=== PATIENT | female | born 1970 | race Caucasian/White ===

== ENCOUNTER 2017-06-28 15:19 | Outpatient (RCR) | payer BC, SELFPAY | END 2017-06-29 23:59 | LOC: NS 15:19 | PROVIDERS: Family Provider Preventive Medicine Occupational Medicine; PCP Preventive Medicine Occupational Medicine; Visit Provider Preventive Medicine Occupational Medicine | DX: E66.9 Obesity, unspecified (principal); Z68.37 Body mass index [BMI] 37.0-37.9, adult; Z71.3 Dietary counseling and surveillance | CPT/HCPCS: 97802 ==

== ENCOUNTER 2017-07-26 09:37 | Outpatient (RCR) | payer BC, SELFPAY | END 2017-07-26 09:38 | LOC: NS 09:37 | PROVIDERS: Family Provider Preventive Medicine Occupational Medicine; PCP Preventive Medicine Occupational Medicine; Visit Provider Preventive Medicine Occupational Medicine | DX: E66.9 Obesity, unspecified (principal); Z68.37 Body mass index [BMI] 37.0-37.9, adult; Z71.3 Dietary counseling and surveillance | CPT/HCPCS: 97803 ==

== ENCOUNTER → 2017-10-01 07:29 | Outpatient (CLI) | payer BC, SELFPAY ==
[2017-10-01 08:44] LABS: Cholesterol 165 mg/dL (200); Glucose 97 mg/dL (74-106); High Density Lipoprotein 49 mg/dL; Triglycerides 137 mg/dL; Very Low Density Lipoprotein 27 mg/dL (5-40)
== END ==
PROVIDERS: Family Provider Preventive Medicine Occupational Medicine; PCP Preventive Medicine Occupational Medicine; Visit Provider Preventive Medicine Occupational Medicine
DX: Z00.00 Encounter for general adult medical examination without abnormal findings (principal)
CPT/HCPCS: 36415; 80061; 82947

== ENCOUNTER → 2017-12-22 10:17 | Outpatient (CLI) | payer BC, SELFPAY ==
--- NOTE | 2017-12-22 10:21 | BI_ITS ---
MAMMOGRAPHY - BILATERAL SCREENING 3-D TOPHER SYNTHESIS REASON FOR EXAM: Female, 47 years old. Bilateral Screening 3-D tomosynthesis PERTINENT HISTORY: Grandmother with breast cancer.. TECHNIQUE: 2-D mammograms and 3-D Topher synthesis of the breast (s) were performed. CAD was performed. COMPARISON: 12/13/2016 FINDINGS: The breast composition is composed of scattered fibroglandular density. Scattered benign calcifications are seen. No dense spiculated masses or suspicious microcalcifications are identified. No architectural distortion is identified. There is no skin thickening or retraction. There has been no significant change since the prior study. BI/SCREENING MAMM (CAD), BILAT IMPRESSION: No mammographic signs of malignancy. Routine yearly mammograms recommended. ASSESSMENT CATEGORY: BIRADS Category 1: Negative. A letter regarding these results will be sent to the patient by the facility within 30 days. FOLLOW UP RECOMMENDATION: Yearly follow up mammogram recommended. (A) Approximately 10% of breast cancers are not detected by mammography. A normal mammogram should not delay biopsy of a clinically suspicious abnormality. Electronically Signed: Smith Velazquez MD at 14:08 EDT , Service support ,
== END ==
PROVIDERS: Family Provider Preventive Medicine Occupational Medicine; PCP Preventive Medicine Occupational Medicine; Visit Provider Obstetrics & Gynecology
DX: Z12.31 Encounter for screening mammogram for malignant neoplasm of breast (principal)
CPT/HCPCS: 77063; 77067

== ENCOUNTER → 2019-01-05 | Outpatient (CLI) | payer OTHER, SELFPAY ==
--- NOTE | 2019-01-05 10:20 | BI_ITS ---
MAMMOGRAPHY - BILATERAL SCREENING REASON FOR EXAM: Female, 48 years old. Routine annual screening examination. PERTINENT HISTORY: Grandmother with breast cancer. TECHNIQUE: Digital bilateral breast topher (3D mammographic acquisition) in the CC and MLO projections. 2-D mediolateral oblique (MLO) and craniocaudad (CC) views of both breasts were obtained. CAD: Full Field Digital Mammography with Computer Added Detection was performed. COMPARISON: Comparison is made with prior study dated December 22, 2017 and December 13, 2016. FINDINGS: Breast Composition: There are scattered areas of fibroglandular density. There are no dominant masses or suspicious calcifications. No other significant abnormalities are identified. There has been no significant change since the prior study. BI/SCREEN MAMM (CAD) W/TOPHER BILAT IMPRESSION: Stable bilateral screening mammogram. Yearly follow-up mammogram recommended. (A) ASSESSMENT CATEGORY: BIRADS Category 1: Negative. A letter regarding these results will be sent to the patient by the facility within 30 days. Approximately 10% of breast cancers are not detected by mammography. A normal mammogram should not delay biopsy of a clinically suspicious abnormality. [id number] Electronically Signed: Cordell Crain, at 12:56 EDT , Service support ,
== END | disposition home or self-care (01) ==
PROVIDERS: Family Provider Preventive Medicine Occupational Medicine; PCP Preventive Medicine Occupational Medicine; Referring Provider Obstetrics & Gynecology; Visit Provider Obstetrics & Gynecology
DX: Z12.31 Encounter for screening mammogram for malignant neoplasm of breast (principal)
CPT/HCPCS: 77063; 77067

== ENCOUNTER → 2019-02-06 15:57 | Outpatient (CLI) | payer OTHER, SELFPAY ==
[2019-02-06 16:28] LABS: Absolute Lymphocyte Count 2.08 X10^3/uL (0.83-4.51); Absolute Neutrophil Count 6.1 X10^3/uL (2.0-7.7); Basophil# 0.03 X10^3/uL; Basophil% 0.3 % (0-1); Eosinophil# 0.14 X10^3/uL; Eosinophils% 1.6 % (0-5); Hematocrit 41.7 % (37-47); Hemoglobin 13.2 g/dL (12.0-15.0); Lymphocyte # 2.08 X10^3/ul (4.0); Lymphocyte % 23.1 % (19-41); Mean Corp Hgb Conc 31.7 g/dL (32-36); Mean Corpuscular Hgb 28.2 pg (27.0-32.0); Mean Corpuscular Volume 89.1 fL (81-99); Mean Platelet Vol. 10.8 fl (6.2-12.0); Monocyte# 0.63 X10^3/uL; NRBC Flagged by Analyzer 0 % (0-5); Neutrophil # 6.08 X10^3/uL (2.7-7.7); Neutrophil % 67.7 % (47-70); Platelet Count 297 K/mm3 (150-450); RBC Distribution Width CV 12.6 % (11.6-14.6); RBC Distribution Width SD 41.2 fl (35.1-43.9); Red Blood Count 4.68 M/mm3 (4.2-5.4)
[2019-02-06 16:54] LABS: ALB/GLOB Ratio 0.9 RATIO (0.9-2.4); AST(SGOT) 15 U/L (15-37); Alanine Aminotransfer ALT/SGPT 20 U/L (13-56); Albumin, Serum 3.6 g/dL (3.2-5.0); Alkaline Phosphatase 108 U/L (45-117); Anion Gap 5 (5-15); BUN 12 mg/dL (7-18); BUN/Creat Ratio 11.7 RATIO (10-20); Calcium,Total 9.1 mg/dL (8.5-10.1); Chloride 109 mmol/L (98-107); Creatinine, Serum 1.03 mg/dL (0.55-1.02); EST Glomerular Filtration Rate 60 mL/min (>60); Est Glom Filt Rate - Afr Amer 73 mL/min (>60); Glucose 85 mg/dL (74-106); Lipase 135 U/L (73-393); Potassium 3.8 mmol/L (3.5-5.1); Protein, Total 7.6 g/dL (6.4-8.2); Sodium Level 143 mmol/L (136-145)
== END ==
PROVIDERS: Family Provider Preventive Medicine Occupational Medicine; PCP Preventive Medicine Occupational Medicine
DX: R11.0 Nausea (principal)
CPT/HCPCS: 36415; 80053; 83690; 85025

== ENCOUNTER → 2019-02-10 10:22 | Outpatient (CLI) | payer OTHER, SELFPAY ==
--- NOTE | 2019-02-10 10:16 | US_ITS ---
STUDY: ABDOMINAL ULTRASOUND - RIGHT UPPER QUADRANT REASON FOR VISIT: Female, 48 years old Nausea TECHNIQUE: Ultrasound evaluation of the right upper quadrant was performed with real-time and static abdullahi-scale imaging. TECHNICAL QUALITY: Adequate. COMPARISON: None. FINDINGS: Liver: The liver measures 14 cm. There is increased echogenicity of the liver. The bile ducts are within normal limits. There is hepatic color flow. The direction of portal flow is hepatopetal. There is no demonstrated mass lesion. Gallbladder: Normal distended gallbladder. The gallbladder wall measures 1.5 mm. There is a negative sonographic Brand's sign. There is no pericholecystic fluid. There are no gallstones. Common Bile Duct (C.B.D.): The common bile duct measures 2.6 mm. Pancreas: There is normal echogenicity of the pancreas. There is no demonstrated pancreatic mass or cyst. Right Kidney: Normal size of the right kidney. The right kidney measures 11.8 cm. Normal renal cortex. The right cortex measures 1.2 cm. There is no demonstrated renal mass or cyst. There is no right hydronephrosis. US/Abdomen Limited IMPRESSION: No gallstones or biliary obstruction. Increased echogenicity of the liver likely representing hepatic steatosis. Electronically Signed: Akash Joshi MD ([place]) at 18:12 EDT , Service support ,
== END ==
PROVIDERS: Family Provider Preventive Medicine Occupational Medicine; PCP Preventive Medicine Occupational Medicine
DX: R11.0 Nausea (principal)
CPT/HCPCS: 76705

== ENCOUNTER 2019-03-23 15:17 | Emergency (ER) | payer OTHER, SELFPAY ==
[2019-03-23 15:18] VITALS: BP 178/100; PULSE 78; RESP 15; TEMP 36.9; O2SAT 95; BMI 38.6
--- NOTE | 2019-03-23 15:30 | EKG12_ITS ---
Test Reason : CP Blood Pressure : / mmHG Vent. Rate : 075 BPM Atrial Rate : 075 BPM P-R Int : 144 ms QRS Dur : 090 ms QT Int : 392 ms P-R-T Axes : 052 006 014 degrees QTc Int : 437 ms Normal sinus rhythm RSR' or QR pattern in V1 suggests right ventricular conduction delay Borderline ECG Confirmed by URBAN BENAVIDES, OTIS ([id number]), sound editor RON WIGGINS ([id number]) on 03/27/2019 11:26:39 AM Referred By: ZORAIDA FINE Confirmed By:OTIS DUGGAN MD
--- NOTE | 2019-03-23 15:30 | RAD_ITS ---
STUDY: X-RAY CHEST REASON FOR EXAM: Female, 49 years old. Sharp chest pain TECHNIQUE: PA and lateral views of the chest. COMPARISON: 10/17/2015 FINDINGS: EKG leads overlie the chest The lungs are clear and expanded. There is no demonstrated pleural abnormality. Normal size heart. Normal mediastinum and angel. Normal visualized pulmonary arteries. Normal visualized aortic arch and descending thoracic aorta. Normal visualized thoracic spine. Normal visualized ribs, clavicles, and shoulders. There is no demonstrated abnormality of the visualized soft tissue structures of the upper abdomen. RAD/Chest 1 View (Portable) IMPRESSION: Normal x-ray examination of the chest. Electronically Signed: Smith Velazquez MD at 15:49 EDT , Service support ,
--- NOTE | 2019-03-23 15:31 | ED.DCSUM_ITS ---
History of Present Illness Chief Complaint: Chest Pain Informant: Patient Onset: Yesterday Timing: Waxes and wanes Current Severity: Mild Maximum Severity: Moderate Narrative: Patient presents with sharp pain in a band around her lower chest that started yesterday. The previous to that she had an EGD performed. She states there were 5 polyps removed. She is been having trouble with nausea and reflux. She states that the doctor who did her scope doubled her Nexium. She started noticing pain yesterday but is continued throughout today. She states the pain does get worse when she first gets hungry and does improve somewhat with food. She does describe the pain going through to her back. She continues to have nausea but no vomiting. She had some mild shortness of breath today. She denies any history of neck disease and she has no DVT risk factors. Past Medical History - Allergies and Home Meds Allergies/Adverse Reactions: Allergies lisinopril Allergy (Verified 03/23/19 15:18) Other doxycycline Adverse Reaction (Verified 10/18/15 00:07) Nausea Primary Care Physician: Jordin Dove DO [Primary Care Provider] - 3-5 Days if not improving Prior records reviewed: Yes Past Medical History: - - Reviewed Smoking Status: Never smoker Review of Systems General: Denies: Chills, Fever Eyes: Denies: Visual changes - bilaterally ENT: Denies: Bilateral ear pain Cardiovascular: Reports: Chest pain. Denies: Palpitations, Heart racing Respiratory: Reports: Dyspnea. Denies: Cough Gastrointestinal: Reports: Abdominal pain, Nausea. Denies: Vomiting, Diarrhea Genitourinary: Denies: Dysuria Musculoskeletal: Reports: Back pain Skin: Denies: Rash Neurological: Denies: Headache Endocrine: Denies: Polyuria, Polydipsia Hematologic: Denies: Easy bruising Allergy: Denies: Uticaria Physical Exam Vital Signs/Narrative: Vital Signs Temp Pulse Resp BP Pulse Ox 03/23/19 15:18 98.5 F 78 15 178/100 H 95 Inital Vital Signs reviewed: Yes General: Well nourished, Well developed Head: Normocephalic Eyes: Perrl, EOMI ENT: Moist mucous membranes Neck: Supple Cardiovascular: Regular rate, Regular rhythm Respiratory: No distress, CTA bilaterally Abdomen: Soft, Normal bowel sounds, Tender - Mild epigastric tenderness palpation.. Negative for: Guarding, Rebound tenderness Extremities: Nontender, No edema Skin: Normal color, No rash Neurological: Alert, Oriented x3 Psychological: Normal affect Diagnostic/Tx/Re-eval Impressions Chest X-Ray 03/23/19 15:30 IMPRESSION: Normal x-ray examination of the chest. Electronically Signed: Smith Velazquez MD at 15:49 EDT , Service support , 03/23/19 15:30 Chest 1 View (Portable) [RAD] Stat Laboratory Results 03/23/19 03/23/19 03/23/19 16:02 16:02 16:02 WBC 9.2 RBC 4.52 Hgb 12.9 Hct 39.5 MCV 87.4 MCH 28.5 MCHC 32.7 RDW Std Deviation 40.3 RDW Coeff of Geri 12.8 Plt Count 281 MPV 11.0 Immature Gran % (Auto) 0.200 Neut % (Auto) 64.0 Lymph % (Auto) 27.0 Allen % (Auto) 7.1 Eos % (Auto) 1.4 Baso % (Auto) 0.3 Absolute Neuts (auto) 5.9 Absolute Lymphs (auto) 2.49 Nucleated RBC % 0 Sodium 142 Potassium 3.8 Chloride 109 H Carbon Dioxide 29.0 Anion Gap 4 L BUN 12 Creatinine 0.90 Estim Creat Clear Calc 64.58 Est GFR (MDRD) Af Amer 85 Est GFR (MDRD) Non-Af 70 BUN/Creatinine Ratio 13.3 Glucose 91 Calcium 9.3 Total Bilirubin 0.30 Direct Bilirubin 0.08 AST 13 L ALT 19 Alkaline Phosphatase 94 Troponin I < 0.015 Total Protein 7.2 Albumin 3.6 Globulin 3.6 Lipase 211 - EKG Initial EKG Interpretation: Sinus Rhythm - Sinus at 75 with no acute ischemia. - Medical Decision Making Patient was given aspirin and a GI cocktail. On repeat evaluation she did report improvement. She stated that in the 10 or 15 minutes right before I came back in for re-eval she had 3 very brief episodes of pain, but much less than earlier. I went back and reviewed cardiac monitoring did not note any cardiac arrhythmias during this time period. Patient will be given Bentyl as she may be having some esophageal and stomach spasm. She will continue her Nexium. She is to follow-up with her doctor in [place]. ED Disposition - Plan for ED Patient: Disposition: Home or Assisted Living Diagnosis: Chest pain Instructions: CHEST PAIN, Uncertain Cause Prescriptions: Dicyclomine HCl [Bentyl] 20 mg PO TIDAC #20 cap Prescription Printed Referrals: Jordin Dove DO [Primary Care Provider] - 3-5 Days if not improving
[2019-03-23 16:14] LABS: Absolute Lymphocyte Count 2.49 X10^3/uL (0.83-4.51); Absolute Neutrophil Count 5.9 X10^3/uL (2.0-7.7); Basophil# 0.03 X10^3/uL; Basophil% 0.3 % (0-1); Eosinophil# 0.13 X10^3/uL; Eosinophils% 1.4 % (0-5); Hematocrit 39.5 % (37-47); Hemoglobin 12.9 g/dL (12.0-15.0); Lymphocyte # 2.49 X10^3/ul (4.0); Mean Corp Hgb Conc 32.7 g/dL (32-36); Mean Corpuscular Hgb 28.5 pg (27.0-32.0); Mean Corpuscular Volume 87.4 fL (81-99); Monocyte# 0.65 X10^3/uL; Monocyte% 7.1 % (0-10); NRBC Flagged by Analyzer 0 % (0-5); Neutrophil # 5.89 X10^3/uL (2.7-7.7); Platelet Count 281 K/mm3 (150-450); RBC Distribution Width CV 12.8 % (11.6-14.6); RBC Distribution Width SD 40.3 fl (35.1-43.9); Red Blood Count 4.52 M/mm3 (4.2-5.4); White Blood Count 9.2 K/mm3 (4.4-11.0)
[2019-03-23] MEDS: 0.9% Normal Saline 1,000 ML 150 ML IV (16:28)
[2019-03-23] MEDS: Aspirin 81 MG TAB.CHEW 324 MG PO (16:28)
[2019-03-23] MEDS: Mag Hydrox/Al Hydrox/Simeth 30 ML UDC PO (16:32)
[2019-03-23 16:36] LABS: AST(SGOT) 13 U/L (15-37); Alanine Aminotransfer ALT/SGPT 19 U/L (13-56); Albumin, Serum 3.6 g/dL (3.2-5.0); Alkaline Phosphatase 94 U/L (45-117); Bilirubin, Direct 0.08 mg/dL (0.00-0.30); Globulin 3.6 g/dL (2.2-4.2); Protein, Total 7.2 g/dL (6.4-8.2)
[2019-03-23 16:40] LABS: Anion Gap 4 (5-15); BUN 12 mg/dL (7-18); BUN/Creat Ratio 13.3 RATIO (10-20); Calcium,Total 9.3 mg/dL (8.5-10.1); Chloride 109 mmol/L (98-107); EST Glomerular Filtration Rate 70 mL/min (>60); Est Glom Filt Rate - Afr Amer 85 mL/min (>60); Estimated Creatinine Clearance 64.58 ml/min; Glucose 91 mg/dL (74-106); Lipase 211 U/L (73-393); Potassium 3.8 mmol/L (3.5-5.1); Sodium Level 142 mmol/L (136-145)
[2019-03-23 17:01] VITALS: BP 123/97; PULSE 68; RESP 18; O2SAT 96
[2019-03-23] MEDS: Dicyclomine 10 MG Capsule 20 MG PO (17:39)
[2019-03-23 17:40] VITALS: BP 139/84; RESP 68; TEMP -8.8; TEMP 16; O2SAT 98
== END 2019-03-23 17:41 | disposition home or self-care (01) ==
PROVIDERS: Emergency Provider Emergency Medicine; Family Provider Preventive Medicine Occupational Medicine; PCP Preventive Medicine Occupational Medicine
DX: R07.9 Chest pain, unspecified (principal); K21.9 Gastro-esophageal reflux disease without esophagitis; R06.02 Shortness of breath
CPT/HCPCS: 71045; 80048; 80076; 83690; 84484; 85025; 93005; 96360; 99285; J7030; A4216

== ENCOUNTER 2019-06-15 06:04 | Day surgery (SDC) | payer OTHER, SELFPAY ==
[2019-06-15] VITALS (7 sets, daily range): BP systolic 136–167; BP diastolic 76–92; PULSE 79–107; RESP 16; TEMP 36.1–37.1; O2SAT 64–96; BMI 39.0
[2019-06-15] MEDS: Lactated Ringers 1,000 ML 100 ML IV ×2 (06:53→09:33)
--- NOTE | 2019-06-15 07:20 | RAD_ITS ---
STUDY: X-RAY - RIGHT FOOT CLINICAL: Female, 49 years old. INTRA-OPERATIVE TENDON REPAIR TECHNIQUE: 6 cone-down intraoperative view(s) of the foot. COMPARISON: None. FINDINGS: Intraoperative imaging provided for tendon repair. RAD/Foot min 3 Views IMPRESSION: Intraoperative imaging provided for tendon repair. Electronically Signed: Cordell Crain, at 14:14 EST , Service support ,
[2019-06-15] MEDS: Cefazolin 2 GM in 0.9% Normal Saline 100 ML IV (07:27)
[2019-06-15] MEDS: Bupiv/Epi 0.5% Mpf 30 ML Vial (07:40)
--- NOTE | 2019-06-15 09:43 | PCM.OPRPT ---
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 calcaneal varus deformity right Post-Operative Diagnosis: same Surgery/Procedure Performed:: peroneal tenolysis/repair right foot. calcaneal osteotomy right foot. application posterior splint right leg Description of Surgical Findings:: Pt was brought the the OR and placed on the table in the supine position. 30 ml of marcaine with epinephrine as an ankle block. thigh tourniquet set at 300mmHG. normal sterile prep. curvileniar incision made along lateral calcaneal wall. sural nerve identified and retracted. incision through the peroneal retinaculum and tendon sheath as all of it was adhesed and bound down to inframalleolar groove. there was nonabsorbale suture identified. the peroneal tendons were intact but afunctional. the tendons were tenolysed from each other and the surrounding adhesed tissue. the peroneus longus now moved freely. the peroneus brevis was diminutive and dysfunctional but intact and mobile. the nonabsorbable suture was removed as much as needed. an incision was then carried through the lateral periosteum of the lateral calcaneal wall with minimal disection. a saw blade created a cut from medial to lateral complete. the posterior fragment was then rotated into a few degrees valgus compared to its varus position, elevated to resolved the high angle, and moved lateral 5mm roughly. percutaneous fixation was achieved with 4.0 cannulated 5mm long kaiser screws x 2. the wound was flushed with saline. the deep tissue repaired with 3.0 vicryl. the skin with 3.0 nylon. DSD and posterior splint applied. mini Peggy was used throughout the case to confirm position and placement of hardware.. touniquet deflated, full vasc status restored. bleeding controlled.
== END 2019-06-15 12:33 | disposition home or self-care (01) ==
LOC: SDC 06:05 → AC 06:06
PROVIDERS: Family Provider Preventive Medicine Occupational Medicine; PCP Preventive Medicine Occupational Medicine; Referring Provider Podiatrist Foot & Ankle Surgery; Visit Provider Podiatrist Foot & Ankle Surgery
PROC: (CPT 27680; principal; 2019-06-15 07:15)
DX: M76.71 Peroneal tendinitis, right leg (principal); M21.171 Varus deformity, not elsewhere classified, right ankle; I10 Essential (primary) hypertension; K21.9 Gastro-esophageal reflux disease without esophagitis; E78.00 Pure hypercholesterolemia, unspecified; F41.9 Anxiety disorder, unspecified; F32.9 Major depressive disorder, single episode, unspecified; G43.909 Migraine, unspecified, not intractable, without status migrainosus; Z79.899 Other long term (current) drug therapy
CPT/HCPCS: 01470; 27680; 28300; 73630; 76000; C1713; J7120

== ENCOUNTER → 2019-08-15 09:25 | Outpatient (CLI) | payer OTHER, SELFPAY ==
[2019-06-15 06:33] VITALS: BMI 39.0
--- NOTE | 2019-08-15 09:35 | MRI_ITS ---
STUDY: MRI BRAIN WITH AND WITHOUT CONTRAST (ATTENTION INTERNAL AUDITORY CANALS - I.A.C.''s) REASON FOR EXAM: Female, 49 years old. dizziness, tinnitus TECHNIQUE: Standardized multiplanar fat and water weighted pulse sequences were obtained. IV Yes YES was administered for the contrast portion of the examination. COMPARISON: None. FINDINGS: Normal bilateral temporal bones. Normal bilateral internal auditory canals. There is no demonstrated intracanalicular or cisternal vestibular schwannoma (acoustic neuroma). There is no enhancement of the bilateral VIIth or VIIIth cranial nerves. Normal bilateral cochlea, vestibules and semicircular canals. Normal size of the ventricles and extra-axial spaces for the patient''s age. Normal white matter tracts of the supratentorial brain. Normal bilateral basal ganglia. Normal thalami. Normal flow voids within the major intracranial circulation suggesting patency by spin echo criteria. Normal venous enhancement. There is no enhancing intra-axial or extra-axial abnormality. There is no extra-axial fluid accumulation. Normal sella turcica, pituitary gland, infundibular stalk, optic chiasm and hypothalamus. Normal tectal plate and pineal gland. Normal midbrain, aston and medulla. Normal cerebellum. Normal basal cisterns. No demonstrated orbital abnormality, within the constraints of a routine brain study. Normal visualized paranasal sinuses. Normal calvarium and skull base. Normal visualized soft tissue structures. Normal visualized upper cervical spine. MRI/Brain W/WO Contrast IMPRESSION: Normal unenhanced and enhanced MRI of the bilateral internal auditory canals (I.A.C''s). Electronically Signed: Aurea Lux MD at 10:52 EDT Tel , Service support ,
== END ==
PROVIDERS: PCP Preventive Medicine Occupational Medicine; Referring Provider Preventive Medicine Occupational Medicine; Visit Provider Preventive Medicine Occupational Medicine
DX: R42 Dizziness and giddiness (principal)
CPT/HCPCS: 70553; A9575

== ENCOUNTER → 2020-02-21 07:53 | Outpatient (CLI) | payer OTHER, SELFPAY ==
[2019-06-15 06:33] VITALS: BMI 39.0
--- NOTE | 2020-02-21 07:55 | BI_ITS ---
MAMMOGRAPHY - BILATERAL SCREENING REASON FOR EXAM: Female, 49 years old. Routine annual screening examination. PERTINENT HISTORY: Grandmother with breast cancer. TECHNIQUE: Digital bilateral breast topher (3D mammographic acquisition) in the CC and MLO projections. 2-D mediolateral oblique (MLO) and craniocaudad (CC) views of both breasts were obtained. CAD: Full Field Digital Mammography with Computer Added Detection was performed. COMPARISON: Comparison is made with prior study dated 01/05/2019 and 12/22/2017. FINDINGS: Breast Composition: There are scattered areas of fibroglandular density. There are no dominant masses or suspicious calcifications. No other significant abnormalities are identified. There has been no significant change since the prior study. BI/SCREEN MAMM (CAD) W/TOPHER BILAT IMPRESSION: Stable bilateral screening mammogram. Yearly follow-up mammogram recommended. (A) ASSESSMENT CATEGORY: BIRADS Category 1: Negative. A letter regarding these results will be sent to the patient by the facility within 30 days. Approximately 10% of breast cancers are not detected by mammography. A normal mammogram should not delay biopsy of a clinically suspicious abnormality. [id number] Electronically Signed: Cordell Crain, at 8:41 EDT , Service support ,
== END ==
PROVIDERS: PCP Preventive Medicine Occupational Medicine; Referring Provider Student in an Organized Health Care Education/Training Program; Visit Provider Student in an Organized Health Care Education/Training Program
DX: Z12.31 Encounter for screening mammogram for malignant neoplasm of breast (principal)
CPT/HCPCS: 77063; 77067

== ENCOUNTER → 2020-07-29 15:26 | Outpatient (CLI) | payer OTHER, SELFPAY ==
[2019-06-15 06:33] VITALS: BMI 39.0
--- NOTE | 2020-07-29 15:31 | MRI_ITS ---
STUDY: MRI BRAIN WITH AND WITHOUT CONTRAST REASON FOR EXAM: Female, 50 years old. VERTIGO,DIZZINESS,GIDDINESS TECHNIQUE: Standardized multiplanar fat and water weighted pulse sequences were obtained. IV Yes YES was administered for the contrast portion of the examination. COMPARISON: MRI of the brain 08/15/2019 FINDINGS: Normal size of the ventricles and extra-axial spaces for the patient''s age. Normal white matter tracts of the supratentorial brain. Normal bilateral basal ganglia. Normal thalami. There is no extra-axial fluid accumulation. Normal flow voids within the major intracranial circulation suggesting patency by spin echo criteria. Normal venous enhancement. There is no enhancing intra-axial or extra-axial abnormality. Normal sella turcica, pituitary gland, infundibular stalk, optic chiasm and hypothalamus. Normal tectal plate and pineal gland. Normal midbrain, aston and medulla. Normal cerebellum. Normal basal cisterns. Normal bilateral temporal bones. Normal bilateral internal auditory canals. No demonstrated orbital abnormality, within the constraints of a routine brain study. Normal visualized paranasal sinuses. Normal calvarium and skull base. Normal visualized soft tissue structures. Normal visualized upper cervical spine. MRI/Brain W/WO Contrast IMPRESSION: Normal unenhanced and enhanced MRI of the brain. Electronically Signed: Cheikh Ruiz MD at 17:26 EST , Service support ,
== END ==
PROVIDERS: PCP Preventive Medicine Occupational Medicine; Referring Provider Psychiatry & Neurology Neurology; Visit Provider Psychiatry & Neurology Neurology
DX: R42 Dizziness and giddiness (principal)
CPT/HCPCS: 70553; A9575

== ENCOUNTER 2020-09-13 02:59 | Emergency (ER) | payer OTHER, SELFPAY ==
[2019-06-15 06:33] VITALS: BMI 39.0
[2020-09-13 03:00] VITALS: BP 186/133; PULSE 87; RESP 18; TEMP 36.4; O2SAT 100; BMI 39.9
--- NOTE | 2020-09-13 03:12 | ED.VIS.GEN ---
History of Present Illness Chief Complaint: Nosebleed Informant: Patient Onset: Today Current Severity: - - Resolved Maximum Severity: Moderate Narrative: Patient presents secondary to nosebleed. Patient states that she was up at [place] for the past week with her grandchild. Patient became congested and was told she likely picked up something from the hospital. Today before bed she had episode of diarrhea. She woke from sleep this morning with what she thought was a runny nose. Turned out she had a nosebleed. She was able to hold pressure and get it to resolve. She states that she felt like she had a clot or something in her throat and when EMS was transporting the patient she feels like she swallowed it. Patient denies any facial trauma. She is not on blood thinners. - Past Medical History (1) GERD (gastroesophageal reflux disease) Status: Chronic Past Medical History - Allergies and Home Meds Allergies/Adverse Reactions: Allergies lisinopril Allergy (Verified 09/13/20 03:03) Other doxycycline Adverse Reaction (Verified 09/13/20 03:03) Nausea Primary Care Physician: Tree Garcia MD [STAFF PHYSICIAN] - As Needed Jordin Dove DO [Primary Care Provider] - As Needed Prior records reviewed: Yes Lives: Spouse/ Significant Other Smoking Status: Never smoker Review of Systems General: Denies: Chills, Fever Eyes: Denies: Visual changes - bilaterally ENT: Reports: - - Congestion and nosebleed Cardiovascular: Denies: Chest pain Respiratory: Denies: Dyspnea, Cough Gastrointestinal: Denies: Abdominal pain, Nausea, Vomiting, Diarrhea Genitourinary: Denies: Dysuria Musculoskeletal: Denies: Swelling, Extremity Pain Skin: Denies: Rash Neurological: Denies: Headache Hematologic: Denies: Easy bruising, Easy bleeding Allergy: Denies: Uticaria Physical Exam Vital Signs/Narrative: Vital Signs Temp Pulse Resp BP Pulse Ox 09/13/20 03:00 97.6 F L 87 18 186/133 H 100 Inital Vital Signs reviewed: Yes General: Well nourished, Well developed Head: Normocephalic Eyes: Perrl, EOMI ENT: - - Swollen bilateral nasal turbinates. No blood noted in the nares. Dried blood noted to the posterior tongue. Neck: Supple Cardiovascular: Regular rate, Regular rhythm Respiratory: No distress, CTA bilaterally Abdomen: Soft, Nontender Extremities: Nontender Skin: Normal color Neurological: Alert, Oriented x3 Psychological: Normal affect Diagnostic/Tx/Re-eval - Medical Decision Making Covid swab was obtained and negative. Patient has had no further nasal bleeding while here. She was given Afrin spray. We discussed nosebleeds and how to treat this at home if she has any recurrent bleeding. Repeat blood pressure is 157/90. Patient is comfortable with monitoring her symptoms at home. ED Disposition - Plan for ED Patient: Disposition: Home or Assisted Living Diagnosis: Epistaxis Instructions: ED Epistaxis (Adult) Referrals: Jordin Dove DO [Primary Care Provider] - As Needed Tree Garcia MD [STAFF PHYSICIAN] - As Needed
[2020-09-13] MEDS: Oxymetazoline 0.05% 1 SPRAY SPRAY.BTL 2 SPRAY NASAL (03:21)
[2020-09-13 04:21] VITALS: BP 185/100; PULSE 86; RESP 18; O2SAT 97
== END 2020-09-13 04:26 | disposition home or self-care (01) ==
PROVIDERS: Emergency Provider Emergency Medicine; PCP Preventive Medicine Occupational Medicine
DX: R04.0 Epistaxis (principal); R09.81 Nasal congestion; K21.9 Gastro-esophageal reflux disease without esophagitis
CPT/HCPCS: 87426; 99283

== ENCOUNTER → 2021-02-26 10:02 | Outpatient (CLI) | payer OTHER, SELFPAY ==
[2021-02-26 10:54] LABS: BNP,B-Type NATRIURETIC PEPTIDE 6.7 pg/mL (0-100)
[2021-02-26 10:56] LABS: D-Dimer Quantitative (DVT/PE) 0.44 FEU/ug/m (0.27-0.49)
[2021-02-26 10:57] LABS: Vitamin D,25 Hydroxy 21.1 ng/mL
== END ==
PROVIDERS: PCP Preventive Medicine Occupational Medicine
DX: R07.9 Chest pain, unspecified (principal); I10 Essential (primary) hypertension; E78.5 Hyperlipidemia, unspecified; R00.2 Palpitations
CPT/HCPCS: 36415; 82306; 83880; 85379

== ENCOUNTER → 2021-05-08 08:27 | Outpatient (CLI) | payer OTHER, SELFPAY ==
--- NOTE | 2021-05-08 08:29 | BI_ITS ---
MAMMOGRAPHY - BILATERAL SCREENING REASON FOR EXAM: Female, 51 years old. Routine annual screening examination. PERTINENT HISTORY: Grandmother with breast cancer. TECHNIQUE: Digital bilateral breast topher (3D mammographic acquisition) in the CC and MLO projections. 2-D mediolateral oblique (MLO) and craniocaudad (CC) views of both breasts were obtained. CAD: Full Field Digital Mammography with Computer Added Detection was performed. COMPARISON: Comparison is made with prior study dated 02/21/2020 and 01/05/2019. FINDINGS: Breast Composition: There are scattered areas of fibroglandular density. There are no dominant masses or suspicious calcifications. No other significant abnormalities are identified. There has been no significant change since the prior study. BI/SCRN MAMM (CAD)W/TOPHER BILAT IMPRESSION: Stable bilateral screening mammogram. Yearly follow-up mammogram recommended. (A) ASSESSMENT CATEGORY: BIRADS Category 1: Negative. A letter regarding these results will be sent to the patient by the facility within 30 days. Approximately 10% of breast cancers are not detected by mammography. A normal mammogram should not delay biopsy of a clinically suspicious abnormality. [id number] Electronically Signed: Cordell Crain MD at 9:30 EST , Service support ,
== END ==
PROVIDERS: PCP Preventive Medicine Occupational Medicine; Referring Provider Student in an Organized Health Care Education/Training Program; Visit Provider Student in an Organized Health Care Education/Training Program
DX: Z12.31 Encounter for screening mammogram for malignant neoplasm of breast (principal)
CPT/HCPCS: 77063; 77067

== ENCOUNTER → 2021-06-17 12:58 | Outpatient (CLI) | payer OTHER, SELFPAY ==
[2021-06-17 13:33] LABS: Absolute Lymphocyte Count 2.53 X10^3/uL (0.83-4.51); Absolute Neutrophil Count 4.6 X10^3/uL (2.0-7.7); Basophil# 0.04 X10^3/uL; Basophil% 0.5 % (0-1); Eosinophil# 0.11 X10^3/uL; Eosinophils% 1.4 % (0-5); Hematocrit 40.3 % (37-47); Hemoglobin 13.3 g/dL (12.0-15.0); Lymphocyte # 2.53 X10^3/ul (0.83-4.51); Lymphocyte % 32.1 % (19-41); Mean Corpuscular Hgb 29.4 pg (27.0-32.0); Mean Corpuscular Volume 89.2 fL (81-99); Monocyte# 0.53 X10^3/uL; Monocyte% 6.7 % (0-10); NRBC Flagged by Analyzer 0 % (0-5); Neutrophil # 4.63 X10^3/uL (2.7-7.7); Neutrophil % 58.9 % (47-70); Platelet Count 311 K/mm3 (150-450); RBC Distribution Width CV 12.8 % (11.6-14.6); RBC Distribution Width SD 41.6 fl (35.1-43.9); Red Blood Count 4.52 M/mm3 (4.2-5.4); White Blood Count 7.9 K/mm3 (4.4-11.0)
[2021-06-17 14:19] LABS: ALB/GLOB Ratio 0.9 RATIO (0.9-2.4); AST(SGOT) 21 U/L (15-37); Alanine Aminotransfer ALT/SGPT 20 U/L (13-56); Albumin, Serum 3.4 g/dL (3.2-5.0); Alkaline Phosphatase 91 U/L (45-117); Anion Gap 6 (5-15); BUN 12 mg/dL (7-18); BUN/Creat Ratio 13.2 RATIO (10-20); Calcium,Total 9.2 mg/dL (8.5-10.1); Chloride 107 mmol/L (98-107); Creatinine, Serum 0.91 mg/dL (0.55-1.02); EST Glomerular Filtration Rate 69 mL/min (>60); Est Glom Filt Rate - Afr Amer 84 mL/min (>60); Globulin 3.9 g/dL (2.2-4.2); Glucose 113 mg/dL (74-106); Lipase 104 U/L (73-393); Potassium 3.8 mmol/L (3.5-5.1); Protein, Total 7.3 g/dL (6.4-8.2); Sodium Level 141 mmol/L (136-145)
== END ==
PROVIDERS: PCP Preventive Medicine Occupational Medicine
DX: R10.84 Generalized abdominal pain (principal)
CPT/HCPCS: 36415; 80053; 83690; 85025

== ENCOUNTER 2021-09-17 09:00 | Outpatient (CLI) | payer OTHER, SELFPAY | END 2021-09-17 23:59 | disposition home or self-care (01) | LOC: SL 09:15 | PROVIDERS: PCP Preventive Medicine Occupational Medicine; Visit Provider Preventive Medicine Occupational Medicine | DX: G47.9 Sleep disorder, unspecified (principal) | CPT/HCPCS: 95806 ==

== ENCOUNTER 2022-04-09 08:02 | Day surgery (SDC) | payer OTHER, SELFPAY ==
--- NOTE | 2022-04-08 23:07 | HP.PCM_ITS ---
History and Physical Date of Admission: 04/09/22 HISTORY OF PRESENT ILLNESS 52 year old female presents with concerns regarding a soft tissue mass right proximal anterior leg/inferior knee that has been enlarging in size over the last several months.? She first noticed the soft tissue mass a couple years ago.? She has started to have issues with her pants fitting tight over this area.? She denies any falls or trauma to the area.? Denies infection.? Denies any bleeding. ? She denies any pain but is having discomfort when her clothes compress on it.? Ultrasound was done on 08/06/21, which showed no cystic or solid soft tissue mass, normal subcutaneous tissue.? Clinical follow-up and assessment needed. ? She comes in today for further evaluation and treatment. PAST MEDICAL HISTORY Anxiety and depression Back problem calcaneal varus deformity Chronic bronchitis Dysesthesia Frequent headaches Gastrointestinal problem GERD (gastroesophageal reflux disease) Hyperhomocysteinemia Mass of right lower leg Obesity peroneal tendonopathy UTI (urinary tract infection) Vitamin deficiency PAST SURGICAL HISTORY colonoscopy hysterectomy tendon repair ALLERGIES lisinopril doxycycline MEDICATIONS atorvastatin valsartan alprazolam celecoxib valacyclovir esomeprazole magnesium ferrous sulfate fluticasone propionate nasal spray rimegepant rizatriptan solifenacin FAMILY HISTORY Father - Heart disease, Hypertension Other - Anesthesia complication, Angina at rest, Anxiety, Arthritis, Breast cancer, CVA (cerebral vascular accident), Depression, High cholesterol SOCIAL HISTORY Smoking Status:? Never smoker alcohol intake:? never substance use type:? does not use REVIEW OF SYSTEMS General - Denies fever, fatigue, and weight loss. Eyes - Denies cataracts and glaucoma. ENT - Denies nasal congestion and sore throat. History of seasonal allergies. Endocrine - Denies excessive thirst and urination. Skin - Denies skin cancer.? There is an enlarging soft tissue mass right proximal anterior leg/inferior knee. Musculoskeletal - Denies joint pain, joint stiffness, weakness of muscles and joints, back pain, and arthritis. Neuro - History of headaches. Cardiovascular - Denies chest pain, fatigue, and shortness of breath with exertion. History of HTN, and increased cholesterol. Psych - Has a history of anxiety and depression. Respiratory - Denies chronic cough and shortness of breath. Gastrointestinal - Denies nausea, vomiting, diarrhea, and constipation. Hematologic - Denies abnormal bruising and bleeding. Genitourinary - Denies hematuria and urinary frequency. PHYSICAL EXAMINATION General - Alert and oriented. HEENT - PERRL. EOMI. Throat is clear.? No suspicious lesions noted. Neck - Supple and non-tender.? No cervical adenopathy.? No suspicious lesions noted. Lungs- Clear to auscultation. Heart - Regular rate and rhythm. Abdomen - Soft and non distended. ? No suspicious lesions noted. Extremities - FROM. No axillary adenopathy.? Radial pulses are palpable.? No right inguinal adenopathy. ?On the proximal anterior aspect right leg with extension to inferior knee is a soft tissue mass cluster.? Measures 17.5 x 17 cm. The mass is mobile and clinically doesn't adhere to the underlying muscle and doesn't adhere to the overlying skin.? No evidence of infection. Mild tenderness to deep palpation.? She can flex and extend her knee without difficulty.? Denies numbness in the area of the soft tissue mass. Neuro - CN II-XII grossly intact. ? Psych - Normal mood and affect. ASSESSMENT 17.5 cm painful soft tissue mass right proximal anterior leg. PLAN Ultrasound reviewed.? Clinically the mass is consistent with a lipoma. ? It is recommended to the patient to have this enlarging painful soft tissue mass excised and sent to Pathology for analysis to rule out carcinoma. ? Due to the residual large cavity that will be present after the excision, a drain will be placed for 7-10 days. To help minimize seroma after surgery, will place Tomás absorbable hemostat. Will also need an JOHNNY wrap for compression after surgery which should minimize swelling and also minimize a seroma formation. To help in feathering out the edges of the wound, may use some power assisted lipoplasty, if needed, since I will be feathering out the edges under direct vision. Surgery will be done under general anesthesia on an outpatient basis. Patient was informed of the risks and complications of the procedure including alternatives to surgery.? These were discussed with the patient personally.? Patient voices understanding and wishes to proceed. Some of the risks and complications were included in a form from the [place] [employer].
[2022-04-09] VITALS (10 sets, daily range): BP systolic 121–153; BP diastolic 76–85; PULSE 73–112; RESP 16–18; TEMP 36.2–37; O2SAT 92–99; BMI 39.0
--- NOTE | 2022-04-09 | MASS_PTH ---
PATIENT: FRANKY BOYD [place] [facility] [id number] AGE/SX: 52/F ROOM: RE04/09/[address]: Dr. Antonio Nair MD : 1970 BED: DIS: 04/09/2022 SPEC #: [id number] RECD: 04/09/22 15:39 STATUS: PRITI REQ #: [id number] RACHNA: 04/09/22 00:[address]: Antonio Nair DEPT: SURGICAL PATHOLOGY RECD BY: Luis Arzate ENTERED: 04/12/22 09:38 SP TYPE: Mass OTHR DR: Dr. Jordin Dove, Tissues: Leg, NOS Procedures: Surgery Specimen Level IV HEADER OPERATION: Excision, soft tissue mass, anterior proximal, leg PRE-OP DIAGNOSIS: Painful soft tissue mass 17.5 cm, right proximal anterior leg TISSUE SUBMITTED: Right lower leg soft tissue mass MICROSCOPIC DIAGNOSIS Right lower leg soft tissue mass, biopsy: Mature adipose tissue, consistent with lipoma. /SJ 04/13/22 MICROSCOPIC DESCRIPTION Slides are reviewed. GROSS DESCRIPTION Received is one container labeled with the patient name and designated right lower left soft tissuue mass. The specimen consists of two irregular piece of adipose tissue measuring 17 x 8 x 4 cm and 6 x 2.5 x 3 cm. Sections reveal yellow adipose cut surfaces without areas of hemorrhage, necrosis or cystic degeneration. Master Of Ceremonies sections are submitted in four cassettes. /ROMAIN:micki 04/12/22 TC:1 [facility]:[id number]
[2022-04-09] MEDS: Lactated Ringers 1,000 ML 15 ML IV ×2 (08:20→11:00)
[2022-04-09] MEDS: Cefazolin 2 GM in 0.9% Normal Saline 100 ML IV (09:43)
[2022-04-09] MEDS: Lidocaine 2% /Epi 1:100 (20ml) 20 ML VIAL (09:43)
[2022-04-09] MEDS: Mupirocin Ointment 22gm Tube 1 APPLIC (11:24)
--- NOTE | 2022-04-09 11:34 | PCM.OPRPT ---
Problems Associated Problem List Diagnoses (1) Mass of right lower leg: (2) Dysesthesia: Report of Operation Date of Procedure: 04/09/22 Pre-Operative Diagnosis: 17.5 cm painful soft tissue mass right proximal anterior leg. Post-Operative Diagnosis: 17.5 cm painful subfascial soft tissue mass right proximal anterior leg. Surgery/Procedure Performed:: Excision 17.5 cm painful subfascial soft tissue mass right proximal anterior leg with 11 cm complex closure repair. Description of Surgical Findings:: 51 year old female presents with concerns regarding a soft tissue mass right proximal anterior leg/inferior knee that has been enlarging in size over the last several months.? She first noticed the soft tissue mass a couple years ago.? She has started to have issues with her pants fitting tight over this area.? She denies any falls or trauma to the area.? Denies infection.? Denies any bleeding. ? She denies any pain but is having discomfort when her clothes compress on it.? Ultrasound was done on 08/06/21, which showed no cystic or solid soft tissue mass, normal subcutaneous tissue.? Clinical follow-up and assessment needed. ? She comes in today for further evaluation and treatment. Patient was informed of the risks and complications of the procedure including alternatives to surgery. These were discussed with the patient personally. Patient voices understanding and wishes to proceed. Some of the risks and complications were included in a form from the [employer] [place] [employer]. I used Tomás absorbable hemostat, (I used 2 vials). Reference Number - [id number]. Lot Number - [id number]. Expiration - November 24, 2026. Reference Number - [id number]. Lot Number - [id number]. Expiration - December 24, 2026. Surgeon: Antonio Nair golf course patroller: Maria Burger RNFA. Type of Anesthesia: General Anesthesiologist: Tree Hall MD and Deo Washington CRNA. Specimen's removed: Painful subfascial soft tissue mass right proximal anterior leg to Pathology. Drains: Agus. Estimated Blood Loss (mL): 150. Description of Procedure: Patient was taken to OR in supine position and was placed under general anesthesia.? The painful soft tissue mass right proximal anterior leg was prepped and draped in the usual fashion.? SCD's were placed for DVT prophylaxis.? Perioperative antibiotics were given intravenously.? A longitudinal curvilinear marking was made over the mass on the right proximal anterior leg up toward the knee.? Using xylocaine with epinephrine, the marking was infiltrated.? After waiting 5 minutes for the anesthetic to take effect, incision was made into the subcutaneous tissue until the level of Lashanda's fascia.? The fascia was slightly thickened.? Incision was made and the soft tissue mass was visible.? Fibrous septa was noted throughout? the soft tissue mass which could explain some of the pain.? The soft tissue mass was sharply dissected at the level of Lashanda's fascia down to the muscular fascia. The mass was adherent to the fascia.? No deeper infiltration into the muscle was noted.? Using sharp dissection, the mass was excised off the muscular fascia as the fibrous septa were released and sent to Pathology for analysis to rule out carcinoma.? Hemostasis was obtained with electrocautery.? The wound was irrigated with saline.? I was able to do direct excision feathering at the edges of the wound, so no additional feathering with power assisted lipoplasty was needed at this time.? A size 15 Agus drain was placed into the wound through a separate stab incision inferiorly and secured to the skin with 3-0 Nylon purse string suture.? I sprayed the wound with Tomás absorbable hemostat to minimize seroma formation.? I used two vials of Tomás. Hemostasis was obtained with electrocautery. The wound was then closed in a multilayered complex closure with 3-0 Monocryl figure of eight interrupted sutures for the deep Lashanda's fascia.? The deep dermis and subcutaneous tissue was approximated with 3-0 Monocryl interrupted sutures.? The skin was approximated with 3-0 Prolene simple interrupted and vertical mattress interrupted sutures.? Antibiotic ointment was applied to the incision followed by Kerlix gauze dressing and a compression juliette wrap.? The length of the complex closure repair was 11 cm. Patient tolerated the procedure well and was sent to PACU in satisfactory condition.? Patient will be sent home on antibiotics and pain medication.?She will keep her right leg elevated when sitting during the initial postoperative period. She can ambulate, but will minimize standing around. Patient will followup in a week for a wound check and for discussion of the pathology report.? Will remove the drain in approximately 10 days.? Will remove the sutures in 2 weeks. ? Grafts/Implants Used: Tomás. Procedure Start Time: 10:02 Procedure Stop Time: 11:41 Complications None. Admit VTE Documentation VTE Present on Admission: No VTE Mechan Device Prophylaxis: SCD's VTE Pharm Prophylaxis ordered?: No Addendum Addendum: Surgery Charges CPT - 23668 ICD-10 - R22.41, R20.8 78937 R22.41, R20.8 57926 R22.41, R20.8
--- NOTE | 2022-04-09 11:38 | DCINST_ITS ---
Discharge Instructions Diet Discharge Diet: No restrictions Activity Discharge Activity: May Not Drive (unless done with pain medication.), May Shower (place plastic bag over right leg when showering.) and - (keep right leg elevated when sitting. 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 during the day.) May shower in (days): 1 (place plastic bag over right leg when showering.) May resume sexual activity in: 10-14 days (after drain is removed.) Weight Bearing Status: Weight bearing as tolerated Keep extremity elevated above heart level: Right Leg Dressing / Incision Call your doctor if your incision/area has: Continuous Slow Oozing, Sudden Increased Bleeding, Increased Pain/ Swelling, Increased Redness, Foul Smelling Discharge and Swelling at the incision site Call your doctor if you observe: Fever of 101 or Higher, Coldness, Increased Pain, Shortness of breath, Chest pain, Calf discomfort and Uncontrolled pain Change Dressing in: leave in place till F/U (will remove the operative dressing in the office. If the juliette is too tight causing pain, may remove the juliette wrap and reapply it a litlle looser. If patient gets swelling in her feet, the juliette wrap is acting as a tourniquet. So remove the juliette and reapply it starting at her toes and up to the knee.) Cleanse incision/area with: Keep Dressing Clean & Dry and - (place plastic bag over right leg when showering.) Drain: Suction (Agus drain to bulb suction. Empty and record drainage output daily.) Follow Up Care Please Follow Up With: Antonio Nair MD When: , 04/13/22. call [phone] for appointment. Test Results: Test results from this visit will be discussed in further detail at your follow- up appointment, if applicable. Discharge Plan Admission Primary Reason for Your Visit: excision painful soft tissue mass right proximal anterior leg. Attending Provider: Antonio Nair Primary Care Provider: Jordin Dove Discharge Orders/Prescriptions Prescriptions: New cefadroxil 500 mg capsule 500 mg PO BID Qty: 28 0RF L.acidoph,saliva-B.bif-S.therm [Acidophilus Probiotic Blend] 175 mg capsule 1 cap PO DAILY Qty: 20 0RF hydrocodone-acetaminophen 5-325 mg tablet 1 tab PO Q6H PRN (Reason: pain (scale score 7-10)) 7 Days Qty: 28 0RF Rx Instructions: 28 tabs (twenty-eight) Continued esomeprazole magnesium 40 mg capsule,delayed release(DR/EC) 40 mg PO DAILY ferrous sulfate 325 mg (65 mg iron) tablet,delayed release (DR/EC) 325 mg PO .q Mon, Weds and Tue fluticasone propionate 50 mcg/actuation spray,suspension 1 spray intranasal DAILY Rx Instructions: administer into each nostril Nurtec ODT 75 mg tablet,disintegrating 75 mg PO .q 24 hours PRN (Reason: migraine headache) Rx Instructions: as a single dose rizatriptan [Maxalt] 10 mg tablet See Rx Instructions PO .COMPLEX Rx Instructions: take 1 tab at onset of headache atorvastatin 20 MG tablet 20 mg PO DAILY valsartan 80 MG tablet 80 mg PO DAILY solifenacin 5 mg tablet 5 mg PO DAILY celecoxib 200 MG capsule 200 mg PO DAILY PRN (Reason: Pain Or Fever) valacyclovir 500 MG tablet 500 mg PO DAILY PRN (Reason: cold sores) alprazolam 0.25 MG tablet 0.25 mg PO BID PRN PRN (Reason: Anxiety) escitalopram oxalate [Lexapro] 5 mg Tablet 5 mg PO DAILY cholecalciferol (vitamin D3) [Vitamin D3] 50 mcg (2,000 unit) Capsule 50 mcg PO BID Referrals / Follow Up: Antonio Nair MD [Med Staff - Active Staff] - (followup 04/13/22.) Jordin Dove DO [Primary Care Provider] - Disposition Disposition (needs filled in before D/C Order can be placed): Home, Self Care
== END 2022-04-09 14:37 | disposition home or self-care (01) ==
LOC: SDC 08:03 → AC 08:03
PROVIDERS: PCP Preventive Medicine Occupational Medicine; Visit Provider Surgery
PROC: (CPT 27634; principal; 2022-04-09 09:40)
DX: R22.41 Localized swelling, mass and lump, right lower limb (principal); J42 Unspecified chronic bronchitis; R20.8 Other disturbances of skin sensation; M79.604 Pain in right leg; E66.9 Obesity, unspecified; Z68.39 Body mass index [BMI] 39.0-39.9, adult; Z79.899 Other long term (current) drug therapy
CPT/HCPCS: 27634; 13121; 13122; 01470; 88305; J7030; J7120; J2405

== ENCOUNTER 2022-05-11 11:57 | Outpatient (CLI) | payer OTHER, SELFPAY ==
--- NOTE | 2022-05-11 | IMM_PTH ---
PATIENT: FRANKY BOYD LOC: U#:[id number] AGE/SX: 52/F ROOM: RE05/11/[address]: Dr. Antonio Nair MD : 1970 BED: DIS: 05/11/2022 SPEC #: [id number] RECD: 05/12/22 12:57 STATUS: SOUSherwin REQ #: [id number] RACHNA: 05/11/22 00:[address]: Antonio Nair DEPT: IMMUNOHISTOCHEMISTRY RECD BY: Marcella Daniel ENTERED: 05/12/22 12:59 SP TYPE: IMMUNO OTHR DR: Dr. Jodrin Dove DO Tissues: Skin of leg, NOS Procedures: BCL-2 (add) BCL-6 (add) CD10 (add) CD138 (add) CD20 (add) CD23 (add) CD3 (add) CD45 (add) CD5 (add) CD79A (add) CYCLIN (add) KI-67 (add) P53 (add) MUM1 (add) Pankeratin (initial) PHYSICIAN & [address] [address] SPECIMEN INFORMATION: Tissue Source: Cyst of right leg Clinical Info: Post-surgical seroma Specimen Number: [id number] CPT code: 82934, 26486 x14 METHODOLOGY: Deparaffinized sections of prefer/formalin-fixed tissue or PAP/DQ stained slides are incubated with monoclonal/polyclonal antibodies/oligonucleotide probes. Localization is made via biotin free immunoperoxidase method. Appropriate controls are performed and reacted as expected. Results on target cell population are indicated in the following table: RESULTS: ANTIBODY / CLONE RESULT AE1-3 (AE1/AE3/PCK26) negative CD3 (PS1) positive CD5 (SP10) positive CD10 (56C6) negative CD20 (L26) negative CD23 (1B12) negative CD45 (RP2/18) positive CD79a (11E3) negative CD138 (B-A38) negative BCL-2 (bcl-2/100/D5) positive BCL-6 (ZJ504C/A8) negative Cyclin D1/BCL-1 (SP4) negative MUM1 (MRQ-43) negative P53 (DO-7) negative Ki-67 (30-9) positive, rare These tests were developed and their performance characteristics determined by [facility]. They may not have been cleared or approved by the U.S. Food and Drug Administration. The FDA has determined that such clearance or approval is not necessary. The above immunohistochemical/dualISH markers are ordered and reviewed by the Pathologist. INTERPRETATION: Cyst of right leg, fine needle aspiration: No evidence of malignancy. AM:trinity 05/13/2022
--- NOTE | 2022-05-11 11:58 | US_ITS ---
PROCEDURE: Ultrasound Guided percutaneous drainage of a seroma in the medial proximal right leg. CLINICAL HISTORY: Female, 52 years old. POST SURGICAL RT LEG SEROMA CONSENT: Time-Out Called: Yes Consent form signed: YES PT-PTT Levels Checked: Yes TECHNIQUE: A fluid collection was identified at the operative site. The overlying skin was prepped and draped in usual sterile fashion. Following local anesthetic application and under direct sonographic guidance, a 5 Cymraes catheter was placed into the collection. 190 cc of blood-tinged fluid was aspirated. The patient tolerated the procedure well. FINDINGS: Under direct sonographic guidance, the seroma in the medial aspect of the proximal right leg was drained using a 5 Cymraes catheter. 190 cc of blood-tinged fluid was aspirated. A sample was sent to the laboratory. US/Cyst Puncture IMPRESSION: Successful percutaneous drainage of a seroma in the medial proximal right leg. The patient tolerated the procedure well. Electronically Signed: Cordell Crain MD at 13:14 EST ,
[2022-05-11] MEDS: Lidocaine 1% (20 ml mdv) 20 ML Vial INFILT (12:15)
--- NOTE | 2022-05-11 12:25 | FLU_PTH ---
PATIENT: FRANKY BOYD LOC: U#:[id number] AGE/SX: 52/F ROOM: RE05/11/[address]: Dr. Antonio Nair MD : 1970 BED: DIS: 05/11/2022 SPEC #: [id number] RECD: 05/11/22 12:45 STATUS: PRITI RECaleb #: [id number] RACHNA: 05/11/22 12:[address]: Antonio Nair DEPT: CYTOLOGY RECD BY: Cortney Olmos ENTERED: 05/11/22 13:22 SP TYPE: Fluid OTHR DR: Dr. Jordin Dove DO Tissues: CYST Procedures: Special Stain Group II Surgery Specimen Level IV Cytospin Fluid HEADER OPERATION: Ultrasound-guided cyst drainage right leg PRE-OP DIAGNOSIS: Post-surgical seroma TISSUE SUBMITTED: Right leg cyst DIAGNOSIS CYTOLOGY Cyst of right leg, fine needle aspiration (cytospin and cell block): Polytypic (benign) lymphocytes present. See comment. AM:trinity 05/12/2022 COMMENT Immunohistochemistry ([id number]) supports the above diagnosis. CYTOLOGY STUDY Slides are reviewed. CYTOLOGY GROSS Received is 140 ml of dark orangish-red cloudy fluid labeled with the patient's name and and designated per the requisition as cyst drainage right leg. Submitted for cytology preparation including cell block. / trinity 05/11/2022 TC:5 CPT: 79539, 00465
--- NOTE | 2022-05-11 12:40 | NURSING ---
Patient tolerated well. Opsite applied to RLE seroma drainage site. D/C Instructions reviewed and patient verbalized understanding. Patient able to dress independently. Walked to elevator with steady gait.
== END 2022-05-11 23:59 | disposition home or self-care (01) ==
PROVIDERS: PCP Preventive Medicine Occupational Medicine; Referring Provider Surgery; Visit Provider Surgery
DX: L76.33 Postprocedural seroma of skin and subcutaneous tissue following a dermatologic procedure (principal); D17.23 Benign lipomatous neoplasm of skin and subcutaneous tissue of right leg; Z98.890 Other specified postprocedural states; Z86.018 Personal history of other benign neoplasm
CPT/HCPCS: 10160; 76942; 87070; 87075; 87205; 88108; 88305; 88313; 88341; 88342

== ENCOUNTER → 2022-05-14 | Outpatient (CLI) | payer OTHER, SELFPAY ==
--- NOTE | 2022-05-14 14:53 | BI_ITS ---
MAMMOGRAPHY - BILATERAL SCREENING REASON FOR EXAM: Female, 52 years old. Routine annual screening examination. PERTINENT HISTORY: Grandmother with breast cancer. TECHNIQUE: Digital bilateral breast topher (3D mammographic acquisition) in the CC and MLO projections. 2-D mediolateral oblique (MLO) and craniocaudad (CC) views of both breasts were obtained. CAD: Full Field Digital Mammography with Computer Added Detection was performed. COMPARISON: Comparison is made with prior study dated 05/08/2021 and 02/20/2022. FINDINGS: Breast Composition: The breasts are almost entirely fatty. There are no dominant masses or suspicious calcifications. No other significant abnormalities are identified. There has been no significant change since the prior study. BI/SCRN MAMM (CAD)W/TOPHER BILAT IMPRESSION: Stable bilateral screening mammogram. Yearly follow-up mammogram recommended. (A) ASSESSMENT CATEGORY: BIRADS Category 1: Negative. A letter regarding these results will be sent to the patient by the facility within 30 days. Approximately 10% of breast cancers are not detected by mammography. A normal mammogram should not delay biopsy of a clinically suspicious abnormality. [id number] Electronically Signed: Coredll Crain MD at 10:57 EST ,
== END | disposition home or self-care (01) ==
LOC: OPBI 14:51
PROVIDERS: PCP Preventive Medicine Occupational Medicine; Referring Provider Student in an Organized Health Care Education/Training Program; Visit Provider Student in an Organized Health Care Education/Training Program
DX: Z12.31 Encounter for screening mammogram for malignant neoplasm of breast (principal); Z80.3 Family history of malignant neoplasm of breast
CPT/HCPCS: 77063; 77067

== ENCOUNTER 2022-06-03 10:21 | Outpatient (CLI) | payer OTHER, SELFPAY ==
--- NOTE | 2022-06-03 10:25 | FLU_PTH ---
PATIENT: FRANKY BOYD LOC: U#:[id number] AGE/SX: 52/F ROOM: RE06/03/[address]: Dr. Antonio Nair MD : 1970 BED: DIS: 06/03/2022 SPEC #: [id number] RECD: 06/03/22 11:35 STATUS: PRITI RECaleb #: [id number] RACHNA: 06/03/22 10:[address]: Antonio Nair DEPT: CYTOLOGY RECD BY: Cortney Olmos ENTERED: 06/03/22 12:16 SP TYPE: Fluid OTHR DR: Dr. Jordin Dove DO Tissues: CYST Procedures: Special Stain Group II Surgery Specimen Level IV Cytospin Fluid HEADER OPERATION: Ultrasound-guided cyst puncture right leg PRE-OP DIAGNOSIS: Postop seroma TISSUE SUBMITTED: Cyst right leg fluid for cytology DIAGNOSIS CYTOLOGY Cyst right leg fluid for cytology (cytospin and cell block): Negative for malignant cells. See comment. SJ:trinity 06/04/2022 COMMENT The specimen is bloody and consists predominantly of lymphocytes. The findings are compatible with the clinical impression of postoperative seroma. Please make reference to previous specimens ([id number]) right lower leg soft tissue mass, biopsy with diagnosis of ?mature adipose tissue consistent with lipoma? and ([id number]) cyst of right leg, fine needle aspiration with diagnosis of ?polytypic (benign) lymphocytes present.? CYTOLOGY STUDY Slides are reviewed. CYTOLOGY GROSS Received is 90 ml of red cloudy fluid labeled with the patient's name and and designated per the requisition as right leg. Submitted for cytology preparation including cell block. / trinity 06/03/2022 TC:5 CPT: 52463, 19774
--- NOTE | 2022-06-03 10:27 | US_ITS ---
PROCEDURE: Ultrasound Guided seroma drainage of the fluid collection in the proximal medial right leg. CLINICAL HISTORY: Female, 52 years old. Drainage of postop seroma right leg CONSENT: The procedure as well as the benefits and possible complications including infection and bleeding which point the patient. Informed consent was obtained. TECHNIQUE: A fluid collection was identified at the operative site along the medial proximal right leg. Skin was prepped and draped in the usual sterile fashion. Following local anesthetic application and under direct sonographic guidance, a 5 Yi catheter was placed into the collection. 75 cc of serosanguineous fluid was aspirated. The patient tolerated the procedure well. US/Cyst Puncture IMPRESSION: Successful percutaneous drainage of a seroma in the medial proximal right leg as described. The patient tolerated the procedure well. Electronically Signed: Cordell Crain MD at 12:26 EST ,
[2022-06-03] MEDS: Lidocaine 1% (20 ml mdv) 20 ML Vial INFILT (10:45)
== END 2022-06-03 23:59 | disposition home or self-care (01) ==
LOC: US 10:25
PROVIDERS: PCP Preventive Medicine Occupational Medicine; Referring Provider Surgery; Visit Provider Surgery
DX: Z98.890 Other specified postprocedural states (principal); L76.33 Postprocedural seroma of skin and subcutaneous tissue following a dermatologic procedure; D17.23 Benign lipomatous neoplasm of skin and subcutaneous tissue of right leg; Z86.018 Personal history of other benign neoplasm
CPT/HCPCS: 76942; 87070; 87075; 87205; 88108; 88305; 88313

== ENCOUNTER → 2022-07-28 | Outpatient (CLI) | payer OTHER, SELFPAY ==
--- NOTE | 2022-07-28 17:04 | CT_ITS ---
INDICATION: ABD PAIN-LOW X 2 WEEKS EXAMINATION: CT Abdomen And Pelvis W/ Contrast Injection TECHNIQUE: Helically acquired images were obtained of the abdomen and pelvis following IV contrast. 2-D reconstructions reviewed. A radiation dose optimization technique was used for this scan. IV Contrast dosage and agent: 100 cc [id number] Oral contrast: None. COMPARISON: None. FINDINGS: LOWER CHEST: No acute findings within the imaged lung bases. Heart size within normal limits. LIVER: Homogeneous. No concerning lesion. GALLBLADDER AND BILIARY TREE: No calcified gallstones identified. No gallbladder wall edema demonstrated. No significant biliary ductal dilation. PANCREAS: No discrete mass or peripancreatic edema. SPLEEN: Normal size without focal cystic or solid mass. ADRENAL GLANDS: Unremarkable. KIDNEYS AND URETERS: Normal renal size and position. No perinephric edema or hydronephrosis. No concerning lesion. PERITONEUM: No peritoneal free air or significant free fluid. No other fluid collection. RETROPERITONEUM: No retroperitoneal mass or pathologic fluid collection. BOWEL: Normal appendix inferior to cecum within right lower quadrant. No bowel obstruction or significant bowel thickening. No focal inflammatory change. LYMPH NODES: No enlarged mesenteric or retroperitoneal lymph nodes. VESSELS: No acute findings. No abdominal aortic aneurysm. URINARY BLADDER: Unremarkable as visualized. REPRODUCTIVE ORGANS: Status post partial hysterectomy. No pelvic mass. ABDOMINAL WALL: No acute findings or significant hernia defect. BONES: Chronic bilateral L5 pars defects with minimal grade 1 anterolisthesis of L5 over S1. CT/Abdomen/Pelvis W IV Cont ONLY IMPRESSION: 1. No evidence of acute intra-abdominal abnormality. 2. 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 Electronically Signed: Gordon Montenegro MD at 23:50 EST ,
[2022-07-28 17:25] LABS: CREATININE FINGERSTICK 0.9 mg/dL (0.55-1.02); EGFR FINGERSTICK > 60.0000 mL/min (>60)
== END | disposition home or self-care (01) ==
LOC: CT 17:03
PROVIDERS: PCP Preventive Medicine Occupational Medicine; Visit Provider Urology
DX: R10.30 Lower abdominal pain, unspecified (principal)
CPT/HCPCS: 74177; Q9967

== ENCOUNTER 2022-10-11 11:18 | Outpatient (RCR) | payer OTHER, SELFPAY ==
--- NOTE | 2022-10-11 12:53 | HP.PTEVAL ---
Patient's Visit Information FRANKY BOYD is a 52 year old F referred to Physical Therapy by Dr. Rahel Monson MD with a diagnosis of RETROCELE AND OVER-ACTIVE BLADDER. Date of Evaluation: 10/11/22 Physical Therapist: Mary Pichardo PT, Cert MDT - Visit Plan Frequency: 1x/Week Duration: 8-12 WKS Plan: PF THERAPY FOR STRENGTHENING, LENGTHENING/RELAXATION AND ENDURANCE TRAINING. PELVIC FLOOR STRENGTHENING. URINARY URGE AND FREQUENCY EDUCATION. HEALTHY BLADDER HABIT EDUCATION. TRAINING IN COORDINATION OF PELVIC FLOOR MUSCULATURE WITH HIP AND CORE (TRANSVERSE ABDOMINUS) MUSCULATURE. POSTURE CORRECTION/STRENGTHENING. CORE STRENGTHENING. BAR LE ROM, STRETCHING AND STRENGTHENING. TRAINING IN ABDOMINAL CAVITY PRESSURE MGMT WITH ADL'S. 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 Disability: NO. Present symptoms: FEELING LIKE INSIDES ARE FALLING OUT INTERMITTENTLY. LEAKING WITH COUGHING OR LAUGHING. Present since: STARTED FEELING PROLAPSE SX'S JUN 2022. Pain Scale: NO. Is it getting better, worse or staying the same: STAYING THE SAME. Commenced as a result of: NO APPARENT REASON. Symptoms at onset: FEELING OF THERE BEING SOMETHING IN VAGINAL AREA. WORSE: COUGHING, LAUGHING. BETTER: MEDICINE. Disturbed sleep: NO. Previous history/Previous treatment: VESICARE FOR STRESS INCONTINENCE FOR A LONG TIME - HELPS. Treatment this episode: ESTRODIAL CREAM. RECENTLY TRIED GEMTESSA BUT HAD SIDE-EFFECTS. Coughing/sneezing/straining: POSITIVE FOR URINARY LEAKING. Gait: How long can you delay the need to urinate: HOURS. Prolapse (Falling out feeling): YES. Frequency of Urination: 4-5 TIMES A DAY. Ability to stop urine flow: NOT SURE. Ability to initiate urine stream: YES. Dyspareunia: SOMETIMES - PATIENT RELATES TO DRYNESS. Gait: NORMAL. Bowel Incontinence: NO. Accidents: NO. Unexplained weight loss: NO. 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 PMH/Recent major surgery: HTN, HIGH CHOLESTEROL, IRON DEFICIENCY, VITAMIN D DEFICIENCY, ACID REFLUX. PARTIAL HYSTERECTOMY 2008. CHRONIC LOW BACK PAIN WITH 30 LB LIFTING LIMIT. - Objective Sitting/Standing Posture: FAIR. Other Observations: INDEP GAIT AND TRANSFERS. Sensory deficit: BAR LE LIGHT TOUCH SENSATION GROSSLY INTACT AND SYMMETRICAL EXCEPT NUMBNESS R KNEE AND GUEVARA THAT PATIENT RELATES TO SX IN MAY TO REMOVE LIPOMA. ROM deficit: BAR HS, HIP ADDUCTOR AND GASTROC-SOLEUS COMPLEX TIGHTNESS. Motor deficit: BAR LE'S GROSSLY 5/5 WITH MMT'ING EXCEPT HIPS 4/5. PATIENT COMMUNICATES A GOOD UNDERSTANDING OF HOW TO CONTRACT PELVIC FLOOR. Dural Signs: NEGATIVE BAR LE'S. Lumbar mvmt loss: flex - NIL. ext - NIL. R SG - NIL. L SG - NIL. Core strength: POOR. FUNCTIONAL SCREEN: Incontinence Impact Questionnaire Score: 0. Urogenital Distress Inventory Score: 4. OTHER: PATIENT COMMUNICATES ABILITY TO CONTRACT PELVIC FLOOR X 10 SEC. TREATMENT: PELVIC FLOOR ANATOMY AND PHYSIOLOGY EDUCATION. INITIATED HEP WITH DIAPHRAGMATIC BREATHING AND QUICK FLICK KEGELS. WRITTEN HEP PROVIDED. - Goals Goal 1:: DECREASE C/O BULGING FEELING IN VAGINAL AREA Goal Time Frame: 8-12 Weeks Goal 2:: DECREASE REPORTS OF LEAKING WITH COUGHING AND LAUGHING Goal Time Frame: 8-12 Weeks Goal 3:: PATIENT WILL BE INDEP WITH A HEP FOR CONTINUED IMRPOVEMENT ONCE FORMAL PHYSICAL THERAPY CONCLUDES Goal Time Frame: 8-12 Weeks - Anticipated Interventions Patient/Client Instruction: Educate patient on: Condition, Plan of Care, Risk Factors For the Purpose of:: To improve self management Therapeutic Exercise to Include: Strength training, Endurance training, Coordination, Postural training, Flexibilty training, Neuromotor development For the Purpose of:: To improve muscle performance and motor function, To increase tolerance to activity/condition/position, To improve ability of physical actions for home/community/work/leisure Thank you for the opportunity to evaluate your patient. For Medicare and Medicare HMO plans, please review the plan of care and approve it. It will need to be FAXED BACK to us at [phone] for Medicare purposes. For Medicare only, by signing this I certify the plan of care. Please let me know if there are questions or concerns regarding this plan of care. Physician Signature: Date:
--- NOTE | 2022-11-22 09:54 | HP.PT.NRP ---
FRANKY BOYD was seen in my office for initial evaluation on 10/11/22. The following Plan of Care was established for this patient: Initial Frequency: 1x/Week Initial Duration: 8-12 WKS Patient/Client Instruction: Educate patient on: Condition, Plan of Care, Risk Factors For the Purpose of:: To improve self management Therapeutic Exercise to Include: Strength training, Endurance training, Coordination, Postural training, Flexibilty training, Neuromotor development For the Purpose of:: To improve muscle performance and motor function, To increase tolerance to activity/condition/position, To improve ability of physical actions for home/community/work/leisure This patient was last seen in our office 10/11/22. Pertinent comments regarding their Physical therapy will appear below: This patient has not returned to Physical Therapy and is appropriate to return to MD for further follow-up as needed. At this point I will be discontinuing this patient from physical therapy. I would be happy to see this patient again in the future if found appropriate by the physician. Thank you! Mary Pichardo, PT, Cert MDT
== END 2022-10-11 19:00 | disposition home or self-care (01) ==
LOC: PT 11:18
PROVIDERS: PCP Preventive Medicine Occupational Medicine; Referring Provider Urology; Visit Provider Urology
DX: K62.3 Rectal prolapse (principal); N32.81 Overactive bladder
CPT/HCPCS: 97162; 97530

== ENCOUNTER → 2023-02-07 | Outpatient (CLI) | payer OTHER, SELFPAY ==
--- NOTE | 2023-02-07 10:32 | MRI_ITS ---
INDICATION: MIGRAINE, BLURRED VISION, DIZZY, EXAMINATION: MRA - MRA Head W/O Contrast TECHNIQUE: Routine [place] of [place]/brain 3D time of flight MR angiogram protocol was performed without gadolinium. 3D reconstructions were reviewed. IV Contrast Dosage and Agent: None. COMPARISON: MRI brain February 07, 2023, MRI brain July 29, 2020. FINDINGS: --Anterior Circulation: ICAs: No significant stenosis at the intracranial/visualized segments. ACAs: No significant stenosis at the visualized segments. ACOM: Present. MCAs: No significant stenosis at the visualized segments. --Posterior Circulation: PCOMs: Diminutive but likely intact bilaterally. 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 BASILAR ARTERY: No significant stenosis. VERTEBRAL ARTERIES: No significant stenosis at the intradural/visualized segments. No evidence of intracranial aneurysm or vascular malformation. Right maxillary sinus disease. MRI/MRA Head ONLY without Contrast IMPRESSION: Unremarkable MRA head. Right maxillary sinus disease. Electronically Signed: Reed Shahid MD at 9:36 EDT ,
--- NOTE | 2023-02-07 10:32 | MRI_ITS ---
STUDY: MRI BRAIN WITH AND WITHOUT CONTRAST REASON FOR EXAM: Female, 52 years old. MIGRAINE,DIZZY, DOUBLE VISION, ATTN ORBITS TECHNIQUE: Standardized multiplanar fat and water weighted pulse sequences were obtained. IV 20 CLARISCAN was administered for the contrast portion of the examination. COMPARISON: None. FINDINGS: Normal size of the ventricles and extra-axial spaces for the patient''s age. Normal white matter tracts of the supratentorial brain. There are no white matter hyperintensities. Specifically, there are no focal areas of white matter gliosis which are occasionally associated with vasospastic migraine headaches. There is no evidence for recent intracranial ischemia or other cause of cytotoxic edema on diffusion weighted imaging (DWI). There are no demyelinating plagues of the supratentorial brain, brainstem or cerebellum. There are no findings suspicious for multiple sclerosis (MS). No focal brain parenchymal lesions or abnormal enhancement is demonstrated. No abnormal dural or meningeal thickening or enhancement is present. Normal bilateral basal ganglia. Normal thalami. There is no extra-axial fluid accumulation. Normal flow voids within the major intracranial circulation suggesting patency by spin echo criteria. Normal venous enhancement. There is no enhancing intra-axial or extra-axial abnormality. Normal sella turcica, pituitary gland, infundibular stalk, optic chiasm and hypothalamus. Normal tectal plate and pineal gland. Normal midbrain, aston and medulla. Normal cerebellum. Normal basal cisterns. Normal bilateral temporal bones. Normal bilateral internal auditory canals. No demonstrated orbital abnormality, within the constraints of a routine brain study. A moderate-sized mucus retention cyst is present in the right maxillary sinus. Normal calvarium and skull base. Normal visualized soft tissue structures. Normal visualized upper cervical spine. MRI/Brain W/WO Contrast IMPRESSION: 1. Normal unenhanced and enhanced MRI of the brain. Electronically Signed: Marcus Garcia MD at 9:38 EDT Reading Location ID and State: [facility] / [place] , Service support ,
[2023-02-07 13:23] LABS: CREATININE FINGERSTICK < 0.9 mg/dL (0.55-1.02); EGFR FINGERSTICK > 60.0000 mL/min (>60)
== END | disposition home or self-care (01) ==
PROVIDERS: PCP Preventive Medicine Occupational Medicine; Referring Provider Psychiatry & Neurology Neurology; Visit Provider Psychiatry & Neurology Neurology
DX: G43.109 Migraine with aura, not intractable, without status migrainosus (principal)
CPT/HCPCS: 70544; 70553; A9575

== ENCOUNTER 2023-12-26 15:00 | Outpatient (RCR) | payer OTHER, SELFPAY ==
--- NOTE | 2023-12-12 15:50 | HP.PTEVAL ---
Patient's Visit Information Visit Information Visit Information: FRANKY BOYD is a 53 year old F referred to Physical Therapy by MAN Zurita with a diagnosis of CYSTOCELE, STRESS URINARY INCONTINENCE. Date of Evaluation: 11/07/23 Physical Therapist: Mary Pichardo, PT, Cert MDT Visit Plan Frequency: 1x/Week Duration: 2-4 Months Plan: PF THERAPY FOR STRENGTHENING, LENGTHENING/RELAXATION AND ENDURANCE TRAINING. URINARY URGE AND FREQUENCY EDUCATION. HEALTHY BLADDER HABIT EDUCATION. TRAINING IN COORDINATION OF PELVIC FLOOR MUSCULATURE WITH HIP AND CORE (TRANSVERSE ABDOMINUS) MUSCULATURE. CORE STRENGTHENING. BAR LE ROM, STRETCHING AND STRENGTHENING. TRAINING IN ABDOMINAL CAVITY PRESSURE MGMT WITH ADL'S. 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 Disability: NO Present symptoms: NO LONGER HAVING ANY SYMPTOMS OF PRESSURE IN VAGINAL AREA. NO UI ON CURRENT MEDICATION. Present since: ABOUT 4 WKS AGO Pain Scale: PATIENT DENIES PAIN. Is it getting better, worse or staying the same: BETTER. NO LONGER HAVING ANY SYMPTOMS. Commenced as a result of: JUST WALKING AROUND THE HOUSE/NO APPARENT REASON Symptoms at onset: FELT LIKE SOMETHING WAS SUCK IN VAGINAL AREA. PRESSURE/DRYNESS IN VAGINAL AREA. Disturbed sleep: NOT GETTING UP AT NIGHT TO URINATE Previous history/Previous treatment: VESICARE X APPROX 8 YEARS FOR UI WITH COUGHING AND SNEEZING. PRESCRIPTION CREAM FOR VAGINAL DRYNESS X ABOUT 1 YEAR. 1 VAGINAL WITH COMPLICATION OF EXCESSIVE BLEEDING. HYSTERECTOMY 2008. Treatment this episode: NONE. PT CONSULT. Coughing/sneezing/straining: NEGATIVE FOR UI DUE TO BEING ON MEDICATION. Gait: NORMAL How long can you delay the need to urinate: LONG NEEDED. Prolapse (Falling out feeling): NO. RECENT HISTORY OF FEELING LIKE SOMETHING WAS STUCK AT VAGINAL OPENING. Frequency of Urination: ABOUT EVERY 4 HOURS. Ability to stop urine flow: NO - BUT ABLE TO SLOW IT DOWN. Ability to initiate urine stream: YES Dyspareunia: NO Bowel Incontinence: NO Accidents: NO Unexplained weight loss: NO Imaging: NO PMH/Recent major surgery: R ANKLE SURGERIES. LOW BACK PAIN - OLD FRACTURE - AGE UNDERTERMINED. Objective Objective: Sitting/Standing Posture: ANTERIOR PELVIC TILT. NO RELEVANT LATERAL SHIFT. Active Correction of posture: ABLE TO PARTIALLY CORRECT. NE Other Observations: INDEP GAIT AND TRANSFERS. Sensory deficit: BAR LE LIGHT TOUCH SENSATION GROSSLY INTACT AND SYMMETRICAL EXCEPT WHERE R LEG LYMPOMA WAS REMOVED. ROM deficit: BAR LE'S WFL Motor deficit: BAR LE'S GROSSLY 5/5 EXCEPT HIPS 4/5. PELVIC FLOOR - TO BE TESTED NEXT VISIT. 11/28/23: PELVIC FLOOR STRENGTH WITH INTERNAL VAGINAL TESTING 3/5 X 3 X 4 SEC. Dural Signs: NIL Lumbar mvmt loss: flex - NIL ext - NIL R SG - NIL L SG - NIL Core strength: POOR Palpation: PELVIC FLOOR - TO BE TESTED NEXT VISIT. 11/28/23: INTERNAL VAGINAL TESTING THIS DATE REVEALS MILD TENDERNESS R PELVIC FLOOR WITHOUT INCREASED TONE OR TRIGGER POINTS AND NO LASTING SORENESS AFTER TESTING. FUNCTIONAL SCREEN: Incontinence Impact Questionnaire Score: 0 Urogenital Distress Inventory Score: 1 Goals Goal 1:: PATIENT WILL DEMONSTRATE/COMMUNICATE 10 CONSISTENT AND CONSECUTIVE 10 SECOND PELVIC FLOOR MUSCLE CONTRACTIONS TO DEMONSTRATE IMPROVED PELVIC FLOOR ENDURANCE. Goal Time Frame: 8-12 Weeks Goal 2:: DEVELOP HEALTHY FLUID INTAKE HABITS WITH FLUID INTAKE OF ? BODY WEIGHT IN OUNCES PER DAY AND 2/3 BEING WATER. Goal Time Frame: 4-6 Weeks Goal 3:: NORMALIZE VOIDING FREQUENCEY TO EVERY 3-4 HOURS. Goal Time Frame: 2-4 Weeks Goal 4:: PATIENT WILL BE INDEP WITH A HEP/HOME INSTRUCTIONS FOR CONTINUED IMPROVEMENT ONCE FORMAL PHYSICAL THERAPY CONCLUDES. Goal Time Frame: 8-12 Weeks Rehabilitation Potential Physical Therapy Diagnosis: PELVIC FLOOR AND CORE WEAKNESS Rehabilitation Potential: Good Anticipated Interventions Patient/Client Instruction: Educate patient on: Condition, Plan of Care and Risk Factors For the Purpose of:: To improve self management Therapeutic Exercise to Include: Strength training, Endurance training, Coordination, Postural training, Neuromotor development and Relaxation training For the Purpose of:: To improve muscle performance and motor function Text: Thank you for the opportunity to evaluate your patient. For Medicare and Medicare HMO plans, please review the plan of care and approve it. It will need to be FAXED BACK to us at [phone] for Medicare purposes. For Medicare only, by signing this I certify the plan of care. Please let me know if there are questions or concerns regarding this plan of care. Physician Signature: Date:
--- NOTE | 2024-01-23 19:57 | HP.PT.NRP ---
Patient Information Patient Information: FRANKY BOYD was seen in my office for initial evaluation on 11/07/23. The following Plan of Care was established for this patient: POC Established Initial Frequency: 1x/Week Initial Duration: 2-4 Months Anticipated Interventions Patient/Client Instruction: Educate patient on: Condition, Plan of Care and Risk Factors For the Purpose of:: To improve self management Therapeutic Exercise to Include: Strength training, Endurance training, Coordination, Postural training, Neuromotor development and Relaxation training For the Purpose of:: To improve muscle performance and motor function Last Seen Last Seen: This patient was last seen in our office 12/26/23. Pertinent comments regarding their Physical therapy will appear below: It has been my pleasure to see this patient for a total of 5 visits. This patient has not returned to Physical Therapy for more visits and is appropriate to return to MD for further follow-up as needed. At this point I will be discontinuing this patient from physical therapy. I would be happy to see this patient again in the future if found appropriate by the physician. Thank you! Mary Pichardo, PT, Cert MDT
== END 2023-12-26 19:00 | disposition home or self-care (01) ==
LOC: PT 15:00
PROVIDERS: PCP Preventive Medicine Occupational Medicine; Visit Provider Nurse Practitioner Women's Health
DX: N39.3 Stress incontinence (female) (male) (principal); N81.11 Cystocele, midline
CPT/HCPCS: 97162; 97530

== ENCOUNTER 2024-06-22 11:05 | Outpatient (RCR) | payer OTHER, SELFPAY | END 2024-06-22 19:00 | disposition home or self-care (01) | LOC: PT 11:05 | PROVIDERS: PCP Preventive Medicine Occupational Medicine; Visit Provider Nurse Practitioner Women's Health | DX: N39.3 Stress incontinence (female) (male) (principal) | CPT/HCPCS: 97162; 97530 ==

== ENCOUNTER 2024-10-29 11:00 | Outpatient (RCR) | payer OTHER, SELFPAY ==
--- NOTE | 2024-10-17 17:28 | HP.OTEVAL_ITS ---
Patient's Visit Information Visit Information Visit Information: FRANKY BOYD is a 54 year old F, referred to Occupational Therapy by Dr. Bernard Lenz, DO, with a diagnosis of left thumb sprain. Date of Evaluation: 10/15/24 Occupational Therapist: Karen Peñaloza, OTR/Leni, CHT Subjective Subjective: This 54 year old female was seen for OT eval with dx of left thumb sprain. pt state DOI was back in 2024 due to fall. pt states she went to her Primary care about a month after her fall and recommended a off the shelf thumb spica. Pt states this brace caused increase pain and she only wore it for about 2 weeks. Pt did see Dr. Lenz October 04 and he requested the MRI and pt states there is a small tear but not sure where. pain is left thumb and radiates up her arm. 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 pain limits her from performing her ADLs. pt states she feels ice does make pain feel better- Pain left thand/thumb: Current Pain Intensity: 1 Pain Intensity Range: 9 ROM Wrist: right 85/65 left 50/40 CMC: right 20 left 15 MP: right 40 left 30 IP: right 64 left 65 Palmar Abduction: right 40 left 40 Strength Light Bulb Replacer: right 55# left 20# Lateral Pinch: right 10# left 4# with pain Tripod Pinch: right 12# left 2# with pain Sensation Sensation Comments: denies Quick DASH-Disab of Arm,Shoulder& Hand Quick DASH Score: 56.8175 Goals Goal:ROM equal to unaffected hand: Yes Goal:Light Bulb Replacer/Pinch strength at least 75% of unaffected hand: Yes Goal:PIP Circumferences equal to unaffected hand: Yes Goal:Full use of affected hand in daily activities including work: Yes Other Goal: orthosis use: pt will demo understanding of orthosis use to decrease pain and stabilize thumb by end of 1st session. Rehabilitation General Assessment: pt arrives with painful left thumb fallowing a fall. Pain limits pt with ADLs and IADls. pt would benefit from skilled OT services 1-2x week for 6 weeks to decrease pts pain- ed. pt on thumb brace/support as well as thumb stabilization ex. to return pt to her PLOF. Today therapist ed. pt on support of orthosis use and POC. pt demo understanding and agree to POC. Rehabilitation Potential: Good Anticipated Interventions Anticipated Interventions: Strengthening, Triggerpoint Release, Orthoses, Joint Protection/Energy Conservation, Ergonomic Education, Fine Motor Coord/Jones, Education re assistive Equipment, Education re Diagnosis and Home Program Visit Plan Frequency: 1-2x /Week Duration: 4-6 Weeks General Plan: thumb spica orthosis decrease pain thumb stabilization ex. as nona. TEXT: Thank you for the opportunity to evaluate your patient. For Medicare and Medicare HMO plans, please review the plan of care and approve it. It will need to be FAXED BACK to us at [phone] for Medicare purposes. Please let me know if there are questions or concerns regarding this plan of care. Physician Signature: Date:
--- NOTE | 2025-01-31 09:59 | HP.OT.NRP ---
Patient Information Patient Information: FRANKY BOYD was seen in my office for initial evaluation on 10/15/24. The following Plan of Care was established for this patient: POC Established Initial Frequency: 1-2x /Week Initial Duration: 4-6 Weeks Anticipated Interventions Anticipated Interventions: Strengthening, Triggerpoint Release, Orthoses, Joint Protection/Energy Conservation, Ergonomic Education, Fine Motor Coord/Jones, Education re assistive Equipment, Education re Diagnosis and Home Program Last Seen Last Seen: This patient was last seen in our office 10/29/24. Pertinent comments regarding their Occupational therapy will appear below: No further apts have been scheduled. Due to time lapse in service pt is d/c. At this point I will be discontinuing this patient from occupational therapy. I would be happy to see this patient again in the future if found appropriate by the physician. Thank you! Karen Peñaloza, OTR/L, CHT
== END 2024-10-29 19:00 | disposition home or self-care (01) ==
LOC: OT 11:00
PROVIDERS: PCP Preventive Medicine Occupational Medicine; Referring Provider Student in an Organized Health Care Education/Training Program; Visit Provider Student in an Organized Health Care Education/Training Program
DX: S63.682D Other sprain of left thumb, subsequent encounter (principal)
CPT/HCPCS: 97035; 97110; 97140; 97166; 97530; 97760

== ENCOUNTER 2024-12-20 20:24 | Emergency (ER) | payer OTHER, SELFPAY ==
[2024-12-20 20:26] VITALS: BP 136/71; PULSE 79; RESP 18; TEMP 36.9; O2SAT 100; BMI 35.4
--- NOTE | 2024-12-20 20:52 | EKG12_ITS ---
Test Reason : CP Blood Pressure : */* mmHG Vent. Rate : 78 BPM Atrial Rate : 78 BPM P-R Int : 146 ms QRS Dur : 92 ms QT Int : 376 ms P-R-T Axes : 59 20 29 degrees QTcB Int : 428 ms Normal sinus rhythm Incomplete right bundle branch block Borderline ECG Confirmed by OTIS DUGGAN MD ([id number]), editor managing newspaper MERRITT AVILA ([id number]) on 12/24/2024 9:43:21 AM Referred By: AR Confirmed By: OTIS DUGGAN MD
[2024-12-20 20:53] VITALS: O2SAT 98
--- NOTE | 2024-12-20 20:55 | RAD_ITS ---
PROCEDURE: CHEST PA AND LATERAL 12/20/2024 REASON FOR EXAM: CHEST PAIN TECHNIQUE: CHEST PA AND LATERAL COMPARISON: Chest radiograph 03/23/2019 FINDINGS: Hardware: None Heart: The heart size is normal. Mediastinum: The mediastinal contour is unremarkable. Lungs: No focal consolidation or pleural effusion. Bones: unremarkable RAD/Chest PA and Lateral IMPRESSION: No acute cardiopulmonary abnormality. Reading Location: [id number]
[2024-12-20 21:04] LABS: Hematocrit 42.0 % (37-47); Hemoglobin 13.9 g/dL (12.0-15.0); Immature Granulocytes Count 0.040 X10^3/uL (0.0-0.0); Mean Corp Hgb Conc 33.1 g/dL (32-36); Mean Corpuscular Volume 89.4 fL (81-99); Mean Platelet Vol. 11.0 fl (6.2-12.0); NRBC Flagged by Analyzer 0 % (0-5); POSITIVE DIFFERENTIAL YES; Platelet Count 224 K/mm3 (150-450); RBC Distribution Width CV 12.5 % (11.6-14.6); RBC Distribution Width SD 40.6 fl (35.1-43.9); Red Blood Count 4.70 M/mm3 (4.2-5.4); White Blood Count 9.1 K/mm3 (4.4-11.0)
[2024-12-20 21:23] LABS: Anion Gap 11 (5-15); BUN 12 mg/dL (4-19); BUN/Creat Ratio 13.9 RATIO (10-20); Calcium,Total 9.5 mg/dL (7.6-11.0); Carbon Dioxide 21.5 mmol/L (21.0-32.0); Chloride 105 mmol/L (98-108); Estimated Creatinine Clearance 81.97 ml/min (50-250); Glucose 130 mg/dL (70-99); Potassium 4.0 mmol/L (3.3-5.1); Troponin T High Sensitivity < 6 ng/L (<=14)
[2024-12-20 21:26] VITALS: BP 134/78; PULSE 74; RESP 12; O2SAT 98
--- NOTE | 2024-12-20 21:27 | ED.VIS.CHEST ---
HPI <PEDRO Palacios - Last Filed: 12/20/24 21:32> History of Present Illness Chief Complaint: Chest Pain Narrative Narrative: 54-year-old female with PMH of HTN, HLD, GERD presents with burning midsternal chest pain. She had spaghetti for dinner. She normally takes Nexium which controls her GERD. She woke up at 2 AM with abdominal bloating and then vomited several times. She went back to sleep and when waking up this morning just felt tired and laid in bed most of the day. Around 2 PM she developed burning midsternal chest pain. She also felt very cold. No fever. No shortness of breath. No further nausea or vomiting. She took a few antacids which did not help. She states after taking the aspirin here her chest pain has resolved. She denies history of exertional chest pain or shortness of breath. No cardiac history. Non-smoker. No alcohol use. No history of DVT/PE or risk factors. PFSH <PEDRO Palacios - Last Filed: 12/20/24 21:32> [facility] Medical History (Updated 12/20/24 @ 21:32 by PEDOR Palacios) GERD (gastroesophageal reflux disease) Postoperative seroma of subcutaneous tissue after dermatologic procedure Lipoma of right lower extremity Wears glasses Anxiety Bladder disease Low iron High cholesterol Migraine headache Gastric reflux Non-smoker Hypertension Cardiology follow-up encounter History of stress test History of echocardiogram Dysesthesia Mass of right lower leg Gastrointestinal problem Vitamin deficiency Frequent headaches Anxiety and depression Chronic bronchitis UTI (urinary tract infection) Back problem Allergies 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 tendonopathy Home Medications Medication Instructions Recorded Last Taken Type atorvastatin 20 mg tablet 20 mg PO DAILY 03/23/19 Unknown History valsartan 80 mg tablet 80 mg PO DAILY 03/23/19 06/15/19 05:30 History 80 MG alprazolam 0.25 mg tablet 0.25 mg PO BID PRN PRN Anxiety 06/08/19 Unknown History celecoxib 200 mg capsule 200 mg PO DAILY PRN Pain Or Fever 06/08/19 Unknown History valacyclovir 500 mg tablet 500 mg PO DAILY cold sores 06/08/19 Unknown History esomeprazole magnesium 40 mg 40 mg PO DAILY 10/23/21 Unknown History capsule,delayed release ferrous sulfate 325 mg (65 mg 325 mg PO .q Mon, Weds and Fri 10/23/21 Unknown History iron) tablet,delayed release fluticasone propionate 50 1 spray intranasal DAILY 10/23/21 Unknown History mcg/actuation nasal spray,suspension rimegepant 75 mg disintegrating 75 mg PO .q 24 hours PRN migraine 10/23/21 Unknown History tablet (Nurtec ODT) headache rizatriptan 10 mg tablet (Maxalt) See Rx Instructions PO .COMPLEX 10/23/21 Unknown History solifenacin 5 mg tablet 5 mg PO DAILY 10/28/21 Unknown History cholecalciferol (vitamin D3) 50 50 mcg PO BID 03/31/22 Unknown History mcg (2,000 unit) capsule (Vitamin D3) escitalopram oxalate 5 mg tablet 5 mg PO DAILY 03/31/22 Unknown History (Lexapro) fexofenadine 180 mg tablet 180 mg PO DAILY 11/22/22 Unknown History (Emily Allergy) Hydrocortisone 2.5% / Lidocaine 5% #1 ea 09/27/24 Unknown Rx ointment (cmpd) (Hydrocortisone 2.5%/lidocaine 5% ointment (compound)) esomeprazole magnesium 20 mg 20 mg PO QDAY #30 caps 09/27/24 Unknown Rx capsule,delayed release ondansetron 4 mg disintegrating 4 mg PO Q8H #10 tabs 09/27/24 Unknown Rx tablet sodium sul 1.479 gram-potas ch See Rx Instructions PO PER PKG DIR 09/27/24 Unknown Rx 0.188 gram-magnes sul 0.225 gram #24 tabs tablet (Sutab) phentermine 8 mg tablet (Lomaira) 15 mg PO DAILY 12/20/24 Unknown History topiramate 25 mg tablet (Topamax) 25 mg PO BID 12/20/24 Unknown History Allergy/AdvReac Type Severity Reaction Status Date / Time lisinopril Allergy Other Verified 12/20/24 20:28 doxycycline AdvReac Nausea/Vom/ Verified 12/20/24 20:28 Diarrhea Family History Father Heart disease Hypertension Other Anesthesia complication Angina at rest Anxiety Arthritis Breast cancer CVA (cerebral vascular accident) Cancer Depression High cholesterol Surgical History Status post excision of lipoma Hx of colonoscopy Hx of foot surgery History of colonoscopy History of hysterectomy S/P tendon repair Social History Smoking Status: Never smoker alcohol intake: never substance use type: does not use additional social history: Does Take Aspirin Does Take Ibuprofen ROS <PEDRO Palaciso - Last Filed: 12/20/24 21:32> ROS ED ROS Narrative Constitutional: Negative for fever, chills, malaise. CVS: Positive for chest pain. No palpitations or syncope. Respiratory: Negative for shortness of breath, cough. GI: Positive for nausea, vomiting. Negative for abdominal pain, diarrhea, constipation, melena, hematochezia. EXAM <PEDRO Palacios - Last Filed: 12/20/24 21:32> Physical Exam Narrative Exam Narrative: CONST: Patient sitting in no acute distress. EYES: Normal inspection. NECK: Normal inspection. RESP: No respiratory distress, CTAB. CVS: Regular rate and rhythm, no murmur, no gallop. ABD: Soft and nontender, no guarding or rebound, nondistended. SKIN: Color normal, no rash, warm, dry, intact. EXTREMITIES: Normal appearance, no pedal edema. NEURO: Alert and answering questions appropriately. PSYCH: Normal affect. Const Vital Signs: 12/20/24 20:26 12/20/24 20:31 12/20/24 20:53 Temperature 98.5 F Temperature Source Oral Pulse Rate 79 Respiratory Rate 18 Respiratory Effort Normal Blood Pressure 136/71 H Blood Pressure Mean 92 Pulse Ox 100 98 Oxygen Delivery Method Room Air Room Air 12/20/24 21:26 12/20/24 22:00 12/20/24 23:00 Temperature Temperature Source Pulse Rate 74 70 72 Respiratory Rate 12 19 H 18 Respiratory Effort Blood Pressure 134/78 H 121/77 H 115/53 L Blood Pressure Mean 96 91 73 Pulse Ox 98 100 100 Oxygen Delivery Method Room Air Room Air Room Air <Dr. Arron Guidry MD - Last Filed: 12/20/24 21:36> Physical Exam Const Vital Signs: 12/20/24 20:26 12/20/24 20:31 12/20/24 20:53 Temperature 98.5 F Temperature Source Oral Pulse Rate 79 Respiratory Rate 18 Respiratory Effort Normal Blood Pressure 136/71 H Blood Pressure Mean 92 Pulse Ox 100 98 Oxygen Delivery Method Room Air Room Air 12/20/24 21:26 12/20/24 22:00 12/20/24 23:00 Temperature Temperature Source Pulse Rate 74 70 72 Respiratory Rate 12 19 H 18 Respiratory Effort Blood Pressure 134/78 H 121/77 H 115/53 L Blood Pressure Mean 96 91 73 Pulse Ox 98 100 100 Oxygen Delivery Method Room Air Room Air Room Air <Dr. Wilton Gonzalez DO - Last Filed: 12/20/24 23:31> Physical Exam Const Vital Signs: 12/20/24 20:26 12/20/24 20:31 12/20/24 20:53 Temperature 98.5 F Temperature Source Oral Pulse Rate 79 Respiratory Rate 18 Respiratory Effort Normal Blood Pressure 136/71 H Blood Pressure Mean 92 Pulse Ox 100 98 Oxygen Delivery Method Room Air Room Air 12/20/24 21:26 12/20/24 22:00 12/20/24 23:00 Temperature Temperature Source Pulse Rate 74 70 72 Respiratory Rate 12 19 H 18 Respiratory Effort Blood Pressure 134/78 H 121/77 H 115/53 L Blood Pressure Mean 96 91 73 Pulse Ox 98 100 100 Oxygen Delivery Method Room Air Room Air Room Air MDM <PEDRO Palacios - Last Filed: 12/20/24 21:32> [facility] Narrative Medical decision making narrative: 54-year-old female presents with burning chest pain. Symptoms started overnight with vomiting abdominal bloating. The burning chest pain developed this afternoon. She also had a sour taste in the back of her mouth. She has a history of reflux on Nexium. She appears well and nontoxic. Vital stable. Normal cardiopulmonary exam. Abdomen soft, nontender. EKG is nonischemic. CBC and BMP are normal. First troponin is less than 6 and delta is ordered. Chest x-ray is negative. She received aspirin with initial protocol orders but I suspect her symptoms are GI related. However during my exam her chest pain is completely resolved so I did not order additional medications. Left at times normal patient will be discharged home with instruction to follow-up with her primary care doctor. Lab Data Attestation: I reviewed the patient's lab results. Labs: Laboratory Results - last 24 hr 12/20/24 12/20/24 20:43 22:42 WBC 9.1 RBC 4.70 Hgb 13.9 Hct 42.0 MCV 89.4 MCH 29.6 MCHC 33.1 RDW Std Deviation 40.6 RDW Coeff of Geri 12.5 Plt Count 224 MPV 11.0 Immature Gran % (Auto) 0.400 Neut % (Auto) 90.5 H Lymph % (Auto) 4.2 L [place] % (Auto) 4.8 Eos % (Auto) 0.0 Baso % (Auto) 0.1 Absolute Neuts (auto) 8.2 H Absolute Lymphs (auto) 0.38 L Nucleated RBC % 0 Sodium 138 Potassium 4.0 Chloride 105 Carbon Dioxide 21.5 Anion Gap 11 BUN 12 Creatinine 0.86 Estim Creat Clear Calc 81.97 Est GFR (MDRD) Non-Af 79 BUN/Creatinine Ratio 13.9 Glucose 130 H Calcium 9.5 Troponin T High Sens < 6 Troponin T Hi Sens 2 Hr < 6 Radiography Diagnostic Testing: Clinical Impression(s) from Imaging Studies Chest X-Ray 12/20/24 20:55 IMPRESSION: No acute cardiopulmonary abnormality. Reading Location: [facility] ED attending interpretation of 2 view chest x-ray shows normal heart size, no acute infiltrate. EKG Initial EKG: Attestation: I personally reviewed and interpreted this EKG as follows: Interpretation: Sinus Rhythm, No Acute Injury Pattern and RBBB Comments: Normal sinus rhythm at 78 bpm Incomplete RBBB No acute ischemic changes <Dr. Arron Guidry MD - Last Filed: 12/20/24 21:36> [facility] MDM Narrative Medical decision making narrative: 54-year-old female presents with burning chest pain. Symptoms started overnight with vomiting abdominal bloating. The burning chest pain developed this afternoon. She also had a sour taste in the back of her mouth. She has a history of reflux on Nexium. She appears well and nontoxic. Vital stable. Normal cardiopulmonary exam. Abdomen soft, nontender. EKG is nonischemic. CBC and BMP are normal. First troponin is less than 6 and delta is ordered. Chest x-ray is negative. She received aspirin with initial protocol orders but I suspect her symptoms are GI related. However during my exam her chest pain is completely resolved so I did not order additional medications. Left at times normal patient will be discharged home with instruction to follow-up with her primary care doctor. I have personally performed a face to face assessment of the patient and have reviewed the ANMOL Note. I performed a substantive portion of the visit including all aspects of the following. My andrew findings include: History is remarkable for chest burning sensation. Symptoms started at rest while she was lying down. She did complain of burning bitter sensation in her throat back of her mouth. She does have history of hiatal hernia and reflux. Patient told the midlevel that she has never had pain like this with her GERD. She denies black or maroon-colored stool. She denies emesis. She presently is pain-free. This episode started around 2-3 o'clock. When blood was drawn she states the pain went away. She has not eaten all day because she does not feel well. She denies fever, chills night sweats. She denies upper respiratory symptoms. She has no other complaints. She denies intolerance to greasy or fried foods. She denied right upper quadrant pain. She has no history of pancreatitis. Exam is remarkable slowing of her blood pressure. She appears no discomfort. HEENT exam is unremarkable. Lungs are good auscultation with good movement of air bilaterally. Heart is regular. Rate is normal. There is no murmur, gallop or rub. Abdomen is benign. Medical Decison Making suspect patient has symptoms due to reflux. Since she is pain-free she was not treated with anything. Since patient is insistent this is different than her GERD and the fact that she is a middle-age woman will obtain troponin with 2-hour troponin to rule out atypical presentation for cardiac. Also EKG was obtained. EKG revealed no acute ischemic changes. Other additions or changes: [None] Lab Data Lab results narrative: CBC is remarkable for slight shift otherwise normal. Electrolyte panel is remarked for slight elevation in glucose to 130. First troponin is less than 6. Labs: Laboratory Results - last 24 hr 12/20/24 12/20/24 20:43 22:42 WBC 9.1 RBC 4.70 Hgb 13.9 Hct 42.0 MCV 89.4 MCH 29.6 MCHC 33.1 RDW Std Deviation 40.6 RDW Coeff of Geri 12.5 Plt Count 224 MPV 11.0 Immature Gran % (Auto) 0.400 Neut % (Auto) 90.5 H Lymph % (Auto) 4.2 L [place] % (Auto) 4.8 Eos % (Auto) 0.0 Baso % (Auto) 0.1 Absolute Neuts (auto) 8.2 H Absolute Lymphs (auto) 0.38 L Nucleated RBC % 0 Sodium 138 Potassium 4.0 Chloride 105 Carbon Dioxide 21.5 Anion Gap 11 BUN 12 Creatinine 0.86 Estim Creat Clear Calc 81.97 Est GFR (MDRD) Non-Af 79 BUN/Creatinine Ratio 13.9 Glucose 130 H Calcium 9.5 Troponin T High Sens < 6 Troponin T Hi Sens 2 Hr < 6 Radiography Chest X-Ray - ED: 1 View and Read by ED Physician (Single view chest x-ray reveals normal cardiac silhouette size. Lung parenchyma is normal. There is no effusion. Hilum is normal. There is no obvious abnormality of the osseous structures.) Diagnostic Testing: Clinical Impression(s) from Imaging Studies Chest X-Ray 12/20/24 20:55 IMPRESSION: No acute cardiopulmonary abnormality. Reading Location: [id number] Treatment and Re-Evaluation :: Case will be turned over to the evening physician, Dr. Wilton Gonzalez since her second troponin, 2-hour troponin, is due at 2250 and my shift ends at 2[address]. Dis[address] Gonzalez. <Dr. Wilton Gonzalez, DO - Last Filed: 12/20/24 23:31> [facility] Narrative Medical decision making narrative: 54-year-old female presents with burning chest pain. Symptoms started overnight with vomiting abdominal bloating. The burning chest pain developed this afternoon. She also had a sour taste in the back of her mouth. She has a history of reflux on Nexium. She appears well and nontoxic. Vital stable. Normal cardiopulmonary exam. Abdomen soft, nontender. EKG is nonischemic. CBC and BMP are normal. First troponin is less than 6 and delta is ordered. Chest x-ray is negative. She received aspirin with initial protocol orders but I suspect her symptoms are GI related. However during my exam her chest pain is completely resolved so I did not order additional medications. Left at times normal patient will be discharged home with instruction to follow-up with her primary care doctor. I have personally performed a face to face assessment of the patient and have reviewed the ANMOL Note. I performed a substantive portion of the visit including all aspects of the following. My andrew findings include: History is remarkable for chest burning sensation. Symptoms started at rest while she was lying down. She did complain of burning bitter sensation in her throat back of her mouth. She does have history of hiatal hernia and reflux. Patient told the midlevel that she has never had pain like this with her GERD. She denies black or maroon-colored stool. She denies emesis. She presently is pain-free. This episode started around 2-3 o'clock. When blood was drawn she states the pain went away. She has not eaten all day because she does not feel well. She denies fever, chills night sweats. She denies upper respiratory symptoms. She has no other complaints. She denies intolerance to greasy or fried foods. She denied right upper quadrant pain. She has no history of pancreatitis. Exam is remarkable slowing of her blood pressure. She appears no discomfort. HEENT exam is unremarkable. Lungs are good auscultation with good movement of air bilaterally. Heart is regular. Rate is normal. There is no murmur, gallop or rub. Abdomen is benign. Medical Decison Making suspect patient has symptoms due to reflux. Since she is pain-free she was not treated with anything. Since patient is insistent this is different than her GERD and the fact that she is a middle-age woman will obtain troponin with 2-hour troponin to rule out atypical presentation for cardiac. Also EKG was obtained. EKG revealed no acute ischemic changes. Other additions or changes: [None] 2330: Le. Patient signed out to me to follow-up on delta troponin. Results were negative. She remains symptom-free. She will continue her Nexium. She will follow-up with her PCP for further testing as needed. All questions were answered. Lab Data Labs: Laboratory Results - last 24 hr 12/20/24 12/20/24 20:43 22:42 WBC 9.1 RBC 4.70 Hgb 13.9 Hct 42.0 MCV 89.4 MCH 29.6 MCHC 33.1 RDW Std Deviation 40.6 RDW Coeff of Geri 12.5 Plt Count 224 MPV 11.0 Immature Gran % (Auto) 0.400 Neut % (Auto) 90.5 H Lymph % (Auto) 4.2 L [place] % (Auto) 4.8 Eos % (Auto) 0.0 Baso % (Auto) 0.1 Absolute Neuts (auto) 8.2 H Absolute Lymphs (auto) 0.38 L Nucleated RBC % 0 Sodium 138 Potassium 4.0 Chloride 105 Carbon Dioxide 21.5 Anion Gap 11 BUN 12 Creatinine 0.86 Estim Creat Clear Calc 81.97 Est GFR (MDRD) Non-Af 79 BUN/Creatinine Ratio 13.9 Glucose 130 H Calcium 9.5 Troponin T High Sens < 6 Troponin T Hi Sens 2 Hr < 6 Radiography Diagnostic Testing: Clinical Impression(s) from Imaging Studies Chest X-Ray 12/20/24 20:55 IMPRESSION: No acute cardiopulmonary abnormality. Reading Location: [id number] Discharge Plan Triage Chief Complaint: Chest Pain ED Midlevel Provider: Meera Masters ED Provider: Arron Guidry Dx/Rx/DC Orders Clinical Impression: Chronic GERD, Chest pain Instructions: ED GERD (Adult) Prescriptions: No Action esomeprazole magnesium 40 mg capsule,delayed release(DR/EC) 40 mg PO DAILY ferrous sulfate 325 mg (65 mg iron) tablet,delayed release (DR/EC) 325 mg PO .q Mon, Weds and Fri fluticasone propionate 50 mcg/actuation spray,suspension 1 spray intranasal DAILY Rx Instructions: administer into each nostril Nurtec ODT 75 mg tablet,disintegrating 75 mg PO .q 24 hours PRN (Reason: migraine headache) Rx Instructions: as a single dose rizatriptan [Maxalt] 10 mg tablet See Rx Instructions PO .COMPLEX Rx Instructions: take 1 tab at onset of headache fexofenadine [Emily Allergy] 180 mg tablet 180 mg PO DAILY esomeprazole magnesium 20 mg capsule,delayed release(DR/EC) 20 mg PO QDAY Qty: 30 2RF (DME) Hydrocortisone 2.5%/lidocaine 5% ointment (compound) Ointment See Rx Instructions .Route Qty: 1 2RF Rx Instructions: Apply to anus once daily as needed for irratation and hemorrhoids ondansetron 4 mg tablet,disintegrating 4 mg PO Q8H Qty: 10 1RF Sutab 1.479-0.188- 0.225 gram tablet See Rx Instructions PO PER PKG DIR Qty: 24 0RF Rx Instructions: PO PER PKG DIR atorvastatin 20 MG tablet 20 mg PO DAILY valsartan 80 MG tablet 80 mg PO DAILY solifenacin 5 mg tablet 5 mg PO DAILY celecoxib 200 MG capsule 200 mg PO DAILY PRN (Reason: Pain Or Fever) valacyclovir 500 MG tablet 500 mg PO DAILY alprazolam 0.25 MG tablet 0.25 mg PO BID PRN PRN (Reason: Anxiety) escitalopram oxalate [Lexapro] 5 mg Tablet 5 mg PO DAILY cholecalciferol (vitamin D3) [Vitamin D3] 50 mcg (2,000 unit) Capsule 50 mcg PO BID topiramate [Topamax] 25 mg tablet 25 mg PO BID Lomaira 8 mg tablet 15 mg PO DAILY Rx Instructions: must administer 30 minutes before meals/food Primary Care Provider: Jordin Dove Referrals: Jordin Dove DO [Primary Care Provider] - Activity Restrictions/Additional Instructions: Continue your Nexium and avoid foods that exacerbate GERD such as spicy foods, citrus, tomato sauces, vinegar, caffeine, carbonated drinks and alcohol, or fried or fatty foods. Follow-up with your primary care doctor. Print Language: Greek Disposition Disposition: Home, Self Care
[2024-12-20 22:00] VITALS: BP 121/77; PULSE 70; RESP 19; O2SAT 100
[2024-12-20 23:00] VITALS: BP 115/53; PULSE 72; RESP 18; O2SAT 100
[2024-12-20 23:23] LABS: Troponin T High Sens 2 HR < 6 ng/L (<=14)
[2024-12-20 23:45] VITALS: BP 115/53; PULSE 78; RESP 15; TEMP 36.8; O2SAT 99
== END 2024-12-20 23:46 | disposition home or self-care (01) ==
PROVIDERS: Physician Assistant; Emergency Provider Emergency Medicine; PCP Preventive Medicine Occupational Medicine; Visit Provider Emergency Medicine
DX: R07.9 Chest pain, unspecified (principal); E78.00 Pure hypercholesterolemia, unspecified; K21.9 Gastro-esophageal reflux disease without esophagitis; I10 Essential (primary) hypertension; Z79.899 Other long term (current) drug therapy; F41.9 Anxiety disorder, unspecified; Z90.710 Acquired absence of both cervix and uterus
CPT/HCPCS: 71046; 80048; 84484; 85025; 93005; 99283; A4216

== ENCOUNTER 2025-02-21 07:33 | Day surgery (SDC) | payer OTHER, SELFPAY ==
--- NOTE | 2025-02-19 16:08 | PAT.ANE_ITS ---
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 When Was Last Pacemaker Check QUESTION #4 FULL TEXT: You/Your Family Experience fever (hyperthermia) with Anesthesia Last Oral Intake Last Oral intake: Last Oral Intake NPO since Meds taken in AM with sips of water? 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 Has anyone observed you stop No 02/18/25 13:41 breathing during sleep? STOP Results Negative 02/18/25 13:41 QUESTION #5 FULL TEXT : Do you snore loudly (louder than talking or can be heard through closed doors)? 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 Specify any problems Hx of Preganancy in last 3 No 02/18/25 13:41 Months Nurse Filling Out Transfusion VCHRISTIN 02/18/25 13:41 & Questions: Date: 02/18/25 02/18/25 13:41 Time: 13:42 02/18/25 13:41 Patient unable to answer at this time (ie. 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 Hx Now No 02/18/25 13:41 Gestational Age (in weeks): EDC: Hx Hx Para Hx Section SAB No 02/18/25 13:41 [facility] Medical History (Updated 02/18/25 @ 13:40 by Soumya Mike) Post-menopausal Back pain History of diverticulitis Shortness of breath on exertion History of edema Normal Holter exam Chest pain Postoperative seroma of subcutaneous tissue after dermatologic procedure Lipoma of right lower extremity Wears glasses Anxiety Bladder disease Low iron High cholesterol Migraine headache Gastric reflux Non-smoker Hypertension Cardiology follow-up encounter History of stress test History of echocardiogram Dysesthesia Mass of right lower leg Gastrointestinal problem Vitamin deficiency Frequent headaches Anxiety and depression Chronic bronchitis UTI (urinary tract infection) Back problem Allergies Hyperhomocysteinemia Obesity GERD (gastroesophageal reflux disease) calcaneal varus deformity peroneal tendonopathy Home Medications ?Medication ?Instructions ?Recorded ?Last Taken ?Type atorvastatin 20 mg tablet 20 mg PO DAILY 03/23/19 Unkn own History valsartan 80 mg tablet 80 mg PO DAILY 03/23/1905/30 05:30 History 80 MG alprazolam 0.25 mg tablet 0.25 mg PO BID PRN PRN Anxie ty 06/08/19 Unknown History celecoxib 200 mg capsule 200 mg PO DAILY PRN Pain Or Fever 06/08/19 Unknown History valacyclovir 500 mg tablet 500 mg PO DAILY cold sores 06/08/19 Unknown History ferrous sulfate 325 mg (65 mg 325 mg PO .q Mon, Weds a nd 10/23/21 Unknown History iron) tablet,delayed release rimegepant 75 mg disintegrating 75 mg PO .q 24 hours P RN migraine 10/23/21 Unknown History tablet (Nurtec ODT) headache rizatriptan 10 mg tablet (Maxalt) 10 mg PO PRN 2 Unknown History solifenacin 5 mg tablet 5 mg PO DAILY 10/28/21 Unkno wn History cholecalciferol (vitamin D3) 50 50 mcg PO BID 03/31/22 Unknown History mcg (2,000 unit) capsule (Vitamin D3) escitalopram oxalate 5 mg tablet 10 mg PO DAILY Unknown History (Lexapro) Hydrocortisone 2.5% / Lidocaine 5% #1 ea 09/27/24 Unkn own Rx ointment (cmpd) (Hydrocortisone 2.5%/lidocaine 5% ointment (compound)) phentermine 8 mg tablet (Lomaira) 15 mg PO DAILY 12/20 Unknown History topiramate 25 mg tablet (Topamax) 25 mg PO BID 5 Unknown History esomeprazole magnesium 40 mg 40 mg PO DAILY 02/18/25 U nknown History capsule,delayed release (Nexium) ondansetron 4 mg disintegrating 4 mg PO Q8H PRN nausea and vomiting 02/18/25 Unknown History tablet Allergy/AdvReac Type Severity Reaction Status Date / Time lisinopril Allergy Other Verified 02/18/25 13:25 doxycycline AdvReac Nausea/Vom/ Verified 02/18/25 13:25 Diarrhea Family History Father Heart disease Hypertension Other Anesthesia complication Angina at rest Anxiety Arthritis Breast cancer CVA (cerebral vascular accident) Cancer Depression High cholesterol Surgical History (Updated 02/18/25 @ 13:40 by Soumya Mike) History of partial hysterectomy Hx of surgical procedure Status post excision of lipoma Hx of colonoscopy Hx of foot surgery History of colonoscopy History of hysterectomy S/P tendon repair Social History Smoking Status: Never smoker alcohol intake: never substance use type: does not use additional social history: Does Take Aspirin Does Take Ibuprofen Audit: Pertinent Findings Pertinent Findings EKG Perinent findings: 12/20/2024. Normal sinus rhythm. Incomplete right bundle branch block. Stress test pertinent findings: 12/31/2020. Patient achieved a workload of 7 METS. No ischemic EKG changes noted. Echo (EF%) pertinent findings: 03/12/2021. EF is 60 to 65%. RVSP is 30 mmHg. No aortic stenosis noted. Consult pertinent findings: 10/28/2021. Dr. Camacho. 1. [id number]. Continue valsartan. DC beta-estephania and nitrates. Additional pertinent findings: 48-hour Holter. 12/22/2020. Underlying rhythm is sinus rhythm. Diary was not submitted. Patient triggered events noted. 90 PVCs and 8 PACs noted. No atrial fibrillation. Recommendation Anesthesia Recommendation Anesthesia recommendation: OPTIMIZED for anesthesia
[2025-02-21] VITALS (9 sets, daily range): BP systolic 98–126; BP diastolic 53–92; PULSE 64–88; RESP 16–20; TEMP 36.1–36.2; O2SAT 98–100; BMI 34.3
--- OUTSIDE RECORDS SUMMARY | 2025-02-21 07:50 | XMS RPT_ITS | CCD ---
Author Organization [facility] Care Team Providers Care Materials Analyst Name Role Phone Barrett MIMSNLaura N Unavailable Michi BACON STRINGER, Milagro N Unavailable Unavailab le Michi BACON STRINGER, Milagro N Unavailable Unavailab le Michi BACON STRINGER, Milagro N Unavailable Unavailab le Michi BACON STRINGER, Milagro N Unavailable Unavailab le Michi BACON STRINGER, Milagro N Unavailable Unavailab Jenniffer Beach Unavailable Unavailable Jenniffer Bravo Unavailable Unavailable Nelson Royal Unavailable Unavailable No Primary Care, Primary Care Provider Elliot knowles Provider, External Unavailable Laurie Soria Unavailable Unavailable Julia Avila Unavailable Unavailable Sarah Roche Unavailable NELSON ROYAL DO Primary Care Physician Nelson Royal Primary Care Provider Dr. Nelson Royal Primary Care Provider Dr. Nelson Royal Referring Provider [phone] Dr. Antonio Nair Attending Provider [phone] Dr. Antonio Nair Other Provider [phone] Antonio Nair Referring Provider [phone] Dr. Nelson Royal Primary Care Provider Dr. Antonio Nair Attending Provider [phone] Dr. Nelson Royal Referring Provider [phone] Ravi GENERAL TECHNICIAN, GENERAL TECHNICIAN-Gudelia Monge Attending Provider [phone] Dr. Nelson Royal Primary Care Provider Dr. Nelson Royal Referring Provider [phone] Dr. Antonio Nair Attending Provider Lele DO, Nelson F Primary Care Provider [phone] [facility] Attending Unavailabl e LELE DO, ENLSON Primary Care Unavailable LELE DO, NELSON Primary Care Unavailable LELE DO, NELSON Attending Unavailable [facility], [facility]ER[facility] Attending Unavailabl e LELE DO, NELSON Primary Care Unavailable Lele DO, Nelson F Primary Care Provider [phone] LELE DO, NELSON Primary Care Unavailable LELE DO, NELSON Attending Unavailable LELE DO, NELSON Primary Care Unavailable [facility], LERICA Attending Unavailabl e EBENEZER CAMARILLO Attending Unavailable LELE, NELSON F Primary Care Unavailable EBENEZER CAMARILLO Attending Unavailable LELE, NELSON F Referring Unavailable LELE, NELSON F Primary Care Unavailable EBENEZER CAMARILLO Attending Unavailable LAURA PATHAK Referring Unavailable LELE, NELSON F Primary Care Unavailable EBENEZER CAMARILLO Attending Unavailable LELE, NELSON F Primary Care Unavailable Dr. Nelson Royal DO Primary Care Provider [phone] Dr. Nelson Royal DO Referring Provider Cynthia Chapman Attending Provider Dr. Bernard Lenz DO Attending Provider [phone] Dr. Bernard Lenz DO Referring Provider Dr. Rahel Monson MD Attending Provider [phone] Dr. Arron Guidry MD Emergency Provider [phone] Arron Guidry MD Attending Provider [phone] LELE, NELSON F Primary Care Unavailable LAURA PATHAK Attending Unavailable LELE, NELSON F Primary Care Unavailable KATIUSKA RIVERA Attending Unavailable LELE, NELSON F Primary Care Unavailable CELIA NAVA Attending Unavailable ELIJAH CELIA Attending Unavailable LELE, NELSON F Primary Care Unavailable ELIJAH CELIA Attending Unavailable JENNIFFER HURTADO IV Primary Care Unavailable NAVA, CELIA Attending Unavailable LELE, NELSON F Primary Care Unavailable LELE, NELSON F Primary Care Unavailable CELIA NAVA Attending Unavailable CELIA NAVA Attending Unavailable LELE, NELSON F Primary Care Unavailable KATIUSKA RIVERA Attending Unavailable LELE, NELSON F Primary Care Unavailable HAURY, LAURA Referring Unavailable LELE, NELSON F Primary Care Unavailable Halhenry, Jenniffer Primary Care Unavailable Halhenry, Jenniffer Referring Unavailable Chris Sepulveda Attending Unavailable Sarah Moreira Attending Unavailable Elle, Nelson Primary Care Unavailable Cynthia Rucker Attending Unavailable Lele, Nelson Primary Care Unavailable Lele, Nelson Referring Unavailable Sarah Moreira Attending Unavailable Lele, Nelson Primary Care Unavailable Lele, Nelson Primary Care Unavailable Sarah Moreira Attending Unavailable Sarah Moreira Attending Unavailable Lele, Nelson Primary Care Unavailable UrvashittBernard rivas Attending Unavailable SpittleCarlBernard Referring Unavailable Lele, Nelson Primary Care Unavailable Haury, Laura Attending Unavailable Lele, Nelson Primary Care Unavailable Guidry Arron Attending Unavailable Lele, Nelson Primary Care Unavailable Allergies Allergy Classification Reported Allergen(s) Allergy Type Date of Onset Reaction(s) Facility (6 sources) doxycycline drug allergy 2 throwing up [facility] Work Phone: (20 sources) doxycycline; Translations: [doxycycline] Drug Allergy 2 Vomiting (disorder), Other: See Comments, Diarrhea, GI Upset, Vomiting, Intolerance [facility] (20 sources) lisinopril; Translations: [lisinopril] Drug Allergy 9 Other: See Comments, Cough [facility] (20 sources) Seasonal allergy; Translations: [SEASONAL ALLERGIES] Allergy to substance 4 Other: See Comments [facility] (20 sources) Cephalexin; Translations: [CEPHALEXIN MONOHYDRATE] Drug Allergy 3 Other: See Comments [facility] (2 sources) busPIRone; Translations: [buspirone] Drug Allergy 4 ineffective [facility] Medications Current Medications Medication Drug Class(es) Dates Sig (Normalized) Sig (Original) ALPRAZolam 0.25 mg oral tablet (20 sources) Benzodiazepine Start: 03-11-2021 take 1 tablet by mouth once daily as needed ALPRAZolam (XANAX) 0.25 mg tablet Take 0.25 mg by mouth once daily as needed. 03/11/2021 Active Start: 03-11-2021 End: 03-18-2021 ALPRAZolam (XANAX) 0.25 mg t ablet mg = tab(s), Oral, TID, 0 Refill(s), 102.6 0 03/11/2021 Active Start: 06-08-2019 take 1 tablet by precious twice daily as needed for anxiety Alprazolam 0.25 MG tablet Active 0.25 mg PO TWICE DAILY NEEDED as needed for Anxiety June 08, 2019 1:00am Comment on above: mg = tab(s), Oral, TID, 0 Refill(s), 102.6 atorvastatin 20 mg oral tablet (20 sources) HMG-CoA Reductase Inhibitor Start: End: take 1 tablet by mouth once daily Atorvastatin 20 MG tablet Active 20 mg PO DAILY March 23, 2019 12:00am Start: 10-04-2016 ATORVASTATIN C ALCIUM TABS as directed ATORVASTATIN CALCIUM TABS [id number] [place] VASQUEZ celecoxib 200 mg oral capsule (20 sources) Nonsteroidal Anti-inflammatory Drug Start: 03-02-2019 take 1 capsule by mouth twice daily as needed for pain celecoxib (CELEBREX) 200 mg capsule TAKE 1 CAPSULE BY MOUTH TWICE A DAY NEEDED FOR SEVERE PAIN 03/02/2019 Active Start: 03-02-2019 take 1 capsule by [facility] daily as needed for pain Celecoxib 200 MG capsule Active 200 mg PO DAILY as needed for Pain Or Fever June 08, 2019 1:00am Comment on above: TAKE 1 CAPSULE BY MO [facility] TWICE A DAY NEEDED FOR SEVERE PAIN cephalexin 500 mg oral capsule (1 source) Cephalosporin Antibacterial Start: End: cephalexin 500 mg oral capsule Dose : 500 mg = 1 cap(s), Oral, q8h, X 7 day(s), # 21 cap(s), 0 Refill(s), 06/27/23 10:35:00 AM EST, Pharmacy: [id number], UTI symptoms, 164.5, cm, 06/20/23 10:06:00 EST, Height, 102.7, kg, 06/20/23 10:06:00 EST, Dosing Weight Start Date: 06/20/23 Stop Date: 06/27/23 Status: Ordered cholecalciferol 0.05 mg oral capsule (20 sources) Vitamin D Start: take 1 capsule by mouth twice daily Cholecalciferol (Vitamin D3) (Vitamin D3) 50 mcg (2,000 unit) Capsule Active 50 ug PO TWICE A DAY March 31, 2022 12:00am Start: 03-11-2021 take 1 tablet by precious once daily cholecalciferol (VITAMIN D3) 50 mcg (2,000 unit) tablet Take 2,000 Units by mouth once daily. 03/11/2021 Active escitalopram 10 mg oral tablet (20 sources) Serotonin Reuptake Inhibitor Start: 12-27-2023 End: 01-30-2025 escitalopram 10 mg oral tablet Dose : 10 mg = 1 tab(s), Oral, qDay, # 100 tab(s), 3 Refill(s), Pharmacy: [id number], 162, cm, 12/27/23 12:58:00 EDT, Height, kg, 12/27/23 12:58:00 EDT, Dosing Weight Start Date: 12/27/23 Stop Date: 01/30/25 Status: Ordered Start: 03-11-2021 take 2 tablets by mo [facility] once daily escitalopram oxalate (LEXAPRO) 5 mg tablet Take 10 mg by mouth once daily. 03/11/2021 Active Start: 03-11-2021 take 1 tablet by precious once daily Escitalopram Oxalate (Lexapro) 5 mg Tablet Active 5 mg PO DAILY March 31, 2022 12:00am Comment on above: 5 mg. esomeprazole 20 mg delayed release oral capsule (20 sources) Proton Pump Inhibitor Start: take 1 capsule by mouth once daily Esomeprazole Magnesium 20 mg capsule,delayed release(DR/EC) Active 20 mg PO daily 30 September 27, 2024 12:00am Start: 10-18-2015 End: 10-23-2021 Esomeprazole Magnesium (Nexi um 24hr) 22.3 MG capsule,delayed release(DR/EC) Discontinued 40 mg PO DAILY October 18, 2015 12:00am October 23, 2021 2:54pm Start: 07-12-2011 take 1 tablet by precious th once daily NEXIUM 40 MG CPDR One tablet by mouth daily ESOMEPRAZOLE MAGNESIUM [id number] Avtar Nicholson MD Start: 09-02-2008 End: 01-30-2025 take 1 capsule by mouth once daily Esomeprazole Magnesium 40 mg capsule,delayed release(DR/EC) Active 40 mg PO DAILY October 23, 2021 12:00am Comment on above: as needed. Estradiol / Estriol (12 sources) Estrogen Start: 08-31-2024 estradiol 0.01 % estriol 0.01% cream (CPD) Indications: Genitourinary syndrome of menopause 4 clicks/1 gram per vaginal twice weekly. 30 g 3 08/31/2024 Active Start: 04-13-2024 End: 08-31-2024 estradiol 0.01% estriol 0.01 % cream (CPD) Indications: Genitourinary syndrome of menopause 4 clicks/1 gram per vaginal twice weekly. 30 g 1 04/13/2024 08/31/2024 Discontinued Start: 04-13-2024 estradiol 0.01 % estriol 0.01% cream (CPD) Indications: Genitourinary syndrome of menopause 4 clicks/1 gram per vaginal twice weekly. 30 g 1 04/13/2024 Active ferrous sulfate 325 mg delayed release oral tablet (20 sources) Start: 11-18-2020 End: 01-30-2025 take 1 tablet by mouth once Ferrous Sulfate 325 mg (65 mg iron) tablet,delayed release (DR/EC) Active 325 mg PO .q Mon, Weds and TueOctober 23, 2021 12:00am Comment on above: 325 mg. ferrous sulfate 325 mg (65 mg elemental iron) oral delayed release tablet (5 sources) Start: 05-18-2021 End: 05-13-2022 ferrous sulfate 325 mg (65 mg elemental iron) oral delayed release tablet Dose : 325 mg = 1 tab(s), Oral, Tue/Wed/Tue, may take with food to minimize abdominal discomfort, # 39 tab(s), 3 Refill(s), Pharmacy: [id number], 165, cm, 12/06/21 11:32:00 EST, Height, kg, 05/04/21 11:32:00 EST, Dosing Weight Start Date: 05/18/21 Stop Date: 05/13/22 Status: Ordered Start: 02-12-2021 End: 05-13-2021 ferrous sulfate 325 mg (65 m g elemental iron) oral delayed release tablet Dose : 325 mg = 1 tab(s), Oral, Tue/Tue/Tue, may take with food to minimize abdominal discomfort, # 39 tab(s), 0 Refill(s), Pharmacy: [facility]/pharmacy #[id number], 164, cm, 01/06/21 9:35:00 EDT, Height, kg, 01/06/21 9:35:00 EDT, Dosing Weight Start Date: 02/12/21 Stop Date: 05/13/21 Status: Ordered fexofenadine hydrochloride 180 mg oral tablet (6 sources) Histamine-1 Receptor Antagonist Start: 11-22-2022 take 1 tablet by mouth once daily Fexofenadine (Emily Allergy) 180 mg tablet Active 180 mg PO DAILY November 22, 2022 12:00am Start: 11-02-2022 Emily 12 Briana r Allergy 60 mg oral tablet Dose : 60 mg = 1 tab(s), Oral, qDay, 0 Refill(s) Start Date: 11/02/22 Status: Ordered Flonase 50 mcg/inh nasal spray (5 sources) Start: 02-25-2021 Flonase 50 mcg /inh nasal spray qDay, 0 Refill(s) Start Date: 02/25/21 Status: Ordered fluticasone propionate 0.05 mg/actuat metered dose nasal spray (20 sources) Corticosteroid Start: 10-23-2021 Fluticasone Pr opionate 50 mcg/actuation spray,suspension Active 1 NMA INTRANASAL DAILY October 23, 2021 12:00am administer into each nostril Start: 10-23-2021 take 1 spray(s) nasa l route once daily Fluticasone Propionate Active 1 SPRAY INTRANASAL DAILY October 23, 2021 12:00am administer into each nostril Start: 02-25-2021 fluticasone (F LONASE) 50 mcg/actuation nasal spray Use 1 [place] in the nose once daily. 02/25/2021 Active Start: 02-25-2021 fluticasone (F LONASE) 50 mcg/actuation nasal spray Use 1 [place] in the nose. 0 02/25/2021 Active Comment on above: Use 1 [place] in the n ose. Hydrocortisone / Lidocaine (2 sources) Antiarrhythmic, Corticosteroid, Amide Local Anesthetic Start: 09-27-2024 Hydrocortisone 2.5% / Lidocaine 5% Ointment (Cmpd) [Hydrocortisone 2.5%/Lidocaine 5% Ointment (Compound)] (Hydrocortisone ) ointment Active 0 .Route 1 2 September 27, 2024 12:00am Apply to anus once daily as needed for irratation and hemorrhoids lidocaine 0.05 mg/mg medicated patch (1 source) Antiarrhythmic, Amide Local Anesthetic Start: 12-28-2021 End: 01-11-2022 lidocaine (LIDODERM) 5 % Apply 1 Patch as directed once daily for 14 days. Remove old patch prior to placing new patch. Location: right rib area. Leave patch on for 12 hours then off for 12 hours before placing a new one. 14 Patch 0 12/28/2021 01/11/2022 Active Comment on above: Apply 1 Patch as dir ected once daily for 14 days. Remove old patch prior to placing new patch. Location: right rib area. Leave patch on for 12 hours then off for 12 hours before placing a new one. NexIUM 40 mg oral delayed release capsule (5 sources) Start: 03-02-2019 NexIUM 40 mg oral delayed release capsule Dose : 40 mg = 1 cap(s), Oral, qDay, buys OTC, # 30 cap(s), 0 Refill(s) Start Date: 03/02/19 Status: Ordered nitrofurantoin, macrocrystals 25 mg / nitrofurantoin, monohydrate 75 mg oral capsule (1 source) Nitrofuran Antibacterial Start: 06-28-2023 End: 07-03-2023 Macrobid 100 mg oral capsule Dose : 100 mg = 1 cap(s), Oral, BID, Take with food, X 5 day(s), # 10 cap(s), 0 Refill(s), 07/03/23 1:41:00 PM EST, Pharmacy: [id number], UTI (urinary tract infection), uncomplicated, 162.5, cm, 06/28/23 13:04:00 EST, Height, 102.7, kg, 06/28/23 13:04:00 EST, Dosing Weight Start Date: 06/28/23 Stop Date: 07/03/23 Status: Ordered nitroglycerin 0.4 mg sublingual tablet (1 source) Nitrate Vasodilator Start: 03-23-2021 nitroglycerin 0.4 mg sublingual tablet 0.4 mg Dose = 1 tab(s), Sublingual, q5min, PRN for chest pain q 5min X3, # 25 tab(s), 3 Refill(s), Pharmacy: [facility]/pharmacy #[id number], 163, cm, 03/11/21 10:17:00 EDT, Height, kg, 03/11/21 10:17:00 EDT, Dosing Weight Start Date: 03/23/21 Status: Ordered nitroglycerin 0.4 mg sublingual tablet (5 sources) Start: 03-23-2021 nitroglycerin 0.4 mg sublingual tablet 0.4 mg Dose = 1 tab(s), Sublingual, q5min, PRN for chest pain q 5min X3, # 25 tab(s), 3 Refill(s), Pharmacy: [facility]/pharmacy #[id number], 163, cm, 03/11/21 10:17:00 EDT, Height, kg, 03/11/21 10:17:00 EDT, Dosing Weight Start Date: 03/23/21 Status: Ordered Start: 02-25-2021 nitroglycerin 0.4 mg sublingual tablet 0.4 mg Dose = 1 tab(s), Sublingual, q5min, PRN for chest pain q 5min X3, # 25 tab(s), 11 Refill(s), Pharmacy: [facility]/pharmacy #[id number], 162.6, cm, 02/25/21 16:12:00 EDT, Height, kg, 02/25/21 16:12:00 EDT, Dosing Weight Start Date: 02/25/21 Status: Ordered nystatin [id number] unt/ml oral suspension (1 source) Polyene Antifungal Start: 04-23-2024 End: 05-03-2024 take 1 dose by mouth four times daily nystatin 100,000 units/mL oral suspension Dose : 500,000 unit(s) = 5 mL, Oral, QID, X 10 day(s), # 200 mL, 0 Refill(s), 05/03/24 9:02:00 AM EST, Pharmacy: [id number], Oral thrush, 166, cm, 04/23/24 8:22:00 EST, Height, kg, 04/23/24 8:22:00 EST, Dosing Weight Start Date: 04/23/24 Stop Date: 05/03/24 Status: Ordered ondansetron 4 mg disintegrating oral tablet (8 sources) Serotonin-3 Receptor Antagonist Start: 09-27-2024 take 1 tablet by mouth every eight hours Ondansetron 4 mg tablet,disintegra ting Active 4 mg PO Q8H 10 September 27, 2024 12:00am Start: 10-29-2020 End: 10-28-2023 take 2 tablets by mouth twice daily as needed ondansetron (ZOFRAN) 4 mg tablet TAKE 2 TABLET(S) TWICE A DAY BY ORAL ROUTE NEEDED. 10/29/2020 10/28/2023 Discontinued Comment on above: TAKE 2 TABLET(S) TWI CE A DAY BY ORAL ROUTE NEEDED. phentermine hydrochloride 8 mg oral tablet (20 sources) Sympathomimetic Amine Anorectic Start: 12-20-2024 Phentermine (Lomaira) 8 mg tablet Active 15 mg PO DAILY December 20, 2024 12:00am must administer 30 minutes before meals/food Start: 11-14-2024 End: 02-12-2025 take 1 capsule by mouth once daily before breakfast Phentermine HCl 15 mg capsule Indications: Essential hypertension , Gastroesophageal reflux disease, unspecified whether esophagitis present , Hyperlipidemia, unspecified hyperlipidemia type , Class 2 severe obesity with serious comorbidity and body mass index (BMI) of 37.0 to 37.9 in adult, unspecified obesity type (HCC) Take 1 capsule by mouth daily before breakfast for 90 days. Patient should start on November 14, 2024. 90 capsule 11/14/2024 02/12/2025 Active Start: 03-19-2024 End: 11-06-2024 take 37-37.9 capsules by mouth once daily before breakfast Phentermine HCl 15 mg capsule Indications: Essential hypertension , Gastroesophageal reflux disease, unspecified whether esophagitis present , Hyperlipidemia, unspecified hyperlipidemia type , Class 2 severe obesity with serious comorbidity and body mass index (BMI) of 37.0 to 37.9 in adult, unspecified obesity type (HCC) Take 1 capsule by mouth daily before breakfast for 90 days. 90 capsule 08/08/2024 10/29/2024 Discontinued Start: 02-03-2024 End: 03-13-2024 take 37-37.9 capsules by mouth once daily before breakfast Phentermine HCl 15 mg capsule Indications: Essential hypertension , Gastroesophageal reflux disease, unspecified whether esophagitis present , Hyperlipidemia, unspecified hyperlipidemia type , Class 2 severe obesity with serious comorbidity and body mass index (BMI) of 37.0 to 37.9 in adult, unspecified obesity type (HCC) Take 1 capsule by mouth daily before breakfast for 45 days. 45 capsule 02/03/2024 03/13/2024 Discontinued rimegepant 75 mg disintegrating oral tablet (20 sources) Start: 02-11-2021 take 1 tablet by mouth once daily as needed rimegepant (NURTEC ODT) 75 mg disintegrating tablet Take 75 mg by mouth once daily as needed. 02/11/2021 Active Start: 11-19-2020 take 1 tablet by precious th every twenty-four hours as needed for headache Rimegepant (Nurtec Odt) 75 mg tablet,disintegrating Active 75 mg PO .q 24 hours as needed for migraine headache October 23, 2021 12:00am as a single dose Comment on above: 75 mg. rizatriptan 10 mg oral tablet (20 sources) Serotonin-1b and Serotonin-1d Receptor Agonist Start: 03-02-2019 End: 12-11-2022 Rizatriptan (Maxalt) 10 mg tablet Active 0 PO .COMPLEX October 23, 2021 12:00am take 1 tab at onset of headache Start: 07-12-2011 End: 10-04-2016 take 1 tablet by mouth once daily as needed MAXALT 10 MG TABS One tablet by mouth daily as needed RIZATRIPTAN BENZOATE [id number] Avtar Nicholson MD Comment on above: Take 10 mg by mouth. Sod Sulf-Pot Chloride-Mag Sulf (2 sources) Start: 09-27-2024 take 1.479 tablets by mouth once Sod Sulf-Pot Chloride-Mag Sulf (Sutab) 1.479-0.188- 0.225 gram tablet Active 0 PO per package directions 24 0 September 27, 2024 12:00am PO PER PKG DIR topiramate 25 mg oral tablet (20 sources) Start: 12-20-2024 take 1 tablet by mouth twice daily Topiramate (Topamax) 25 mg tablet Active 25 mg PO TWICE A DAY December 20, 2024 12:00am Start: 07-25-2024 End: 01-21-2025 take 37-37.9 tablets by mouth twice daily topiramate (TOPAMAX) 50 mg tablet Indications: Intractable migraine with aura with status migrainosus , Class 2 severe obesity with serious comorbidity and body mass index (BMI) of 37.0 to 37.9 in adult, unspecified obesity type (HCC) Take 1 tablet by mouth two times a day. 180 tablet 1 07/25/2024 01/21/2025 Active Start: 04-23-2024 topiramate 25 mg oral capsule, extended release Dose : 25 mg = 1 cap(s), Oral, BID, # 30 cap(s), 0 Refill(s) Start Date: 04/23/24 Status: Ordered Start: 02-01-2024 End: 10-17-2024 take 37-37.9 tablets by mouth twice daily topiramate (TOPAMAX) 25 mg tablet Indications: Intractable migraine with aura with status migrainosus , Class 2 severe obesity with serious comorbidity and body mass index (BMI) of 37.0 to 37.9 in adult, unspecified obesity type (HCC) Take 1 tablet by mouth two times a day. 180 tablet 1 04/20/2024 07/25/2024 Discontinued valACYclovir 500 mg oral tablet (20 sources) Herpesvirus Nucleoside Analog DNA Polymerase Inhibitor, Herpes Simplex Virus Nucleoside Analog DNA Polymerase Inhibitor, Herpes Zoster Virus Nucleoside Analog DNA Polymerase Inhibitor Start: 03-02-2019 End: 09-29-2024 take 1 tablet by mouth once daily valACYclovir (VALTREX) 500 mg tablet Take 1 tablet by mouth once daily. 90 tablet 2 10/01/2024 Active Start: 07-12-2011 End: 10-04-2016 take 1 tablet by mouth once daily as needed VALACYCLOVIR HCL 500 MG TABS One tablet by mouth daily as needed VALACYCLOVIR HCL [id number] [place] VAQSUEZ End: 10-28-2023 take 1 tablet by mouth twice daily valACYclovir (VALTREX) 500 mg tablet Take 500 mg by mouth twice daily. 10/28/2023 Discontinued Comment on above: Take 500 mg by mouth twice daily. valsartan 80 mg oral tablet (20 sources) Angiotensin 2 Receptor [place] Start: 03-23-2019 End: 01-30-2025 take 1 tablet by mouth once daily Valsartan 80 MG tablet Active 80 mg PO DAILY March 23, 2019 12:00am Vitamin D3 50 mcg (2000 intl units) oral tablet (9 sources) Start: 12-27-2023 Vitamin D3 50 mcg (2000 intl units) oral tablet Dose : 50 mcg = 1 tab(s), Oral, BID, # 200 tab(s), 3 Refill(s), Pharmacy: [facility], Vitamin D deficiency, 162, cm, 12/27/23 12:58:00 EDT, Height, kg, 12/27/23 12:58:00 EDT, Dosing Weight Start Date: 12/27/23 Status: Ordered Start: 06-28-2023 Vitamin D3 50 mcg (2000 intl units) oral tablet Dose : 50 mcg = 1 tab(s), Oral, BID, # 200 tab(s), 3 Refill(s), Pharmacy: [facility], Vitamin D deficiency, 162.5, cm, 06/28/23 13:04:00 EST, Height, kg, 06/28/23 13:04:00 EST, Dosing Weight Start Date: 06/28/23 Status: Ordered Start: 06-14-2022 Vitamin D3 50 mcg (2000 intl units) oral tablet Dose : 50 mcg = 1 tab(s), Oral, BID, # 200 tab(s), 3 Refill(s), Pharmacy: [id number], Vitamin D deficiency, 164, cm, 06/14/22 10:37:00 EST, Height, kg, 06/14/22 10:37:00 EST, Dosing Weight Start Date: 06/14/22 Status: Ordered Start: 06-01-2021 Vitamin D3 50 mcg (2000 intl units) oral tablet Dose : 50 mcg = 1 tab(s), Oral, BID, # 200 tab(s), 3 Refill(s), Pharmacy: [id number], Vitamin D deficiency, 165, cm, 05/04/21 11:32:00 EST, Height, kg, 05/04/21 11:32:00 EST, Dosing Weight Start Date: 06/01/21 Status: Ordered Start: 04-29-2021 Vitamin D3 50 mcg (2000 intl units) oral tablet Dose : 50 mcg = 1 tab(s), Oral, BID, # 200 tab(s), 3 Refill(s), Pharmacy: [facility] #[id number], Vitamin D deficiency, 163, cm, 03/11/21 10:17:00 EDT, Height, kg, 03/11/21 10:17:00 EDT, Dosing Weight Start Date: 04/29/21 Status: Ordered Start: 03-11-2021 Vitamin D3 50 mcg (2000 intl units) oral tablet Dose : 2,000 unit(s) = 1 tab(s), Oral, Daily, # 100 tab(s), 3 Refill(s), Pharmacy: [facility]/pharmacy #[id number], Vitamin D deficiency, 163, cm, 03/11/21 10:17:00 EDT, Height, kg, 03/11/21 10:17:00 EDT, Dosing Weight Start Date: 03/11/21 Status: Ordered Completed/Discontinued Medications Medication Drug Class(es) Dates Sig (Normalized) Sig (Original) acetaminophen 325 mg / HYDROcodone bitartrate 5 mg oral tablet (7 sources) Opioid Agonist Start: 04-09-2022 End: 11-22-2022 take 7-10 tablets by mouth every six hours as needed for pain Hydrocodone-Acetamin ophen 5-325 mg tablet Discontinued 1 {tbl} PO EVERY 6 HOURS as needed for pain (scale score 7-10) 28 7 0 April 09, 2022 November 22, 2022 10:46am Other acute postprocedural pain Other acute postprocedural pain 28 tabs (twenty-eight) Start: 04-09-2022 End: 11-22-2022 take 1 tablet by mouth every six hours Hydrocodone-Acetaminophen Discontinued 1 TABLET PO EVERY 6 HOURS 28 7 April 09, 2022 November 22, 2022 10:46am 28 tabs (twenty-eight) [id number] 200 actuat albuterol 0.09 mg/actuat metered dose inhaler (6 sources) beta2-Adrenergic Agonist Start: 07-27-2015 End: 10-28-2023 take 2 puff(s) by inhalation every four hours as needed for wheezing albuterol HFA (VENTOLIN HFA) 90 mcg/actuation inhaler Inhale 2 Puffs as instructed every 4 hours as needed for Wheezing/Shortness of Breath. 1 Inhaler 0 07/27/2015 10/28/2023 Discontinued Comment on above: Inhale 2 Puffs as instructed every 4 briana rs as needed for Wheezing/Shortness of Breath. aluminum chloride (12 sources) Start: 07-12-2011 End: 10-04-2016 HYPERCARE 20 % SOLN use underarms once daily ALUMINUM CHLORIDE [id number] Ventura VASQUEZ Start: 07-12-2011 HYPERCARE 20 % SOLN use underarms once daily ALUMINUM CHLORIDE [id number] Avtar Nicholson MD AMOXICILLIN-POT CLAVULANATE (6 sources) Penicillin-class Antibacterial Start: 10-04-2016 AUGMENTIN 875-125 MG TABS 1 tablet twice daily AMOXICILLIN-POT CLAVULANATE [id number] Ventura VASQUEZ aspirin 81 mg delayed release oral tablet (12 sources) Nonsteroidal Anti-inflammatory Drug Start: 07-12-2011 End: 10-04-2016 take 1 tablet by mouth once daily ASPIRIN 81 MG TBEC One tablet by mouth daily ASPIRIN [id number] Ventura VASQUEZ Beclomethasone (6 sources) Corticosteroid Start: 07-27-2015 End: 10-28-2023 take 2 puff(s) by inhalation twice daily beclomethasone (QVAR) 40 mcg/actuation inhaler Inhale 2 Puffs as instructed twice daily. 1 Inhaler 0 07/27/2015 10/28/2023 Discontinued Start: 07-27-2015 take 2 puff(s) by in halation twice daily beclomethasone (QVAR) 40 mcg/actuation inhaler Inhale 2 Puffs as instructed twice daily. 1 Inhaler 0 07/27/2015 Active Comment on above: Inhale 2 Puffs as in structed twice daily. benzonatate 100 mg oral capsule (6 sources) Non-narcotic Antitussive Start: 06-27-19 End: 10-28-19 take 1 capsule by mouth three times daily as needed for cough benzonatate (TESSALON PERLES) 100 mg capsule Indications: Sinobronchitis Take 1 capsule by mouth three times daily as needed for Cough. 20 capsule 0 06/27/2015 10/28/2023 Discontinued Comment on above: Take 1 capsule by mo uth three times daily as needed for Cough. cefadroxil 500 mg oral capsule (7 sources) Cephalosporin Antibacterial Start: 04-09-20 End: 05-04-20 take 1 capsule by mouth twice daily Cefadroxil 500 mg capsule Discontinued 500 mg PO TWICE A DAY April 09, 2022 1:00am May 04, 2022 2:31pm codeine phosphate 2 mg/ml / guaiFENesin 20 mg/ml oral solution (9 sources) Opioid Agonist Start: 06-27-19 End: 12-29-19 24 take 5-10 mL by mouth at bedtime as needed for cough codeine-guaiFENesin (ROBITUSSIN AC) 10-100 mg/5 mL syrup Indications: Sinobronchitis Take 5-10 mL by mouth at bedtime as needed for Cough or Cold/Allergy Symptoms. May cause drowsiness. 90 mL 0 06/27/2015 12/29/2023 Discontinued Comment on above: Take 5-10 mL by mout h at bedtime as needed for Cough or Cold/Allergy Symptoms. May cause drowsiness. desloratadine 5 mg oral tablet (14 sources) Histamine-1 Receptor Antagonist Start: 07-12-19 End: 04-11-20 23 take 1 tablet by mouth once daily as needed CLARINEX 5 MG TABS One tablet by mouth daily as needed DESLORATADINE [id number] Ventura VASQUEZ Comment on above: Take 5 mg by mouth o nce daily. doxycycline hyclate 100 mg oral capsule (6 sources) Tetracycline-class Drug Start: 05-03-20 End: 05-04-20 take 1 capsule by mouth twice daily Doxycycline Hyclate 100 mg capsule Discontinued 100 mg PO TWICE A DAY May 03, 2022 1:00am May 04, 2022 2:41pm estradiol 0.01 mg vaginal insert (20 sources) Estrogen Start: 04-09-20 End: 04-13-20 estradiol 10 mcg vaginal suppository maintenance pack (IMVEXXY) Indications: Genitourinary syndrome of menopause Use 1 Suppository vaginally three times a week. 12 Each 04/09/2024 04/13/2024 Discontinued (Cost of medication) Start: 04-11-2023 End: 04-09-2024 estradiol (ESTRACE) 0.01 % ( 0.1 mg/gram) vaginal cream apply approximately 1/2 inch of cream vaginally qhs every other night 42.5 g 1 04/11/2023 04/09/2024 Discontinued (Allergic response) Start: 07-27-2022 End: 02-22-2023 Estrace Vaginal 0.1 mg/g vag inal cream 2 gram(s), Vaginal, qDay, use 2-3 times weekly for 2 weeks and then 1-2 times weekly, # 42.5 gram(s), 6 Refill(s), Pharmacy: [id number], Vaginal dryness Vaginal irritation, 165, cm, 07/27/22 10:34:00 EST, Height Start Date: 07/27/22 Stop Date: 02/22/23 Status: Ordered Comment on above: apply approximately 1/2 inch of cream vaginally qhs every other night hydroCHLOROthiazide 12.5 mg oral tablet (12 sources) Thiazide Diuretic Start: 2011 End: 2011 take 1 tablet by mouth once daily HYDROCHLOROTHIAZIDE 12.5 MG TABS One tablet by mouth daily HYDROCHLOROTHIAZIDE [id number] Avtar Nicholson MD hydrochlorothiazide 10 mg/mL susp (6 sources) End: 2023 hydrochlorothiazide 10 mg/mL susp Take by mouth twice daily. 10/28/2023 Discontinued End: 10-28-2023 hydrochlorothiazide 10 mg/mL susp Take by mouth twice daily. 0 10/28/2023 Discontinued hydrochlorothiaz vidal 10 mg/mL susp Take by mouth twice daily. 0 Active Comment on above: Take by mouth twice daily. L.Acidoph,Saliva-B.B if-S.Therm (Acidophilus Probiotic Blend) 175 mg capsule (7 sources) Start: 04-09-2022 End: 05-25-2022 take 1 capsule by mouth once daily L.Acidoph,Saliva-B.Bif -S.Therm (Acidophilus Probiotic Blend) 175 mg capsule Discontinued 1 NMA PO DAILY April 09, 2022 1:00am May 25, 2022 4:19pm Start: 04-09-2022 End: 05-25-2022 take 1 capsule by mouth once daily L.Acidoph,Saliva-B.Bif-S.Therm (Acidophi leighann Probiotic Blend) 175 mg capsule Discontinued 1 CAP PO DAILY April 09, 2022 1:00am May 25, 2022 4:19pm Start: 04-09-2022 End: 05-25-2022 take 1 capsule by mouth once daily L.Acidoph,Saliva-B.Bif-S.Therm (Acidophi leighann Probiotic Blend) 175 mg capsule Discontinued 1 CAP PO DAILY April 09, 2022 12:00am May 25, 2022 3:19pm Start: 04-09-2022 take 1 capsule by mouth once daily L.Acidoph,Saliva-B.Bif-S.Therm (Acidophi leighann Probiotic Blend) 175 mg capsule Active 1 CAP PO DAILY April 09, 2022 12:00am LOSARTAN POTASSIUM TABS (6 sources) Angiotensin 2 Receptor Lucero Start: 10-04-2016 LOSARTAN POTASSIUM TABS as directed LOSARTAN POTASSIUM TABS [id number] Ventura VASQUEZ 24 hr metoprolol succinate 25 mg extended release oral tablet (10 sources) beta-Adrenergic Lucero Start: 10-23-2021 End: 10-28-2021 take 1 tablet by mouth once daily Metoprolol Succinate 25 mg tablet extended release 24 hr Discontinued 25 mg PO DAILY October 23, 2021 12:00am October 28, 2021 3:16pm Start: 03-23-2021 metoprolol suc cinate 25 mg oral TABLET extended release Dose : 25 mg = 1 tab(s), Oral, qDay, Do not crush or chew (controlled release), # 90 tab(s), 3 Refill(s), Pharmacy: [facility]/pharmacy #[id number], 163, cm, 03/11/21 10:17:00 EDT, Height, kg, 03/11/21 10:17:00 EDT, Dosing Weight Start Date: 03/23/21 Status: Ordered Start: 02-25-2021 metoprolol suc cinate 25 mg oral TABLET extended release Dose : 25 mg = 1 tab(s), Oral, qDay, Do not crush or chew (controlled release), # 30 tab(s), 6 Refill(s), Pharmacy: [facility]/pharmacy #[id number], 162.6, cm, 02/25/21 16:12:00 EDT, Height, kg, 02/25/21 16:12:00 EDT, Dosing Weight Start Date: 02/25/21 Status: Ordered ospemifene 60 mg oral tablet (2 sources) End: 04-11-2023 ospemifene (OSPHENA) 60 mg tab Take by mouth. 04/11/2023 Discontinued Comment on above: Take by mouth. 24 hr phentermine 7.5 mg / topiramate 46 mg extended release oral capsule (6 sources) Sympathomimetic Amine Anorectic End: 10-28-2023 phentermine-topira mate ER (QSYMIA) 7.5-46 mg 24 Hr Capsule Take by mouth. 10/28/2023 Discontinued Comment on above: Take by mouth. XLPAOHRL-ZKW-OS-FA (12 sources) Start: 08-11-2011 take 1 tablet by mouth once daily PRE- FORMULA TABS One tablet by mouth daily [id number] Avtar Nicholson MD Start: 08-11-2011 End: 10-04-2016 take 1 tablet by mouth once daily PRE- FORMULA TABS One tablet by mouth daily SEUAICCW-CHH-UT-FA [id number] Ventura VASQUEZ promethazine hydrochloride 25 mg oral tablet (6 sources) Phenothiazine Start: 04-12-2022 End: 11-22-2022 take 1 tablet by mouth every six hours as needed for nausea and vomiting Promethazine 25 mg tablet Discontinued 25 mg PO EVERY 6 HOURS as needed for nausea and vomiting 30 0 April 12, 2022 1:00am November 22, 2022 10:46am propranolol hydrochloride 40 mg oral tablet (12 sources) beta-Adrenergic Lucero Start: 07-14-2011 End: 10-04-2016 take 1 tablet by mouth twice daily PROPRANOLOL HCL 40 MG TABS One tablet by mouth twice daily PROPRANOLOL HCL [id number] Avtar Nicholson MD solifenacin succinate 5 mg oral tablet (20 sources) Cholinergic Muscarinic Antagonist Start: 03-02-2019 End: 01-30-2025 take 1 tablet by mouth once daily Solifenacin 5 MG tablet Discontinued 5 mg PO DAILY March 23, 2019 12:00am October 28, 2021 3:18pm sulfamethoxazole 800 mg / trimethoprim 160 mg oral tablet (10 sources) Dihydrofolate Reductase Inhibitor Antibacterial, Sulfonamide Antimicrobial Start: 05-27-2022 End: 11-22-2022 Sulfamethoxazole- Trimethoprim (Bactrim Ds) 800-160 mg tablet Discontinued 1 {tbl} PO TWICE A DAY 14 0 May 27, 2022 1:00am November 22, 2022 10:46am Start: 05-04-2022 End: 05-14-2022 Sulfamethoxazole-Trimethopri m (Bactrim Ds) 800-160 mg tablet Discontinued 1 {tbl} PO TWICE A DAY 20 10 May 04, 2022 1:00am May 13, 2022 1:00am May 14, 2022 1:04am 24 hr venlafaxine 150 mg extended release oral capsule (12 sources) Serotonin and Norepinephrine Reuptake Inhibitor Start: 07-12-2011 End: 10-04-2016 take 1 tablet by mouth once daily VENLAFAXINE HCL ER 150 MG [id number] One tablet by mouth daily VENLAFAXINE HCL [id number] Ventura VASQUEZ vilazodone hydrochloride 40 mg oral tablet (6 sources) End: 10-28-2023 take 10 mg by mouth once daily at breakfast vilazodone (VIIBRYD) 40 mg Take 10 mg by mouth daily with breakfast. 10/28/2023 Discontinued Comment on above: Take 10 mg by mouth daily with breakfast. Problems Active Problems Problem Classification Problem Date Documented Date Episodic/Chronic Administrative/social admission (2 sources) Family tension 12-19-2020 Episodic Allergic reactions (7 sources) Allergic condition; Translations: [Allergy, unspecified, initial encounter] 02-18-2022 Episodic Anxiety disorders (20 sources) Fear of flying; Translations: [Mixed anxiety and depressive disorder] Onset: 01-31-20 24 02-19-2020 Chronic Cardiac dysrhythmias (14 sources) Ventricular premature beats; Translations: [Multiple premature ventricular complexes] 06-12-2021 Chronic Cardiac dysrhythmias (17 sources) Palpitations; Translations: [Palpitations] 11-17-2020 Episodic Chronic kidney disease (20 sources) Chronic kidney disease stage 2; Translations: [Chronic kidney disease, stage 2 (mild)] Onset: 01-31-20 24 11-17-2020 Chronic Complications of surgical procedures or medical care (18 sources) Postoperative seroma; Translations: [Postprocedural seroma of skin and subcutaneous tissue following a dermatologic procedure] Episodic Conditions associated with dizziness or vertigo (10 sources) Vertigo 08-03-2019 Episodic Diabetes mellitus without complication (4 sources) Hyperglycemia; Translations: [Hyperglycemia, unspecified] Episodic Disorders of lipid metabolism (20 sources) Hyperlipidemia; Translations: [Hyperlipidemia, unspecified] Onset: 01-31-20 24 07-12-2011 Chronic Esophageal disorders (20 sources) Gastroesophageal reflux disease; Translations: [Gastro-esophageal reflux disease without esophagitis] Onset: 01-31-20 24 10-27-2021 Chronic Essential hypertension (20 sources) Essential hypertension; Translations: [Essential (primary) hypertension] Onset: 07-12-19 12 07-12-2011 Chronic Genitourinary symptoms and ill-defined conditions (4 sources) Genuine stress incontinence; Translations: [Stress incontinence (female) (male)] Onset: 12-29-1910-28-2023 Chronic Genitourinary symptoms and ill-defined conditions (9 sources) Increased frequency of urination; Translations: [Unspecified symptoms and signs involving the genitourinary system] Onset: 10-05-19 17 10-04-2016 Episodic Headache, including migraine (20 sources) Migraine with aura; Translations: [Refractory migraine with aura] Onset: 07-12-19 12 07-12-2011 Chronic Headache; including migraine (12 sources) Frequent headache; Translations: [Frequent headaches] 02-18-2022 Episodic Inflammation; infection of eye (except that caused by tuberculosis or sexually transmitteddisease) (2 sources) Conjunctivitis 06-01-2023 Episodic Malaise and fatigue (1 source) Malaise and fatigue; Translations: [Other malaise] 01-31-2024 Episodic Menopausal disorders (6 sources) Genitourinary syndrome of menopause; Translations: [Other specified menopausal and perimenopausal disorders] Onset: 04-09-2001-02-2024 Chronic Mood disorders (7 sources) Recurrent major depression 06-29-2021 Chronic Nonspecific chest pain (11 sources) Chest pain; Translations: [Chest pain, unspecified] Onset: 12-27-1903-24-2019 Episodic Nutritional deficiencies (20 sources) Vitamin D deficiency; Translations: [Vitamin D deficiency, unspecified] Onset: 01-31-2003-11-2021 Chronic Nutritional deficiencies (1 source) Iron deficiency; Translations: [Iron deficiency] Episodic Other acquired deformities (10 sources) Spondylolisthesis L5/S1 level 11-17-2020 Episodic Other acquired deformities (10 sources) Spondylolysis 11-17-2020 Episodic Other and unspecified benign neoplasm (2 sources) Adenomatous polyp of colon ; Translations: [Adenomatous polyp of ascending colon] Onset: 02-12-2002-12-2020 Episodic Other and unspecified benign neoplasm (6 sources) Lipoma of right lower limb; Translations: [Benign lipomatous neoplasm of skin and subcutaneous tissue of right leg] 04-20-2022 Episodic Comment on above: right proximal anter ior leg Other and unspecified benign neoplasm (20 sources) Benign lipomatous neoplasm of skin and subcutaneous tissue of right leg; Translations: [Lipoma of other skin and subcutaneous tissue] Episodic Other and unspecified benign neoplasm (4 sources) Polyp of colon; Translations: [Polyp of colon] 09-27-2024 Episodic Other congenital anomalies (10 sources) 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 Other connective tissue disease (7 sources) Pain in lower limb 11-17-2020 Episodic Other connective tissue disease (3 sources) Nodular fat necrosis; Translations: [Other specified soft tissue disorders] 11-24-2022 Episodic Other connective tissue disease (1 source) Other specified soft tissue disorders; Translations: [Other disorders of lipoid metabolism] 11-22-2022 Episodic Other connective tissue disease (2 sources) Pelvic floor dysfunction; Translations: [Other specified disorders of muscle] 01-02-2024 Episodic Other connective tissue disease (1 source) Pain in thumb 06-25-2024 Episodic Other eye disorders (2 sources) Pain in eye 11-02-2022 Episodic Other eye disorders (3 sources) Scleral injection 11-02-2022 Episodic Other female genital disorders (3 sources) Vaginal dryness; Translations: [Other specified noninflammatory disorders of vagina] 07-27-2022 Episodic Other female genital disorders (2 sources) Vaginal irritation 07-27-2022 Episodic Other gastrointestinal disorders (7 sources) Gastrointestinal tract problem; Translations: [Other specified symptoms and signs involving the digestive system and abdomen] 02-18-2022 Episodic Other gastrointestinal disorders (4 sources) Constipation; Translations: [Constipation, unspecified] 09-27-2024 Episodic Other inflammatory condition of skin (4 sources) Pruritus of vagina; Translations: [Other specified noninflammatory disorders of vagina] 07-27-2022 Episodic Other injuries and conditions due to external causes (3 sources) Injury of ankle 05-25-2019 Episodic Other lower respiratory disease (7 sources) Snoring 06-29-2021 Episodic Other lower respiratory disease (1 source) Cough 05-13-2023 Episodic Other nervous system disorders (7 sources) Carpal tunnel syndrome; Translations: [Carpal tunnel syndrome, unspecified upper limb] 02-18-2022 Chronic Other nervous system disorders (10 sources) Paresthesia of lower extremity 11-17-2020 Episodic Other nervous system disorders (7 sources) Acute postoperative pain; Translations: [Other acute postprocedural pain] 04-09-2022 Episodic Other nervous system disorders (7 sources) Abnormal sensation; Translations: [Other disturbances of skin sensation] 02-25-2022 Episodic Other nervous system disorders (20 sources) Other disturbances of skin sensation; Translations: [Disturbance of skin sensation] Episodic Other nervous system disorders (1 source) Paresthesia 06-25-2024 Episodic Other nutritional; endocrine; and metabolic disorders (14 sources) Obesity; Translations: [Obesity, unspecified] Onset: 07-12-19 12 07-12-2011 Chronic Other nutritional; endocrine; and metabolic disorders (10 sources) Body mass index 30+ - obesity 02-19-2020 Chronic Other nutritional; endocrine; and metabolic disorders (7 sources) 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 Other nutritional; endocrine; and metabolic disorders (7 sources) Hyperhomocysteinemia ; 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] 10-27-2021 Chronic Other nutritional; endocrine; and metabolic disorders (1 source) Homocystinuria; 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] Chronic Other nutritional; endocrine; and metabolic disorders (20 sources) Severe obesity; Translations: [Morbid (severe) obesity due to excess calories] Onset: 01-31-2001-31-2024 Chronic Other nutritional; endocrine; and metabolic disorders (1 source) Morbid (severe) obesity due to excess calories; Translations: [Class 2 severe obesity with serious comorbidity and body mass index (BMI) of 37.0 to 37.9 in adult, unspecified obesity type (HCC)] Onset: 01-31-20 Chronic Other nutritional; endocrine; and metabolic disorders (1 source) Body mass index (BMI) 37.0-37.9, adult; Translations: [Class 2 severe obesity with serious comorbidity and body mass index (BMI) of 37.0 to 37.9 in adult, unspecified obesity type (HCC)] Onset: 01-31-20 Chronic Other skin disorders (17 sources) Mass of lower limb; Translations: [Localized swelling, mass and lump, right lower limb] 11-17-2020 Episodic Comment on above: 7 cm painful soft ti ssue masses cluster right proximal anterior lateral leg Other skin disorders (20 sources) Localized swelling, mass and lump, right lower limb; Translations: [Localized superficial swelling, mass, or lump] Episodic Other upper respiratory disease (8 sources) Bleeding from nose; Translations: [Epistaxis] 09-14-2020 Episodic Other upper respiratory infections (3 sources) Acute bacterial sinusitis; Translations: [Acute pharyngitis, unspecified] Onset: 04-23-20 24 05-13-2023 Episodic Prolapse of female genital organs (10 sources) Midline cystocele; Translations: [Cystocele, midline] Onset: 04-09-20 24 10-28-2023 Chronic Residual codes; unclassified (2 sources) Family history of breast cancer; Translations: [Family history of breast cancer] Onset: 02-12-2002-12-2020 Episodic Residual codes; unclassified (7 sources) Disturbance in sleep behavior 06-29-2021 Episodic Residual codes; unclassified (2 sources) Pain; Translations: [Pain, unspecified] Episodic Residual codes; unclassified (7 sources) History of colonoscopy; Translations: [Other specified postprocedural states] 10-23-2021 Episodic Residual codes; unclassified (6 sources) H/O: neoplasm; Translations: [Other specified postprocedural states] 04-15-2022 Episodic Comment on above: Excision 17.5 cm concepcion nful subfascial soft tissue mass right proximal anterior leg with 11 cm complex closure repair - 04/09/22 Residual codes; unclassified (12 sources) Other specified postprocedural states; Translations: [Other postprocedural status] Episodic Sprains and strains (1 source) Other sprain of left thumb, initial encounter; Translations: [Other sprain of left thumb, initial encounter] Onset: 02-15-20 Episodic Unclassified (15 sources) Patient encounter status 01-18-2021 Comment on above: 09/18 ASCVD risk 2.3% on statin Unclassified (1 source) Injury of left wrist 06-25-2024 Unclassified (1 source) Class 2 severe obesity with serious comorbidity and body mass index (BMI) of 37.0 to 37.9 in adult, unspecified obesity type (HCC); Translations: [Class 2 severe obesity with serious comorbidity and body mass index (BMI) of 37.0 to 37.9 in adult, unspecified obesity type (HCC)] Onset: 01-31-20 24 Urinary tract infections (20 sources) Chronic interstitial cystitis; Translations: [Interstitial cystitis (chronic) without hematuria] Onset: 01-31-20 24 01-31-2024 Chronic Past or Other Problems Problem Classification Problem Date Documented Da te Episodic/Chronic Open wounds of head; neck; and trunk (6 sources) Unspecified open wound of abdominal wall, periumbilic region without penetration into peritoneal cavity, initial encounter; Translations: [Unspecified open wound of abdominal wall, periumbilic region without penetration into peritoneal cavity, initial encounter] Onset: 10-04-2016 10-04-2016 Episodic Other connective tissue disease (1 source) Other specified disorders of muscle; Translations: [High-tone pelvic floor dysfunction] Onset: 04-09-2024 Episodic Other injuries and conditions due to external causes (20 sources) Injury to unspecified nerve of pelvic girdle and lower limb; Translations: [Injury to unspecified nerve of pelvic girdle and lower limb(956.9)] Onset: 01-27-2007 01-27-2007 Episodic Other screening for suspected conditions (not mental disorders or infectious disease) (17 sources) Serum iron low; Translations: [Patient encounter status] Onset: 05-01-2024 11-17-2020 Episodic Spondylosis; intervertebral disc disorders; other back problems (6 sources) Backache; Translations: [Dorsalgia, unspecified] Onset: 10-04-2016 10-04-2016 Episodic Unclassified (8 sources) calcaneal varus deformity 10-23-2021 Unclassified (8 sources) peroneal tendonopathy 10-23-2021 Urinary tract infections (6 sources) Urinary tract infectious disease; Translations: [Urinary tract infection, site not specified] Onset: 10-04-2016 10-04-2016 Episodic Results Test Name Value Interpretation Reference Range Facility MR/PATLj 02-19-2025 MR/PAT.[facility] Medical Records Department [address] [place] [address] PAT - Anesthesia 02/19/25 1608 MR#: [id number] Acct: [id number] Name: MEERA MELÉNDEZ Rep #: [id number] : 1970 54 From: Omar So MD PCP: Dr. Jenniffer Hurtado, DO Status:PRE [facility] [place] Race: C Location: [place] Pre-Assessment Diagnosis/Proposed Procedure Planned Operative Procedure(s): Colonoscopy Anesthesia History Anesthesia History - e commerce director: Anesthesia History - e commerce director Hx Hospitalization No 02/18/25 13:41 Any Problems With Anesthesia Yes: N,V 02/18/25 13:41 Cholinesterase deficiency No 02/18/25 13:41 You/Your Family Experience No 02/18/25 13:41 fever (hyperthermia) with Relationship Recent Exposure to Contagious No 04/09/22 08:38 Disease Does patient have nerve No 02/18/25 13:41 stimulator Patient instructed to have device shut off --Does patient have Pacemaker or ICD? When Was Last Pacemaker Check QUESTION #4 FULL TEXT: You/Your Family Experience fever (hyperthermia) with Anesthesia Last Oral Intake Last Oral intake: Last Oral Intake NPO since Meds taken in AM with sips of water? 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 - e commerce director: PONV - e commerce director Female Yes 02/18/25 13:41 HX of Motion Sickness No 02/18/25 13:41 HX of N/V After Surgery No 02/18/25 13:41 Non-Smoker No 02/18/25 13:41 Duration of Surgery greater Yes 02/18/25 13:41 than 60 minutes Number of Risk Factors 2 02/18/25 13:41 PONV Score Moderate Risk 02/18/25 13:41 Height Weight Height Weight: Anesthesia: Height Weight Height 5 ft 4 in 02/13/25 12:41 Respiratory Assessment Respiratory Assessment - e commerce director: Respiratory Tract Infection Hx - e commerce director Hx Respiratory Tract Infection No 02/18/25 13:41 STOP Sleep Apnea STOP Sleep Apnea - e commerce director: STOP Sleep Apnea - e commerce director Hx Hypertension Yes: controlled with med 02/18/25 13:41 Hx Sleep Apnea No 02/18/25 13:41 CPAP BIPAP Do you snore loudly (louder No 02/18/25 13:41 than talking or can be heard Do you often feel tired/ No 02/18/25 13:41 fatigued/ sleepy during daytime? Has anyone observed you stop No 02/18/25 13:41 breathing during sleep? STOP Results Negative 02/18/25 13:41 QUESTION #5 FULL TEXT : Do you snore loudly (louder than talking or can be heard through closed doors)? 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 carb Yaquelin 2% 13g protein 5 g carb Good Culture 2% 14g protein 3g carb (more content not included)... Normal [facility] OT General Evaluationon 09-28 OT General Evaluation [facility] Occupational Therapy [facility] [address] [place] [address] / REHABILITATION SERVICES INITIAL EVALUATION MR#: [id number] Acct: [id number] Name: MEERA MELÉNDEZ Rep #: [id number] : 1970 54 From: Karen ZARATE/GAURAV FarrarT Referring Dr.: Dr. Bernard Lenz DO Status: REG RCR Insurance: R [id number] Eval Date: SELF PAY INSURANCE Patient's Visit Information Visit Information Visit Information: MEERA MELÉNDEZ is a 54 year old F, referred to Occupational Therapy by Dr. Bernard Lenz DO, with a diagnosis of left thumb sprain. Date of Evaluation: 10/15/24 Occupational Therapist: TESSA Franco/Leni, GAURAVT Subjective Subjective: This 54 year old female was seen for OT eval with dx of left thumb sprain. pt state DOI was back in 2024 due to fall. pt states she went to her Primary care DrRodney about a month after her fall and recommended a off the shelf thumb spica. Pt states this brace caused increase pain and she only wore it for about 2 weeks. Pt did see Dr. Lenz October 04 and he requested the MRI and pt states there is a small tear but not sure where. pain is left thumb and radiates up her arm. 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 pain limits her from performing her ADLs. pt states she feels ice does make pain feel better- Pain left thand/thumb: Current Pain Intensity: 1 Pain Intensity Range: 9 ROM Wrist: right 85/65 left 50/40 CMC: right 20 left 15 MP: right 40 left 30 IP: right 64 left 65 Palmar Abduction: right 40 left 40 Strength Roll Handler: right 55# left 20# Lateral Pinch: right 10# left 4# with pain Tripod Pinch: right 12# left 2# with pain Sensation Sensation Comments: denies Quick DASH-Disab of Arm,Shoulder Hand Quick DASH Score: 56.8175 Goals Goal:ROM equal to unaffected hand: Yes Goal:Roll Handler/Pinch strength at least 75% of unaffected hand: Yes Goal:PIP Circumferences equal to unaffected hand: Yes Goal:Full use of affected hand in daily activities including work: Yes Other Goal: orthosis use: pt will demo understanding of orthosis use to decrease pain and stabilize thumb by end of 1st session. Rehabilitation General Assessment: pt arrives with painful left thumb fallowing a fall. Pain limits pt with ADLs and IADls. pt would benefit from skilled OT services 1-2x week for 6 weeks to decrease pts pain- ed. pt on thumb brace/support as well as thumb stabilization ex. to return pt to her PLOF. Today therapist ed. pt on support of orthosis use and POC. pt demo understanding and agree to POC. Rehabilitation Potential: Good Anticipated Interventions Anticipated Interventions: Strengthening, Triggerpoint Release, Orthoses, Joint Protection/Energy Conservation, Ergonomic Education, Fine Motor Coord/Jones, Education re assistive Equipment, Education re Diagnosis and Home Program Visit Plan Frequency: 1-2x /Week Duration: 4-6 Weeks General Plan: thumb spica orthosis decrease pain thumb stabilization ex. as nona. TEXT: Thank you for the opportunity to evaluate your patient. For Medicare and Medicare HMO plans, please review the plan of care and approve it. It will need to be FAXED BACK to us at [phone] for Medicare purposes. Please let me know if there are questions or concerns regarding this plan of care. Physician Signature: D ate: 10/17/24 1729 CC: Dr. Bernard Lenz DO; Dr. Nelson Royal DO [place] Signed For Medicare only, by signing this I certify the plan of care. 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 Pt reports a formed bm daily. Denies blood in stools. Pt would like a colonoscopy and reports she is supposed to have them every three years for surveillance. Reports last colonoscopy was in 2021 and prior EGD was several years ago. Takes esomeprazole daily. [facility] Medical History (Updated 09/27/24 @ 11:08 by PEDRO Ortiz) GERD (gastroesophageal reflux disease) Postoperative seroma of subcutaneous tissue after dermatologic procedure Lipoma of right lower extremity Wears glasses Anxiety Bladder disease Low iron High cholesterol Migraine headache Gastric reflux Non-smoker Hypertension Cardiology follow-up encounter History of stress test History of echocardiogram Dysesthesia Mass of right lower leg Gastrointestinal problem Vitamin deficiency Frequent headaches Anxiety and depression Chronic bronchitis UTI (urinary tract infection) Back problem Allergies 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 tendonopathy Surgical History Status post excision of lipoma Hx of colonoscopy Hx of foot surgery History of colonoscopy History of hysterectomy S/P tendon repair Family History Father Heart disease Hypertension Other Anesthesia complication Angina at rest Anxiety Arthritis Breast cancer CVA (cerebral vascular accident) Cancer Depression High cholesterol Social History Smoking Status: Never smoker alcohol intake: never substance use type: does not use additional social history: Does Take Aspirin Does Take Ibuprofen HPI HPI Chief Complaint: colonoscopy Details: MEERA MELÉNDEZ, is a 54 F who presents to the office today for establishment with [facility]. Pt here today to scheduled a screening colonoscopy. Her last colonoscopy was about three years ago with Dr. Duarte in [place]. She had a numerous pre-cancerous polyps and recommendation for repeat in 3 years. She has no family hx of colon cancer. She has been having some constipation since starting topiramate and phentermine. She stopped taking metamucil and started miralax which has helped. She has some anal irritation from excessive wiping and uses preparation H as needed. She also has a hx of acid reflux and has been on Nexium for many years which controls her symptoms. ROS Const Constitutional: No anorexia, fatigue, fever(s), weight change or sleep problems Eyes Eyes: No change in vision ENT ENT: No abnormal hearing, difficulty swallowing, mouth lesions, tongue swelling or throat swelling Resp Respiratory: No cough or shortness of breath Cardio Cardiology: No chest pain at rest, chest pain with exertion, shortness of breath or dyspnea on exertion Gastro GI: Positive for constipation and heartburn; No difficulty swallowing Genitourinary-Female : No difficulty urinating or burning urination Musc Musculoskeletal: No joint pain, joint swelling, muscle weakness or decreased muscle mass Skin Skin: No hair loss in leg, yellowing of the eye, itchy eyes, rash, skin ulcer or skin swelling Neuro Neurology: No abnormal hearing, abnormal movements, confusion, unsteady gait/balance or memory loss Psych Psychiatric: No anxiety, No confusion and No memory loss Endo Endocrine: No fatigue or weight change Aller/Imm Allergy/Immunologic: No itchy eyes, throat swelling or tongue swelling Matias/Lymp Hematologic/Lymphati c: No easy bleeding, easy bruising or enlarged lymph nodes Exam Const General: cooperative and comfortable Nutritional Appearance: average body habitus and well nourished HENWI Head: normal to inspection Ears: hearing grossly normal bilaterally Nose: external nose normal Face and sinus: normal facial exam Eyes General: appearance normal, both eyes and all related structures Neck Neck: normal visual inspection Chest Chest palpation inspection: normal inspection of the chest and normal palpation of entire chest wall Resp Effort Inspection: normal respiratory effort A (more content not included)... Normal [facility] QUANTTBon 08-10-2024 QFT Criteria Comment [facility] MAIN Comment on above: Result Comment: QuantiFERON-TB Gold Plus is a qualitative indirect test for M tuberculosis infection (including disease) and is intended for use in conjunction with risk assessment, radiography, and other medical and diagnostic evaluations. The QuantiFERON-TB Gold Plus result is determined by subtracting the Nil value from either TB antigen (Ag) value. The Mitogen tube serves as a control for the test. Performed By: #### 1 [id number] #### [place] [address] QFT Mitogen Value >10.00 [facility] Comment on above: Performed By: #### 1 [id number] #### [place] [address] QFT Nil Value 0.01 IU/mL [facility] Comment on above: Performed By: #### 1 [id number] #### [place] [address] QFT TB1 Ag Value 0.03 IU/mL [facility] Comment on above: Performed By: #### 1 [id number] #### [place] [address] QFT TB2 Ag Value 0.01 IU/mL [facility] Comment on above: Performed By: #### 1 [id number] #### [place] [address] QFT-TB Gold Plus Clt Inc Negative Normal Negative [facility] Comment on above: Result Comment: No r esponse to M tuberculosis antigens detected. Infection with M tuberculosis is unlikely, but high risk individuals should be considered for additional testing (ATS/IDSA/CDC Clinical Practice Guidelines, 2017). The reference range is an Antigen minus Nil result of <0.35 IU/mL. The specimen received for QuantiFERON testing was incubated by the ordering institution. Specific procedures outlined in our Directory of Services and in the package insert for the QuantiFERON Gold (In Tube) test must be followed to enable for proper stimulation of cells for the production of interferon gamma. Chemiluminescence immunoassay methodology Performed At: [facility] [id number] Blaise Lynch PhD Ph:[phone] Performed By: #### 1 [id number] #### [place] [address] RUBEOon 08-10-2024 Rubeola IgG Ab Positive [facility] MAIN Comment on above: Result Comment: INTE RPRETATION OF RUBEOLA (MEASLES) IgG BY EIA: Negative: No detectable Measles IgG antibody. Presumed non-immune to measles virus. Positive: Measles IgG antibody Detected. Presumed immune to measles virus. If clinically indicated, order Measles IgM to rule out active infection. Equivocal: Equivocal for antibodies to Measles. Suggest repeat testing 10-14 days. Performed By: #### R UBEKristian RUBHERNAN, HBSAB, VARIS #### [place] [address] VARISon 08-09-[address] Positive [facility] MAIN Comment on above: Result Comment: INTE RPRETATION OF VARICELLA IMMUNE STATUS IgG BY EIA: Negative: No detectable VZV IgG antibody. Positive: VZV IgG antibody Detected. If clinically indicated, order Varicella IgM to rule out recent infection. Equivocal: Equivocal for antibodies to VZV. Suggest repeat testing in 10-14 days. Performed By: #### R UBEKristian RUBIS, HBSAB, VARIS #### [place] [address] CNOVon 08-08-2024 CNOV Office Visit (OBGYWM) MEERA MELÉNDEZ ([id number]) 1970 F [facility] Date Time Provider Department 08/08/24 3:00 PM CELIA NAVA During your visit today, we recorded the following information about you: Pulse Blood pressure Weight 79/minute 120/84 92.5 kg Celia Nava APRN.CNP 08/08/2024 4:58 PM Signed Some documentation from previous visit of 07/25/2024 was copied and pasted, documentation has been reviewed and edited as necessary for today's visit. Patient Summary: Meera is a 54 year old Female who presents for follow-up evaluation of obesity/weight management to treat and prevent related co-morbidities. In our previous visits we have discussed lifestyle intervention including a nutrition recommendations and physical activity optimization. Her last office visit was 3 weeks ago Assessment/plan from last visit: - Topiramate 50 mg tablet - with phentermine and 50 mg 7 pm Migraine - none - Phentermine 15 mg - taking at 7 am Home BP 113-116/72-77 Interval History PT specifies the following items as new or significant updates since the last appointment: Eating more protein than carbs. Avoiding some of the processed meats. Weight loss since last vist: 2 lbs for total of 23 lbs Date: Weight: BMI: Medications: 08/08/2024 204 lb 35.47 07/25/2024 206 lb 35.82 topiramate 50 mg bid 05/15/2024 214 lb 37.21 04/20/2024 215 lb 37.38 03/14/2024 220 lb 37.93 02/25/2024 date started Phentermine 15 mg approval by PCP 01/31/2024 227 lb 39.14 Topiramate 5% weight loss = 216 lbs, 10% weight loss = 204 lbs Anti-obesity medications: Topiramate Benefit: decreased thoughts of food in the evening Adverse effects: Soda tasted terrible Phentermine Benefit: decrease in appetite Adverse effects: dry mouth, cavities - Xylitol mouth drops and gum. Weight promoting medications: Escitalopram 10 mg - has seen no weight gain Previous Diet (initial appointment): Pepsi or Mt Dew - 5 cans from 10 am to 8 pm Awake - 0700 B - 0730 20 or 30 gm Equate shake S - none or Lidia Doones 4 pack and pepsi or Mt Dew L - SKIP S - Pepsi or Mt Dew occasionally chips if at home D - 6 pm Roast, carrots, potato or unbreaded shrimp/lobster with rice or soft shell taco with meat, lettuce, tomato, cheese, sour cream S - berries/chips/carrot s and dip/occasional ice cream Fluids: Pepsi or Mt Dew - 5 cans from 10 am to 8 pm Bedtime - 11 pm Quality of diet: 24hr recall suggests healthy/unhealthy diet. Characterization of diet:Structured, structured/Unstructu red, unhealthy snacking, evening snacking, increased consumption of sugar sweetened beverages, and skip meals. 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 eating habits:mindlessness, boredom, and stress Eating Disorder no Cravings: Pepsi/Mt Dew, candy bar Dietary changes: [id number] Awake - 0700 B - 0700 30 gm protein shake every day. WE - adds 1 scrambled egg sometimes with cheese S - 10 am almonds L - 1230 2 HB eggs, 1 cheese stick S - 1330 30g protein shake D - 6 pm taco salad or chicken (sometimes only 1-2 oz) and rice and veg or Roast, carrots, potato or unbreaded shrimp/lobster with rice and veg or Roast beef/provolone/green peppers with white rice S - sometimes almonds and/or walnuts Fluids - water, unsweet tea Bedtime - 11 pm Current Barriers: none Exercise: a little more walking Regular exercise: no Strength/resistance exercise:yes Barriers to regular exercise? Yes- lower back- cannot lift over 15 pounds Work-related activity:Sedentary. Gym Membership: no Activity Tracker: yes- Apple watch- encouraged to wear Stress: stable Personal- fostering Sleep: stable 7 hours CrCl cannot be calculated (No successful lab value found.). PAST MEDICAL HISTORY Diagnosis Date Abnormal glandular Papanicolaou smear of cervix 03/02/2004 @[facility] Anxiety state ASCUS with positive high risk HPV cervical 2002 @[facility] BRCA negative CKD (chronic kidney disease) stage 2, GFR 60-89 ml/min Essential hypertension GERD (gastroesophageal reflux disease) HSV-2 (herpes simplex virus 2) infection 2010 culture @[facility] Hyperlipidemia Incontinence of urine LGSIL on Pap smear of cervix 11/27/2004 @[facility] Migraine, intractable Mitral valve disorders(424.0) Undiagnosed cardiac murmurs Vitamin D deficiency Current Outpatient Medications Medication Sig Dispense Refill topiramate (TOPAMAX) 50 mg tablet Take 1 tablet by mouth two times a day. 180 tablet 1 Phentermine HCl 15 mg capsule Take 1 capsule by mouth daily before breakfast for 90 days. 90 capsule 0 estradiol 0.01% estriol 0.01% cream (CPD) 4 clicks/1 gram per vaginal twice weekly. 30 g 1 atorvastatin (LIPITOR) 20 mg tablet Take 20 mg by mouth once daily. valACYclovir (VALTREX) 500 mg tablet Take 1 tablet by mouth once daily. 90 tablet 3 celecoxib (CELEBREX) 200 mg capsule TAKE 1 CAPSULE BY MOUTH TWICE A DAY NEEDED FO (more content not included)... Normal [facility] RUBISon 08-08-[address] Positive Normal Positive [facility] Comment on above: Result Comment: This immune status assay detects IgM and/or IgG antibody to Rubella. Interpret results in conjunction with clinical history. POS: Antibody detected; exposure at undetermined recent or distant time. If clinically indicated, order Rubella IGM to rule out recent infection. NEG: No antibody detected. Performed By: #### R AZEB RICK, HBSAB, VARIS #### [place] [address] HBSABon 08-07-2024 Hep B Surf Ab 4.6 mIU/mL Low >=10.0 [facility] MA[facility] Comment on above: Result Comment: 0 to < 10.0 mIU/mL Nonreactive Patient is considered not to have protective immunity to HBV infection >/= 10.0 mIU/mL Reactive Patient is considered to have protective immunity to HBV infection. This assay is traceable to the World Health Organization (WHO) Hepatitis B Immunoglobulin 1st International Reference Preparation (1976). The accepted criteria for immunity to HBV is anti-HBs activity >/= 10.0 mIU/mL, as defined by the WHO International Reference Preparation. Performed By: #### R UBEO RUBIS, HBSAB, VARIS #### [facility] [address] [place] [id number] CNOVon 07-25-2024 CNOV Office Visit (OBGYWM) MEERA MELÉNDEZ ([id number]) 1970 F [facility] Date Time Provider Department 07/25/24 3:00 PM CELIA NAVA During your visit today, we recorded the following information about you: Pulse Blood pressure Weight 90/minute 130/80 93.4 kg Celia Nava APRN.CNP 07/25/2024 7:23 PM Signed Some documentation from previous visit of 04/20/2024 was copied and pasted, documentation has been reviewed and edited as necessary for today's visit. Patient Summary: Meera is a 54 year old Female who presents for follow-up evaluation of obesity/weight management to treat and prevent related co-morbidities. In our previous visits we have discussed lifestyle intervention including a nutrition recommendations and physical activity optimization. Her last office visit was 3 months ago - also saw ZINA [place] 05/15/2024 Assessment/plan from last visit: - Topiramate 25 mg tablet - taking 25 mg with phentermine and 50 mg 7 pm Migraine - none - Phentermine 15 mg - taking at 7 am Interval History PT specifies the following items as new or significant updates since the last appointment: Eating more protein than carbs. Eating same foods. Weight loss since last vist: 8 lbs for total of 21 lbs Date: Weight: BMI: Medications: 07/25/2024 206 lb 35.82 topiramate 50 mg bid 05/15/2024 214 lb 37.21 04/20/2024 215 lb 37.38 03/14/2024 220 lb 37.93 02/25/2024 date started Phentermine 15 mg approval by PCP 01/31/2024 227 lb 39.14 Topiramate 5% weight loss = 216 lbs, 10% weight loss = 204 lbs Anti-obesity medications: Topiramate Benefit: decreased thoughts of food in the evening Adverse effects: Soda tasted terrible Phentermine Benefit: decrease in appetite Adverse effects: dry mouth, cavities - Xylitol mouth drops and gum. Weight promoting medications: Escitalopram 10 mg - has seen no weight gain Previous Diet (initial appointment): Pepsi or Mt Dew - 5 cans from 10 am to 8 pm Awake - 0700 B - 0730 20 or 30 gm Equate shake S - none or Lidia Doones 4 pack and pepsi or Mt Dew L - SKIP S - Pepsi or Mt Dew occasionally chips if at home D - 6 pm Roast, carrots, potato or unbreaded shrimp/lobster with rice or soft shell taco with meat, lettuce, tomato, cheese, sour cream S - berries/chips/carrot s and dip/occasional ice cream Fluids: Pepsi or Mt Dew - 5 cans from 10 am to 8 pm Bedtime - 11 pm Quality of diet: 24hr recall suggests healthy/unhealthy diet. Characterization of diet:Structured, structured/Unstructu red, unhealthy snacking, evening snacking, increased consumption of sugar sweetened beverages, and skip meals. 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 eating habits:mindlessness, boredom, and stress Eating Disorder no Cravings: Pepsi/Mt Dew, candy bar Dietary changes: [id number] Awake - 0700 B - 0700 30 gm protein shake every day. WE - adds 1 scrambled egg sometimes with 1 slice walker S - none L - 1230 1 HB egg, 1 cheese stick and nitrate-free meat stick S - none D - 6 pm taco salad or chicken (sometimes only 1-2 oz) and rice and veg or Roast, carrots, potato or unbreaded shrimp/lobster with rice and veg or Roast beef/provolone/green peppers with white rice S - sometimes pretzels Fluids - water, unsweet tea Bedtime - 11 pm Current Barriers: food cravings - salt and soda Exercise: No intentional exercise with youngest being hospitalized Regular exercise: no Strength/resistance exercise:yes Barriers to regular exercise? Yes- lower back- cannot lift over 15 pounds Work-related activity:Sedentary. Gym Membership: no Activity Tracker: yes- Apple watch- encouraged to wear Stress: increased Personal- fostering youngest was hospitalized Sleep: stable 7 hours CrCl cannot be calculated (No successful lab value found.). PAST MEDICAL HISTORY Diagnosis Date Abnormal glandular Papanicolaou smear of cervix 03/02/2004 @[facility] Anxiety state ASCUS with positive high risk HPV cervical 2002 @[facility] BRCA negative CKD (chronic kidney disease) stage 2, GFR 60-89 ml/min Essential hypertension GERD (gastroesophageal reflux disease) HSV-2 (herpes simplex virus 2) infection 2010 culture @[facility] Hyperlipidemia Incontinence of urine LGSIL on Pap smear of cervix 11/27/2004 @[facility] Migraine, intractable Mitral valve disorders(424.0) Undiagnosed cardiac murmurs Vitamin D deficiency Current Outpatient Medications Medication Sig Dispense Refill Phentermine HCl 15 mg capsule Take 1 capsule by mouth daily before breakfast for 90 days. 90 capsule 0 topiramate (TOPAMAX) 25 mg tablet Take 1 tablet by mouth two times a day. 180 tablet 1 estradiol 0.01% estriol 0.01% cream (CPD) 4 clicks/1 gram per vaginal twice weekly. 30 g 1 atorvastatin (LIPITOR) 20 mg tablet Take 20 mg by mouth once daily. valACYclovir (VALTREX) 500 mg tablet Take 1 tablet by mouth once daily. 90 tablet 3 celecoxib (CELEBREX) 200 mg (more content not included)... Normal [facility] XR HAND MINIMUM 3 VIEWS LEFT on 07-03-2024 XR HAND MINIMUM 3 VIEWS LEFT ORIGINAL EXAMINATION: THREE XRAY VIEWS OF THE LEFT HAND; THREE XRAY VIEWS OF THE LEFT WRIST 06/30/2024 9:27 am COMPARISON: None. HISTORY: ORDERING SYSTEM PROVIDED HISTORY: Reason for Exam: Pain left hand after suffering a fall onto her outstretched arm, pain focused mainly into the thumb region. FINDINGS: There is no fracture or dislocation of the left wrist or left hand. No osseous lesion is present. Joints are unremarkable. There is no foreign body or soft tissue abnormality detected. IMPRESSION: No fracture or dislocation of the left wrist or left hand. Interpreted by: Hernandez Berger MD Preliminary Report By: Hernandez Berger MD Electronically signed By Hernandez Berger MD Dictated Date: 07/03/2024 3:04:51 AM Prelim Date: 07/03/2024 3:07:46 AM Sign Date: 07/03/2024 3:07:46 AM Ordering Provider: [facility] XR WRIST MINIMUM 3 VIEWS LEF Ton 07-03-2024 XR WRIST MINIMUM 3 VIEWS LEFT ORIGINAL EXAMINATION: THREE XRAY VIEWS OF THE LEFT HAND; THREE XRAY VIEWS OF THE LEFT WRIST 06/30/2024 9:27 am COMPARISON: None. HISTORY: ORDERING SYSTEM PROVIDED HISTORY: Reason for Exam: Pain left hand after suffering a fall onto her outstretched arm, pain focused mainly into the thumb region. FINDINGS: There is no fracture or dislocation of the left wrist or left hand. No osseous lesion is present. Joints are unremarkable. There is no foreign body or soft tissue abnormality detected. IMPRESSION: No fracture or dislocation of the left wrist or left hand. Interpreted by: Hernandez Berger MD Preliminary Report By: Hernandez Berger MD Electronically signed By Hernandez Berger MD Dictated Date: 07/03/2024 3:04:51 AM Prelim Date: 07/03/2024 3:07:46 AM Sign Date: 07/03/2024 3:07:46 AM Ordering Provider: [facility] .Auto Diffon 06-30-2024 Basophil, Absolute 0.0 10 3/mcL Normal 0.0-0.2 [facility] Comment on above: Performed By: #### A DIFF, A1C, FERR, CBC, TSH, FE, ANEU, GFR, LIPID, CMP #### [address] [address] #### B12 #### [address] [address] Basophils/100 WBC (Bld) 0.3 % Normal 0.0-2.5 [facility] Comment on above: Performed By: #### A DIFF, A1C, FERR, CBC, TSH, FE, ANEU, GFR, LIPID, CMP #### [address] [address] #### B12 #### [address] [address] Eosinophil, Absolute 0.1 10 3/mcL Normal 0.0-0.7 [facility] Comment on above: Performed By: #### A DIFF, A1C, FERR, CBC, TSH, FE, ANEU, GFR, LIPID, CMP #### [address] [address] #### B12 #### [address] [address] Eosinophils/100 WBC (Bld) 1.5 % Normal 0.0-7.0 [facility] Comment on above: Performed By: #### A DIFF, A1C, FERR, CBC, TSH, FE, ANEU, GFR, LIPID, CMP #### [address] [address] #### B12 #### [address] [address] Lymphocyte, Absolute 1.8 10 3/mcL Normal 0.9-4.3 [facility] Comment on above: Performed By: #### A DIFF, A1C, FERR, CBC, TSH, FE, ANEU, GFR, LIPID, CMP #### [place] [address] #### B12 #### [address] [address] Lymphocytes/100 WBC (Bld) 27.3 % Normal 20.0-40.0 [facility] Comment on above: Performed By: #### A DIFF, A1C, FERR, CBC, TSH, FE, ANEU, GFR, LIPID, CMP #### [address] [address] #### B12 #### [address] [address] Monocyte, Absolute 0.4 10 3/mcL Normal 0.1-1.4 [facility] Comment on above: Performed By: #### A DIFF, A1C, FERR, CBC, TSH, FE, ANEU, GFR, LIPID, CMP #### [address] [address] #### B12 #### [address] [address] Monocytes/100 WBC (Bld) 6.7 % Normal 2.0-13.0 [facility] Comment on above: Performed By: #### A DIFF, A1C, FERR, CBC, TSH, FE, ANEU, GFR, LIPID, CMP #### [address] [address] #### B12 #### [address] [address] Neutrophils/100 WBC (Bld) 64.2 % Normal 50.0-75.0 [facility] Comment on above: Performed By: #### A DIFF, A1C, FERR, CBC, TSH, FE, ANEU, GFR, LIPID, CMP #### [address] [address] #### B12 #### [address] [address] .GFRon 06-30-2024 GFR Non- 63 ml/min/1.73sqm Normal [facility] Comment on above: Result Comment: GFR Population mean for , Non- Americans Ages 20-29 = 116 mL/min/1.73 sq.m. Ages 30-39 = 107 mL/min/1.73 sq.m. Ages 40-49 = 99 mL/min/1.73 sq.m. Ages 50-59 = 93 mL/min/1.73 sq.m. Ages 60-69 = 85 mL/min/1.73 sq.m. Ages 70+ = 75 mL/min/1.73 sq.m. Chronic Kidney Disease: Less than 60 mL/min/1.73 square meters End Stage Renal Disease: Less than 15 mL/min/1.73 square meters Performed By: #### A DIFF, A1C, FERR, CBC, TSH, FE, ANEU, GFR, LIPID, CMP ####[facility] [place] [id number]#### B12 ####[facility] [place] [address] GFR 76 ml/min/1.73sqm Normal [facility] Comment on above: Result Comment: GFR Population mean for , Non- Americans Ages 20-29 = 116 mL/min/1.73 sq.m. Ages 30-39 = 107 mL/min/1.73 sq.m. Ages 40-49 = 99 mL/min/1.73 sq.m. Ages 50-59 = 93 mL/min/1.73 sq.m. Ages 60-69 = 85 mL/min/1.73 sq.m. Ages 70+ = 75 mL/min/1.73 sq.m. Chronic Kidney Disease: Less than 60 mL/min/1.73 square meters End Stage Renal Disease: Less than 15 mL/min/1.73 square meters Performed By: #### A DIFF, A1C, FERR, CBC, TSH, FE, ANEU, GFR, LIPID, CMP ####[address] [address]#### B12 ####[address] [address] .NEUABSon 06-30-2024 Neutrophil, Absolute 4.1 10 3/mcL Normal 2.3-8.1 [facility] Comment on above: Performed By: #### A DIFF, A1C, FERR, CBC, TSH, FE, ANEU, GFR, LIPID, CMP #### [place] [address] #### B12 #### [facility] [address] [place] [address] A1Con 06-30-2024 Glucose [Mass/Vol] 114 mg/dL Normal [facility] Comment on above: Result Comment: Amie mated Average Glucose calculated by equation ((28.7xA1C)-46.7) Estimated average glucose (eAG) is a calculated value from Hemoglobin A1C and is branch sales and service representative of the average blood glucose level in the last 2-3 month period. Normal range: less than 114 mg/dL Performed By: #### A DIFF, A1C, FERR, CBC, TSH, FE, ANEU, GFR, LIPID, CMP ####[address] [address]#### B12 ####[address] [address] HbA1c (Bld) [Mass fraction] 5.6 % Normal 4.3-6.4 [facility] Comment on above: Performed By: #### A DIFF, A1C, FERR, CBC, TSH, FE, ANEU, GFR, LIPID, CMP ####[address] [address]#### B12 ####[place] [address] B12on 06-30-2024 Cobalamin (Vitamin B12) [Mass/Vol] 571 pg/mL Normal 211-911 [facility] Comment on above: Performed By: #### A DIFF, A1C, FERR, CBC, TSH, FE, ANEU, GFR, LIPID, CMP ####[place] [address]#### B12 ####[place] [address] CBCon 06-30-2024 Erythrocyte distribution width (RBC) [Ratio] 12.5 % Normal 11.5-15.5 [facility] Comment on above: Performed By: #### A DIFF, A1C, FERR, CBC, TSH, FE, ANEU, GFR, LIPID, CMP #### [place] [address] #### B12 #### [place] [address] Hematocrit (Bld) [Volume fraction] 41.8 % Normal 34.0-46.0 [facility] Comment on above: Performed By: #### A DIFF, A1C, FERR, CBC, TSH, FE, ANEU, GFR, LIPID, CMP #### [place] [address] #### B12 #### [place] [address] Hgb 14.0 G/dL Normal 12.0-16.0 [facility] Comment on above: Performed By: #### A DIFF, A1C, FERR, CBC, TSH, FE, ANEU, GFR, LIPID, CMP #### [place] [address] #### B12 #### [address] [address] MCH (RBC) [Entitic mass] 29.8 pg Normal 27.0-33.0 [facility] Comment on above: Performed By: #### A DIFF, A1C, FERR, CBC, TSH, FE, ANEU, GFR, LIPID, CMP #### [place] [address] #### B12 #### [address] [address] MCHC 33.5 G/dL Normal 32.0-36.0 [facility] Comment on above: Performed By: #### A DIFF, A1C, FERR, CBC, TSH, FE, ANEU, GFR, LIPID, CMP #### [place] [address] #### B12 #### [place] [address] MCV (RBC) [Entitic vol] 89.0 fL Normal 80.0-99.0 [facility] Comment on above: Performed By: #### A DIFF, A1C, FERR, CBC, TSH, FE, ANEU, GFR, LIPID, CMP #### [place] [address] #### B12 #### [place] [address] Platelet 280 10 3/mcL Normal 150-450 [facility] Comment on above: Performed By: #### A DIFF, A1C, FERR, CBC, TSH, FE, ANEU, GFR, LIPID, CMP #### [place] [address] #### B12 #### [place] [address] Platelet mean volume (Bld) [Entitic vol] 9.3 fL Normal 6.6-10.5 [facility] Comment on above: Performed By: #### A DIFF, A1C, FERR, CBC, TSH, FE, ANEU, GFR, LIPID, CMP #### [place] [address] #### B12 #### [place] [address] RBC 4.69 10 6/mcL Normal 4.10-5.30 [facility] Comment on above: Performed By: #### A DIFF, A1C, FERR, CBC, TSH, FE, ANEU, GFR, LIPID, CMP #### [address] [address] #### B12 #### [address] [address] WBC 6.4 10 3/mcL Normal 4.5-10.8 [facility] Comment on above: Performed By: #### A DIFF, A1C, FERR, CBC, TSH, FE, ANEU, GFR, LIPID, CMP #### [address] [address] #### B12 #### [place] [address] CMPon 06-30-2024 Albumin Level 3.7 G/dL Normal 3.5-5.0 [facility] Comment on above: Performed By: #### A DIFF, A1C, FERR, CBC, TSH, FE, ANEU, GFR, LIPID, CMP #### [place] [address] #### B12 #### [place] [address] Albumin/Globulin [Mass ratio] 1.0 {ratio} Low 1.1-2.5 [facility] Comment on above: Performed By: #### A DIFF, A1C, FERR, CBC, TSH, FE, ANEU, GFR, LIPID, CMP #### [address] [address] #### B12 #### [address] [address] ALP [Catalytic activity/Vol] 83 U/L Normal 40-135 [facility] Comment on above: Performed By: #### A DIFF, A1C, FERR, CBC, TSH, FE, ANEU, GFR, LIPID, CMP #### [address] [address] #### B12 #### [place] [id number] ALT [Catalytic activity/Vol] 17 U/L Normal 14-59 [facility] Comment on above: Performed By: #### A DIFF, A1C, FERR, CBC, TSH, FE, ANEU, GFR, LIPID, CMP #### [address] [address] #### B12 #### [address] [address] AST [Catalytic activity/Vol] 17 U/L Normal 10-40 [facility] Comment on above: Performed By: #### A DIFF, A1C, FERR, CBC, TSH, FE, ANEU, GFR, LIPID, CMP #### [place] [address] #### B12 #### [place] [address] Bili Total 0.6 mg/dL Normal 0.2-1.0 [facility] Comment on above: Result Comment: Use of this assay is not recommended for patients undergoing treatment with eltrombopag due to the potential for falsely elevated results. Performed By: #### A DIFF, A1C, FERR, CBC, TSH, FE, ANEU, GFR, LIPID, CMP #### [place] [address] #### B12 #### [place] [address] BUN/Creatinine Ratio 10 ratio Normal 7-27 [facility] Comment on above: Performed By: #### A DIFF, A1C, FERR, CBC, TSH, FE, ANEU, GFR, LIPID, CMP #### [place] [address] #### B12 #### [address] [address] Calcium [Mass/Vol] 9.7 mg/dL Normal 8.4-10.2 [facility] Comment on above: Performed By: #### A DIFF, A1C, FERR, CBC, TSH, FE, ANEU, GFR, LIPID, CMP #### [address] [address] #### B12 #### [place] [address] Chloride [Moles/Vol] 109 mmol/L High 98-107 [facility] Comment on above: Performed By: #### A DIFF, A1C, FERR, CBC, TSH, FE, ANEU, GFR, LIPID, CMP #### [address] [address] #### B12 #### [address] [address] CO2 [Moles/Vol] 27 mmol/L Normal 22-29 [facility] Comment on above: Performed By: #### A DIFF, A1C, FERR, CBC, TSH, FE, ANEU, GFR, LIPID, CMP #### [address] [address] #### B12 #### [address] [address] Creatinine [Mass/Vol] 0.93 mg/dL Normal 0.55-1.02 [facility] Comment on above: Result Comment: Test ing performed on Siemens Dimension EXL analyzer using a modified kinetic Luzma technique. Performed By: #### A DIFF, A1C, FERR, CBC, TSH, FE, ANEU, GFR, LIPID, CMP #### [address] [address] #### B12 #### [address] [address] Electrolyte Balance 9.0 mEq/L Normal 4.0-15.0 [facility] Comment on above: Performed By: #### A DIFF, A1C, FERR, CBC, TSH, FE, ANEU, GFR, LIPID, CMP #### [address] [address] #### B12 #### [address] [address] Globulin 3.6 G/dL Normal [facility] Comment on above: Performed By: #### A DIFF, A1C, FERR, CBC, TSH, FE, ANEU, GFR, LIPID, CMP #### [address] [address] #### B12 #### [address] [address] Glucose [Mass/Vol] 90 mg/dL Normal 70-105 [facility] Comment on above: Performed By: #### A DIFF, A1C, FERR, CBC, TSH, FE, ANEU, GFR, LIPID, CMP #### [address] [address] #### B12 #### [address] [address] Potassium [Moles/Vol] 3.7 mmol/L Normal 3.5-5.1 [facility] Comment on above: Performed By: #### A DIFF, A1C, FERR, CBC, TSH, FE, ANEU, GFR, LIPID, CMP #### [address] [address] #### B12 #### [address] [address] Sodium [Moles/Vol] 145 mmol/L Normal 136-145 [facility] Comment on above: Performed By: #### A DIFF, A1C, FERR, CBC, TSH, FE, ANEU, GFR, LIPID, CMP #### [address] [address] #### B12 #### [address] [address] Total Protein 7.3 G/dL Normal 6.4-8.2 [facility] Comment on above: Performed By: #### A DIFF, A1C, FERR, CBC, TSH, FE, ANEU, GFR, LIPID, CMP #### [address] [address] #### B12 #### [address] [address] Urea nitrogen [Mass/Vol] 9 mg/dL Normal 7-18 [facility] Comment on above: Performed By: #### A DIFF, A1C, FERR, CBC, TSH, FE, ANEU, GFR, LIPID, CMP #### [address] [address] #### B12 #### [address] [address] FEon 06-30-2024 Iron [Mass/Vol] 100 ug/dL Normal 50-170 [facility] Comment on above: Performed By: #### A DIFF, A1C, FERR, CBC, TSH, FE, ANEU, GFR, LIPID, CMP #### [place] [address] [place], [place] [address] #### B12 #### [address] [address] Ja 06-30-2024 Ferritin [Mass/Vol] 103.0 ng/mL Normal 8.0-252.0 [facility] Comment on above: Performed By: #### A DIFF, A1C, FERR, CBC, TSH, FE, ANEU, GFR, LIPID, CMP #### [place] [address] [place], [place] [address] #### B12 #### [address] [address] LABORATORYOrdered By: SYSTEM SYSTEM on 06-30-2024 Albumin BCP dye [Mass/Vol] 3.7 G/dL Normal 3.5 - 5.0 G/dL AO ADM SS Albumin/Globulin [Mass ratio] 1.0 {ratio} Low 1.1 - 2.5 ratio AO ADM SS ALP [Catalytic activity/Vol] 83 U/L Normal 40 - 135 U/L AO ADM SS ALT With P-5'-P [Catalytic activity/Vol] 17 U/L Normal 14 - 59 U/L AO ADM SS AST With P-5'-P [Catalytic activity/Vol] 17 U/L Normal 10 - 40 U/L AO ADM SS Basophils (Bld) [#/Vol] 0.0 103/mcL Normal 0.0 - 0.2 10^3/mcL AO Workflow SS Basophils/100 WBC (Bld) 0.3 % Normal 0.0 - 2.5 % AO Workflow SS Bilirubin [Mass/Vol] 0.6 mg/dL Normal 0.2 - 1 .0 mg/dL AO ADM SS Comment on above: Interpretive Data: U se of this assay is not recommended for patients undergoing treatment with eltrombopag due to the potential for falsely elevated results. Calcium [Mass/Vol] 9.7 mg/dL Normal 8.4 - 10. 2 mg/dL AO ADM SS Chloride [Moles/Vol] 109 mmol/L High 98 - 10 7 mmol/L AO ADM SS CO2 [Moles/Vol] 27 mmol/L Normal 22 - 29 mmol/L AO ADM SS Cobalamin (Vitamin B12) [Mass/Vol] 571 pg/mL Normal 211 - 911 pg/mL AH ADM SS Creatinine [Mass/Vol] 0.93 mg/dL Normal 0.55 - 1.02 mg/dL AO ADM SS Comment on above: Interpretive Data: T esting performed on Siemens Dimension EXL analyzer using a modified kinetic Luzma technique. Electrolyte Balance 9.0 mEq/L Normal 4.0 - 15 .0 mEq/L AO ADM SS Eosinophil, Absolute 0.1 103/mcL Normal 0.0 - 0 .7 10^3/mcL AO Workflow SS Eosinophils/100 WBC (Bld) 1.5 % Normal 0.0 - 7.0 % AO Workflow SS Erythrocyte distribution width (RBC) [Ratio] 12.5 % Normal 11.5 - 15.5 % AO Workflow SS Ferritin [Mass/Vol] 103.0 ng/mL Normal 8.0 - 25 2.0 ng/mL AO ADM SS GFR/1.73 sq M.predicted among blacks MDRD (S/P/Bld) [Vol rate/Area] 76 ml/min/1.73sqm Invalid Interpretation Code AO Chemistry S Comment on above: Interpretive Data: GFR Population mean for , Non- Americans Ages 20-29 = 116 mL/min/1.73 sq.m. Ages 30-39 = 107 mL/min/1.73 sq.m. Ages 40-49 = 99 mL/min/1.73 sq.m. Ages 50-59 = 93 mL/min/1.73 sq.m. Ages 60-69 = 85 mL/min/1.73 sq.m. Ages 70+ = 75 mL/min/1.73 sq.m. Chronic Kidney Disease: Less than 60 mL/min/1.73 square meters End Stage Renal Disease: Less than 15 mL/min/1.73 square meters GFR/1.73 sq M.predicted among non-blacks MDRD (S/P/Bld) [Vol rate/Area] 63 ml/min/1.73sqm Invalid Interpretation Code AO Chemistry S Comment on above: Interpretive Data: GFR Population mean for , Non- Americans Ages 20-29 = 116 mL/min/1.73 sq.m. Ages 30-39 = 107 mL/min/1.73 sq.m. Ages 40-49 = 99 mL/min/1.73 sq.m. Ages 50-59 = 93 mL/min/1.73 sq.m. Ages 60-69 = 85 mL/min/1.73 sq.m. Ages 70+ = 75 mL/min/1.73 sq.m. Chronic Kidney Disease: Less than 60 mL/min/1.73 square meters End Stage Renal Disease: Less than 15 mL/min/1.73 square meters Globulin 3.6 G/dL Invalid Interpretation Code AO ADM SS Glucose [Mass/Vol] 114 mg/dL Invalid Interpretation Code AO Chemistry S Comment on above: Interpretive Data: E stimated average glucose (eAG) is a calculated value from Hemoglobin A1C and is branch sales and service representative of the average blood glucose level in the last 2-3 month period. Normal range: less than 114 mg/dL Glucose [Mass/Vol] 90 mg/dL Normal 70 - 105 mg/dL AO ADM SS HbA1c (Bld) [Mass fraction] 5.6 % Normal 4.3 - 6.4 % AO ADM SS Hematocrit (Bld) [Volume fraction] 41.8 % Normal 34.0 - 46.0 % AO Workflow SS Hemoglobin (Bld) [Mass/Vol] 14.0 G/dL Normal 12.0 - 16.0 G/dL AO Workflow SS Iron [Mass/Vol] 100 ug/dL Normal 50 - 170 mcg/dL AO ADM SS Lymphocytes (Bld) [#/Vol] 1.8 103/mcL Normal 0.9 - 4.3 10^3/mcL AO Workflow SS Lymphocytes/100 WBC (Bld) 27.3 % Normal 20.0 - 40.0 % AO Workflow SS MCH (RBC) [Entitic mass] 29.8 pg Normal 27.0 - 33.0 pg AO Workflow SS MCHC 33.5 G/dL Normal 32.0 - 36.0 G/dL AO Workflow SS MCV (RBC) [Entitic vol] 89.0 fL Normal 80.0 - 99.0 fL AO Workflow SS Monocytes (Bld) [#/Vol] 0.4 103/mcL Normal 0.1 - 1.4 10^3/mcL AO Workflow SS Monocytes/100 WBC (Bld) 6.7 % Normal 2.0 - 13.0 % AO Workflow SS Neutrophils (Bld) [#/Vol] 4.1 103/mcL Normal 2.3 - 8.1 10^3/mcL AO Workflow SS Neutrophils/100 WBC (Bld) 64.2 % Normal 50.0 - 75.0 % AO Workflow SS Platelet mean volume (Bld) [Entitic vol] 9.3 fL Normal 6.6 - 10.5 fL AO Workflow SS Platelets (Bld) [#/Vol] 280 103/mcL Normal 150 - 450 10^3/mcL AO Workflow SS Potassium [Moles/Vol] 3.7 mmol/L Normal 3.5 - 5.1 mmol/L AO ADM SS Protein [Mass/Vol] 7.3 G/dL Normal 6.4 - 8.2 G/dL AO ADM SS RBC (Bld) [#/Vol] 4.69 106/mcL Normal 4.10 - 5.3 0 10^6/mcL AO Workflow SS Sodium [Moles/Vol] 145 mmol/L Normal 136 - 145 mmol/L AO ADM SS TSH Qn 1.08 m[IU]/L Normal 0.36 - 3.74 mcIU/mL AO ADM SS Urea nitrogen [Mass/Vol] 9 mg/dL Normal 7 - 18 mg/dL AO ADM SS Urea nitrogen/Creatinine [Mass ratio] 10 ratio Normal 7 - 27 ratio AO ADM SS WBC (Bld) [#/Vol] 6.4 103/mcL Normal 4.5 - 10.8 10^3/mcL AO Workflow SS LABORATORYOrdered By: Steff Brand on 06-30-2024 Cholesterol [Mass/Vol] 146 mg/dL Normal 0 - 2 00 mg/dL AO ADM SS Comment on above: Interpretive Data: C holesterol Reference Interval: Less than 200 Desirable 200-239 Borderline high risk 240 and above High risk Cholesterol in HDL [Mass/Vol] 51 mg/dL Normal 40 - 60 mg/dL AO ADM SS Cholesterol in LDL [Mass/Vol] 71 mg/dL Normal 0 - 130 mg/dL AO ADM SS Triglyceride [Mass/Vol] 121 mg/dL Normal 0 - 150 mg/dL AO ADM SS Comment on above: Interpretive Data: T riglyceride Reference Interval: Less than 150 Normal 150-199 Borderline high risk 200-499 High risk 500 or higher Very high risk LIPIDon 06-30-2024 Cholesterol [Mass/Vol] 146 mg/dL Normal 0-200 [facility] Comment on above: Result Comment: Chol esterol Reference Interval: Less than 200 Desirable 200-239 Borderline high risk 240 and above High risk Performed By: #### A DIFF, A1C, FERR, CBC, TSH, FE, ANEU, GFR, LIPID, CMP ####[place] [id number]#### B12 ####[place] [address] Cholesterol in HDL [Mass/Vol] 51 mg/dL Normal 40-60 [facility] Comment on above: Performed By: #### A DIFF, A1C, FERR, CBC, TSH, FE, ANEU, GFR, LIPID, CMP ####[place] [id number]#### B12 ####[place] [address] Cholesterol in LDL [Mass/Vol] 71 mg/dL Normal 0-130 [facility] Comment on above: Performed By: #### A DIFF, A1C, FERR, CBC, TSH, FE, ANEU, GFR, LIPID, CMP ####[place] [address]#### B12 ####[address] [address] Triglyceride [Mass/Vol] 121 mg/dL Normal 0-150 [facility] Comment on above: Result Comment: Trig lyceride Reference Interval: Less than 150 Normal 150-199 Borderline high risk 200-499 High risk 500 or higher Very high risk Performed By: #### A DIFF, A1C, FERR, CBC, TSH, FE, ANEU, GFR, LIPID, CMP ####[place] [address]#### B12 ####[address] [address] TSHon 06-30-2024 TSH Qn 1.08 m[IU]/L Normal 0.36-3.74 [facility] Comment on above: Performed By: #### A DIFF, A1C, FERR, CBC, TSH, FE, ANEU, GFR, LIPID, CMP #### [place] [id number] [place], [place] [address] #### B12 #### [address] [address] CNOVon 05-15-2024 CNOV Office Visit (OBGYWM) MEERA MELÉNDEZ ([id number]) 1970 [facility] Date Time Provider Department 05/15/24 3:00 PM KATIUSKA RIVERA OBGYWM During your visit today, we recorded the following information about you: Pulse Blood pressure Weight 76/minute 126/88 97.1 kg Katiuska Rivera APRN.CNP 05/15/2024 4:50 PM Signed Some documentation from previous visit of 04/20/2024 was copied and pasted, documentation has been reviewed and edited as necessary for today's visit. Patient Summary: Meera is a 54 year old Female who presents for follow-up evaluation of obesity/weight management to treat and prevent related co-morbidities. In our previous visits we have discussed lifestyle intervention including a nutrition recommendations and physical activity optimization. Her last office visit was 4 weeks Assessment/plan from last visit: - Topiramate 25 mg tablet - taking 25 mg with phentermine taking @ 7a AND 7p - Phentermine 15 mg - taking at 7 am Interval History Having more sugar craving around 8-9 at night Weight loss since last vist: 1 lbs for total of 13 lbs Date: Weight: BMI: Medications: 05/15/24 214 lb 37.21 Phentermine 15 mg, Topiramate 25 mg 04/20/2024 215 lb 37.38 03/14/2024 220 lb 37.93 02/25/2024 date started Phentermine 15 mg approval by PCP 01/31/2024 227 lb 39.14 Topiramate 5% weight loss = 216 lbs, 10% weight loss = 204 lbs Anti-obesity medications: Topiramate Benefit: decreased thoughts of food in the evening Adverse effects: Soda tasted terrible Phentermine Benefit: decrease in appetite Adverse effects: dry mouth Weight promoting medications: Escitalopram 10 mg - has seen no weight gain Previous Diet (initial appointment): Pepsi or Mt Dew - 5 cans from 10 am to 8 pm Awake - 0700 B - 0730 20 or 30 gm Equate shake S - none or Lidia Doones 4 pack and pepsi or Mt Dew L - SKIP S - Pepsi or Mt Dew occasionally chips if at home D - 6 pm Roast, carrots, potato or unbreaded shrimp/lobster with rice or soft shell taco with meat, lettuce, tomato, cheese, sour cream S - berries/chips/carrot s and dip/occasional ice cream Fluids: Pepsi or Mt Dew - 5 cans from 10 am to 8 pm Bedtime - 11 pm Quality of diet: 24hr recall suggests healthy/unhealthy diet. Characterization of diet:Structured, structured/Unstructu red, unhealthy snacking, evening snacking, increased consumption of sugar sweetened beverages, and skip meals. 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 WE - adds 1 scrambled egg sometimes with 1 slice walker S - none L - 1230 hard boiled egg, 1/2 pack of tuna S - 1/2 protein shake D - 6 pm taco salad or chicken (sometimes only 1-2 oz) and rice and veg or Roast, carrots, potato or unbreaded shrimp/lobster with rice and veg Doing more soups lately S - [place] kisses Fluids - water Bedtime - 11 pm Exercise: No intentional exercise Regular exercise: no Strength/resistance exercise:yes Barriers to regular exercise? Yes- lower back- cannot lift over 15 pounds Work-related activity:Sedentary. Gym Membership: no Activity Tracker: yes- Apple watch- encouraged to wear About 5000 steps a day Stress: stable Personal- fostering Sleep: stable wakes up at 0330, rolls over. 7-8 hours, interrupted Current Contraception: hysterectomy Obesity ROS/ FHx GEN: Fatigue:yes CV: h/o palpitations/cardiac arrhythmia, Chest pain: yes Valve disorder/murmur - has been evaluated by 2 different cardiologists.?anxie ty HTN: yes well-controlled GI: GERD:yes MSK: Joint Pain:yes-lower back NEURO: Migraines/COSTA: yes Physical Exam Constitutional: She appears healthy. No distress. Results: recent labs reviewed with the patient. Results: 06/29/2023 Outside labs CBCD WNL CMP GLUC 90 BUN 10 Creat 0.87 GFR 68 Lipids Total 189 Trig 121 HDL 58 LDL 107 - taking Lipitor Anti-Obesity Medications >Phentermine: No uncontrolled HTN, - well-controlled on valsartan. No CVD Hx or hx of seizure disorder. palpitations/cardiac arrhythmia, Chest pain: yes Valve disorder/murmur - has been evaluated by 2 different cardiologists.?anxie ty No MAOI inhibitor use. No drug abuse hx. Crcl > 15. >Topiramate/zonisami de: No seizure, kidney stone or glaucoma hx. Has hx of migraines, No hx of poor sleep. Not of Child bearing age - hysterectomy >Qsymia: see above >Contrave: No uncontrolled HTN or hx of seizure disorder. No MAOI inhibitor use. No opiate use. >Saxenda/Wegovy/Ozem pic: Cost. Ins coverage? >Metformin: eGFR > 30. No contraindications or medication interactions. Assessment/Plan: Meera Meléndez is a 54 year old yo with Class II obesity who presented today for follow up for supervised weight loss to treat and prevent related co-morbidities. (more content not included)... Normal [facility] JULISSA SCREENING W TOMOon 05-01 JULISSA SCREENING W TOPHER * * *Final Report* * * DATE OF EXAM: May 01 2024 3:04PM WR [id number] - JULISSA SCREENING W TOPHER / PROCEDURE REASON: Encounter for screening mammogram for breast cancer * * * * Physician Interpretation * * * * RESULT: [place] [address] [place] [address] #[id number] - JULISSA SCREENING W TOPHER HISTORY: Patient is 54 years old and is seen for screening and is asymptomatic in both breasts. Patient states no personal history of breast cancer. Patient states no personal history of other cancers. COMPARISON STUDIES: The present examination has been compared to prior imaging studies dated 05/08/2021 (mammogram), 05/14/2022 (mammogram) and 04/27/2023 (mammogram). MAMMOGRAM TECHNIQUE: The study was acquired using full field digital technology and interpreted from soft copy. Digital Breast Tomosynthesis (DBT) images were obtained and used to assist in the interpretation of this examination. Computer-aided detection was utilized by the radiologist in the interpretation of this examination. MAMMOGRAM FINDINGS: The breasts are almost entirely fatty. No suspicious masses, calcifications or other abnormalities are seen in either breast. There are no significant changes from the prior study. IMPRESSION: There are no suspicious mammographic findings in either breast. Routine screening mammogram is recommended. Annual mammogram will be due in 1 year. BI-RADS Category 1: Negative RISK: Based on the Tyrer-Cuzick (TC) risk assessment model, this patient has a 6.6% lifetime risk of developing breast cancer, meaning they are at average risk for developing breast cancer. However, this is only an estimate based on available history provided on the patient's questionnaire. We encourage all patients to talk with their providers about these results, further recommendations for managing breast health, and appropriate supplemental screening options if the patient has dense breast tissue. Interpreting Radiologist: Jodie Carl M.D. Electronically signed on: 05/02/2024 Design Draftsman: SAVITA Transcribe Date/Time: May 01 2024 2:49P Dictated by: ANA PAULA SHANNON, This examination was interpreted and the report reviewed and electronically signed by: JODIE CARL MD on May 02 2024 8:36AM EST [id number] CN Normal [facility] No Panel Informationon 04-23 Culture Throat Normal throat nickie present Sensitivity Testing: Not Indicated [facility] CNOVon 04-20-2024 CNOV Office Visit (OBGYWM) MEERA MELÉNDEZ ([id number]) 1970 F [facility] Date Time Provider Department 04/20/24 11:30 AM CELIA NAVA During your visit today, we recorded the following information about you: Pulse Blood pressure Weight 89/minute 120/82 97.5 kg Celia Nava APRN.CNP 04/20/2024 12:50 PM Signed Some documentation from previous visit of 03/14/2024 was copied and pasted, documentation has been reviewed and edited as necessary for today's visit. Patient Summary: Meera is a 54 year old Female who presents for follow-up evaluation of obesity/weight management to treat and prevent related co-morbidities. In our previous visits we have discussed lifestyle intervention including a nutrition recommendations and physical activity optimization. Her last office visit was 5 weeks Assessment/plan from last visit: - Topiramate 25 mg tablet - taking 25 mg with phentermine and bedtime - Phentermine 15 mg - taking at 7 am Interval History PT specifies the following items as new or significant updates since the last appointment: Stopped all pop because it no longer tastes good with the topiramate. No longer drinking any orange juice or lemonade. Weight loss since last vist: 5 lbs for total of 12 lbs Date: Weight: BMI: Medications: 04/20/2024 215 lb 37.38 03/14/2024 220 lb 37.93 02/25/2024 date started Phentermine 15 mg approval by PCP 01/31/2024 227 lb 39.14 Topiramate 5% weight loss = 216 lbs, 10% weight loss = 204 lbs Anti-obesity medications: Topiramate Benefit: decreased thoughts of food in the evening Adverse effects: Soda tasted terrible Phentermine Benefit: decrease in appetite Adverse effects: dry mouth Weight promoting medications: Escitalopram 10 mg - has seen no weight gain Previous Diet (initial appointment): Pepsi or Mt Dew - 5 cans from 10 am to 8 pm Awake - 0700 B - 0730 20 or 30 gm Equate shake S - none or Lidia Doones 4 pack and pepsi or Mt Dew L - SKIP S - Pepsi or Mt Dew occasionally chips if at home D - 6 pm Roast, carrots, potato or unbreaded shrimp/lobster with rice or soft shell taco with meat, lettuce, tomato, cheese, sour cream S - berries/chips/carrot s and dip/occasional ice cream Fluids: Pepsi or Mt Dew - 5 cans from 10 am to 8 pm Bedtime - 11 pm Quality of diet: 24hr recall suggests healthy/unhealthy diet. Characterization of diet:Structured, structured/Unstructu red, unhealthy snacking, evening snacking, increased consumption of sugar sweetened beverages, and skip meals. 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 eating habits:mindlessness, boredom, and stress Eating Disorder no Cravings: Pepsi/Mt Dew, candy bar Dietary changes: 424310 Awake - 0700 B - 0700 30 gm protein shake every day. WE - adds 1 scrambled egg sometimes with 1 slice walker S - none L - 1230 1 cheese stick and 1 Slim Johan S - none D - 6 pm taco salad or chicken (sometimes only 1-2 oz) and rice and veg or Roast, carrots, potato or unbreaded shrimp/lobster with rice and veg S - sometimes pretzels Fluids - water, unsweet tea Bedtime - 11 pm Exercise: No intentional exercise Regular exercise: no Strength/resistance exercise:yes Barriers to regular exercise? Yes- lower back- cannot lift over 15 pounds Work-related activity:Sedentary. Gym Membership: no Activity Tracker: yes- Apple watch- encouraged to wear Stress: stable Personal- fostering Sleep: stable wakes up at 0330, rolls over. 7-8 hours, interrupted CrCl cannot be calculated (No successful lab value found.). PAST MEDICAL HISTORY Diagnosis Date Abnormal glandular Papanicolaou smear of cervix 03/02/2004 @[facility] Anxiety state ASCUS with positive high risk HPV cervical 2002 @[facility] BRCA negative CKD (chronic kidney disease) stage 2, GFR 60-89 ml/min Essential hypertension GERD (gastroesophageal reflux disease) HSV-2 (herpes simplex virus 2) infection 2010 culture @[facility] Hyperlipidemia Incontinence of urine LGSIL on Pap smear of cervix 11/27/2004 @[facility] Migraine, intractable Mitral valve disorders(424.0) Undiagnosed cardiac murmurs Vitamin D deficiency Current Outpatient Medications Medication Sig Dispense Refill estradiol 0.01% estriol 0.01% cream (CPD) 4 clicks/1 gram per vaginal twice weekly. 30 g 1 Phentermine HCl 15 mg capsule Take 1 capsule by mouth daily before breakfast for 45 days. Patient should start on March 19, 2024. 45 capsule 0 topiramate (TOPAMAX) 25 mg tablet Take 1 tablet by mouth two times a day. 180 tablet 0 ferrous sulfate 325 mg (65 mg iron) EC tablet Take 325 mg by mouth once daily. atorvastatin (LIPITOR) 20 mg tablet Take 20 mg by mouth once daily. valACYclovir (VALTREX) 500 mg tablet Take 1 tablet by mouth once daily. 90 tablet 3 celecoxib (CELEBREX) 200 mg capsule TAKE 1 CAPSULE BY MOUTH TWICE A DAY NEEDED FOR SEVERE PAIN escitalopram oxalate (LEXAPRO) 5 mg tablet T (more content not included)... Normal [facility] CNOVon 04-12-2024 CNOV Office Visit (OBGYWM) MEERA MELÉNDEZ ([id number]) 1970 F [facility] Date Time Provider Department 04/12/24 2:45 PM LAURA PATHAK OBGYWJesenia During your visit today, we recorded the following information about you: Blood pressure Weight Height 126/72 99.3 kg 1.615 m Laura Pathak APRN.CNP 04/12/2024 3:08 PM Signed [facility] offered: Patient declinesRodney Estes is a 54 year old who presents for an annual gynecologic exam without complaints. 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 LMP: Hysterectomy Age at Menarche: Age at First : Age at Menopause: Chick Grader History Comments: Sexual Activity: Yes; Male Contraception: No contraception data on record PAST MEDICAL HISTORY Diagnosis Date Abnormal glandular Papanicolaou smear of cervix 03/02/2004 @[facility] Anxiety state ASCUS with positive high risk HPV cervical 2002 @[facility] BRCA negative CKD (chronic kidney disease) stage 2, GFR 60-89 ml/min Essential hypertension GERD (gastroesophageal reflux disease) HSV-2 (herpes simplex virus 2) infection 2010 culture @[facility] Hyperlipidemia Incontinence of urine LGSIL on Pap smear of cervix 11/27/2004 @[facility] Migraine, intractable Mitral valve disorders(424.0) Undiagnosed cardiac murmurs Vitamin D deficiency PAST SURGICAL HISTORY Procedure Laterality Date CRYOSURGERY 2005 @[facility] FOOT SURGERY HX 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 LIGATE FALLOPIAN TUBE 1992 dr Loza MARSUP BARTHOLIN GLAND CYST 1995 Dr Loza TREATMENT OF ANAL FISSURE 1998 VAGINAL HYSTERECTOMY 02/03/2010 adenomyosis- has both overies per u/s 2010 VAGINOSCOPY 10/31/2003 ER[facility] I FAMILY HISTORY Problem Relation Age of Onset Hypertension Mother Hyperlipidemia Mother Obesity Mother Heart Attack Father Obesity Father No Known Problems Brother Breast Cancer Maternal Grandmother 59 Obesity Maternal Grandmother Heart Failure Maternal Grandfather Obesity Maternal Grandfather Obesity Paternal Grandmother Heart Attack Paternal Grandfather other (migraine [Other]) Other Stroke Other Aneurysm Other heart aneurysm SOCIAL HISTORY Social History Tobacco Use Smoking status: Never Smokeless tobacco: Never Vaping Use Vaping status: Never Used Substance Use Topics Alcohol use: Not Currently Drug use: Never REVIEW OF SYSTEMS Abdomen: No abdominal pain, nausea, vomiting, diarrhea, or constipation. No bloating, early satiety, indigestion, or increased flatulence. Bladder: No dysuria, gross hematuria, urinary frequency, urinary urgency + prolapse and incontinence Breast: No breast lumps, nipple d/c, overlying skin changes, redness or skin retraction Allergies and current medication updated:Yes SENSITIVE EXAM: The sensitive examination was discussed with the Patient or Patient's Authorized Director Furniture. As applicable, any other physician, advance practice provider, medical student, or other health professional student that will be observing or involved in the sensitive examination for educational or training purposes was discussed with the Patient or Authorized Director Furniture. The Patient or Authorized Director Furniture has agreed to proceed with the sensitive examination. (Sensitive examination includes inspection and/or palpation of the breasts, pelvis, prostate and anorectal regions). EXAM: BP 126/72 Ht 5' 3.591 (1.62m) Wt 219 lb (99.3kg) BMI 38.09 kg/(m2). GENERAL: pleasant, female in no apparent distress HEENT: Normocephalic, atraumatic, mucus membranes moist, and no lesions NECK: Supple, full range of motion, no adenopathy, and thyroid normal DERMATOLOGY: Normal, without lesions, non-icteric, and non-hirsute BREAST: soft, non-tender, symmetric, no dominant mass, normal nipple-areolar complex, no lymphadenopathy, and no nipple discharge CHEST: Normal inspiratory effort ABDOMEN: soft, non-tender, and no masses PELVIC: external genitalia normal, normal Bartholin's glands, urethra, [place]'s glands, no vulvar lesions, cervix surgically absent, + grade 1-2 cystocele, physiologic discharge present, normal appearing perineal body and perianal region BIMANUAL: no adnexal masses, non-tender, and uterus surgically absent RECTOVAGINAL: deferred. NEURO: alert and oriented x3,exam grossly non-focal EXTREMITIES: normal ASSESSMENT/PLAN: 1) Health maintenance: Pap/HPV screening no longer needed Mammogram o (more content not included)... Normal [facility] 04-12-2024 CNPN Telephone (OBGYWM) MEERA MELÉNDEZ ([id number]) 1970 F [facility] Date Time Provider Department 04/12/24 LAURA PATHAK During your visit today, we recorded the following information about you: Laura Pathak APRN.CNP 04/12/2024 2:58 PM Signed Please re fax consult to [facility] for PFPT for stress incontinence and cystocele. Laura Pathak APRN.Sarah Hong RN 04/12/2024 3:05 PM Signed Consult faxed. Sarah Givens RN Allergies As of Date: 04/12/2024 Noted Allergy Reaction DOXYCYCLINE 07/12/2011 14 - Other: See Comments 6 - Diarrhea 8 - GI Upset 11 - Vomiting 5 - Intolerance CEPHALEXIN MONOHYDRATE 04/11/2023 14 - Other: See Comments LISINOPRIL 03/23/2019 14 - Other: See Comments 3 - Cough SEASONAL ALLERGIES 04/03/2014 14 - Other: See Comments Comments: Itchy eyes Date Reviewed: 04/12/2024 Reviewed by: Laura Pathak APRN.LEHR CUTTER - Fully Assessed Reason for Visit: Orders [681] Prescriptions as of 04/12/2024 - estradiol 10 mcg vaginal suppository maintenance pack (IMVEXXY) Use 1 Suppository vaginally three times a week. - Phentermine HCl 15 mg capsule Take 1 capsule by mouth daily before breakfast for 45 days. Patient should start on March 19, 2024. - topiramate (TOPAMAX) 25 mg tablet Take 1 tablet by mouth two times a day. - ferrous sulfate 325 mg (65 mg iron) EC tablet Take 325 mg by mouth once daily. - atorvastatin (LIPITOR) 20 mg tablet Take 20 mg by mouth once daily. - valACYclovir (VALTREX) 500 mg tablet Take 1 tablet by mouth once daily. - celecoxib (CELEBREX) 200 mg capsule TAKE 1 CAPSULE BY MOUTH TWICE A DAY NEEDED FOR SEVERE PAIN - escitalopram oxalate (LEXAPRO) 5 mg tablet Take 10 mg by mouth once daily. - fluticasone (FLONASE) 50 mcg/actuation nasal spray Use 1 [place] in the nose once daily. - rimegepant (NURTEC ODT) 75 mg disintegrating tablet Take 75 mg by mouth once daily as needed. - rizatriptan (MAXALT) 10 mg tablet Take 10 mg by mouth as needed for migraine headache (see administration instructions). - solifenacin (VESICARE) 5 mg tablet Take 5 mg by mouth once daily. - valsartan (DIOVAN) 80 mg tablet Take 80 mg by mouth once daily. - cholecalciferol (VITAMIN D3) 50 mcg (2,000 unit) tablet Take 2,000 Units by mouth once daily. - ALPRAZolam (XANAX) 0.25 mg tablet Take 0.25 mg by mouth once daily as needed. - esomeprazole mag trihydrate(NEXIUM 40 MG CAP) Take 40 mg by mouth once daily. DO NOT CRUSH Problem List As Of Date 04/12/2024 Noted Resolved INJURY NERVE PELV/LEG NOS [[id number]] 01/27/2007 Interstitial cystitis [N30.10] 01/31/2024 Essential hypertension [I10] 01/31/2024 Gastroesophageal reflux disease [K21.9] 01/31/2024 Hyperlipidemia [E78.5] 01/31/2024 CKD (chronic kidney disease) stage 2, GFR 60-89*01/31/2024 Depression with anxiety [F41.8] 01/31/2024 Vitamin D deficiency [E55.9] 01/31/2024 Intractable migraine with aura with status migr*01/31/2024 Class 2 severe obesity with serious comorbidity*01/31/20 Encounter Status:Closed by SARAH GIVENS on 04/12/24 Normal [facility] Isaac 04-09-2024 CNOV Office Visit (GYNGRN) MEERA MELÉNDEZ ([id number]) 1970 [facility] Date Time Provider Department 04/09/24 10:30 AM EBENEZER CAMARILLO GYNGRN During your visit today, we recorded the following information about you: Pulse Blood pressure 68/minute 128/70 Ebenezer Camarillo, DRY CHAIN PULLER.LEHR CUTTER 04/09/2024 11:12 AM Signed Female Pelvic Medicine AND Reconstructive Surgery Follow-Up Meerakilo Meléndez is a 54 year old female, who presents with c/o vaginal itching and burning. Last visit 01/02/24: PLAN: 1. Cystocele, midline - We discussed the options for management of pelvic organ prolapse including pelvic floor muscle exercises/pelvic floor physical therapy, pessary, and surgery. Meera desires to continue with PFPT. May consider a pessary in the future. - BLADDER SCAN 2. Rectocele - As above #1. 3. High-tone pelvic floor dysfunction - Discussed exam findings. - Recommend continuing PFPT. 4. Genitourinary syndrome of menopause - Continue vaginal estrogen cream twice weekly. - Discussed lubricants and moisturizers. History since last visit: She has had a couple episodes of a yeast infection. Saw [facility] in [place] and both times she had negative yeast infection based on culture. Symptoms characterized by burning, itching inside and outside. She thinks she can feel a dry poking sensation. States she has bad anxiety and is hyperfocused on it. Using vaginal estrogen cream twice weekly. States she feels after estrogen, vaginal symptoms are worse. Recent fungal swab negative. States she did PFPT at [facility] in [place] but was discharged due to insurance coverage. Urinary Incontinence: no Voiding Dysfunction: no Urinary Frequency: no Urinary Urgency: no Prolapse Symptoms: yes Defecatory Dysfunction: no Fecal Incontinence: no Abnormal Bleeding: no Pain: no Abnormal Vaginal Discharge: no I have confirmed and edited as necessary, the PFSH obtained by others. Ebenezer Camairllo APRN.LEHR CUTTER [facility] offered: Patient accepts, visit chaperoned by Easton Suarez APRN.LEHR CUTTER student. SENSITIVE EXAM: The sensitive examination was discussed with the Patient or Patient's Authorized Director Furniture. As applicable, any other physician, advance practice provider, medical student, or other health professional student that will be observing or involved in the sensitive examination for educational or training purposes was discussed with the Patient or Authorized Director Furniture. The Patient or Authorized Director Furniture has agreed to proceed with the sensitive examination. (Sensitive examination includes inspection and/or palpation of the breasts, pelvis, prostate and anorectal regions). OBJECTIVE: BP 128/70 Pulse 68 General: Well appearing, alert, in no acute distress, well-hydrated, well nourished. Abdomen: Deferred Pelvic: Ext. Genitalia: No lesions or other abnormalities; Q-tip test negative Vagina: atrophic epithelium POP-Q: Prolapse Noted: Yes, unchanged from last visit. Cervix: Absent Urethra: Normal, Supine cough stress test negative Bimanual: No tenderness, No masses Rectovaginal: Deferred Levator Ani Contraction: 0 Levator Ani Tone: increased and unable to relax pelvic floor Levator Ani Tenderness: Yes, R OI Saddle Sensory Exam (S2-4): normal Urine Dip Result: Normal Bladder scan: N/A Plan: Assessment AND Plan Genitourinary syndrome of menopause - Discussed she may have had a rxn to Estrace cream. We will try Imvexxy. If that is not covered or it is uncomfortable to use, plan compounded estradiol cream. - Vulvar care measures discussed at length. Orders: estradiol 10 mcg vaginal suppository maintenance pack (IMVEXXY); Use 1 Suppository vaginally three times a week. High-tone pelvic floor dysfunction - Discussed exam findings. - Recommend revisiting PFPT. Cystocele, midline - Questions answered regarding prolapse. Rectocele - As above. Medical Decision Making: Problems: Moderate: 2+ stable chronic illnesses Data: Unique test result(s) reviewed: 1 Risk: Moderate: Drug management Medical Decision Making Level: 4 - Moderate Ebenezer Camarillo APRN.Ebenezer Saldaña APRN.CNP 04/09/2024 11:04 AM Signed Coconut oil and olive oil to vulva. Start Imvexxy (vaginal estrogen tablet) 3 x per week. Using lubricant with intercourse. Revisit pelvic floor PT. Referring Provider: NELSON ROYAL [[id number]] Allergies As of Date: 04/09/2024 Noted Allergy Reaction DOXYCYCLINE 07/12/2011 14 - Other: See Comments 6 - Diarrhea 8 - GI Upset 11 - Vomiting 5 - Intolerance CEPHALEXIN MONOHYDRATE 04/11/2023 14 - Other: See Comments LISINOPRIL 03/23/2019 14 - Other: See Comments 3 - Cough SEASONAL ALLERGIES 04/03/2014 14 - Other: See Comments Comments: Itchy eyes Date Reviewed: 04/09/2024 Reviewed by: Yesenia Marshall MA - Fully Assessed Primary Visit Diagnosis:Genitourin lynn syndr (more content not included)... Normal [facility] UA DIP, URINE (POC)on 2023 BILIRUBIN UA (POCT) Negative Negative [facility] CLARITY UA (POCT) Clear [facility] COLOR UA (POCT) Yellow [facility] GLUCOSE UA (POCT) Negative Negative mg/dL [facility] Hemoglobin Ql (U) Negative Negative [facility] KETONE UA (POCT) Negative Negative mg/dL [facility] LEUKOCYTES UA (POCT) Negative Negative [facility] NITRITE UA (POCT) Negative Negative [facility] PH UA (POCT) 7.0 4.5 - 8.0 [facility] Protein Ql (U) Negative Negative mg/dL [facility] SPECIFIC GRAVITY UA (POCT) 1.010 1.005 - 1.030 [facility] UROBILINOGEN UA (POCT) 0.2 Thu l E.U./dL [facility] Location:[facility], [address], [place], [place], [address] [place] [address] POINT OF CARE [facility] CNOVon 03-19-2024 CNOV Office Visit (OBGYWM) MEERA MELÉNDEZ ([id number]) 1970 [facility] Date Time Provider Department 03/19/24 2:30 PM KATIUSKA RIVERA OBGYWM During your visit today, we recorded the following information about you: Blood pressure Weight 120/70 101.2 kg Katiuska Rivera APRN.LEHR CUTTER 03/19/2024 2:48 PM Signed [facility] offered: Patient declines. Meera Meléndez is a 54 year old female who presents for problem visit vaginal problem. HPI: Meera presents to get her prolapse looked at, she said she notices it more. She also wants to talk about a different estrogen cream, the cream now just itches and villalpando her. She just finish a Monistat 7 treatment on Tuesday because she thought it was a yeast infection. 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 LMP: Hysterectomy Age at Menarche: Age at First : Age at Menopause: Chick Grader History Comments: Sexual Activity: Yes; Male Contraception: No contraception data on record PAST MEDICAL HISTORY Diagnosis Date Abnormal glandular Papanicolaou smear of cervix 03/02/2004 @[facility] Anxiety state ASCUS with positive high risk HPV cervical 2002 @[facility] BRCA negative CKD (chronic kidney disease) stage 2, GFR 60-89 ml/min Essential hypertension GERD (gastroesophageal reflux disease) HSV-2 (herpes simplex virus 2) infection 2010 culture @[facility] Hyperlipidemia Incontinence of urine LGSIL on Pap smear of cervix 11/27/2004 @[facility] Migraine, intractable Mitral valve disorders(424.0) Undiagnosed cardiac murmurs Vitamin D deficiency PAST SURGICAL HISTORY Procedure Laterality Date CRYOSURGERY 2005 @[facility] FOOT SURGERY HX 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 LIGATE FALLOPIAN TUBE 1992 dr Denia V[place]ASCO BARTHOLIN GLAND CYST 1995 Dr Loza TREATMENT OF ANAL FISSURE 1998 VAGINAL HYSTERECTOMY 02/03/2010 adenomyosis- has both overies per u/s 2010 VAGINOSCOPY 10/31/2003 ERNESTINA I FAMILY HISTORY Problem Relation Age of Onset Hypertension Mother Hyperlipidemia Mother Obesity Mother Heart Attack Father Obesity Father No Known Problems Brother Breast Cancer Maternal Grandmother 59 Obesity Maternal Grandmother Heart Failure Maternal Grandfather Obesity Maternal Grandfather Obesity Paternal Grandmother Heart Attack Paternal Grandfather other (migraine [Other]) Other Stroke Other Aneurysm Other heart aneurysm Social History Tobacco Use Smoking status: Never Smokeless tobacco: Never Vaping Use Vaping status: Never Used Substance Use Topics Alcohol use: Not Currently Drug use: Never Current Outpatient Medications Medication Sig Phentermine HCl 15 mg capsule Take 1 capsule by mouth daily before breakfast for 45 days. Patient should start on March 19, 2024. topiramate (TOPAMAX) 25 mg tablet Take 1 tablet by mouth two times a day. ferrous sulfate 325 mg (65 mg iron) EC tablet Take 325 mg by mouth once daily. atorvastatin (LIPITOR) 20 mg tablet Take 20 mg by mouth once daily. valACYclovir (VALTREX) 500 mg tablet Take 1 tablet by mouth once daily. estradiol (ESTRACE) 0.01 % (0.1 mg/gram) vaginal cream apply approximately 1/2 inch of cream vaginally qhs every other night celecoxib (CELEBREX) 200 mg capsule TAKE 1 CAPSULE BY MOUTH TWICE A DAY NEEDED FOR SEVERE PAIN escitalopram oxalate (LEXAPRO) 5 mg tablet Take 10 mg by mouth once daily. fluticasone (FLONASE) 50 mcg/actuation nasal spray Use 1 [place] in the nose once daily. rimegepant (NURTEC ODT) 75 mg disintegrating tablet Take 75 mg by mouth once daily as needed. rizatriptan (MAXALT) 10 mg tablet Take 10 mg by mouth as needed for migraine headache (see administration instructions). solifenacin (VESICARE) 5 mg tablet Take 5 mg by mouth once daily. valsartan (DIOVAN) 80 mg tablet Take 80 mg by mouth once daily. cholecalciferol (VITAMIN D3) 50 mcg (2,000 unit) tablet Take 2,000 Units by mouth once daily. ALPRAZolam (XANAX) 0.25 mg tablet Take 0.25 mg by mouth once daily as needed. esomeprazole mag trihydrate(NEXIUM 40 MG CAP) Take 40 mg by mouth once daily. DO NOT CRUSH No current facility-administere d medications for this visit. Allergies As of Date: 03/19/2024 Allergen Noted Reaction DOXYCYCLINE 07/12/2011 Other: See Comments, Diarrhea, GI Upset, Vomiting, and Intolerance CEPHALEXIN MONOHYDRATE 04/11/2023 Other: See Comments LISINOPRIL 03/23/2019 Other: See Comments and Cough SEASONAL ALLERGIES 04/03/2014 Other: See Comments Fully Assessed 03/19/2024 REVIEW OF SYSTEMS Expanded ROS: N/A Allergies and current medication updated:Yes SENSITIVE EXAM: The sensitive examination was discussed with the Patient or Patient's Authorized Director Furniture. As applicable, any other physician, advance practice provider, medical student, or other health professional s (more content not included)... Normal [facility] Fungus Spec Culton 4 Fungus identified Cx Nom (Unsp spec) CULTURE, FUNGAL: No Fungus isolated after 10 days Normal [facility] Comment on above: Performed By: #### 5 [id number] ####[facility] LABCLIA [id number] [address] [place] CNOVon 03-14-2024 CNOV Office Visit (OBGYWM) MEERA MELÉNDEZ ([id number]) 1970 F [facility] Date Time Provider Department 03/14/24 3:00 PM CELIA NAVA During your visit today, we recorded the following information about you: Pulse Blood pressure Weight 72/minute 124/78 99.8 kg Celia Nava APRN.LEHR CUTTER 03/14/2024 6:19 PM Signed Some documentation from previous visit of 02/01/2024 was copied and pasted, documentation has been reviewed and edited as necessary for today's visit. Patient Summary: Meera is a 54 year old Female who presents for follow-up evaluation of obesity/weight management to treat and prevent related co-morbidities. In our previous visits we have discussed lifestyle intervention including a nutrition recommendations and physical activity optimization. Her last office visit was 6 weeks Assessment/plan from last visit: - Topiramate 25 mg tablet - taking 50 mg 8 pm - Phentermine 15 mg - taking at 7 am Interval History PT specifies the following items as new or significant updates since the last appointment: Stopped all pop because it no longer tastes good with the topiramate. helping to make sure she gets protein in. Weight loss since last vist: 7 lbs. Date: Weight: BMI: Medications: 03/14/2024 220 lb 37.93 02/25/2024 date started Phentermine 15 mg approval by PCP 01/31/2024 227 lb 39.14 Topiramate 5% weight loss = 216 lbs, 10% weight loss = 204 lbs Anti-obesity medications: Topiramate Benefit: decreased thoughts of food in the evening Adverse effects: Soda tasted terrible Phentermine Benefit: decrease in appetite Adverse effects: dry mouth Weight promoting medications: Escitalopram 10 mg - has seen no weight gain Previous Diet (initial appointment): Pepsi or Mt Dew - 5 cans from 10 am to 8 pm Awake - 0700 B - 0730 20 or 30 gm Equate shake S - none or Lidia Doones 4 pack and pepsi or Mt Dew L - SKIP S - Pepsi or Mt Dew occasionally chips if at home D - 6 pm Roast, carrots, potato or unbreaded shrimp/lobster with rice or soft shell taco with meat, lettuce, tomato, cheese, sour cream S - berries/chips/carrot s and dip/occasional ice cream Fluids: Pepsi or Mt Dew - 5 cans from 10 am to 8 pm Bedtime - 11 pm Quality of diet: 24hr recall suggests healthy/unhealthy diet. Characterization of diet:Structured, structured/Unstructu red, unhealthy snacking, evening snacking, increased consumption of sugar sweetened beverages, and skip meals. 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 eating habits:mindlessness, boredom, and stress Eating Disorder no Cravings: Pepsi/Mt Dew, candy bar Dietary changes: [id number] Awake - 0700 B - 0730 2 scrambled eggs sometimes with 1 slice walker and OJ S - none L - 1230 30 gm protein shake or WE hamburger or chicken/rice or steak S - 4 pm HB egg and Slim Johan D - 6 pm taco salad or chicken and rice and veg or Roast, carrots, potato or unbreaded shrimp/lobster with rice and veg S - none Fluids - water, unsweet tea, OJ, regular lemonade Bedtime - 11 pm Exercise: None Regular exercise: no Strength/resistance exercise:yes Barriers to regular exercise? Yes- lower back- cannot lift over 15 pounds Work-related activity:Sedentary. Gym Membership: no Activity Tracker: yes- Apple watch- does not use for tracking unsure of average steps per day Stress: stable Personal- fostering Sleep: stable wakes up at 0330, rolls over. 7-8 hours, more tired. CrCl cannot be calculated (No successful lab value found.). PAST MEDICAL HISTORY Diagnosis Date Abnormal glandular Papanicolaou smear of cervix 03/02/2004 @[facility] Anxiety state ASCUS with positive high risk HPV cervical 2002 @[facility] BRCA negative CKD (chronic kidney disease) stage 2, GFR 60-89 ml/min Essential hypertension GERD (gastroesophageal reflux disease) HSV-2 (herpes simplex virus 2) infection 2010 culture @[facility] Hyperlipidemia Incontinence of urine LGSIL on Pap smear of cervix 11/27/2004 @[facility] Migraine, intractable Mitral valve disorders(424.0) Undiagnosed cardiac murmurs Vitamin D deficiency Current Outpatient Medications Medication Sig Dispense Refill Phentermine HCl 15 mg capsule Take 1 capsule by mouth daily before breakfast for 45 days. 45 capsule 0 topiramate (TOPAMAX) 25 mg tablet Take 1 tablet by mouth two times a day. 180 tablet 0 ferrous sulfate 325 mg (65 mg iron) EC tablet Take 325 mg by mouth once daily. atorvastatin (LIPITOR) 20 mg tablet Take 20 mg by mouth once daily. valACYclovir (VALTREX) 500 mg tablet Take 1 tablet by mouth once daily. 90 tablet 3 estradiol (ESTRACE) 0.01 % (0.1 mg/gram) vaginal cream apply approximately 1/2 inch of cream vaginally qhs every other night 42.5 g 1 celecoxib (CELEBREX) 200 mg capsule TAKE 1 CAPSULE BY MOUTH TWICE A DAY NEEDED FOR SEVERE PAIN escitalopram oxalate (LEXAPRO) 5 mg tablet Take 10 mg by mouth once daily. fluticasone (FLON (more content not included)... Normal [facility] BLADDER SCANon 01-02-2024 PVR = 43 ml [facility] BLADDER SCANOrdered By: Jeffrey Mckenzie on 01-02-2024 [facility] CNOVon 01-02-2024 CNOV Office Visit (GYNGRN) OLIVERMEERA ([id number]) 1970 F [facility] Date Time Provider Department 01/02/24 3:00 PM EBENEZER CAMARILLO GYNGRCatherine During your visit today, we recorded the following information about you: Pulse Blood pressure Height 79/minute 142/91 1.626 m Ebenezer Camarillo APRN.CNP 01/02/2024 3:48 PM Signed Female Pelvic Medicine AND Reconstructive Surgery Consult CHIEF COMPLAINT: Meera Meléndez is a 53 year old female who presents for consultation requested by Laura Pathak APRN.CNP for an opinion regarding Pelvic Organ Prolapse . HISTORY OF PRESENT ILLNESS: States she has prolapse. States she started PFPT and she felt like she could feel it more. History of anxiety. States she is hyperfocused on it. States PFPT tried to fit a pessary but it was too painful. On Vesicare for OAB. Working well. Rare GERTRUDIS. Hysterectomy, ovaries intact. 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 LMP: No LMP recorded. Patient has had a hysterectomy.; Menopause: Denies VMS. Menstrual history: NA; Deliveries: History of third or fourth degree laceration: No Weight of largest baby: 8 lbs. 9 oz. Sexual function Sexually active: Yes, dryness PFDI-20 Do you: Usually experience pressure in the lower abdomen? No (0) Usually experience heaviness or dullness in the pelvic area? Yes, quite a bit bothersome (4) Usually have a bulge or something falling out that you can see or feel in your vaginal area? Yes, quite a bit bothersome (4) Ever have to push on the vagina or around the rectum to have or complete a bowel movement? No (0) Usually experience a feeling of incomplete bladder emptying? Yes, not at all bothersome (1) Ever have to push up on a bulge in the vaginal area with your fingers to start or complete urination? No (0) Feel you need to strain too hard to have a bowel movement? Yes, not at all bothersome (1) Feel you have not completely emptied your bowels at the end of a bowel movement? Yes, not at all bothersome (1) Usually lose stool beyond your control if your stool is well formed? No (0) Usually lose stool beyond your control if your stool is loose? No (0) Usually lose gas from the rectum beyond your control? No (0) Usually have pain when you pass your stool? No (0) Experience a strong sense of urgency and have to rubio to the bathroom to have a bowel movement? Yes, somewhat bothersome (2) Does part of your bowel ever pass through the rectum and bulge outside during or after a bowel movement? No (0) Usually experience frequent urination? Yes, somewhat bothersome (2) Usually experience urine leakage associated with a feeling of urgency, that is, a strong sensation of needing to go to the bathroom? Yes, moderately bothersome (3) Usually experience urine leakage related to coughing, sneezing or laughing? Yes, somewhat bothersome (2) Usually experience small amounts of urine leakage (that is, drops)? Yes, not at all bothersome (1) Usually experience difficulty emptying your bladder? Yes, somewhat bothersome (2) Usually experience pain or discomfort in the lower abdomen or genital region? Yes, somewhat bothersome (2) Do you have pain associated with your prolapse (not pressure or fullness) No PAST SURGICAL HISTORY 2006: CRYOSURGERY Comment: @[facility] 02/16/2010: FOOT SURGERY HX; Left 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 1992: LIGATE FALLOPIAN TUBE Comment: dr Loza 1995: MARSUP BARTHOLIN GLAND CYST Comment: Dr Loza 1998: TREATMENT OF ANAL FISSURE 02/03/2010: VAGINAL HYSTERECTOMY Comment: adenomyosis- has both overies per u/s 201010/31/2003: VAGINOSCOPY Comment: ERNESTINA I PAST MEDICAL HISTORY 03/02/2004: Abnormal glandular Papanicolaou smear of cervix Comment: @[facility] No date: Anxiety state 2002: ASCUS with positive high risk HPV cervical Comment: @[facility] No date: BRCA negative No date: Essential hypertension No date: GERD (gastroesophageal reflux disease) 2010: HSV-2 (herpes simplex virus 2) infection Comment: culture @[facility] No date: Incontinence of urine 11/27/2004: LGSIL on Pap smear of cervix Comment: @[facility] No date: Migraine, intractable No date: Mitral valve disorders(424.0) No date: Undiagnosed cardiac murmurs FAMILY HISTORY Problem Relation Age of Onset Hypertension Mother Hyperlipidemia Mother Heart Attack Father No Known Problems Brother Breast Cancer Maternal Grandmother 59 Heart Failure Maternal Grandfather Heart Attack Paternal Grandfather other (migraine [Other]) Other Stroke Other Aneurysm Other heart aneurysm Current Outpatient Medications Medication Sig atorvastatin (LIPITOR) 20 mg tablet Take 20 mg by mouth once daily. valACYclovir (VALTREX) 500 mg tablet Take 1 tablet by mouth once daily. estradiol (ESTRACE) 0.01 % (0.1 mg/gram) vaginal cream apply approximately (more content not included)... Normal [facility] UA DIP, URINE (POC)on 08-05- 2024 BILIRUBIN UA (POCT) Negative Negative [facility] CLARITY UA (POCT) Clear [place] COLOR UA (POCT) Yellow [facility] GLUCOSE UA (POCT) Negative Negative mg/dL [facility] Hemoglobin Ql (U) Negative Negative [facility] Interpretation and review of laboratory results Abnormal [facility] KETONE UA (POCT) Negative Negative mg/dL [facility] LEUKOCYTES UA (POCT) Negative Negative [place] [facility] [facility] NITRITE UA (POCT) Negative Negative [facility] PH UA (POCT) 5.5 4.5 - 8.0 [facility] Protein Ql (U) Negative Negative mg/dL [facility] SPECIFIC GRAVITY UA (POCT) <=1.005 Abnormal 1.005 - 1.030 [facility] UROBILINOGEN UA (POCT) 0.2 Thu l E.U./dL [facility] Location:[facility] [place], [address], [address] [facility] POINT OF CARE [facility] UA DIP, URINE (POC)on 2023 BILIRUBIN UA (POCT) Negative Negative [facility] CLARITY UA (POCT) Slightly Cloudy Cl [facility] COLOR UA (POCT) Light yellow [facility] GLUCOSE UA (POCT) Negative Negative mg/dL [facility] Hemoglobin Ql (U) Negative Negative [facility] KETONE UA (POCT) Negative Negative mg/dL [facility] LEUKOCYTES UA (POCT) Negative Negative [facility] NITRITE UA (POCT) Negative Negative [place] PH UA (POCT) 5.5 4.5 - 8.0 [facility] Protein Ql (U) Negative Negative mg/dL [facility] SPECIFIC GRAVITY UA (POCT) 1.010 1.005 - 1.030 [facility] UROBILINOGEN UA (POCT) 0.2 Thu l E.U./dL [facility] Location:[facility], [address], [place], [address] [facility] POINT OF CARE [facility] LABORATORYOrdered By: SYSTEM SYSTEM on 06-29-2023 Albumin BCP dye [Mass/Vol] 3.5 G/dL Normal 3.5 - 5.0 G/dL AO ADM SS Albumin/Globulin [Mass ratio] 0.8 {ratio} Low 1.1 - 2.5 ratio AO ADM SS ALP [Catalytic activity/Vol] 88 U/L Normal 40 - 135 U/L AO ADM SS ALT With P-5'-P [Catalytic activity/Vol] 25 U/L Normal 14 - 59 U/L AO ADM SS AST With P-5'-P [Catalytic activity/Vol] 21 U/L Normal 10 - 40 U/L AO ADM SS Basophil, Absolute 0.0 103/mcL Normal 0.0 - 0.2 10^3/mcL AO Workflow SS Basophils/100 WBC (Bld) 0.5 % Normal 0.0 - 2.5 % AO Workflow SS Bilirubin [Mass/Vol] 0.6 mg/dL Normal 0.2 - 1 .0 mg/dL AO ADM SS Comment on above: Interpretive Data: U se of this assay is not recommended for patients undergoing treatment with eltrombopag due to the potential for falsely elevated results. Calcium [Mass/Vol] 9.4 mg/dL Normal 8.4 - 10. 2 mg/dL AO ADM SS Chloride [Moles/Vol] 104 mmol/L Normal 98 - 10 7 mmol/L AO ADM SS CO2 [Moles/Vol] 28 mmol/L Normal 22 - 29 mmol/L AO ADM SS Creatinine [Mass/Vol] 0.87 mg/dL Normal 0.55 - 1.02 mg/dL AO ADM SS Electrolyte Balance 8.0 mEq/L Normal 4.0 - 15 .0 mEq/L AO ADM SS Eosinophil, Absolute 0.2 103/mcL Normal 0.0 - 0 .4 10^3/mcL AO Workflow SS Eosinophils/100 WBC (Bld) 2.4 % Normal 0.0 - 7.0 % AO Workflow SS Erythrocyte distribution width (RBC) [Ratio] 13.7 % Normal 11.5 - 14.5 % AO Workflow SS GFR/1.73 sq M.predicted among blacks MDRD (S/P/Bld) [Vol rate/Area] 82 ml/min/1.73sqm Invalid Interpretation Code AO Chemistry S Comment on above: Interpretive Data: GFR Population mean for , Non- Americans Ages 20-29 = 116 mL/min/1.73 sq.m. Ages 30-39 = 107 mL/min/1.73 sq.m. Ages 40-49 = 99 mL/min/1.73 sq.m. Ages 50-59 = 93 mL/min/1.73 sq.m. Ages 60-69 = 85 mL/min/1.73 sq.m. Ages 70+ = 75 mL/min/1.73 sq.m. Chronic Kidney Disease: Less than 60 mL/min/1.73 square meters End Stage Renal Disease: Less than 15 mL/min/1.73 square meters GFR/1.73 sq M.predicted among non-blacks MDRD (S/P/Bld) [Vol rate/Area] 68 ml/min/1.73sqm Invalid Interpretation Code AO Chemistry S Comment on above: Interpretive Data: GFR Population mean for , Non- Americans Ages 20-29 = 116 mL/min/1.73 sq.m. Ages 30-39 = 107 mL/min/1.73 sq.m. Ages 40-49 = 99 mL/min/1.73 sq.m. Ages 50-59 = 93 mL/min/1.73 sq.m. Ages 60-69 = 85 mL/min/1.73 sq.m. Ages 70+ = 75 mL/min/1.73 sq.m. Chronic Kidney Disease: Less than 60 mL/min/1.73 square meters End Stage Renal Disease: Less than 15 mL/min/1.73 square meters Globulin 4.2 G/dL Invalid Interpretation Code AO ADM SS Glucose [Mass/Vol] 90 mg/dL Normal 70 - 105 mg/dL AO ADM SS Hematocrit (Bld) [Volume fraction] 39.2 % Normal 37.0 - 47.0 % AO Workflow SS Hemoglobin (Bld) [Mass/Vol] 13.1 G/dL Normal 12.0 - 16.0 G/dL AO Workflow SS Lymphocyte, Absolute 1.9 103/mcL Normal 0.8 - 3 .9 10^3/mcL AO Workflow SS Lymphocytes/100 WBC (Bld) 28.0 % Normal 10.0 - 50.0 % AO Workflow SS MCH (RBC) [Entitic mass] 29.3 pg Normal 27.0 - 31.2 pg AO Workflow SS MCHC 33.5 G/dL Normal 33.0 - 37.0 G/dL AO Workflow SS MCV (RBC) [Entitic vol] 87.5 fL Normal 80.0 - 94.0 fL AO Workflow SS Monocyte, Absolute 0.5 103/mcL Normal 0.2 - 1.0 10^3/mcL AO Workflow SS Monocytes/100 WBC (Bld) 8.0 % Normal 1.7 - 13.0 % AO Workflow SS Neutrophil, Absolute 4.1 103/mcL Normal 2.9 - 6 .2 10^3/mcL AO Workflow SS Neutrophils/100 WBC (Bld) 61.1 % Normal 37.0 - 80.0 % AO Workflow SS Platelet mean volume (Bld) [Entitic vol] 9.1 fL Normal 7.4 - 10.4 fL AO Workflow SS Platelets (Bld) [#/Vol] 267 103/mcL Normal 130 - 400 10^3/mcL AO Workflow SS Potassium [Moles/Vol] 4.4 mmol/L Normal 3.5 - 5.1 mmol/L AO ADM SS Protein [Mass/Vol] 7.7 G/dL Normal 6.4 - 8.2 G/dL AO ADM SS RBC (Bld) [#/Vol] 4.48 106/mcL Normal 4.20 - 5.4 0 10^6/mcL AO Workflow SS Sodium [Moles/Vol] 140 mmol/L Normal 136 - 145 mmol/L AO ADM SS Urea nitrogen [Mass/Vol] 10 mg/dL Normal 7 - 18 mg/dL AO ADM SS Urea nitrogen/Creatinine [Mass ratio] 11 ratio Normal 7 - 27 ratio AO ADM SS WBC (Bld) [#/Vol] 6.7 103/mcL Normal 4.6 - 10.8 10^3/mcL AO Workflow SS LABORATORYOrdered By: Fabrizio Arreola on 06-29-2023 Cholesterol [Mass/Vol] 189 mg/dL Normal 0 - 2 00 mg/dL AO ADM SS Comment on above: Interpretive Data: C holesterol Reference Interval: Less than 200 Desirable 200-239 Borderline high risk 240 and above High risk Cholesterol in HDL [Mass/Vol] 58 mg/dL Normal 40 - 60 mg/dL AO ADM SS Cholesterol in LDL [Mass/Vol] 107 mg/dL Normal 0 - 130 mg/dL AO ADM SS Triglyceride [Mass/Vol] 121 mg/dL Normal 0 - 150 mg/dL AO ADM SS Comment on above: Interpretive Data: T riglyceride Reference Interval: Less than 150 Normal 150-199 Borderline high risk 200-499 High risk 500 or higher Very high risk No Panel Informationon 06-20 Culture Urine >100,000 cfu/ml Multiple bacterial morphotypes present. Probable Contamination. Suggest recollection if clinically indicated. [facility] Basophil percentageOrdered B y: Aj Alonso on 02-07-2023 Basophil percentage < 0.9 mg/dL 0.55-1.02 [facility] No Panel InformationOrdered By: Aj Alonso on 02-07-2023 Bedside Estimated GFR (eGFR) > 60.0000 mL/min >60 [facility] .Auto Diffon 12-06-2022 Basophil, Absolute 0.0 10 3/mcL Normal 0.0-0.2 [facility] ([place]) Comment on above: Performed By: #### C MP, GFR, ADIFF, FE, A1C, LIPID, ANEU, CBC #### [address] [address] #### HOMO #### [address] [address] Basophils/100 WBC (Bld) 0.4 % Normal 0.0-2.5 [facility] ([place]) Comment on above: Performed By: #### C MP, GFR, ADIFF, FE, A1C, LIPID, ANEU, CBC #### [address] [address] #### HOMO #### [address] [address] Eosinophil, Absolute 0.2 10 3/mcL Normal 0.0-0.4 [facility] ([place]) Comment on above: Performed By: #### C MP, GFR, ADIFF, FE, A1C, LIPID, ANEU, CBC #### [address] [address] #### HOMO #### [address] [address] Eosinophils/100 WBC (Bld) 2.0 % Normal 0.0-7.0 [facility] ([place]) Comment on above: Performed By: #### C MP, GFR, ADIFF, FE, A1C, LIPID, ANEU, CBC #### [address] [address] #### HOMO #### [address] [address] Lymphocyte, Absolute 2.0 10 3/mcL Normal 0.8-3.9 [facility] ([place]) Comment on above: Performed By: #### C MP, GFR, ADIFF, FE, A1C, LIPID, ANEU, CBC #### [address] [address] #### HOMO #### [address] [address] Lymphocytes/100 WBC (Bld) 26.3 % Normal 10.0-50.0 [facility] ([place]) Comment on above: Performed By: #### C MP, GFR, ADIFF, FE, A1C, LIPID, ANEU, CBC #### [address] [address] #### HOMO #### [address] [address] Monocyte, Absolute 0.5 10 3/mcL Normal 0.2-1.0 [facility] ([place]) Comment on above: Performed By: #### C MP, GFR, ADIFF, FE, A1C, LIPID, ANEU, CBC #### [address] [address] #### HOMO #### [address] [address] Monocytes/100 WBC (Bld) 6.4 % Normal 1.7-13.0 [facility] ([place]) Comment on above: Performed By: #### C MP, GFR, ADIFF, FE, A1C, LIPID, ANEU, CBC #### [address] [address] #### HOMO #### [address] [address] Neutrophils/100 WBC (Bld) 64.9 % Normal 37.0-80.0 [facility] ([place]) Comment on above: Performed By: #### C MP, GFR, ADIFF, FE, A1C, LIPID, ANEU, CBC #### [address] [address] #### HOMO #### [address] [address] .GFRon 12-06-2022 GFR Non- 71 ml/min/1.73sqm Normal [facility] ([place]) Comment on above: Result Comment: GFR Population mean for , Non- Americans Ages 20-29 = 116 mL/min/1.73 sq.m. Ages 30-39 = 107 mL/min/1.73 sq.m. Ages 40-49 = 99 mL/min/1.73 sq.m. Ages 50-59 = 93 mL/min/1.73 sq.m. Ages 60-69 = 85 mL/min/1.73 sq.m. Ages 70+ = 75 mL/min/1.73 sq.m. Chronic Kidney Disease: Less than 60 mL/min/1.73 square meters End Stage Renal Disease: Less than 15 mL/min/1.73 square meters Performed By: #### C MP, GFR, ADIFF, FE, A1C, LIPID, ANEU, CBC #### [address] [address] #### HOMO #### [address] [address] GFR 86 ml/min/1.73sqm [facility] ([place]) Comment on above: Result Comment: GFR Population mean for , Non- Americans Ages 20-29 = 116 mL/min/1.73 sq.m. Ages 30-39 = 107 mL/min/1.73 sq.m. Ages 40-49 = 99 mL/min/1.73 sq.m. Ages 50-59 = 93 mL/min/1.73 sq.m. Ages 60-69 = 85 mL/min/1.73 sq.m. Ages 70+ = 75 mL/min/1.73 sq.m. Chronic Kidney Disease: Less than 60 mL/min/1.73 square meters End Stage Renal Disease: Less than 15 mL/min/1.73 square meters Performed By: #### C MP, GFR, ADIFF, FE, A1C, LIPID, ANEU, CBC #### [address] [address] #### HOMO #### [address] [address] .NEUABSon 12-06-2022 Neutrophil, Absolute 4.9 10 3/mcL Normal 2.9-6.2 [facility] ([place]) Comment on above: Performed By: #### C MP, GFR, ADIFF, FE, A1C, LIPID, ANEU, CBC #### [place] [address] #### HOMO #### [address] [address] A1Con 12-06-2022 HbA1c (Bld) [Mass fraction] 5.7 % Normal 4.3-6.4 [facility] ([place]) Comment on above: Performed By: #### C MP, GFR, ADIFF, FE, A1C, LIPID, ANEU, CBC #### [place] [address] #### HOMO #### [place] [address] CBCon 12-06-2022 Erythrocyte distribution width (RBC) [Ratio] 13.0 % Normal 11.5-14.5 [facility] ([place]) Comment on above: Performed By: #### C MP, GFR, ADIFF, FE, A1C, LIPID, ANEU, CBC #### [address] [address] #### HOMO #### [place] [address] Hematocrit (Bld) [Volume fraction] 40.8 % Normal 37.0-47.0 [facility] ([place]) Comment on above: Performed By: #### C MP, GFR, ADIFF, FE, A1C, LIPID, ANEU, CBC #### [place] [address] #### HOMO #### [place] [address] Hgb 13.6 G/dL Normal 12.0-16.0 [facility] ([place]) Comment on above: Performed By: #### C MP, GFR, ADIFF, FE, A1C, LIPID, ANEU, CBC #### [place] [address] #### HOMO #### [place] [address] MCH (RBC) [Entitic mass] 29.0 pg Normal 27.0-31.2 [facility] ([place]) Comment on above: Performed By: #### C MP, GFR, ADIFF, FE, A1C, LIPID, ANEU, CBC #### [place] [address] #### HOMO #### [place] [address] MCHC 33.4 G/dL Normal 33.0-37.0 [facility] ([place]) Comment on above: Performed By: #### C MP, GFR, ADIFF, FE, A1C, LIPID, ANEU, CBC #### [place] [address] #### HOMO #### [place] [address] MCV (RBC) [Entitic vol] 87.0 fL Normal 80.0-94.0 [facility] ([place]) Comment on above: Performed By: #### C MP, GFR, ADIFF, FE, A1C, LIPID, ANEU, CBC #### [place] [address] #### HOMO #### [place] [address] Platelet 265 10 3/mcL Normal 130-400 [facility] ([place]) Comment on above: Performed By: #### C MP, GFR, ADIFF, FE, A1C, LIPID, ANEU, CBC #### [place] [address] #### HOMO #### [place] [address] Platelet mean volume (Bld) [Entitic vol] 9.3 fL Normal 7.4-10.4 [facility] ([place]) Comment on above: Performed By: #### C MP, GFR, ADIFF, FE, A1C, LIPID, ANEU, CBC #### [place] [address] #### HOMO #### [place] [address] RBC 4.69 10 6/mcL Normal 4.20-5.40 [facility] ([place]) Comment on above: Performed By: #### C MP, GFR, ADIFF, FE, A1C, LIPID, ANEU, CBC #### [place] [address] #### HOMO #### [place] [address] WBC 7.6 10 3/mcL Normal 4.6-10.8 [facility] ([place]) Comment on above: Performed By: #### C MP, GFR, ADIFF, FE, A1C, LIPID, ANEU, CBC #### [place] [address] #### HOMO #### [place] [address] CMPon 12-06-2022 Albumin Level 3.8 G/dL Normal 3.5-5.0 [facility] ([place]) Comment on above: Performed By: #### C MP, GFR, ADIFF, FE, A1C, LIPID, ANEU, CBC #### [place] [address] #### HOMO #### [place] [address] Albumin/Globulin [Mass ratio] 1.1 {ratio} Normal 1.1-2.5 [facility] ([place]) Comment on above: Performed By: #### C MP, GFR, ADIFF, FE, A1C, LIPID, ANEU, CBC #### [place] [address] #### HOMO #### [place] [address] ALP [Catalytic activity/Vol] 98 U/L Normal 40-135 [facility] ([place]) Comment on above: Performed By: #### C MP, GFR, ADIFF, FE, A1C, LIPID, ANEU, CBC #### [place] [address] #### HOMO #### [address] [address] ALT [Catalytic activity/Vol] 21 U/L Normal 14-59 [facility] ([place]) Comment on above: Performed By: #### C MP, GFR, ADIFF, FE, A1C, LIPID, ANEU, CBC #### [place] [address] #### HOMO #### [place] [address] AST [Catalytic activity/Vol] 16 U/L Normal 10-40 [facility] ([place]) Comment on above: Performed By: #### C MP, GFR, ADIFF, FE, A1C, LIPID, ANEU, CBC #### [place] [address] #### HOMO #### [place] [address] Bili Total 0.6 mg/dL Normal 0.2-1.0 [facility] ([place]) Comment on above: Result Comment: Use of this assay is not recommended for patients undergoing treatment with eltrombopag due to the potential for falsely elevated results. Performed By: #### C MP, GFR, ADIFF, FE, A1C, LIPID, ANEU, CBC #### [place] [address] #### HOMO #### [place] [address] BUN/Creatinine Ratio 10 ratio Normal 7-27 [facility] ([place]) Comment on above: Performed By: #### C MP, GFR, ADIFF, FE, A1C, LIPID, ANEU, CBC #### [place] [address] #### HOMO #### [address] [address] Calcium [Mass/Vol] 9.5 mg/dL Normal 8.4-10.2 [facility] ([place]) Comment on above: Performed By: #### C MP, GFR, ADIFF, FE, A1C, LIPID, ANEU, CBC #### [address] [address] #### HOMO #### [address] [address] Chloride [Moles/Vol] 106 mmol/L Normal 98-107 [facility] ([place]) Comment on above: Performed By: #### C MP, GFR, ADIFF, FE, A1C, LIPID, ANEU, CBC #### [address] [address] #### HOMO #### [address] [address] CO2 [Moles/Vol] 26 mmol/L Normal 22-29 [facility] ([place]) Comment on above: Performed By: #### C MP, GFR, ADIFF, FE, A1C, LIPID, ANEU, CBC #### [place] [address] #### HOMO #### [address] [address] Creatinine [Mass/Vol] 0.84 mg/dL Normal 0.55-1.02 [facility] ([place]) Comment on above: Performed By: #### C MP, GFR, ADIFF, FE, A1C, LIPID, ANEU, CBC #### [place] [address] #### HOMO #### [address] [address] Electrolyte Balance 10.0 mEq/L Normal 4.0-15.0 [facility] ([place]) Comment on above: Performed By: #### C MP, GFR, ADIFF, FE, A1C, LIPID, ANEU, CBC #### [place] [address] #### HOMO #### [address] [address] Globulin 3.4 G/dL Normal [facility] ([place]) Comment on above: Performed By: #### C MP, GFR, ADIFF, FE, A1C, LIPID, ANEU, CBC #### [address] [address] #### HOMO #### [address] [address] Glucose [Mass/Vol] 85 mg/dL Normal 70-105 [facility] ([place]) Comment on above: Performed By: #### C MP, GFR, ADIFF, FE, A1C, LIPID, ANEU, CBC #### [address] [address] #### HOMO #### [address] [address] Potassium [Moles/Vol] 4.2 mmol/L Normal 3.5-5.1 [facility] ([place]) Comment on above: Performed By: #### C MP, GFR, ADIFF, FE, A1C, LIPID, ANEU, CBC #### [place] [address] #### HOMO #### [address] [address] Sodium [Moles/Vol] 142 mmol/L Normal 136-145 [facility] ([place]) Comment on above: Performed By: #### C MP, GFR, ADIFF, FE, A1C, LIPID, ANEU, CBC #### [address] [address] #### HOMO #### [address] [address] Total Protein 7.2 G/dL Normal 6.4-8.2 [facility] ([place]) Comment on above: Performed By: #### C MP, GFR, ADIFF, FE, A1C, LIPID, ANEU, CBC #### [address] [address] #### HOMO #### [address] [address] Urea nitrogen [Mass/Vol] 8 mg/dL Normal 7-18 [facility] ([place]) Comment on above: Performed By: #### C MP, GFR, ADIFF, FE, A1C, LIPID, ANEU, CBC #### [address] [address] #### HOMO #### [address] [address] FEon 12-06-2022 Iron [Mass/Vol] 84 ug/dL Normal 50-170 [facility] ([place]) Comment on above: Performed By: #### C MP, GFR, ADIFF, FE, A1C, LIPID, ANEU, CBC #### [address] [address] #### HOMO #### [address] [address] HOMOon 12-06-2022 Homocysteine 12.3 umol/l Normal 3.7-13.9 [facility] ([place]) Comment on above: Result Comment: No te - New Reference Range in effect 19 Performed By: #### C MP, GFR, ADIFF, FE, A1C, LIPID, ANEU, CBC #### [address] [address] #### HOMO #### [address] [address] LABORATORYOrdered By: SYSTEM SYSTEM on 12-06-2022 Albumin BCP dye [Mass/Vol] 3.8 G/dL Invalid Interpretation Code 3.5 - 5.0 G/dL AO ADM SS Albumin/Globulin [Mass ratio] 1.1 {ratio} Invalid Interpretation Code 1.1 - 2.5 ratio AO ADM SS ALP [Catalytic activity/Vol] 98 U/L Invalid Interpretation Code 40 - 135 U/L AO ADM SS ALT With P-5'-P [Catalytic activity/Vol] 21 U/L Invalid Interpretation Code 14 - 59 U/L AO ADM SS AST With P-5'-P [Catalytic activity/Vol] 16 U/L Invalid Interpretation Code 10 - 40 U/L AO ADM SS Basophil, Absolute 0.0 103/mcL Invalid Interpretation Code 0.0 - 0.2 10^3/mcL AO Workflow SS Basophils/100 WBC (Bld) 0.4 % Invalid Interpretation Code 0.0 - 2.5 % AO Workflow SS Bilirubin [Mass/Vol] 0.6 mg/dL Invalid Interpretation Code 0.2 - 1.0 mg/dL AO ADM SS Calcium [Mass/Vol] 9.5 mg/dL Invalid Interpretation Code 8.4 - 10.2 mg/dL AO ADM SS Chloride [Moles/Vol] 106 mmol/L Invalid Interpretation Code 98 - 107 mmol/L AO ADM SS CO2 [Moles/Vol] 26 mmol/L Invalid Interpretation Code 22 - 29 mmol/L AO ADM SS Creatinine [Mass/Vol] 0.84 mg/dL Invalid Interpretation Code 0.55 - 1.02 mg/dL AO ADM SS Electrolyte Balance 10.0 mEq/L Invalid Interpretation Code 4.0 - 15.0 mEq/L AO ADM SS Eosinophil, Absolute 0.2 103/mcL Invalid Interpretation Code 0.0 - 0.4 10^3/mcL AO Workflow SS Eosinophils/100 WBC (Bld) 2.0 % Invalid Interpretation Code 0.0 - 7.0 % AO Workflow SS Erythrocyte distribution width (RBC) [Ratio] 13.0 % Invalid Interpretation Code 11.5 - 14.5 % AO Workflow SS GFR/1.73 sq M.predicted among blacks MDRD (S/P/Bld) [Vol rate/Area] 86 ml/min/1.73sqm Invalid Interpretation Code AO Chemistry S GFR/1.73 sq M.predicted among non-blacks MDRD (S/P/Bld) [Vol rate/Area] 71 ml/min/1.73sqm Invalid Interpretation Code AO Chemistry S Globulin 3.4 G/dL Invalid Interpretation Code AO ADM SS Glucose [Mass/Vol] 85 mg/dL Invalid Interpretation Code 70 - 105 mg/dL AO ADM SS HbA1c (Bld) [Mass fraction] 5.7 % Invalid Interpretation Code 4.3 - 6.4 % AO ADM SS Hematocrit (Bld) [Volume fraction] 40.8 % Invalid Interpretation Code 37.0 - 47.0 % AO Workflow SS Hemoglobin (Bld) [Mass/Vol] 13.6 G/dL Invalid Interpretation Code 12.0 - 16.0 G/dL AO Workflow SS Homocysteine [Moles/Vol] 12.3 umol/L Invalid Interpretation Code 3.7 - 13.9 umol/l AH ADM SS Iron [Mass/Vol] 84 ug/dL Invalid Interpretation Code 50 - 170 mcg/dL AO ADM SS Lymphocyte, Absolute 2.0 103/mcL Invalid Interpretation Code 0.8 - 3.9 10^3/mcL AO Workflow SS Lymphocytes/100 WBC (Bld) 26.3 % Invalid Interpretation Code 10.0 - 50.0 % AO Workflow SS MCH (RBC) [Entitic mass] 29.0 pg Invalid Interpretation Code 27.0 - 31.2 pg AO Workflow SS MCHC 33.4 G/dL Invalid Interpretation Code 33.0 - 37.0 G/dL AO Workflow SS MCV (RBC) [Entitic vol] 87.0 fL Invalid Interpretation Code 80.0 - 94.0 fL AO Workflow SS Monocyte, Absolute 0.5 103/mcL Invalid Interpretation Code 0.2 - 1.0 10^3/mcL AO Workflow SS Monocytes/100 WBC (Bld) 6.4 % Invalid Interpretation Code 1.7 - 13.0 % AO Workflow SS Neutrophil, Absolute 4.9 103/mcL Invalid Interpretation Code 2.9 - 6.2 10^3/mcL AO Workflow SS Neutrophils/100 WBC (Bld) 64.9 % Invalid Interpretation Code 37.0 - 80.0 % AO Workflow SS Platelet mean volume (Bld) [Entitic vol] 9.3 fL Invalid Interpretation Code 7.4 - 10.4 fL AO Workflow SS Platelets (Bld) [#/Vol] 265 103/mcL Invalid Interpretation Code 130 - 400 10^3/mcL AO Workflow SS Potassium [Moles/Vol] 4.2 mmol/L Invalid Interpretation Code 3.5 - 5.1 mmol/L AO ADM SS Protein [Mass/Vol] 7.2 G/dL Invalid Interpretation Code 6.4 - 8.2 G/dL AO ADM SS RBC (Bld) [#/Vol] 4.69 106/mcL Invalid Interpretation Code 4.20 - 5.40 10^6/mcL AO Workflow SS Sodium [Moles/Vol] 142 mmol/L Invalid Interpretation Code 136 - 145 mmol/L AO ADM SS Urea nitrogen [Mass/Vol] 8 mg/dL Invalid Interpretation Code 7 - 18 mg/dL AO ADM SS Urea nitrogen/Creatinine [Mass ratio] 10 ratio Invalid Interpretation Code 7 - 27 ratio AO ADM SS WBC (Bld) [#/Vol] 7.6 103/mcL Invalid Interpretation Code 4.6 - 10.8 10^3/mcL AO Workflow SS LABORATORYOrdered By: Orly Art on 12-06-2022 Cholesterol [Mass/Vol] 204 mg/dL Invalid Interpretation Code 0 - 200 mg/dL AO ADM SS Cholesterol in HDL [Mass/Vol] 52 mg/dL Invalid Interpretation Code 40 - 60 mg/dL AO ADM SS Cholesterol in LDL [Mass/Vol] 119 mg/dL Invalid Interpretation Code 0 - 130 mg/dL AO ADM SS Triglyceride [Mass/Vol] 166 mg/dL Invalid Interpretation Code 0 - 150 mg/dL AO ADM SS LIPIDon 12-06-2022 Cholesterol [Mass/Vol] 204 mg/dL High 0-200 [facility] ([place]) Comment on above: Result Comment: Chol esterol Reference Interval: Less than 200 Desirable 200-239 Borderline high risk 240 and above High risk Performed By: #### C MP, GFR, ADIFF, FE, A1C, LIPID, ANEU, CBC #### [address] [address] #### HOMO #### [address] [address] Cholesterol in HDL [Mass/Vol] 52 mg/dL Normal 40-60 [facility] ([place]) Comment on above: Performed By: #### C MP, GFR, ADIFF, FE, A1C, LIPID, ANEU, CBC #### [address] [address] #### HOMO #### [address] [address] Cholesterol in LDL [Mass/Vol] 119 mg/dL Normal 0-130 [facility] ([place]) Comment on above: Performed By: #### C MP, GFR, ADIFF, FE, A1C, LIPID, ANEU, CBC #### [address] [address] #### HOMO #### [address] [address] Triglyceride [Mass/Vol] 166 mg/dL High 0-150 [facility] ([place]) Comment on above: Result Comment: Trig lyceride Reference Interval: Less than 150 Normal 150-199 Borderline high risk 200-499 High risk 500 or higher Very high risk Performed By: #### C MP, GFR, ADIFF, FE, A1C, LIPID, ANEU, CBC #### [address] [address] #### HOMO #### [facility] [address] [place] [id number] Basophil percentageOrdered B y: Dr. Monson on 07-28-2022 Creatinine [Mass/Vol] 0.9 mg/dL 0.55-1.02 [facility] No Panel InformationOrdered By: Dr. Monson on 07-28-2022 Bedside Estimated GFR (eGFR) > 60.0000 mL/min >60 [facility] Anaerobic cultureOrdered By: Candy Rodrigues on 06-08-2022 Bacteria identified Anaer cx Nom (Unsp spec) No growth in 5 days. [facility] Bacterial body fluid culture Ordered By: Candy Rodrigues on 06-05-2022 Bacteria identified Cx Nom (Body fld) Culture exhibits no growth. [facility] Gram stain for investigation of transfusion reactionOrdered By: Candy Rodrigues on 06-03-2022 Microscopic observation Gram stain Nom (Unsp spec) [facility] Anaerobic cultureOrdered By: Dr. Nair on 05-16-2022 Bacteria identified Anaer cx Nom (Unsp spec) No anaerobic bacteria isolated. [facility] Routine wound cultureOrdered By: Dr. Nair on 05-13-2022 Bacteria identified Cx Nom (Wound) No growth aerobically. [facility] Gram stain for investigation of transfusion reactionOrdered By: Dr. Nair on 05-12-2022 Microscopic observation Gram stain Nom (Unsp spec) [facility] XR RIBS/CHEST 3V AP RIB/OBLS /CXR RIGHTon 12-28-2021 [facility] XR Ribs - right Views and Ch est PAon 12-28-2021 IMPRESSION: No evidence of acute right rib fracture. Design Draftsman: [facility] Transcribe Date/Time: Dec 28 2021 4:11P Dictated by : JAMES GARZA MD This examination was interpreted and the report reviewed and electronically signed by: JAMES GARZA MD on Dec 28 2021 4:13PM EST [email or web address] E_DIVISION OF RADIOLOGY * * *Final Report* * * DATE OF EXAM: Dec 28 2021 4:01PM WOX [id number] - XR RIB/CHST 3V AP RIB/OBL/CHST R / PROCEDURE REASON: Pain * * * * Physician Interpretation * * * * XR RIB/CHST 3V AP RIB/OBL/CHST R EXAM DATE/TIME: 12/28/2021 4:01 PM COMPARISON: None. CLINICAL INDICATION/HISTORY: Pain. TECHNIQUE: AP views centered high and low and oblique view of right ribs are presented for interpretation. PA view of the chest is also present. FINDINGS: There is no evidence of acute right rib fracture. There is no pneumothorax or pleural effusion. The underlying visualized lungs appear normal. [email or web address] E_DIVISION OF RADIOLOGY Provider, [facility] [place] - 12/28/2021 * * *Final Report* * * DATE OF EXAM: Dec 28 2021 4:01PM WOX [id number] - XR RIB/CHST 3V AP RIB/OBL/CHST R / PROCEDURE REASON: Pain * * * * Physician Interpretation * * * * XR RIB/CHST 3V AP RIB/OBL/CHST R EXAM DATE/TIME: 12/28/2021 4:01 PM COMPARISON: None. CLINICAL INDICATION/HISTORY: Pain. TECHNIQUE: AP views centered high and low and oblique view of right ribs are presented for interpretation. PA view of the chest is also present. FINDINGS: There is no evidence of acute right rib fracture. There is no pneumothorax or pleural effusion. The underlying visualized lungs appear normal. IMPRESSION IMPRESSION: No evidence of acute right rib fracture. Design Draftsman[facility] Transcribe Date/Time: Dec 28 2021 4:11P Dictated by : JAMES GARZA MD This examination was interpreted and the report reviewed and electronically signed by: JAMES GARZA MD on Dec 28 2021 4:13PM EST [facility] Radiology Study observation (narrative) Sung stephens [facility] XR Ribs - right Views and est PAOrdered By: [facility] Provider on 12-28-2021 [facility] LABORATORYOrdered By: SYSTEM SYSTEM on 07-31-2021 Homocysteine [Moles/Vol] 11.1 umol/L Invalid Interpretation Code 3.7 - 13.9 umol/l AH ADM SS Absolute lymphocyte counton 06-17-2021 Lymphocytes Auto (Unsp spec) [#/Vol] 2.53 10*3/uL 0.83-4.51 [facility] Work Phone: Basophil percentageon 2021 Basophils/100 WBC (Bld) 0.5 % 0-1 [facility] Work Phone: Bilirubin [Mass/Vol] 0.30 mg/dL 0.20-1.00 [facility] Work Phone: [phone] Comment on above: For patients on eltr ombopag therapy, use of Dim[place] TBIL is not recommended. Chloride [Moles/Vol] 107 mmol/L 98-107 [facility] Work Phone: [phone] Eosinophils/100 WBC (Bld) 1.4 % 0-5 [facility] Work Phone: Glucose [Mass/Vol] 113 mg/dL 74-106 [facility] Work Phone: Comment on above: Fasting Glucose resu lt from 100 to 125 mg/dL suggests IMPAIRED HOMEOSTASIS per A.D.A. criteria. Neutrophils (Bld) [#/Vol] 4.6 10*3/uL 2.0-7.7 [facility] Work Phone: Neutrophils/100 WBC (Bld) 58.9 % 47-70 [facility] Work Phone: [phone] Potassium [Moles/Vol] 3.8 mmol/L 3.5-5.1 [facility] Work Phone: Protein [Mass/Vol] 7.3 g/dL 6.4-8.2 [facility] Work Phone: [phone] Sodium [Moles/Vol] 141 mmol/L 136-145 [facility] Work Phone: [phone] WBC (Bld) [#/Vol] 7.9 10*3/uL 4.4-11.0 [facility] Work Phone: [phone] Blood erythrocytes count (nu mber/volume)on 06-17-2021 RBC (Bld) [#/Vol] 4.52 10*6/uL 4.2-5.4 [facility] Work Phone: Blood hemoglobin measurement (mass/volume)on 06-17-2021 Hemoglobin (Bld) [Mass/Vol] 13.3 g/dL 12.0-15.0 [facility] Work Phone: Blood lymphocytes/100 leukoc yteson 06-17-2021 Lymphocytes/100 WBC (Bld) 32.1 % 19-41 [facility] Work Phone: Blood monocytes/100 leukocyt eson 06-17-2021 Monocytes/100 WBC (Bld) 6.7 % 0-10 [facility] Work Phone: Blood platelet mean volumeon 06-17-2021 Platelet mean volume (Bld) [Entitic vol] 11.0 fL 6.2-12.0 [facility] Work Phone: Determination of erythrocyte mean corpuscular volume (MCV)on 06-17-2021 MCV (RBC) [Entitic vol] 89.2 fL 81-99 [facility] Work Phone: Hematocrit Auto (Bld) [Volum e fraction]on 06-17-2021 Hematocrit (Bld) [Volume fraction] 40.3 % 37-47 [facility] Work Phone: Laboratory - Chemistry and C hemistry - challengeon 06-17-2021 ALP [Catalytic activity/Vol] 91 U/L 45-117 [facility] Work Phone: ALT [Catalytic activity/Vol] 20 U/L 13-56 [facility] Work Phone: CO2 [Moles/Vol] 28.0 mmol/L 21.0-32.0 [facility] Work Phone: Globulin (S) [Mass/Vol] 3.9 g/dL 2.2-4.2 [facility] Work Phone: Lipase [Catalytic activity/Vol] 104 U/L 73-393 [facility] Work Phone: Urea nitrogen/Creatinine [Mass ratio] 13.2 mg/mg 10-20 [facility] Work Phone: Laboratory - Hematology and Cell countson 06-17-2021 Erythrocyte distribution width (RBC) [Entitic vol] 41.6 fL 35.1-43.9 [facility] Work Phone: Erythrocyte distribution width (RBC) [Ratio] 12.8 % 11.6-14.6 [facility] Work Phone: Immature granulocytes/100 WBC (Bld) 0.400 % 0.0-0.9 [facility] Work Phone: Comment on above: IG% - Immature Granu locytes (promyelocytes, myelocytes and metamyelocytes) > 1% indicates that a LEFT SHIFT is Present. MCH (RBC) [Entitic mass] 29.4 pg 27.0-32.0 [facility] Work Phone: Nucleated RBC/100 WBC (Bld) [Ratio] 0 % 0-5 [facility] Work Phone: MCHC Auto (RBC) [Mass/Vol]on 06-17-2021 MCHC (RBC) [Mass/Vol] 33.0 g/dL 32-36 [facility] Work Phone: No Panel Informationon 06-17 Estimated GFR (MDRD) Amer 84 mL/min >60 [facility] Work Phone: Comment on above: GFR Calc Estimated GFR (MDRD) Non-Af Amer 69 mL/min >60 [facility] Work Phone: Comment on above: Non- GFR Calc Platelets bldon 06-17-2021 Platelets (Bld) [#/Vol] 311 10*3/uL 150-450 [facility] Work Phone: Serum or plasma albumin jamaal urement (mass/volume)on 06-17-2021 Albumin [Mass/Vol] 3.4 g/dL 3.2-5.0 [facility] Work Phone: Serum or plasma albumin/glob ulin mass ratioon 06-17-2021 Albumin/Globulin [Mass ratio] 0.9 {ratio} 0.9-2.4 [facility] Work Phone: Serum or plasma calcium jamaal urement (mass/volume)on 06-17-2021 Calcium [Mass/Vol] 9.2 mg/dL 8.5-10.1 [facility] Work Phone: Serum or plasma creatinine m easurement (mass/volume)on 06-17-2021 Creatinine [Mass/Vol] 0.91 mg/dL 0.55-1.02 [address] Work Phone: Comment on above: The validity of the calculated GFR & GFRAA in patients over 70 years has not been determined. Clinical correlation is essential. Serum or plasma urea nitroge n measurement (mass/volume)on 06-17-2021 Urea nitrogen [Mass/Vol] 12 mg/dL 7-18 [facility] Work Phone: Thin prep Papanicolaou smear with manual screeningon 06-17-2021 Thin prep Papanicolaou smear with manual screening 21 U/L 15-37 [facility] Work Phone: Thin prep Papanicolaou smear with manual screening 6 5-15 [facility] Work Phone: LABORATORYOrdered By: Macario Sánchez on 05-26-2021 Vit. D 25-Hydroxy 28.9 ng/mL Invalid Interpretation Code AO ADM SS LABORATORYOrdered By: Reji Eaton on 04-20-2021 Vit. D 25-Hydroxy 20.0 ng/mL Invalid Interpretation Code AO ADM SS POC Urinalysis Dip POCon Bilirubin (direct) Negative Normal Negative [facility] Comment on above: Performed By: #### C [id number] ####CELINA POC [id number] [place] [address] Glucose mass conc Negative Normal Negative [facility] Comment on above: Performed By: #### C [id number] ####CELINA POC [id number] [place] [id number] POC Blood Trace Abnormal Negative [facility] Comment on above: Performed By: #### C [id number] ####CELINA POC [id number] [place] [address] POC Clarity CLEAR Normal CLEAR [facility] Comment on above: Performed By: #### C [id number] ####CELINA POC [id number] [place] [address] POC Color Yellow Normal Yellow [facility] Comment on above: Performed By: #### C [id number] ####CELINA POC [id number] [place] [address] POC Ketone Negative Normal Negative [facility] Comment on above: Performed By: #### C [id number] ####CELINA POC [id number] [place] [address] POC Leukocyte Negative Normal Negative [facility] Comment on above: Performed By: #### C [id number] ####CELINA POC [id number] [place] [address] POC Nitrite Negative Normal Negative [facility] Comment on above: Performed By: #### C [id number] ####CELINA POC [id number] [place] [address] POC pH 5.5 mg/dL Normal 5.0-8.0 [facility] Comment on above: Performed By: #### C [id number] ####CELINA POC [id number] [place] [address] POC Protein Negative Normal Negative [facility] Comment on above: Performed By: #### C [id number] ####CELINA POC [id number] [place] [address] POC Specific Tamms 1.005 mg/dL Normal 1.005-1.035 [facility] Comment on above: Performed By: #### C [id number] ####CELINA POC [id number] [place] [address] POC Urobilinogen 0.2 EU/dL Normal 0.2-1.0 [facility] Comment on above: Performed By: #### C [id number] ####CELINA POC [id number] [place] [address] Microbiology: Culture, Wound on 10-08-2016 wound culture Wound CultureNo growth aerobically. Invalid Interpretation Code [facility] Work Phone: Microbiology: (P) Culture, W oundon 10-07-2016 wound culture Wound CultureNo growth-Final to follow Invalid Interpretation Code [facility] Work Phone: Microbiology: (P) Culture, W oundon 10-05-2016 wound culture Wound CultureNo growth-Final to follow Invalid Interpretation Code [facility] Work Phone: Office Visit: UC: dysuria, b ack pain, umbilical woundon 10-04-2016 Documentation of current medications (procedure) Done Invalid Interpretation Code [facility] Work Phone: Fall risk assessment No Invalid Interpretation Code [facility] Work Phone: Tobacco use HS Never smoker Invalid Interpretation Code [facility] Work Phone: [facility] Alanine aminotransferase (ALT) 22 U/L Normal 12-78 [facility] Work Phone: Albumin 3.8 g/dL Normal 3.4-5.0 [facility] Work Phone: Alkaline phosphatase (ALP) 85 U/L Normal 50-136 [facility] Work Phone: Aspartate aminotransferase (AST) 16 U/L Normal 15-37 [facility] Work Phone: Bilirubin (total) 0.40 mg/dL Normal 0.00-1.00 [facility] Work Phone: Calcium 9.2 mg/dL Normal 8.5-10.1 [facility] Work Phone: Chloride 103 mmol/L Normal 98-107 [facility] Work Phone: Creatinine 1.0 mg/dL Normal 0.6-1.0 [facility] Work Phone: Glucose 92 mg/dL Normal 70-110 [facility] Work Phone: [phone] Potassium 4.1 mmol/L Normal 3.5-5.1 [facility] Work Phone: [phone] Sodium 138 mmol/L Normal 136-145 [facility] Work Phone: [phone] Urea nitrogen 12 mg/dL Normal 7-18 [facility] Work Phone: [phone] Lab Report: WCCBCDon 012 Erythrocytes (RBC) 4.48 10*6/uL Normal 4.2-5.4 [facility] Work Phone: [phone] Hematocrit (HCT) 39.6 % Normal 37-47 [facility] Work Phone: [phone] Hemoglobin (HGB) 13.3 g/dL Normal 12.0-16.0 [facility] Work Phone: [phone] Platelets 294 10*3/mm3 Normal 150-450 [facility] Work Phone: [phone] WBC (Leukocytes) 7.7 10*3/uL Normal 4.4-11.0 [facility] Work Phone: [phone] Lab Report: WCLIPIDon 2011 Cholesterol 276 mg/dL High 200 [facility] Work Phone: [phone] HDL Cholesterol 47 mg/dL Normal [facility] Work Phone: LDL Cholesterol 190 mg/dL High 0-130 [facility] Work Phone: [phone] Triglyceride 194 mg/dL Normal [facility] Work Phone: [phone] very low density lipoproteins 39 mg/dL Normal 5-40 [facility] Work Phone: [phone] Lab Report: WCTSHon 07-16-19 12 GE use only - for [employer] import when terms are not otherwise specified 1.30 uIU/mL Normal 0.358-3.74 [facility] Work Phone: [phone] Anaerobic culture Bacteria identified Anaer cx Nom (Unsp spec) No anaerobic bacteria isolated. [facility] Work Phone: Gram stain for investigation of transfusion reaction Microscopic observation Gram stain Nom (Unsp spec) [facility] Work Phone: Routine wound culture Bacteria identified Cx Nom (Wound) No growth aerobically. [facility] Work Phone: Vital Signs Date Time Vital Sign Value Performing Clinician Facility 12-20-2024 23:45-0400 Body temperature 98.2 [degF] Dr. Nelson Royal DO Work Phone: [facility] 12-20-2024 23:45-0400 Diastolic blood pressure 53 mm[Hg] Dr. Nelson Royal DO Work Phone: [facility] 12-20-2024 23:45-0400 Heart rate 78 /min Dr. Nelson Royal DO Work Phone: [facility] 12-20-2024 23:45-0400 Respiratory rate 15 /min Dr. Nelson Royal DO Work Phone: [facility] 12-20-2024 23:45-0400 SaO2% (BldA) [Mass fraction] 99 % Dr. Nelson Royal DO Work Phone: [facility] 12-20-2024 23:45-0400 Systolic blood pressure 115 mm[Hg] Dr. Nelson Royal DO Work Phone: [facility] 12-20-2024 20:26-0400 Body height 162.[address] Nelson Royal DO Work Phone: [facility] 12-20-2024 20:26-0400 Body mass index (BMI) [Ratio] 35.4 kg/m2 Dr. Nelson Royal DO Work Phone: [facility] 12-20-2024 20:26-0400 Body weight 93.[address] Nelson Royal DO Work Phone: [facility] 10-31-2024 14:49-0400 Body mass index (BMI) [Ratio] 35.64 kg/m2 Celia Nava APRN.CNP Work Phone: [facility] 10-31-2024 14:49-0400 Body weight 92.99 kg Celia Nava APRN.LEHR CUTTER Work Phone: [facility] 10-31-2024 14:49-0400 Diastolic blood pressure 84 mm[Hg] Celia Nava APRN.LEHR CUTTER Work Phone: [facility] 10-31-2024 14:49-0400 Heart rate 78 /min Celia Nava APRN.LEHR CUTTER Work Phone: [facility] 10-31-2024 14:49-0400 SaO2% (BldA) [Mass fraction] 98 % Celia Nava APRN.LEHR CUTTER Work Phone: [facility] 10-31-2024 14:49-0400 Systolic blood pressure 123 mm[Hg] Celia Nava APRN.LEHR CUTTER Work Phone: [facility] 08-08-2024 14:57-0400 Body mass index (BMI) [Ratio] 35.47 kg/m2 Celia Nava APRN.LEHR CUTTER Work Phone: [facility] 08-08-2024 14:57-0400 Body weight 92.53 kg Celia Nava APRN.LEHR CUTTER Work Phone: [facility] 08-08-2024 14:57-0400 Diastolic blood pressure 84 mm[Hg] Celia Nava APRN.LEHR CUTTER Work Phone: [facility] 08-08-2024 14:57-0400 Heart rate 79 /min Celia Nava APRN.LEHR CUTTER Work Phone: [facility] 08-08-2024 14:57-0400 SaO2% (BldA) [Mass fraction] 98 % Celia Nava APRN.LEHR CUTTER Work Phone: [facility] 08-08-2024 14:57-0400 Systolic blood pressure 120 mm[Hg] Celia Nava APRN.LEHR CUTTER Work Phone: [facility] 07-25-2024 15:41-0500 Diastolic blood pressure 80 mm[Hg] Celia Nava APRN.LEHR CUTTER Work Phone: [facility] 07-25-2024 15:41-0500 Systolic blood pressure 130 mm[Hg] Celia Syedhrie DRY CHAIN PULLER.LEHR CUTTER Work Phone: [facility] 07-25-2024 14:49-0500 Body mass index (BMI) [Ratio] 35.82 kg/m2 Celia Nava DRY CHAIN PULLER.LEHR CUTTER Work Phone: [facility] 07-25-2024 14:49-0500 Body weight 93.44 kg Celia Nava DRY CHAIN PULLER.LEHR CUTTER Work Phone: [facility] 07-25-2024 14:49-0500 Heart rate 90 /min Celia Nava DRY CHAIN PULLER.LEHR CUTTER Work Phone: [facility] 07-25-2024 14:49-0500 SaO2% (BldA) [Mass fraction] 100 % Celia Nava DRY CHAIN PULLER.LEHR CUTTER Work Phone: [facility] 05-15-2024 15:15-0500 Body mass index (BMI) [Ratio] 37.21 kg/m2 Katiuska Holland DR[employer] CHAIN PULLER.LEHR CUTTER Work Phone: [facility] 05-15-2024 15:15-0500 Body weight 97.07 kg Katiuska Fawad [employer]Y CHAIN PULLER.LEHR CUTTER Work Phone: [facility] 05-15-2024 15:15-0500 Diastolic blood pressure 88 mm[Hg] Katiuska Holland DRY CHAIN P[employer]ER.LEHR CUTTER Work Phone: [facility] 05-15-2024 15:15-0500 Heart rate 76 /min Katiuska Fawad [employer]Y CHAIN P[employer]ER.LEHR CUTTER Work Phone: [facility] 05-15-2024 15:15-0500 SaO2% (BldA) [Mass fraction] 98 % Katiuska Holland [employer]Y CHAIN P[employer]ER.LEHR CUTTER Work Phone: [facility] 05-15-2024 15:15-0500 Systolic blood pressure 126 mm[Hg] Katiuska Holland [employer]Y CHAIN P[employer]ER.LEHR CUTTER Work Phone: [facility] 04-20-2024 11:37-0500 Body mass index (BMI) [Ratio] 37.38 kg/m2 Celia Nava APRN.LEHR CUTTER Work Phone: [facility] 04-20-2024 11:37-0500 Body weight 97.52 kg Celia Nava APRN.LEHR CUTTER Work Phone: [facility] 04-20-2024 11:37-0500 Diastolic blood pressure 82 mm[Hg] Celia Nava APRN.LEHR CUTTER Work Phone: [facility] 04-20-2024 11:37-0500 Heart rate 89 /min Celia Nava APRN.LEHR CUTTER Work Phone: [facility] 04-20-2024 11:37-0500 SaO2% (BldA) [Mass fraction] 98 % Celia Nava APRN.LEHR CUTTER Work Phone: [facility] 04-20-2024 11:37-0500 Systolic blood pressure 120 mm[Hg] Celia Nava APRN.LEHR CUTTER Work Phone: [facility] 04-12-2024 14:46-0500 Body height 161.5 cm Laura Pathak APRN.LEHR CUTTER Work Phone: [facility] 04-12-2024 14:46-0500 Body mass index (BMI) [Ratio] 38.08 kg/m2 Laura Pathak APRN.LEHR CUTTER Work Phone: [facility] 04-12-2024 14:46-0500 Body weight 99.34 kg Laura Pathak APRN.LEHR CUTTER Work Phone: [facility] 04-12-2024 14:46-0500 Diastolic blood pressure 72 mm[Hg] Laura Harhina [employer]Y CHAIN P[employer]ER.LEHR CUTTER Work Phone: [facility] 04-12-2024 14:46-0500 Systolic blood pressure 126 mm[Hg] Laura Haury [employer]Y CHAIN P[employer]ER.LEHR CUTTER Work Phone: [facility] 04-09-2024 10:30-0500 Diastolic blood pressure 70 mm[Hg] Ebenezer Camarillo APRN.LEHR CUTTER Work Phone: [facility] 04-09-2024 10:30-0500 Heart rate 68 /min Ebenezer Camarillo [employer]Y CHAIN P[employer]ER.LEHR CUTTER Work Phone: [facility] 04-09-2024 10:30-0500 Systolic blood pressure 128 mm[Hg] Ebenezer Camarillo DRY CHAIN P[employer]ER.LEHR CUTTER Work Phone: [facility] 03-19-2024 14:30-0400 Body mass index (BMI) [Ratio] 38.45 kg/m2 Katiuska Fawad DRY CHAIN P[employer]ER.LEHR CUTTER Work Phone: [facility] 03-19-2024 14:30-0400 Body weight 101.15 kg Katiuska Fawad DRY CHAIN P[employer]ER.LEHR CUTTER Work Phone: [facility] 03-19-2024 14:30-0400 Diastolic blood pressure 70 mm[Hg] Katiuska Fawad DRY CHAIN P[employer]ER.LEHR CUTTER Work Phone: [facility] 03-19-2024 14:30-0400 Systolic blood pressure 120 mm[Hg] Katiuska Fawad [employer]Y CHAIN P[employer]ER.LEHR CUTTER Work Phone: [facility] 03-14-2024 15:01-0400 Body mass index (BMI) [Ratio] 37.93 kg/m2 Celia Nava APRN.LEHR CUTTER Work Phone: [facility] 03-14-2024 15:01-0400 Body weight 99.79 kg Celia Nava APRN.LEHR CUTTER Work Phone: [facility] 03-14-2024 15:01-0400 Diastolic blood pressure 78 mm[Hg] Celia Nava APRN.LEHR CUTTER Work Phone: [facility] 03-14-2024 15:01-0400 Heart rate 72 /min Celia Nava APRN.LEHR CUTTER Work Phone: [facility] 03-14-2024 15:01-0400 SaO2% (BldA) [Mass fraction] 97 % Celia Nava APRN.LEHR CUTTER Work Phone: [facility] 03-14-2024 15:01-0400 Systolic blood pressure 124 mm[Hg] Celia Nava APRN.LEHR CUTTER Work Phone: [facility] 02-01-2024 15:45-0400 Body mass index (BMI) [Ratio] 39.14 kg/m2 Celia Nava APRN.LEHR CUTTER Work Phone: [facility] 02-01-2024 15:45-0400 Body weight 102.97 kg Celia Nava APRN.LEHR CUTTER Work Phone: [facility] 02-01-2024 15:45-0400 Diastolic blood pressure 76 mm[Hg] Celia Nava APRN.LEHR CUTTER Work Phone: [facility] 02-01-2024 15:45-0400 Heart rate 74 /min Celia Nava APRN.LEHR CUTTER Work Phone: [facility] 02-01-2024 15:45-0400 SaO2% (BldA) [Mass fraction] 97 % Celia Nava APRN.LEHR CUTTER Work Phone: [facility] 02-01-2024 15:45-0400 Systolic blood pressure 126 mm[Hg] Celia Nava APRN.LEHR CUTTER Work Phone: [facility] 01-31-2024 13:08-0400 Body height 162.2 cm Celia Nava APRN.LEHR CUTTER Work Phone: [facility] 01-31-2024 13:08-0400 Body mass index (BMI) [Ratio] 39.14 kg/m2 Celia Nava APRN.LEHR CUTTER Work Phone: [facility] 01-31-2024 13:08-0400 Body weight 102.97 kg Celia Nava APRN.LEHR CUTTER Work Phone: [facility] 01-31-2024 13:08-0400 Diastolic blood pressure 76 mm[Hg] Celia Nava APRN.LEHR CUTTER Work Phone: [facility] 01-31-2024 13:08-0400 Heart rate 99 /min Celia Nava APRN.LEHR CUTTER Work Phone: [facility] 01-31-2024 13:08-0400 SaO2% (BldA) [Mass fraction] 97 % Celia Nava APRN.LEHR CUTTER Work Phone: [facility] 01-31-2024 13:08-0400 Systolic blood pressure 128 mm[Hg] Celia Nava APRN.LEHR CUTTER Work Phone: [facility] 01-02-2024 15:11-0400 Body height 162.6 cm Ebenezer Camarillo DRY CHAIN PULLER.LEHR CUTTER Work Phone: [facility] 01-02-2024 15:11-0400 Diastolic blood pressure 91 mm[Hg] Ebenezer Camarillo DRY CH[employer] P[employer]ER.LEHR CUTTER Work Phone: [facility] 01-02-2024 15:11-0400 Heart rate 79 /min Ebenezer Camarillo DRY CHAIN P[employer]ER.LEHR CUTTER Work Phone: [facility] 01-02-2024 15:11-0400 Systolic blood pressure 142 mm[Hg] Ebenezer Camarillo DRY CHAIN P[employer]ER.LEHR CUTTER Work Phone: [facility] 12-29-2023 15:28-0400 Body mass index (BMI) [Ratio] 38.11 kg/m2 Laura Pathak APRN.LEHR CUTTER Work Phone: [facility] 12-29-2023 15:28-0400 Body weight 103.87 kg Laura Pathak APRN.LEHR CUTTER Work Phone: [facility] 12-29-2023 15:28-0400 Diastolic blood pressure 78 mm[Hg] Laura Pathak APRN.LEHR CUTTER Work Phone: [facility] 12-29-2023 15:28-0400 Heart rate 72 /min Laura Pathak APRN.LEHR CUTTER Work Phone: [facility] 12-29-2023 15:28-0400 Respiratory rate 14 /min Laura Pathak APRN.LEHR CUTTER Work Phone: [facility] 12-29-2023 15:28-0400 SaO2% (BldA) [Mass fraction] 98 % Laura Pathak APRN.LEHR CUTTER Work Phone: [facility] 12-29-2023 15:28-0400 Systolic blood pressure 118 mm[Hg] Laura Haury DRY CHAIN PULLER.LEHR CUTTER Work Phone: [facility] 11-23-2023 16:11-0400 Body mass index (BMI) [Ratio] 38.27 kg/m2 Laura Haury DRY CHAIN P[employer]ER.LEHR CUTTER Work Phone: [facility] 11-23-2023 16:11-0400 Body weight 104.33 kg Laura Haury DRY CHAIN P[employer]ER.LEHR CUTTER Work Phone: [facility] 11-23-2023 16:11-0400 Diastolic blood pressure 86 mm[Hg] Laura Haury DRY CHAIN P[employer]ER.LEHR CUTTER Work Phone: [facility] 11-23-2023 16:11-0400 Heart rate 76 /min Laura Haury DRY CHAIN P[employer]ER.LEHR CUTTER Work Phone: [facility] 11-23-2023 16:11-0400 Respiratory rate 14 /min Laura Haury DRY CHAIN PULLER.LEHR CUTTER Work Phone: [facility] 11-23-2023 16:11-0400 SaO2% (BldA) [Mass fraction] 97 % Laura Haury DRY CHAIN PULLER.LEHR CUTTER Work Phone: [facility] 11-23-2023 16:11-0400 Systolic blood pressure 126 mm[Hg] Laura Haury DRY CHAIN PULLER.LEHR CUTTER Work Phone: [facility] 10-28-2023 09:08-0400 Body mass index (BMI) [Ratio] 37.77 kg/m2 Laura Haury DRY CHAIN P[employer]ER.LEHR CUTTER Work Phone: [facility] 10-28-2023 09:08-0400 Body weight 102.97 kg Laura Haury DRY CHAIN PULLER.LEHR CUTTER Work Phone: [facility] 10-28-2023 09:08-0400 Diastolic blood pressure 80 mm[Hg] Laura Haury DRY CHAIN PULLER.LEHR CUTTER Work Phone: [facility] 10-28-2023 09:08-0400 Systolic blood pressure 142 mm[Hg] Laura Haury DRY CHAIN PULLER.LEHR CUTTER Work Phone: [facility] 11-22-2022 10:47-0400 Body height 162.[address] Nelson Royal Work Phone: [facility] 11-22-2022 10:47-0400 Body temperature 97.5 [degF] Dr. Nelson Royal Work Phone: [facility] 11-22-2022 10:47-0400 Diastolic blood pressure 74 mm[Hg] Dr. Nelson Royal Work Phone: [facility] 11-22-2022 10:47-0400 Heart rate 70 /min Dr. Nelson Royal Work Phone: [facility] 11-22-2022 10:47-0400 Respiratory rate 16 /min Dr. Nelson Royal Work Phone: [facility] 11-22-2022 10:47-0400 SaO2% (BldA) [Mass fraction] 97 % Dr. Nelson Royal Work Phone: [facility] 11-22-2022 10:47-0400 Systolic blood pressure 115 mm[Hg] Dr. Nelson Royal Work Phone: [facility] 07-06-2022 15:30-0500 Body height 162.[address] Nelson Royal Work Phone: [facility] 07-06-2022 15:30-0500 Body temperature 98.1 [degF] Dr. Nelson Royal Work Phone: [facility] 07-06-2022 15:30-0500 Heart rate 65 /min Dr. Nelson Royal Work Phone: [facility] 07-06-2022 15:30-0500 Respiratory rate 16 /min Dr. Nelson Royal Work Phone: [facility] 07-06-2022 15:30-0500 SaO2% (BldA) [Mass fraction] 97 % Dr. Nelson Royal Work Phone: [facility] 06-22-2022 15:59-0500 Body temperature 98.6 [degF] Dr. Nelson Royal Work Phone: [facility] 06-22-2022 15:59-0500 Heart rate 61 /min Dr. Nelson Royal Work Phone: [facility] 06-22-2022 15:59-0500 Respiratory rate 16 /min Dr. Nelson Royal Work Phone: [facility] 06-22-2022 15:59-0500 SaO2% (BldA) [Mass fraction] 98 % Dr. Nelson Royal Work Phone: [facility] 06-14-2022 16:12-0500 Body temperature 96.9 [degF] Dr. Nelson Royal Work Phone: [facility] 06-14-2022 16:12-0500 Heart rate 69 /min Dr. Nelson Royal Work Phone: [facility] 06-14-2022 16:12-0500 Respiratory rate 16 /min Dr. Nelson Royal Work Phone: [facility] 06-14-2022 16:12-0500 SaO2% (BldA) [Mass fraction] 98 % Dr. Nelson Royal Work Phone: [facility] 06-03-2022 11:20-0500 Body temperature 97.8 [degF] Dr. Nelson Royal Work Phone: [facility] 06-03-2022 11:20-0500 Heart rate 64 /min Dr. Nelson Royal Work Phone: [facility] 06-03-2022 11:20-0500 Respiratory rate 16 /min Dr. Nelson Royal Work Phone: [facility] 06-03-2022 11:20-0500 SaO2% (BldA) [Mass fraction] 97 % Dr. Nelson Royal Work Phone: [facility] 05-25-2022 15:20-0500 Body temperature 98.6 [degF] Dr. Nelson Royal Work Phone: [facility] 05-25-2022 15:20-0500 Heart rate 68 /min Dr. Nelson Royal Work Phone: [facility] 05-25-2022 15:20-0500 Respiratory rate 17 /min Dr. Nelson Royal Work Phone: [facility] 05-25-2022 15:20-0500 SaO2% (BldA) [Mass fraction] 97 % Dr. Nelson Royal Work Phone: [facility] 05-18-2022 15:45-0500 Body temperature 97.4 [degF] Dr. Nelson Royal Work Phone: [facility] 05-18-2022 15:45-0500 Heart rate 68 /min Dr. Nelson Royal Work Phone: [facility] 05-18-2022 15:45-0500 Respiratory rate 16 /min Dr. Nelson Royal Work Phone: [facility] 05-18-2022 15:45-0500 SaO2% (BldA) [Mass fraction] 98 % Dr. Nelson Royal Work Phone: [facility] 05-11-2022 16:00-0500 Body height 162.[address] Nelson Royal Work Phone: [facility] Work Phone: 05-11-2022 16:00-0500 Body temperature 98.3 [degF] Dr. Nelson Royal Work Phone: [facility] 05-11-2022 16:00-0500 Heart rate 72 /min Dr. Nelson Royal Work Phone: [facility] 05-11-2022 16:00-0500 Respiratory rate 16 /min Dr. Nelson Royal Work Phone: [facility] 05-11-2022 16:00-0500 SaO2% (BldA) [Mass fraction] 97 % Dr. Nelson Royal Work Phone: [facility] 05-04-2022 13:42-0500 Body temperature 98.8 [degF] Dr. Nelson Royal Work Phone: [facility] 05-04-2022 13:42-0500 Heart rate 74 /min Dr. Nelson Royal Work Phone: [facility] 05-04-2022 13:42-0500 Respiratory rate 16 /min Dr. Nelson Royal Work Phone: [facility] 05-04-2022 13:42-0500 SaO2% (BldA) [Mass fraction] 97 % Dr. Nelson Royal Work Phone: [facility] 04-29-2022 13:30-0500 Body temperature 98.9 [degF] Dr. Nelson Royal Work Phone: [facility] 04-29-2022 13:30-0500 Heart rate 98 /min Dr. Nelson Royal Work Phone: [facility] 04-29-2022 13:30-0500 Respiratory rate 16 /min Dr. Nelson Royal Work Phone: [facility] 04-29-2022 13:30-0500 SaO2% (BldA) [Mass fraction] 98 % Dr. Nelson Royal Work Phone: [facility] 04-23-2022 10:30-0500 Body temperature 97.3 [degF] Dr. Nelson Royal Work Phone: [facility] 04-23-2022 10:30-0500 Diastolic blood pressure 84 mm[Hg] Dr. Nelson Royal Work Phone: [facility] 04-23-2022 10:30-0500 Heart rate 72 /min Dr. Nelson Royal Work Phone: [facility] 04-23-2022 10:30-0500 Respiratory rate 16 /min Dr. Nelson Royal Work Phone: [facility] 04-23-2022 10:30-0500 SaO2% (BldA) [Mass fraction] 97 % Dr. Nelson Royal Work Phone: [facility] 04-23-2022 10:30-0500 Systolic blood pressure 142 mm[Hg] Dr. Nelson Royal Work Phone: [facility] 04-21-2022 12:59-0500 Body temperature 97.5 [degF] Dr. Nelson Royal Work Phone: [facility] 04-21-2022 12:59-0500 Heart rate 82 /min Dr. Nelson Royal Work Phone: [facility] 04-21-2022 12:59-0500 Respiratory rate 15 /min Dr. Nelson Royal Work Phone: [facility] 04-21-2022 12:59-0500 SaO2% (BldA) [Mass fraction] 97 % Dr. Nelson Royal Work Phone: [facility] 04-20-2022 09:32-0500 Body temperature 97.9 [degF] Dr. Nelson Royal Work Phone: [facility] 04-20-2022 09:32-0500 Heart rate 78 /min Dr. Nelson Royal Work Phone: [facility] 04-20-2022 09:32-0500 Respiratory rate 16 /min Dr. Nelson Royal Work Phone: [facility] 04-20-2022 09:32-0500 SaO2% (BldA) [Mass fraction] 98 % Dr. Nelson Royal Work Phone: [facility] 04-13-2022 10:47-0500 Body temperature 97 [degF] Dr. Nelson Royal Work Phone: [facility] 04-13-2022 10:47-0500 Heart rate 94 /min Dr. Nelson Royal Work Phone: [facility] 04-13-2022 10:47-0500 Respiratory rate 16 /min Dr. Nelson Royal Work Phone: [facility] 04-13-2022 10:47-0500 SaO2% (BldA) [Mass fraction] 97 % Dr. Nelson Royal Work Phone: [facility] 04-09-2022 14:10-0500 Diastolic blood pressure 83 mm[Hg] Dr. Nelson Royal Work Phone: [facility] 04-09-2022 14:10-0500 Heart rate 95 /min Dr. Nelson Royal Work Phone: [facility] 04-09-2022 14:10-0500 Respiratory rate 18 /min Dr. Nelson Royal Work Phone: [facility] 04-09-2022 14:10-0500 SaO2% (BldA) [Mass fraction] 95 % Dr. Nelson Royal Work Phone: [facility] 04-09-2022 14:10-0500 Systolic blood pressure 125 mm[Hg] Dr. Nelson Royal Work Phone: [facility] 04-09-2022 13:15-0500 Body temperature 97.1 [degF] Dr. Nelson Royal Work Phone: [facility] 04-09-2022 12:30-0500 Inhaled oxygen flow rate 2 L/min Dr. Nelson Royal Work Phone: [facility] 04-09-2022 08:38-0500 Body height 162.[address] Nelson Royal Work Phone: [facility] Work Phone: 04-09-2022 08:38-0500 Body mass index (BMI) [Ratio] 39 kg/m2 Dr. Nelson Royal Work Phone: [facility] 04-09-2022 08:38-0500 Body weight 103.[address] Nelson Royal Work Phone: [facility] 02-18-2022 16:12-0400 Body mass index (BMI) [Ratio] 39.3 kg/m2 Dr. Nelson Royal Work Phone: [facility] Work Phone: 02-18-2022 16:12-0400 Body temperature 98.7 [degF] Dr. Nelson Royal Work Phone: [facility] Work Phone: 02-18-2022 16:12-0400 Body weight 103.[address] Nelson Royal Work Phone: [facility] Work Phone: 02-18-2022 16:12-0400 Diastolic blood pressure 82 mm[Hg] Dr. Nelson Royal Work Phone: [facility] Work Phone: 02-18-2022 16:12-0400 Heart rate 67 /min Dr. Nelson Royal Work Phone: [facility] Work Phone: 02-18-2022 16:12-0400 Respiratory rate 16 /min Dr. Nelson Royal Work Phone: [facility] Work Phone: 02-18-2022 16:12-0400 SaO2% (BldA) [Mass fraction] 97 % Dr. Nelson Royal Work Phone: [facility] Work Phone: 02-18-2022 16:12-0400 Systolic blood pressure 138 mm[Hg] Dr. Nelson Royal Work Phone: [facility] Work Phone: 12-28-2021 15:19-0400 Body temperature 98.91 [degF] Tania Alvarez APRN.LEHR CUTTER Work Phone: [facility] 12-28-2021 15:19-0400 Body weight 103.24 kg Tania Alvarez APRN.LEHR CUTTER Work Phone: [facility] 12-28-2021 15:19-0400 Diastolic blood pressure 80 mm[Hg] Tania Alvarez APRN.LEHR CUTTER Work Phone: [facility] 12-28-2021 15:19-0400 Heart rate 78 /min Taniasherri Alvarez APRN.[facility] Work Phone: [facility] 12-28-2021 15:19-0400 Respiratory rate 16 /min Tania Alvarez APRN.LEHR CUTTER Work Phone: [facility] 12-28-2021 15:19-0400 SaO2% (BldA) [Mass fraction] 98 % Tania Alvarez APRN.[facility] Work Phone: [facility] 12-28-2021 15:19-0400 Systolic blood pressure 126 mm[Hg] Tania Alvarez APRN.[facility] Work Phone: [facility] 10-04-2016 10:57-0400 BMI (Body Mass Index) 36.74 kg/m2 Milagro Borden LPN [facility] Work Phone: 10-04-2016 10:57-0400 Body Temperature 98.3 [degF] Milagro Borden LPN [facility] Work Phone: 10-04-2016 10:57-0400 BP Diastolic 84 mm[Hg] Milagro Borden LPN [facility] Work Phone: 10-04-2016 10:57-0400 BP Systolic 120 mm[Hg] Milagro Bordne LPN [facility] Work Phone: 10-04-2016 10:57-0400 Height 165.1 cm Milagro Borden LPN [facility] Work Phone: 10-04-2016 10:57-0400 Pulse (Heart Rate) 80 /min Milagro Borden LPN [facility] Work Phone: 10-04-2016 10:57-0400 Pulse Oximetry 99 % Milagro Borden LPN [facility] Work Phone: 10-04-2016 10:57-0400 Respiratory Rate 14 /min Milagro Borden [facility] Work Phone: 10-04-2016 10:57-0400 Weight 100.15 kg Milagro Borden LPN [facility] Work Phone: 08-11-2011 09:39-0400 BSA (Body Surface Area) 1.98 m2 Milagro Borden LPN [facility] Work Phone: Encounters Encounter Date Encounter Type Care Provider Facility Start: 02-21-2025 ambulatory Jenniffer Hurtado Facility: [facility] Start: 02-13-2025 End: 02-13-2025 ambulatory CELIA NAVA Facility:[facility] Start: 02-13-2025 End: 02-13-2025 ambulatory Sarah Moreira Facility:[facility] Start: 02-08-2025 End: 02-08-2025 ambulatory Nelson Royal Facility:[facility] Start: 01-31-2025 End: 01-31-2025 ambulatory Sarah Moreira Facility:[facility] Start: 01-09-2025 End: 01-09-2025 ambulatory Sarah Moreira Facility:[facility] Start: 12-20-2024 End: 12-20-2024 Emergency department patient visit Dr. Nelson Royal DO Work Phone: -Emergency Department Work Phone: Start: 11-27-2024 Non-patient / Non-visit Dr. Rahel duarte MD -[facility] Work Phone: Start: 10-31-2024 End: 10-31-2024 Patient encounter procedure Celia Nava APRN.[facility] Work Phone: OB/Gynecology Comment on above: Essential hypertensi on (Primary Dx); Gastroesophageal reflux disease, unspecified whether esophagitis present; Hyperlipidemia, unspecified hyperlipidemia type; CKD (chronic kidney disease) stage 2, GFR 60-89 ml/min; Depression with anxiety; Vitamin D deficiency; Intractable migraine with aura with status migrainosus; Class 2 severe obesity with serious comorbidity and body mass index (BMI) of 37.0 to 37.9 in adult, unspecified obesity type (HCC) Start: 10-31-2024 End: 10-31-2024 ambulatory CELIA NAVA Facility:[facility] Start: 10-29-2024 End: 10-29-2024 ambulatory Bernard Lenz Facility:[facility] Start: 10-29-[address] Twin Lenz DO -Occupational Therapy Work Phone: Start: 09-29-2024 End: 10-01-2024 Refill Laura Pathak DRY CHAIN PULLER.LEHR CUTTER Work Phone: OB/Gynecology Comment on above: Refill Request Start: 09-27-2024 End: 09-27-2024 Patient encounter procedure Cynthia VASQUEZ -[facility] Work Phone: Start: 09-27-2024 End: 09-27-2024 ambulatory Cynthia Rucker Facility:[facility] Start: 08-31-2024 End: 08-31-2024 Telemedicine consultation with patient Ebenezer Camarillo APRN.LEHR CUTTER Work Phone: URO/Gynecology Start: 08-31-2024 End: 08-31-2024 ambulatory Ebenezer Camarillo APRN.LEHR CUTTER Work Phone: URO/Gynecology Comment on above: Genitourinary syndro me of menopause Start: 08-08-2024 End: 08-08-2024 ambulatory NELSON ROYAL Facility:[facility] Start: 08-08-2024 End: 08-08-2024 Patient encounter procedure Celia Nava APRN.LEHR CUTTER Work Phone: OB/Gynecology Comment on above: Essential hypertensi on (Primary Dx); Gastroesophageal reflux disease, unspecified whether esophagitis present; Hyperlipidemia, unspecified hyperlipidemia type; CKD (chronic kidney disease) stage 2, GFR 60-89 ml/min; Depression with anxiety; Vitamin D deficiency; Intractable migraine with aura with status migrainosus; Class 2 severe obesity with serious comorbidity and body mass index (BMI) of 37.0 to 37.9 in adult, unspecified obesity type (HCC) Start: 07-25-2024 End: 07-25-2024 ambulatory CELIA NAVA Facility:[facility] Start: 07-25-2024 End: 07-25-2024 Patient encounter procedure Celia Nava APRN.LEHR CUTTER Work Phone: OB/Gynecology Comment on above: Essential hypertensi on (Primary Dx); Gastroesophageal reflux disease, unspecified whether esophagitis present; Hyperlipidemia, unspecified hyperlipidemia type; CKD (chronic kidney disease) stage 2, GFR 60-89 ml/min; Depression with anxiety; Vitamin D deficiency; Intractable migraine with aura with status migrainosus; Class 2 severe obesity with serious comorbidity and body mass index (BMI) of 37.0 to 37.9 in adult, unspecified obesity type (HCC) Start: 06-30-2024 End: 06-30-2024 ambulatory NELSON OCHOAY Facility:[facility] Start: 06-30-2024 End: 06-30-2024 Patient encounter procedure [facility]SON [facility] Start: 06-22-2024 End: 06-22-2024 ambulatory Laura Pathak Facility:[facility] Start: 05-15-2024 End: 05-15-2024 ambulatory KATIUSKA RIVERA Facility:[facility] Start: 05-15-2024 End: 05-15-2024 Patient encounter procedure Katiuska Rivera APRN.LEHR CUTTER Work Phone: OB/Gynecology Comment on above: Essential hypertensi on (Primary Dx); Chronic GERD; Hyperlipidemia, unspecified hyperlipidemia type; CKD (chronic kidney disease) stage 2, GFR 60-89 ml/min; Depression with anxiety; Vitamin D deficiency; Class 2 severe obesity with serious comorbidity and body mass index (BMI) of 37.0 to 37.9 in adult, unspecified obesity type (HCC); Gastroesophageal reflux disease, unspecified whether esophagitis present Start: 05-10-2024 End: 05-10-2024 ambulatory Laura Pathak APRN.LEHR CUTTER Work Phone: OB/Gynecology Start: 05-10-2024 End: 05-10-2024 Manual pelvic examination Laura Pathak APRN.LEHR CUTTER Work Phone: OB/Gynecology Comment on above: Pelvic floor therapy Start: 05-04-2024 End: 05-04-2024 Telemedicine consultation with patient Ebenezer Camarillo WILDA Work Phone: URO/Gynecology Start: 05-04-2024 End: 05-04-2024 ambulatory Ebenezer L Marquise ASTUDILLO Work Phone: URO/Gynecology Comment on above: Genitourinary syndro me of menopause (Primary Dx) Start: 05-01-2024 End: 05-01-2024 ambulatory LAURA PATHAK Facility:[facility] Start: 05-01-2024 End: 05-01-2024 Subsequent hospital visit by physician Screen Mammo [facility] Mammogram Comment on above: Encounter for screen ing mammogram for breast cancer [Z12.31] Start: 04-23-2024 End: 04-27-2024 ambulatory NELSON LELE DO Facility:[facility] Start: 04-23-2024 End: 04-27-2024 Outreach Lab LUKE SELBY APRN-ZINA [facility] Start: 04-20-2024 End: 04-20-2024 ambulatory CELIA NAVA Facility:[facility] Start: 04-20-2024 End: 04-20-2024 Patient encounter procedure Celia Nava APRN.ZINA Work Phone: OB/Gynecology Comment on above: Essential hypertensi on (Primary Dx); Gastroesophageal reflux disease, unspecified whether esophagitis present; Hyperlipidemia, unspecified hyperlipidemia type; CKD (chronic kidney disease) stage 2, GFR 60-89 ml/min; Depression with anxiety; Vitamin D deficiency; Intractable migraine with aura with status migrainosus; Class 2 severe obesity with serious comorbidity and body mass index (BMI) of 37.0 to 37.9 in adult, unspecified obesity type (HCC) Start: 04-12-2024 End: 04-12-2024 Patient encounter procedure Laura Pathak APRN.LEHR CUTTER Work Phone: OB/Gynecology Comment on above: Encounter for gyneco logical examination (general) (routine) without abnormal findings (Primary Dx); Encounter for screening mammogram for breast cancer; Stress incontinence in female; Cystocele, midline Start: 04-12-2024 End: 04-12-2024 Patient encounter status Laura Pathak APRN.LEHR CUTTER Work Phone: [facility] Start: 04-12-2024 End: 04-13-2024 ambulatory Ebenezer Camarillo DRY CHAIN PULLER.LEHR CUTTER Work Phone: Urogynecology Comment on above: Imvexxy Start: 04-12-2024 End: 04-12-2024 Telephone encounter Laura Pathak APRN.LEHR CUTTER Work Phone: OB/Gynecology Comment on above: Orders Start: 04-09-2024 End: 04-09-2024 Patient encounter procedure Ebenezer Camarillo DRY CHAIN PULLER.LEHR CUTTER Work Phone: Urogynecology Comment on above: Genitourinary syndro me of menopause (Primary Dx); High-tone pelvic floor dysfunction; Cystocele, midline; Rectocele Start: 04-09-2024 End: 04-09-2024 ambulatory EBENEZER CAMARILLO Facility:[facility] Start: 04-04-2024 End: 04-05-2024 ambulatory Ebenezer Camarillo DRY CHAIN PULLER.LEHR CUTTER Work Phone: Urogynecology Comment on above: Prolapse question Start: 03-28-2024 End: 03-30-2024 ambulatory Celia Nava APRN.LEHR CUTTER Work Phone: OB/Gynecology Comment on above: Weight Start: 03-23-2024 End: 03-23-2024 ambulatory Katiuska Rivera DRY CHAIN PULLER.LEHR CUTTER Work Phone: OB/Gynecology Comment on above: Test results Start: 03-19-2024 End: 03-19-2024 ambulatory [facility] Facility:[facility] Start: 03-19-2024 End: 03-19-2024 Patient encounter procedure Katiuska Rivera DRY CHAIN PULLER.LEHR CUTTER Work Phone: OB/Gynecology Comment on above: Itching in the vagin al area (Primary Dx) Start: 03-14-2024 End: 03-14-2024 [facility] Facility:[facility] Start: 03-14-2024 End: 03-14-2024 Patient encounter procedure Celia Nava APRN.CNP Work Phone: OB/Gynecology Comment on above: Essential hypertensi on (Primary Dx); Gastroesophageal reflux disease, unspecified whether esophagitis present; Hyperlipidemia, unspecified hyperlipidemia type; CKD (chronic kidney disease) stage 2, GFR 60-89 ml/min; Depression with anxiety; Vitamin D deficiency; Intractable migraine with aura with status migrainosus; Class 2 severe obesity with serious comorbidity and body mass index (BMI) of 37.0 to 37.9 in adult, unspecified obesity type (HCC) Start: 02-01-2024 End: 02-01-2024 Patient encounter procedure Celia Nava APRN.LEHR CUTTER Work Phone: OB/Gynecology Comment on above: Essential hypertensi on (Primary Dx); Gastroesophageal reflux disease, unspecified whether esophagitis present; Hyperlipidemia, unspecified hyperlipidemia type; CKD (chronic kidney disease) stage 2, GFR 60-89 ml/min; Depression with anxiety; Vitamin D deficiency; Intractable migraine with aura with status migrainosus; Class 2 severe obesity with serious comorbidity and body mass index (BMI) of 37.0 to 37.9 in adult, unspecified obesity type (HCC) Start: 01-31-2024 End: 01-31-2024 Patient encounter procedure Celia Nava APRN.CNP Work Phone: OB/Gynecology Comment on above: Essential hypertensi on (Primary Dx); Gastroesophageal reflux disease, unspecified whether esophagitis present; Hyperlipidemia, unspecified hyperlipidemia type; CKD (chronic kidney disease) stage 2, GFR 60-89 ml/min; Depression with anxiety; Vitamin D deficiency; Intractable migraine with aura with status migrainosus; Malaise and fatigue; Screening for diabetes mellitus; Screening for thyroid disorder; Encounter for vitamin deficiency screening; Class 2 severe obesity with serious comorbidity and body mass index (BMI) of 37.0 to 37.9 in adult, unspecified obesity type (HCC) Start: 01-02-2024 End: 01-02-2024 Patient encounter procedure Ebenezer Camarillo APRN.LEHR CUTTER Work Phone: Urogynecology Comment on above: Cystocele, midline ( Primary Dx); Rectocele; High-tone pelvic floor dysfunction; Genitourinary syndrome of menopause Start: 01-02-2024 End: 01-02-2024 ambulatory EBENEZER CAMARILLO [facility] Start: 12-29-2023 End: 12-29-2023 Patient encounter procedure Laura Pathak APRN.LEHR CUTTER Work Phone: OB/Gynecology Comment on above: Cystocele, midline ( Primary Dx) Start: 11-23-2023 End: 11-23-2023 Patient encounter procedure Laura aPthak APRN.LEHR CUTTER Work Phone: OB/Gynecology Comment on above: Dysuria (Primary Dx) ; Vaginal itching Start: 10-28-2023 ambulatory Laura NICKERSON RN.LEHR CUTTER Work Phone: OB/Gynecology Start: 10-28-2023 Manual pelvic examination Laura Pathak APRN.LEHR CUTTER Work Phone: OB/Gynecology Comment on above: Pelvic floor therapy Start: 10-28-2023 End: 10-28-2023 Patient encounter procedure Laura Pathak APRN.LEHR CUTTER Work Phone: OB/Gynecology Comment on above: Cystocele, midline ( Primary Dx); Vaginal dryness; Urinary, incontinence, stress female; Class 2 obesity with body mass index (BMI) of 37.0 to 37.9 in adult, unspecified obesity type, unspecified whether serious comorbidity present Start: 06-29-2023 End: 06-29-2023 Patient encounter procedure NELSON ROYAL DO [facility] Start: 06-20-2023 End: 06-25-2023 ambulatory LUKE SELBY DRY CHAIN PULLER-LEHR CUTTER Facility:[facility] Start: 06-20-2023 End: 06-24-2023 Outreach Lab [facility] DRY CHAIN PULLER-LEHR CUTTER [facility] Start: 04-28-2023 Documentation procedure Mammog baljit Coordinator [facility] Start: 04-28-2023 Letter encounter Mammography Coordinator [facility] Department Start: 04-27-2023 End: 04-27-2023 Subsequent hospital visit by physician Screen Mammo [facility] Mammogram Comment on above: Encounter for screen ing mammogram for breast cancer [Z12.31] Start: 04-14-2023 ambulatory Lilian garcia MD Work Phone: OB/Gynecology Comment on above: Flu shot side effect Start: 02-07-2023 End: 02-07-[address] Nelson Royal Work Phone: [facility] Work Phone: Start: 02-07-2023 End: 02-07-[address] Nelson Royal Work Phone: [facility] Work Phone: Start: 12-16-2022 ambulatory LUKE SELBY DRY CHAIN PULLER-LEHR CUTTER Fa cility:[facility] Start: 12-06-2022 End: 12-07-2022 ambulatory NELSON ROYAL DO Facility:[facility] Start: 12-06-2022 End: 12-06-2022 Patient encounter procedure NELSON ROYAL DO [facility] Start: 12-06-2022 End: 12-06-2022 Well adult monitoring check done NELSON ROYAL DO [facility] Start: 11-22-2022 End: 11-22-[address] Nelson Royal Work Phone: [facility] Work Phone: Start: 07-28-2022 End: 07-28-[address] Nelson Royal Work Phone: [facility] Work Phone: Start: 07-28-2022 End: 07-28-[address] Nelson Royal Work Phone: [facility]-Cat Scan, [facility] Start: 07-06-2022 End: 07-06-[address] Nelson Royal Work Phone: [facility] Start: 06-22-2022 End: 06-22-[address] Nelson Royal Work Phone: [facility] Start: 06-14-2022 End: 06-14-[address] Nelson Royal Work Phone: [facility] Start: 06-03-2022 End: 06-03-[address] Nelson Royal Work Phone: [facility] Start: 05-25-2022 End: 05-25-[address] Nelson Royal Work Phone: [facility] Start: 05-18-2022 End: 05-18-[address] Nelson Royal Work Phone: [facility] Start: 05-14-2022 End: 05-14-[address] Nelson Royal Work Phone: [facility] Work Phone: Start: 05-14-2022 End: 05-14-[address] Nelson Royal Work Phone: [facility]-Outpatient Breast Imaging Start: 05-11-2022 End: 05-11-[address] Nelson Royal Work Phone: [facility] Start: 05-11-2022 End: 05-11-[address] Nelson Royal Work Phone: [facility] Work Phone: Start: 05-11-2022 End: 05-11-[address] Nelson Royal Work Phone: [facility] Start: 05-04-2022 End: 05-04-[address] Nelson Royal Work Phone: [facility] Start: 04-29-2022 End: 04-29-[address] Nelson Royal Work Phone: [facility] Start: 04-23-2022 End: 04-23-[address] Nelson Royal Work Phone: [facility] Start: 04-21-2022 End: 04-21-[address] Nelson Royal Work Phone: [facility] Start: 04-20-2022 End: 04-20-[address] Nelson Royal Work Phone: [facility] Start: 04-13-2022 End: 04-13-[address] Nelson Royal Work Phone: [facility] Start: 04-09-2022 Non-patient / Non-visit Dr. Diana Royal Work Phone: [facility] Start: 04-09-2022 End: 04-09-2022 Admission to same day surgery center Dr. Nelson Royal Work Phone: [facility]-Surgical Day Care Start: 04-09-2022 End: 04-09-[address] Nelson Royal Work Phone: [facility] Work Phone: Start: 04-08-2022 Non-patient / Non-visit Dr. Diana Royal Work Phone: [facility] Start: 02-18-2022 End: 02-18-[address] Nelson Royal Work Phone: [facility] Start: 12-28-2021 End: 12-28-2021 Subsequent hospital visit by physician David [facility] Work Phone: Radiology Comment on above: Pain [R52] Start: 12-28-2021 End: 12-28-2021 Patient encounter procedure Tania Alvarez MARINA.LEHR CUTTER Work Phone: [facility] Comment on above: Pain (Primary Dx) Start: 09-17-2021 End: 09-17-2021 Patient encounter procedure [facility] Start: 08-06-2021 End: 08-06-2021 Patient encounter procedure NELSON ROYAL DO [facility] Start: 07-31-2021 End: 07-31-2021 Patient encounter procedure NELSON LELE DO [facility] Start: 06-17-2021 Patient encounter procedure [facility] Start: 05-26-2021 End: 05-26-2021 Patient encounter procedure NELSON OCHOALise MADRID [facility] Start: 04-20-2021 End: 04-20-2021 Patient encounter procedure NELSON OCHOALise MADRID [facility] Start: 03-12-2021 End: 03-12-[address] SAMAN HERNANDEZ MD [facility] Start: 02-12-2020 End: 02-12-2020 Subsequent hospital visit by physician Dany Haskins Work Phone: [facility] Comment on above: Family history of br east cancer; Adenomatous polyp of ascending colon Start: 10-01-2017 End: 10-01-2017 Ambulatory Jenniffer Bravo Facility:[facility] Procedures Date Procedure Procedure Detail Performing Clinician Start: 12-20-2024 X-ray of chest, PA a nd lateral views Dr. Nelson Royal DO Work Phone: Start: 12-20-[address] Nelson Royal DO Work Phone: Start: 04-09-2024 Urnls dip stick/tabl et rgnt auto w/o microscopy Ebenezer L Camarillo DRY CHAIN PULLER.LEHR CUTTER Work Phone: Start: 01-02-2024 Urnls dip stick/tabl et rgnt auto w/o microscopy Ebenezer L Camarillo DRY CHAIN PULLER.LEHR CUTTER Work Phone: Start: 01-02-2024 BLADDER SCAN Ebenezer L Fo x DRY CHAIN PULLER.LEHR CUTTER Work Phone: Start: 11-23-2023 Urnls dip stick/tabl et rgnt auto w/o microscopy Laura Costarhina DRY CHAIN PULLER.LEHR CUTTER Work Phone: Start: 02-07-2023 Magnetic resonance a ngiography of head without contrast Dr. Nelson Royal Work Phone: Start: 02-07-2023 MRI of brain with contrast Dr. Nelson Royal Work Phone: Start: 07-28-2022 Computed tomography of abdomen and pelvis with intravenous contrast Dr. Nelson Royal Work Phone: Start: 06-03-[address] Nelson Royal Work Phone: Start: 05-14-2022 Screening mammography Mann Royal Work Phone: Start: 05-11-[address] Nelson Royal Work Phone: Start: 04-09-[address] Diana Royal Work Phone: Start: 03-01-2022 Colonoscopy NELSON TERRAZAS DO Comment on above: 01/2019, PRE-CANCEROU S POLYPS WILL REPEAT IN 3 YEARS Start: 12-28-2021 Radex ribs uni w/pos teroant ch minimum 3 views Tania Alvarez APRN.CNP Work Phone: Start: 03-28-2021 Prescription event monitoring NELSON ROYAL DO Comment on above: Occasional PVC's but patient felt most of them. Start: 03-12-2021 Echocardiography NELSON ROYAL DO Comment on above: ef 60-65% Start: 12-31-[address] SAMAN HERNANDEZ MD Comment on above: Normal exercise stre ss test with no ischemic electrocardiographic changes noted. Start: 12-22-2020 Electrocardiographic monitor and recorder, device (physical object) DR SAMAN HERNANDEZ MD Comment on above: Sinus rhythm with ra re PVC's and rare PAC's Start: 10-04-2016 End: 10-04-2016 Urinalysis nonauto w/o scope Ventura VASQUEZ Work Phone: Start: 08-11-2011 End: 08-11-2011 Follow Up Appt 6 months Avtar Nicholson MD Start: 07-12-2011 Lipid 1996 panel - S sloane or Plasma Lilian Smith MD Work Phone: Start: 07-12-2011 End: 07-19-2011 *CMP Complete Metabolic Panel Avtar boogie MD Start: 07-12-2011 End: 07-12-2011 Follow Up Appt 1 month Avtar Nicholson MD Start: 07-12-2011 End: 07-19-2011 Lipid panel [AGGREGATE] Avtar Nicholson MD Start: 07-12-2011 End: 07-22-2011 Mri brain w/o dye Avtar Nicholson MD Start: 07-12-2011 End: 07-19-2011 Thyroid stimulating hormone (TSH) Avtar Nicholson MD Anaerobic microbial culture Dr. Nelson Royal Work Phone: Anaerobic microbial culture Dr. Nelson Royal Work Phone: Anaerobic microbial culture Dr. Nelson Royal Work Phone: Bacterial culture Dr. Nelson Royal Work Phone: Colonoscopy DR SAMAN ESTES MD Comment on above: 01/2019, PRE-CANCEROU S POLYPS WILL REPEAT IN [address] SAMAN ESTES MD Investigation of tra nsfusion reaction Dr. Nelson Royal Work Phone: Investigation of tra nsfusion reaction Dr. Nelson Royal Work Phone: Investigation of tra nsfusion reaction Dr. Nelson Royal Work Phone: Microbial culture, routine D vidal Royal Work Phone: Microbial culture, routine D vidal Roayl Work Phone: Tendon repair by dis rah insertion DR SAMAN HRENANDEZ MD Comment on above: right ankle Plan of Treatment Date Care Activity Detail Author Start: 01-31-2027 Diabetes Screening Diabetes Screenin g [facility] Start: 04-02-2026 Urine microalbumin profile DTaP,Tdap,Td Vaccine (2 - Td or Tdap) [facility] Start: 05-01-2025 Screening for malign ant neoplasm of breast Mammogram Screening [facility] Start: 04-15-2025 End: 04-15-2025 Patient encounter procedure OB/Gynecology Comment on above: Annual Start: 04-12-2025 BP Controlled (<130/80) BP Controlle d (<130/80) [facility] Start: 04-09-2025 BP Controlled (<130/80) BP Controlle d (<130/80) [facility] Start: 03-19-2025 BP Controlled (<130/80) BP Controlle d (<130/80) [facility] Start: 03-14-2025 BP Controlled (<130/80) BP Controlle d (<130/80) [facility] Start: 02-06-2025 End: 02-06-2025 Patient encounter procedure 02/06/2025 1:30 PM EDT Office Visit OB/Gynecology [address] [place] [address] Celia Nava APRN.LEHR CUTTER [address] [place], [place] [address] WT MGT OB/Gynecology Comment on above: WT MGT Start: 01-31-2025 BP Controlled (<130/80) BP Controlle d (<130/80) [facility] Start: 01-30-2025 BP Controlled (<130/80) BP Controlle d (<130/80) [facility] Start: 01-28-2025 Influenza vaccination Influenz a Vaccine (Season Ended) [facility] Start: 12-20-2024 [facility] Start: 12-20-2024 [facility] Start: 10-31-2024 End: 10-31-2024 Patient encounter procedure 10/31/2024 3:00 PM EDT Office Visit OB/Gynecology [address] [place] [address] Cleia Nava, DRY CHAIN PULLER.LEHR CUTTER [address] [place], [place] [id number] wt mgmt f/up OB/Gynecology Comment on above: wt mgmt f/up Start: 10-03-2024 Hepatitis B Vaccine (2 of 3 - 19+ 3-dose series) Hepatitis B Vaccine (2 of 3 - 19+ 3-dose series) [facility] Start: 08-31-2024 End: 08-31-2024 Follow-up encounter 08/31/2024 10:00 AM EDT [facility] URO/Gynecology [address] [place] [address] Ebenezer Camarillo DRY CHAIN PULLER.LEHR CUTTER [address] [place] [address] follow up URO/Gynecology Comment on above: follow up Start: 08-08-2024 End: 08-08-2024 Patient encounter procedure 08/08/2024 3:00 PM EDT Office Visit OB/Gynecology [address] [place] [address] Celia Nava APRN.LEHR CUTTER [address] [place] [address] wt f/up OB/Gynecology Comment on above: wt f/up Start: 08-07-2024 End: 08-07-2024 Patient encounter procedure 08/07/2024 3:30 PM EDT Office Visit OB/Gynecology [address] [place] [address] Celia Nava DRY CHAIN PULLER.LEHR CUTTER [address] [place] [address] wt f/up OB/Gynecology Comment on above: wt f/up Start: 07-25-2024 End: 07-25-2024 Patient encounter procedure 07/25/2024 3:00 PM EST Office Visit OB/Gynecology [address] [place] [address] Celia Nava DRY CHAIN PULLER.LEHR CUTTER [address] [place] [address] wt mgmt f/up OB/Gynecology Comment on above: wt mgmt f/up Start: 06-15-2024 End: 06-15-2024 Patient encounter procedure 06/15/2024 4:00 PM EST Office Visit OB/Gynecology [address] [place] [address] Lilian Smith MD [address] [place] [address] Annual OB/Gynecology Comment on above: Annual Start: 05-15-2024 End: 05-15-2024 Patient encounter procedure 05/15/2024 3:00 PM EST Office Visit OB/Gynecology [address] [place] [address] Katiuska Rivera APRN.LEHR CUTTER [address] [place] [address] initial 12 wk phentermine OB/Gynecology Comment on above: initial 12 wk phente rmine Start: 05-04-2024 End: 05-04-2024 ambulatory 05/04/2024 10:00 AM EST [facility] URO/Gynecology [address] [place] [address] Ebenezer Camarillo DRY CHAIN PULLER.LEHR CUTTER [address] [place] [address] 4 months URO/Gynecology Comment on above: 4 months Start: 05-01-2024 End: 05-01-2024 Patient encounter procedure 05/01/2024 3:00 PM EST Appointment Mammogram [address] [place] [address] Encounter for screening mammogram for breast cancer [Z12.31] Mammogram Comment on above: Encounter for screen ing mammogram for breast cancer [Z12.31] Start: 04-27-2024 Mammography Mammogram Screening [facility] Start: 04-27-2024 Screening for malign ant neoplasm of breast Mammogram Screening [facility] Start: 04-20-2024 End: 04-20-2024 Patient encounter procedure 04/20/2024 11:30 AM EST Office Visit OB/Gynecology [address] [place] [address] Celia Nava APRN.LEHR CUTTER [address] [place] [address] wt mgmt f/u OB/Gynecology Comment on above: wt mgmt f/u Start: 04-17-2024 End: 04-17-2024 Patient encounter procedure 04/17/2024 4:00 PM EST Office Visit OB/Gynecology [address] [place], [place] [id number] Lilian Smith MD [address] [place] [id number] Annual OB/Gynecology Comment on above: Annual Start: 04-12-2024 End: 04-12-2024 Patient encounter procedure 04/12/2024 2:45 PM EST Office Visit OB/Gynecology [address] [place] [address] Laura Pathak APRN.LEHR CUTTER [address] [place] [address] Annual OB/Gynecology Comment on above: Annual Start: 03-14-2024 End: 03-14-2024 Patient encounter procedure 03/14/2024 3:00 PM EDT Office Visit OB/Gynecology [address] [place] [address] Celia Nava APRN.LEHR CUTTER [address] [place] [address] wt mgt F/up OB/Gynecology Comment on above: wt mgt F/up Start: 02-01-2024 End: 02-01-2024 Patient encounter procedure 02/01/2024 3:30 PM EDT Office Visit OB/Gynecology [address] [place] [address] Celia Nava APRN.LEHR CUTTER [address] [place] [address] WT MGMT OK PER ELIJAH OB/Gynecology Comment on above: WT MGMT OK PER GUTHR IE Start: 02-01-2024 End: 02-01-2024 ambulatory 02/01/2024 8:30 AM EDT Results Only [place] [facility] [address] [place] [address] [place] [facility] Start: 01-31-2024 End: 05-01-2024 25-hydroxyvitamin D3 [Mass/volume] in Serum or Plasma VITAMIN D 25 HYDROXY Lab Routine Malaise and fatigue Encounter for vitamin deficiency screening Class 2 severe obesity with serious comorbidity and body mass index (BMI) of 37.0 to 37.9 in adult, unspecified obesity type (HCC) Expected: 01/31/2024, Expires: 05/01/2024 [facility] Work Phone: Comment on above: Expected: 01/31/2024 , Expires: 05/01/2024 Start: 01-31-2024 End: 05-01-2024 Hemoglobin A1c in Blood HEMOGLOBIN A1C Lab Routine Screening for diabetes mellitus Class 2 severe obesity with serious comorbidity and body mass index (BMI) of 37.0 to 37.9 in adult, unspecified obesity type (HCC) Expected: 01/31/2024, Expires: 05/01/2024 [facility] Comment on above: Expected: 01/31/2024 , Expires: 05/01/2024 Start: 01-31-2024 End: 05-01-2024 Insulin [Units/volume] in Serum or Plasma INSULIN ASSAY BLOOD Lab Routine Screening for diabetes mellitus Class 2 severe obesity with serious comorbidity and body mass index (BMI) of 37.0 to 37.9 in adult, unspecified obesity type (HCC) Expected: 01/31/2024, Expires: 05/01/2024 [facility] Comment on above: Expected: 01/31/2024 , Expires: 05/01/2024 Start: 01-31-2024 End: 05-01-2024 Thyrotropin [Units/volume] in Serum or Plasma THYROID STIMULATING HORMONE Lab Routine Malaise and fatigue Screening for thyroid disorder Class 2 severe obesity with serious comorbidity and body mass index (BMI) of 37.0 to 37.9 in adult, unspecified obesity type (HCC) Expected: 01/31/2024, Expires: 05/01/2024 [facility] Comment on above: Expected: 01/31/2024 , Expires: 05/01/2024 Start: 01-31-2024 End: 01-31-2024 Patient encounter procedure 01/31/2024 1:00 PM EDT Office Visit OB/Gynecology [address] [place] [address] Celia Nava, DRY CHAIN PULLER.LEHR CUTTER [address] [place] [address] Class 2 obesity with body mass index (BMI) of 37.0 to 37.9 in adult, unspecified... OB/Gynecology Comment on above: Class 2 obesity with body mass index (BMI) of 37.0 to 37.9 in adult, unspecified... Start: 01-29-2024 Covid-19 Vaccine ( season) Covid-19 Vaccine ( season) [facility] Start: 01-29-2024 Covid-19 Vaccine () Covid-19 Vaccine () [facility] Start: 01-29-2024 Influenza vaccination Influenza Vacc ine (#1) [facility] Start: 01-02-2024 End: 01-02-2024 Patient encounter procedure 01/02/2024 3:00 PM EDT Office Visit Urogynecology [address] [facility] [address] [place] [address] Ebenezer Camarillo, DRY CHAIN PULLER.LEHR CUTTER [address] [place] [address] Cystocele, midline [N81.11] Urogynecology Comment on above: Cystocele, midline [ N81.11] Start: 05-30-2023 Behavioral Health Screening Behavioral Health Screening [facility] Start: 01-28-2023 Covid-19 Vaccine ( season) Covid-19 Vaccine () [facility] Start: 05-30-2022 Depression Assessment Depression Ass essment [facility] Start: 05-11-2022 Puncture aspiration abscess hematoma bulla/cyst PUNCTURE DRAINAGE OF LESION [facility] Start: 05-11-2022 Therapeutic prophylactic/dx injection subq/im THER/PROPH/DIAG INJ SC/IM [facility] Work Phone: Start: 05-11-2022 [facility] Work Phone: Start: 04-09-2022 Anes nrv/mus/tnd/fas c lower leg/ankle/foot nos ANESTH LOWER LEG SURGERY [facility] Start: 04-09-2022 Exc tumor soft tissu e leg/ankle subfasc 5 cm/> EXC LEG/ANKLE JAYESH DEP 5 CM/> [facility] Start: 04-09-2022 Repair complex scalp/arm/leg 2.6-7.5 cm CMPLX RPR S/A/L 2.6-7.5 CM [facility] Start: 04-09-2022 Repair complex scalp/arm/leg ea addl 5 cm/< CMPLX RPR S/A/L ADDL 5 CM/> [facility] Start: 04-09-2022 Patient discharge [facility] Start: 01-28-2022 Influenza vaccination INFLUENZA (#1) [facility] Start: 07-08-2021 COVID-19 VACCINE (3 - Booster for Moderna series) COVID-19 VACCINE (3 - Booster for Moderna series) [facility] Start: 03-13-2020 End: 03-13-2020 Telehealth Ancillary 03/13/2020 Telehealth Ancillary Genetics Sarah Roche, [place] [facility] [place] [address] [phone] [facility] [place] Start: 01-29-2020 FLU (#1) FLU (#1) [facility] Start: 2019 Pneumococcal Vaccine : 50+ (1 of 1 - PCV) Pneumococcal Vaccine: 50+ (1 of 1 - PCV) [facility] Start: 2019 SHINGRIX VACCINE (1 of 2) SHINGRIX VACCINE (1 of 2) [facility] Start: 10-04-2016 End: 10-04-2016 Appointment Appointment [facility] Work Phone: Start: 10-04-2016 End: 10-04-2016 Bacterica wound culture *Culture and Sensitivity, wound [facility] Work Phone: Start: 10-04-2016 End: 10-04-2016 Urinalysis complete panel - Urine [facility] Work Phone: Start: 07-19-2016 LIPID SCREEN LIPID SCREEN [facility] Start: 07-12-2016 Lipid 1996 panel - Serum or Plasma Lipid Screening [facility] Start: 07-12-2016 Lipid panel Lipid Screening [facility] Start: 2014 COLOGUARD (FIT-DNA) COLOGUARD (FIT-D NA) [facility] Start: 2014 Colonoscopy COLONOSCOPY [facility] Start: 2014 COLORECTAL CANCER SCREENING COLORECTAL CANCER SCREENING [facility] Start: [address] COLONOGRAPHY [facility] Start: 2014 DIABETES SCREEN DIABETES SCREEN [facility] Start: 2014 Diabetes Screening Diabetes Screenin g [facility] Start: 2014 FECAL OCCULT BLOOD FECAL OCCULT BLOO D [facility] Start: 2014 Screening for malign ant neoplasm of colon [facility] Start: 2014 SIGMOIDOSCOPY SIGMOIDOSCOPY [facility] Start: 08-11-2011 End: 08-11-2011 Follow Up Appt 6 months Follow Up Appt 6 months [facility] Work Phone: Start: 07-12-2011 End: 07-19-2011 *CMP Complete Metabolic Panel *CMP Complete Metabolic Panel [facility] Work Phone: Start: 07-12-2011 End: 07-19-2011 CBC W Auto Differential panel - Blood *CBC without Diff [facility] Work Phone: Start: 07-12-2011 End: 07-12-2011 Follow Up Appt 1 month Follow Up Appt 1 month [facility] Work Phone: Start: 07-12-2011 End: 07-19-2011 Lipid panel [AGGREGATE] *Lipid Profile [facility] Work Phone: Start: 07-12-2011 End: 07-22-2011 Mri brain w/o dye MRI Brain [facility] Work Phone: Start: 07-12-2011 End: 07-19-2011 Thyroid stimulating hormone (TSH) *TSH [facility] Work Phone: Start: 2009 Mammography [facility] Start: 1999 HPV TESTING HPV TESTING [facility] Start: 1990 Microscopic observat ion Cyto stain Nom (Cvx) Pap Smear [facility] Start: 1990 PAP TESTING PAP TESTING [facility] Start: 02-28-1988 Hepatitis B (1 of 3 - Risk 3-dose series) Hepatitis B (1 of 3 - Risk 3-dose series) [facility] Start: 02-28-1988 Hepatitis B Vaccine (1 of 3 - 19+ 3-dose series) Hepatitis B Vaccine (1 of 3 - 19+ 3-dose series) [facility] Start: 02-28-1988 Urine microalbumin profile DTAP,TDAP,TD (1 - Tdap) [facility] Start: 1987 Annual PCP Team [employer] braydon Disease Visit Annual PCP Team Chronic Disease Visit [facility] Start: 1987 Anxiety Screening Anxiety Screening [facility] Start: 1987 BP Controlled (<130/80) BP Controlle d (<130/80) [facility] Start: 1987 Creatinine measurement Serum Creatin ine [facility] Start: 1987 Depression Screening Depression Scre ening [facility] Start: 1987 HEPATITIS C SCREENING HEPATITIS C [facility] Start: 1987 Hepatitis C screening Hepatitis C [facility] Start: 1987 HIV SCREENING HIV SCREENING [facility] Start: 1987 HIV screening HIV Screening [facility] Start: 1985 MenB (1 of 2 - MenB 2-Dose Series) MenB (1 of 2 - MenB 2-Dose Series) [facility] Start: 1981 Adult depression screening assessment DEPRESSION SCREENING [facility] Start: 02-28-1976 Tetanus Diphtheria a nd Pertussis Vaccines (1 - Tdap) Tetanus Diphtheria and Pertussis Vaccines (1 - Tdap) [facility] Start: 1970 Hepatitis A (1 of 2 - Risk 2-dose series) Hepatitis A (1 of 2 - Risk 2-dose series) [facility] Start: 1970 MMR (1 of 1 - Standa rd series) MMR (1 of 1 - Standard series) [facility] Start: 1970 Varicella (1 of 2 - 2-dose childhood series) Varicella (1 of 2 - 2-dose childhood series) [facility] Start: 1969 Hepatitis B Vaccine (1 of 3 - 3-dose series) Hepatitis B Vaccine (1 of 3 - 3-dose series) [facility] Work [facility]: Bacteria identified in Unspecified specimen by Anaerobe culture [facility] Work Phone: Bacteria identified in Urine by Culture URINE CULTURE Microbiology Routine Dysuria 11/23/2023 4:33 PM EDT [facility] Work Phone: BACTERIAL VAGINOSIS NAAT BACTERIAL VAGINOSIS NAAT Lab Routine Vaginal itching 11/23/2023 4:33 PM EDT [facility] MICHAEL/TRICHOMONAS NAAT MICHAEL/TRICHOMONAS NAAT Lab Routine Vaginal itching 11/23/2023 4:33 PM EDT [facility] End: 05-12-2025 DBT Breast - bilateral screening JULISSA SCREENING W TOPHER Radiology Routine Encounter for screening mammogram for breast cancer 1 Occurrences starting 04/12/2024 until 05/12/2025 [facility] Work Phone: Comment on above: 1 Occurrences starti ng 04/12/2024 until 05/12/2025 DBT Breast - bilater al screening JULISSA SCREENING W TOPHER Radiology Routine Encounter for screening mammogram for breast cancer 05/01/2024 3:05 PM EST [facility] Work Phone: Fungus identified in Unspecified specimen by Culture YEAST SCREEN Microbiology Routine Itching in the vaginal area Ordered: 03/19/2024 [facility] Work Phone: Comment on above: Ordered: 03/19/2024 End: 02-12-2020 Genetic Sendout: CancerNext Panel with RNA testing Genetic Sendout: CancerNext Panel with RNA testing Lab Timed Family history of breast cancer Adenomatous polyp of ascending colon 1 Occurrences starting 02/12/2020 until 02/12/2020 [facility] Comment on above: 1 Occurrences starti ng 02/12/2020 until 02/12/2020 Genetic Sendout: CancerNext Panel with RNA testing Genetic Sendout: CancerNext Panel with RNA testing Lab Routine Family history of breast cancer Adenomatous polyp of ascending colon 02/12/2020 12:19 PM EDT [facility] JULISSA SCREENING W TOPHER JULISSA SCREENI NG W [facility] Radiology Routine Encounter for screening mammogram for breast cancer 04/27/2023 4:14 PM EST [facility] Work Phone: Microscopic observat ion [Identifier] in Unspecified specimen by Gram stain Gram Stain [facility] Work Phone: Patient Education [facility] Work Phone: Patient referral [facility] Work Phone: Wound Culture Wound Culture [facility] Immunization Date Immunization Notes Care Provider Fa cili 04-11-2023 influenza virus vaccine, unspecified formulation NELSON LELE DO [facility] 04-11-2023 influenza, injectabl e, quadrivalent, contains preservative Lilian Smith MD Work Phone: [facility] 02-05-2021 SARS-CoV-2 (COVID-19 ) mRNA-[address] SAMAN HERNANDEZ MD [facility] 01-08-2021 SARS-CoV-2 (COVID-19 ) mRNA-[address] SAMAN HERNANDEZ MD [facility] 01-17-2019 influenza virus vaccine, unspecified formulation NELSON ROYAL DO [facility] 01-17-2019 influenza, injectabl e, quadrivalent, preservative free Lilian Smith MD Work Phone: [facility] Work Phone: 02-07-2018 influenza virus vaccine, unspecified formulation NELSON LELE DO [facility] 02-07-2018 influenza, injectabl e, quadrivalent, preservative free Lilian Smith MD Work Phone: [facility] Work Phone: 01-19-2018 influenza virus vaccine, unspecified formulation NELSON HILTONSAY DO [facility] 01-19-2018 influenza, injectabl e, quadrivalent, preservative free Lilian Smith MD Work Phone: [facility] Work Phone: 04-02-2016 tetanus toxoid, reduced diphtheria toxoid, and acellular pertussis vaccine, adsorbed DR SAMAN HERNANDEZ MD [facility] 03-08-2014 measles, mumps and rubella virus vaccine Lilian Smith MD Work Phone: [facility] Work Phone: 03-08-2014 measles/mumps/rubell a virus vaccine DR SAMAN HERNANDEZ MD [facility] Payers Date Payer Category Payer Self-pay [id number] 2018 Private Health Insurance [id number] 2018 Unknown [id number] 2018 Unknown [id number] 2017 Unknown 2016 Unknown [id number] 1970 Unknown [id number] 2.16.8 [id number] 1970 Unknown [id number] 2.16.8 [id number] 1970 Unknown [id number] 2.16.8 [id number] 1970 Unknown [id number] 2.16.8 [id number] 1970 Unknown [id number] 2.16.8 [id number] Unknown [id number] 2.16.8 [id number] Unknown [id number] 2.16.8 [id number] Unknown [id number] 2.16.8 [id number] Unknown [id number] 2.16.8 [id number] Unknown [id number] 2.16.8 [id number] Unknown [id number] 2.16.8 [id number] Unknown [id number] 2.16.8 [id number] Unknown [id number] 2.16.8 [id number] Unknown [id number] 2.16.8 [id number] Social History Date Type Detail Facility Start: 02-12-2020 End: 12-20-2024 Tobacco smoking status NHIS Never smoker [facility] Start: 02-12-2020 End: 01-31-2024 Tobacco use and exposure Never used [facility] Start: 1970 Sex Assigned At Not on file A [facility] Start: 12-18-2021 End: 12-28-2021 Exposure to SARS-CoV-2 (event) Not sure [facility] Start: 1970 Sex Assigned At Female A [facility] Start: 09-13-2020 End: 11-22-2022 Tobacco smoking status TNIS Unknown if ever smoked [facility] Start: 09-13-2020 Spouse/ Signif icant Other [facility] Start: 06-08-2019 Non-smoker [facility] Start: 12-28-2021 End: 10-28-2023 Alcohol intake Current non-drinker of alcohol (finding) [facility] Start: 04-11-2023 End: 10-31-2024 History of Social function [facility] Start: 04-11-2023 End: 10-31-2024 Tobacco use panel [facility] National Score (1-100), lower number is lower risk 70 [facility] Start: 04-04-2023 Sexual orientation Heterosexual (fin ding) [facility] Start: 11-23-2023 End: 10-31-2024 Alcohol intake Ex-drinker (finding) [facility] Sexual Orientation [facility] Start: 11-22-2018 Sex Female (finding) [facility] NEGATED: Highlighted row [facility] Medical Equipment Procedure Code Equipment Code Equipment Original Text Equipment Identifier Dates Osteotomy 4.0X50 CANNULATED SCREW FDA S tart: 06-15-2019 Osteotomy 4.0X50 CANNULATED SCREW FDA S tart: 06-15-2019 Osteotomy 4.0X50 CANNULATED SCREW FDA S tart: 06-15-2019 Osteotomy 4.0X50 CANNULATED SCREW FDA S tart: 06-15-2019 Osteotomy 4.0X50 CANNULATED SCREW FDA S tart: 06-15-2019 Osteotomy 4.0X50 CANNULATED SCREW FDA S tart: 06-15-2019 Osteotomy 4.0X50 CANNULATED SCREW FDA S tart: 06-15-2019 Osteotomy 4.0X50 CANNULATED SCREW FDA S tart: 06-15-2019 Osteotomy 4.0X50 CANNULATED SCREW FDA S tart: 06-15-2019 Osteotomy 4.0X50 CANNULATED SCREW FDA S tart: 06-15-2019 Osteotomy 4.0X50 CANNULATED SCREW FDA S tart: 06-15-2019 Osteotomy 4.0X50 CANNULATED SCREW FDA S tart: 06-15-2019 Osteotomy 4.0X50 CANNULATED SCREW FDA S tart: 06-15-2019 Osteotomy 4.0X50 CANNULATED SCREW FDA S tart: 06-15-2019 Osteotomy 4.0X50 CANNULATED SCREW FDA S tart: 01-17-2020 Osteotomy 4.0X50 CANNULATED SCREW FDA S tart: 06-15-2019 Excision, mass Plant polysaccha ride haemostatic agent, bioabsorbable ()[id number] FDA Start: 04-09-2022 Excision, mass Plant polysaccha ride haemostatic agent, bioabsorbable ()[id number] FDA Start: 04-09-2022 Goals Date Patient Goal Desired Activity /State Functional Status Date Assessment Result Facility 04-03-2014 Are you deaf, or do you have serious difficulty hearing No 04/03/2014 11:04 AM Kyung Beal LPN No [facility] 04-03-2014 Are you blind, or do you have serious difficulty seeing, even when wearing glasses No 04/03/2014 11:04 AM Kyung Beal LPN No [facility] 04-03-2014 Do you have serious difficulty walking or climbing stairs No 04/03/2014 11:04 AM Kyung Beal LPN [facility] 04-03-2014 Do you have difficul ty dressing or bathing No 04/03/2014 11:04 AM Kyung Beal LPN [facility] 04-03-2014 Because of a physica l, mental, or emotional condition, do you have difficulty doing errands alone such as visiting a physician's office or shopping No 04/03/2014 11:04 AM Kyung Beal LPN [facility] Mental Status Date Assessment Result Facility 12-20-2024 Cognitive function Voice/Name [facility] Work Phone: 04-09-2022 Cognitive function Voice/Name;To [facility] Work Phone: 04-03-2014 Because of a physica l, mental, or emotional condition, do you have serious difficulty concentrating, remembering, or making decisions No 04/03/2014 11:04 AM Kyung Beal LPN No [facility] Clinical Notes 12-28-2021 to 02-13-2025 Celia Nava, DRY CHAIN PULLER.LEHR CUTTER - 10/31/2024 3:00 PM EDTPatient InstructionsTelephone Encounter - Rachel Guzman RN - 10/01/2024 9:29 AM EDTTelephone Encounter - Rachel Guzman RN - 10/01/2024 9:29 AM EDT Note Date & Type Note Facility 02-13-2025 Note HNO ID: [id number] Author: CELIA NAVA APRN.LEHR CUTTER Service: ? Author Type: Nurse Practitioner Type: Progress Notes Filed: 02/13/2025 19:48 Note Text: Some documentation from previous visit of 10/31/2024 was copied and pasted, documentation has been reviewed and edited as necessary for today's visit. Patient Summary: Meera is a 54 year old Female who presents for follow-up evaluation of obesity/weight management to treat and prevent related co-morbidities. In our previous visits we have discussed lifestyle intervention including a nutrition recommendations and physical activity optimization. Her last office visit was 3 months ago Assessment/plan from last visit: - Topiramate 50 mg tablet - with phentermine and 50 mg 7 pm - Migraine - none - Phentermine 15 mg - taking at 7 am Interval History PT specifies the following items as new or significant updates since the last appointment: Ex- 1 month ago. Daughter not coping well. Weight was under 200 and now 204 at home. Avoiding some of the processed meats. Torn tendon left forearm - recovered Weight loss since last vist: 1 lbs for total of 23 lbs Date: Weight: BMI: Medications: 02/13/2025 204 lb 35.47 10/31/2024 205 lb 35.64 08/08/2024 204 lb 35.47 07/25/2024 206 lb 35.82 topiramate 50 mg bid 05/15/2024 214 lb 37.21 04/20/2024 215 lb 37.38 03/14/2024 220 lb 37.93 02/25/2024 date started Phentermine 15 mg approval by PCP 01/31/2024 227 lb 39.14 Topiramate 5% weight loss = 216 lbs, 10% weight loss = 204 lbs Anti-obesity medications: Topiramate Benefit: decreased thoughts of food in the evening Adverse effects: Soda tasted terrible Phentermine Benefit: decrease in appetite Adverse effects: dry mouth, cavities - Xylitol mouth drops and gum. Weight promoting medications: Escitalopram 10 mg - has seen no weight gain Previous Diet (initial appointment): Pepsi or Mt Dew - 5 cans from 10 am to 8 pm Awake - 0700 B - 0730 20 or 30 gm Equate shake S - none or Lidia Doones 4 pack and pepsi or Mt Dew L - SKIP S - Pepsi or Mt Dew occasionally chips if at home D - 6 pm Roast, carrots, potato or unbreaded shrimp/lobster with rice or soft shell taco with meat, lettuce, tomato, cheese, sour cream S - berries/chips/carrots and dip/occasional ice cream Fluids: Pepsi or Mt Dew - 5 cans from 10 am to 8 pm Bedtime - 11 pm Quality of diet: 24hr recall suggests healthy/unhealthy diet. Characterization of diet:Structured, structured/Unstructured, unhealthy snacking, evening snacking, increased consumption of sugar sweetened beverages, and skip meals. 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 eating habits:mindlessness, boredom, and stress Eating Disorder no Cravings: Pepsi/Mt Dew, candy bar Dietary changes: 270849+CKD Awake - 0630 - 7:00 AM: 30g protein shake. - 10:00 AM: Snack. - 12:30 PM: 17g protein tuna packet. - 1:30 PM: Protein shake with a handful of fruit (grapes or watermelon) or nuts (almonds or peanuts). - 6:00 PM: Dinner consisting of roast shrimp, lobster, chicken, pork, carbs (potato, rice, noodles), and a low-carb vegetable. Sometimes has soft tacos using regular tortillas. - 7:00 PM: After-dinner snack of Tostito chips and salsa. Fluids - water, unsweet tea, protein shakes Bedtime - 11 pm Current Barriers: emotional eating and inadequate sleep duration Exercise: - Reports no exercise other than chasing the little ones around. Stress: increased - Recently started counseling, has had four sessions so far and finds them helpful. - Fostering two children, aged 2 and 3, who are now permanently adopted into her home. - Ex- unexpectedly about a month ago at the age of 55 due to a heart attack.- Daughter, aged 32, is not coping well with the loss. Sleep: - Reports poor sleep, getting about 6-7 hours of sleep per night. - Takes about 30 minutes to fall asleep and wakes up around 2:00-2:30 AM, taking another 30-45 minutes to fall back asleep. - Attributes sleep disturbances to a constant mind, thinking about ways to help her daughter through the recent loss. - Has discussed these issues with her counselor but has not focused on sleep improvement strategies yet. CrCl cannot be calculated (No successful lab value found.). PAST MEDICAL HISTORY Diagnosis Date Abnormal glandular Papanicolaou smear of cervix 03/02/2004 @[facility] Anxiety state ASCUS with positive high risk HPV cervical 2002 @[facility] BRCA negative CKD (chronic kidney disease) stage 2, GFR 60-89 ml/min Essential hypertension GERD (gastroesophageal reflux disease) HSV-2 (herpes simplex virus 2) infection 2010 culture @[facility] Hyperlipidemia Incontinence of urine LGSIL on Pap smear of cervix 11/27/2004 @[facility] Migraine, intractable Mitral valve disorders(424.0) Undiagnosed cardiac murmurs Vitamin D deficiency Current Outpatient Medications Medication Sig Dispense Refill valACYclovir (VA (more content not included)... [facility] 12-20-2024 Radiology Diagnostic study note [facility] Imaging Services [address], [place] [address] Chest PA and Lateral MR#: [id number] Acct: [id number] Name: MEERA MELÉNDEZ Rep #: [id number] : 1970 F 54 From: Adri Harris MD PCP: Dr. Nelson Royal, Status: PRE ER Study:Chest PA and Lateral Date of Exam: 12/20/24 Exam# [id number] Ordering Dr: Meera Guillen PROCEDURE: CHEST PA AND LATERAL 12/20/2024 REASON FOR EXAM: CHEST PAIN TECHNIQUE: CHEST PA AND LATERAL COMPARISON: Chest radiograph 03/23/2019 FINDINGS: Hardware: None Heart: The heart size is normal. Mediastinum: The mediastinal contour is unremarkable. Lungs: No focal consolidation or pleural effusion. Bones: unremarkable RAD/Chest PA and Lateral IMPRESSION: No acute cardiopulmonary abnormality. Reading Location: [id number] CC: Dr. Nelson Royal DO; PEDRO Palacios ~ Design Draftsman: Signed [facility] 10-31-2024 History of Presen t illness Narrative Some documentation from previous visit of 08/08/2024 was copied and pasted, documentation has been reviewed and edited as necessary for today's visit. Patient Summary: Meera is a 54 year old Female who presents for follow-up evaluation of obesity/weight management to treat and prevent related co-morbidities. In our previous visits we have discussed lifestyle intervention including a nutrition recommendations and physical activity optimization. Her last office visit was 3 months ago Assessment/plan from last visit: - Topiramate 50 mg tablet - with phentermine and 50 mg 7 pm Migraine - none - Phentermine 15 mg - taking at 7 am Interval History PT specifies the following items as new or significant updates since the last appointment: Lost friend after short illness with cervical cancer and lost focus on nutrition with stress eating for a while. Avoiding some of the processed meats. Torn tendon left forearm - in cast for 3-4 weeks Weight loss since last vist: +1 lbs for total of 22 lbs Date: Weight: BMI: Medications: 10/31/2024 205 lb 35.64 08/08/2024 204 lb 35.47 07/25/2024 206 lb 35.82 topiramate 50 mg bid 05/15/2024 214 lb 37.21 04/20/2024 215 lb 37.38 03/14/2024 220 lb 37.93 02/25/2024 date started Phentermine 15 mg approval by PCP 01/31/2024 227 lb 39.14 Topiramate 5% weight loss = 216 lbs, 10% weight loss = 204 lbs Anti-obesity medications: Topiramate Benefit: decreased thoughts of food in the evening Adverse effects: Soda tasted terrible Phentermine Benefit: decrease in appetite Adverse effects: dry mouth, cavities - Xylitol mouth drops and gum. Weight promoting medications: Escitalopram 10 mg - has seen no weight gain Previous Diet (initial appointment): Pepsi or Mt Dew - 5 cans from 10 am to 8 pm Awake - 0700 B - 0730 20 or 30 gm Equate shake S - none or Lidia Doones 4 pack and pepsi or Mt Dew L - SKIP S - Pepsi or Mt Dew occasionally chips if at home D - 6 pm Roast, carrots, potato or unbreaded shrimp/lobster with rice or soft shell taco with meat, lettuce, tomato, cheese, sour cream S - berries/chips/carrots and dip/occasional ice cream Fluids: Pepsi or Mt Dew - 5 cans from 10 am to 8 pm Bedtime - 11 pm Quality of diet: 24hr recall suggests healthy/unhealthy diet. Characterization of diet:Structured, structured/Unstructured, unhealthy snacking, evening snacking, increased consumption of sugar sweetened beverages, and skip meals. 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 eating habits:mindlessness, boredom, and stress Eating Disorder no Cravings: Pepsi/Mt Dew, candy bar Dietary changes: 294153+CKD Awake - 0630 B - 0700 30 gm protein shake and 1 egg S - 10 am Yoplait protein yogurt L - 1230 1 tuna packet 17 g S - 1330 1/2 shake and fruit - grapes/elizabeth/pineapple/berr ies or watermelon D - 6 pm Protein Roast/shrimp/lobster/chicken/por k and potato/rice/noodles/crm soup and LC veg soft tacos with regular tortilla - regular spaghetti noodles small portion S - 7 pm 1/2 shake with medication and occasional fruit Fluids - water, unsweet tea, protein shakes Bedtime - 11 pm Current Barriers: emotional eating and inadequate sleep duration Exercise: Increased Regular exercise: 30 min 3 times a week Strength/resistance exercise:yes Barriers to regular exercise? Yes- lower back- cannot lift over 15 pounds Work-related activity:Sedentary. Gym Membership: no Activity Tracker: yes- Apple watch- encouraged to wear Stress: increased Personal- passing of friend, fostering Sleep: stable 7 hours but disrupted with increased stress CrCl cannot be calculated (No successful lab value found.). PAST MEDICAL HISTORY Diagnosis Date Abnormal glandular Papanicolaou smear of cervix 03/02/2004 @[facility] Anxiety state ASCUS with positive high risk HPV cervical 2002 @[facility] BRCA negative CKD (chronic kidney disease) stage 2, GFR 60-89 ml/min Essential hypertension GERD (gastroesophageal reflux disease) HSV-2 (herpes simplex virus 2) infection 2010 culture @[facility] Hyperlipidemia Incontinence of urine LGSIL on Pap smear of cervix 11/27/2004 @[facility] Migraine, intractable Mitral valve disorders(424.0) Undiagnosed cardiac murmurs Vitamin D deficiency Current Outpatient Medications Medication Sig Dispense Refill valACYclovir (VALTREX) 500 mg tablet Take 1 tablet by mouth once daily. 90 tablet 2 estradiol 0.01% estriol 0.01% cream (CPD) 4 clicks/1 gram per vaginal twice weekly. 30 g 3 Phentermine HCl 15 mg capsule Take 1 capsule by mouth daily before breakfast for 90 days. 90 capsule 0 topiramate (TOPAMAX) 50 mg tablet Take 1 tablet by mouth two times a day. 180 tablet 1 atorvastatin (LIPITOR) 20 mg tablet Take 20 mg by mouth once daily. celecoxib (CELEBREX) 200 mg capsule TAKE 1 CAPSULE BY MOUTH TWICE A DAY NEEDED FOR SEVERE PAIN escitalopram oxalate (LEXAPRO) 5 mg tablet Take 10 mg by mouth once daily. fluticasone (FLONASE) 50 mcg/actuation nasal spray Use 1 [place] in the nose once daily. rimegepant (NURTEC ODT) 75 mg disintegrating tablet Take 75 mg by mouth once daily as needed. rizatriptan (MAXALT) 10 mg tablet Take 10 mg by mouth as needed for migraine headache (see administration instructions). solifenacin (VESICARE) 5 mg tablet Take 5 mg by mouth once daily. valsartan (DIOVAN) 80 mg tablet Take 80 mg by mouth once daily. cholecalciferol (VITAMIN D3) 50 mcg (2,000 unit) tablet Take 2,000 Units by mouth once daily. ALPRAZolam (XANAX) 0.25 mg tablet Take 0.25 mg by mouth once daily as needed. esomeprazole mag trihydrate(NEXIUM 40 MG CAP) Take 40 mg by mouth once daily. DO NOT CRUSH 0 No current facility-administered medications for this visit. 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 No distress. Results: reviewed with the patient 06/30/2024 Outside labs CBC WNL FBG 90 BUN 9 Creat 0.93 GFR 63 Hgba1c 5.6 Lipids Total 146 Trig 121 HDL 51 LDL 71 TSH 1.08 06/29/2023 Outside labs CBCD WNL CMP GLUC 90 BUN 10 Creat 0.87 GFR 68 Lipids Total 189 Trig 121 HDL 58 LDL 107 - taking Lipitor Vitamin D 25 Hydroxy Date Value Ref Range Status 02/01/2024 31.7 31.0 - 80.0 ng/mL Final Comment: Classification of 25 [place] Vitamin D status: Deficiency/Insufficiency: < or = 30 ng/ml. Sufficiency/Optimal Levels: 31-80 ng/mL Toxicity: > 100 ng/mL. Test performed by chemiluminescent immunoassay. TSH (mIU/L) Date Value 02/01/2024 2.240 Hemoglobin A1C (%) Date Value 02/01/2024 5.4 Insulin Date Value Ref Range Status 02/01/2024 19.5 3.0 - 25.0 mU/L Final Anti-Obesity Medications >Phentermine: No uncontrolled HTN, - well-controlled on valsartan. No CVD Hx or hx of seizure disorder. palpitations/cardiac arrhythmia, Chest pain: yes Valve disorder/murmur - has been evaluated by 2 different cardiologists.?anxiety No MAOI inhibitor use. No drug abuse hx. Crcl > 15. >Topiramate/zonisamide: No seizure, kidney stone or glaucoma hx. Has hx of migraines, No hx of poor sleep. Not of Child bearing age - hysterectomy >Qsymia: see above >Contrave: No uncontrolled HTN or hx of seizure disorder. No MAOI inhibitor use. No opiate use. >Saxenda/Wegovy/Ozempic: Cost. Ins coverage? >Metformin: eGFR > 30. No contraindications or medication interactions. Assessment/Plan: Meera Meléndez is a 54 year old yo with Class II obesity who presented today for follow up for supervised weight loss to treat and prevent related co-morbidities. 1. Essential hypertension - ICD9: 401.9, ICD10: I10 (primary diagnosis) - well-controlled with valsartan - Whole food balanced protein low-carb nutrition - TOPIRAMATE 50 MG TABLET - PHENTERMINE 15 MG CAPSULE 2. Gastroesophageal reflux disease, unspecified whether esophagitis present - ICD9: 530.81, ICD10: K21.9 - esomeprazole 40 mg - Whole food balanced protein low-carb nutrition - TOPIRAMATE 50 MG TABLET - PHENTERMINE 15 MG CAPSULE 3. Hyperlipidemia, unspecified hyperlipidemia type - ICD9: 272.4, ICD10: E78.5 - atorvastatin - Whole food balanced protein low-carb nutrition - TOPIRAMATE 50 MG TABLET - PHENTERMINE 15 MG CAPSULE 4. CKD (chronic kidney disease) stage 2, GFR 60-89 ml/min - ICD9: 585.2, ICD10: N18.2 - Encouraged fresh meats and whole food nutrition. Discussed plant protein options and encouraged kidney friendly foods. Reinforced avoidance of processed meats including walker and meat sticks 5. Depression with anxiety - ICD9: 300.4, ICD10: F41.8 - well-controlled with escitalopram 10 mg and prn alprazolam 6. Vitamin D deficiency - ICD9: 268.9, ICD10: E55.9 - daily Vit D3 2000 7. Intractable migraine with aura with status migrainosus - ICD9: 346.03, ICD10: G43.111 - prn Nurtec and Maxalt - TOPIRAMATE 50 MG TABLET 8. Class 2 severe obesity with serious comorbidity and body mass index (BMI) of 37.0 to 37.9 in adult, unspecified obesity type (HCC) - ICD9: 278.01, V85.37, ICD10: E66.01, Z68.37 Weight increased - TOPIRAMATE 50 MG TABLET - twice a day - PHENTERMINE 15 MG CAPSULE - started 02/25/2024 with approval by PCP Dr. Royal Patient has met the weight loss requirement of 5% TBW in initial 3 months using phentermine without any adverse side effects. Pt has responded well and would like to continue use for weight management. She understands that continued use is off label for buttermaker management of weight control. The patient is currently enrolled in a diet and exercise program The patient has no known history of contraindications The patient is free from drug or ETHO abuse The patient is not or and is aware not to become while using this medication OARS was reviewed. PDMP website checked and validated. All prescriptions have been APPROPRIATELY filled. No suspicious activity was identified. -- Continue - Whole food balanced protein low-carb nutrition. Discussed plant protein options and encouraged kidney friendly foods. Is avoiding processed meats. Also discussed gradually switching to unsalted nuts. -Encouraged to avoid grazing and shown how to instead eat larger meals with adequate protein. - Given protein/whole food vegetable and fruit/high protein snack lists. - Given information on protein, carbs and processed versus Whole Foods -- Encouraged the patient to improve her physical activity. An overall goal of 150-200 minutes per week of exercise has been effective in weight loss and maintenance. Prescription instructions reviewed with patient as applicable. Potential red flag symptoms discussed with the patient. Reviewed appropriate action plan to take if red flag symptoms occur. Patient agreeable to treatment plan. Follow-up in 3 months. Celia Nava CNP Advanced Education from the [employer] Medical Decision Making: Problems: Moderate: 1+ chronic illnesses with change and 2+ stable chronic illnesses Risk: Moderate: Drug management and Moderate risk from testing/treatment Medical Decision Making Level: 4 - Moderate documented in this encounter [facility] 10-31-2024 Note HNO ID: [id number] Author: CELIA NAVA APRN.ZINA Service: ? Author Type: Nurse Practitioner Type: Progress Notes Filed: 10/31/2024 18:05 Note Text: Some documentation from previous visit of 08/08/2024 was copied and pasted, documentation has been reviewed and edited as necessary for today's visit. Patient Summary: Meera is a 54 year old Female who presents for follow-up evaluation of obesity/weight management to treat and prevent related co-morbidities. In our previous visits we have discussed lifestyle intervention including a nutrition recommendations and physical activity optimization. Her last office visit was 3 months ago Assessment/plan from last visit: - Topiramate 50 mg tablet - with phentermine and 50 mg 7 pm Migraine - none - Phentermine 15 mg - taking at 7 am Interval History PT specifies the following items as new or significant updates since the last appointment: Lost friend after short illness with cervical cancer and lost focus on nutrition with stress eating for a while. Avoiding some of the processed meats. Torn tendon left forearm - in cast for 3-4 weeks Weight loss since last vist: +1 lbs for total of 22 lbs Date: Weight: BMI: Medications: 10/31/2024 205 lb 35.64 08/08/2024 204 lb 35.47 07/25/2024 206 lb 35.82 topiramate 50 mg bid 05/15/2024 214 lb 37.21 04/20/2024 215 lb 37.38 03/14/2024 220 lb 37.93 02/25/2024 date started Phentermine 15 mg approval by PCP 01/31/2024 227 lb 39.14 Topiramate 5% weight loss = 216 lbs, 10% weight loss = 204 lbs Anti-obesity medications: Topiramate Benefit: decreased thoughts of food in the evening Adverse effects: Soda tasted terrible Phentermine Benefit: decrease in appetite Adverse effects: dry mouth, cavities - Xylitol mouth drops and gum. Weight promoting medications: Escitalopram 10 mg - has seen no weight gain Previous Diet (initial appointment): Pepsi or Mt Dew - 5 cans from 10 am to 8 pm Awake - 0700 B - 0730 20 or 30 gm Equate shake S - none or Lidia Doones 4 pack and pepsi or Mt Dew L - SKIP S - Pepsi or Mt Dew occasionally chips if at home D - 6 pm Roast, carrots, potato or unbreaded shrimp/lobster with rice or soft shell taco with meat, lettuce, tomato, cheese, sour cream S - berries/chips/carrots and dip/occasional ice cream Fluids: Pepsi or Mt Dew - 5 cans from 10 am to 8 pm Bedtime - 11 pm Quality of diet: 24hr recall suggests healthy/unhealthy diet. Characterization of diet:Structured, structured/Unstructured, unhealthy snacking, evening snacking, increased consumption of sugar sweetened beverages, and skip meals. 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 eating habits:mindlessness, boredom, and stress Eating Disorder no Cravings: Pepsi/Mt Dew, candy bar Dietary changes: [id number] Awake - 0630 B - 0700 30 gm protein shake and 1 egg S - 10 am Yoplait protein yogurt L - 1230 1 tuna packet 17 g S - 1330 1/2 shake and fruit - grapes/elizabeth/pineapple/berr ies or watermelon D - 6 pm Protein Roast/shrimp/lobster/chicken/por k and potato/rice/noodles/crm soup and LC veg soft tacos with regular tortilla - regular spaghetti noodles small portion S - 7 pm 1/2 shake with medication and occasional fruit Fluids - water, unsweet tea, protein shakes Bedtime - 11 pm Current Barriers: emotional eating and inadequate sleep duration Exercise: Increased Regular exercise: 30 min 3 times a week Strength/resistance exercise:yes Barriers to regular exercise? Yes- lower back- cannot lift over 15 pounds Work-related activity:Sedentary. Gym Membership: no Activity Tracker: yes- Apple watch- encouraged to wear Stress: increased Personal- passing of friend, fostering Sleep: stable 7 hours but disrupted with increased stress CrCl cannot be calculated (No successful lab value found.). PAST MEDICAL HISTORY Diagnosis Date Abnormal glandular Papanicolaou smear of cervix 03/02/2004 @[facility] Anxiety state ASCUS with positive high risk HPV cervical 2002 @[facility] BRCA negative CKD (chronic kidney disease) stage 2, GFR 60-89 ml/min Essential hypertension GERD (gastroesophageal reflux disease) HSV-2 (herpes simplex virus 2) infection 2010 culture @[facility] Hyperlipidemia Incontinence of urine LGSIL on Pap smear of cervix 11/27/2004 @[facility] Migraine, intractable Mitral valve disorders(424.0) Undiagnosed cardiac murmurs Vitamin D deficiency Current Outpatient Medications Medication Sig Dispense Refill valACYclovir (VALTREX) 500 mg tablet Take 1 tablet by mouth once daily. 90 tablet 2 estradiol 0.01% estriol 0.01% cream (CPD) 4 clicks/1 gram per vaginal twice weekly. 30 g 3 Phentermine HCl 15 mg capsule Take 1 capsule by mouth daily before breakfast for 90 days. 90 capsule 0 topiramate (TOPAMAX) 50 mg tablet Take 1 tablet by mouth two times a day. 180 tablet 1 atorvastatin (LIPITOR) 20 mg tablet Take 20 mg by mouth once daily. celecoxib (CELEBREX) 200 mg capsule TAKE 1 CAPSULE BY (more content not included)... [facility] 10-29-2024 Instructions Celia Nava, DRY CHAIN PULLER.LEHR CUTTER - 10/29/2024 8:42 PM EDT Awake - 0630 B - 0700 30 gm protein shake and 1 egg S - none L - 1230 1 tuna packet 17 g and Yoplait protein yogurt and fruit - grapes/elizabeth/pineapple/berr ies or watermelon S - none D - 6 pm Protein Roast/shrimp/lobster/chicken/por k and potato/rice/noodles/crm soup and LC veg soft tacos with regular tortilla - regular spaghetti noodles small portion and occasional fruit S - none or last snack by 8 pm and only protein Bedtime 11 pm Fluids - water, unsweet tea, protein shakes - Whole food balanced protein, controlled carbohydrate nutrition plan - 30 g of protein 3 times a day and up to 30 g of carbs at lunch and dinner only. 1st meal of the day- 30g protein with limit of 2 gm carbohydrates. Premier Protein or generic 30 gm protein 1 gm sugar 2. 2-3 eggs and some unbreaded meat and/or cheese. 3. 2-3 eggs and 1/2 of protein shake or one of the yogurts below: :ratio, KETO Friendly Dairy Snack 1 single svg - 15g protein & 2g carb Two Good Lowfat Armenian Yogurt, Lower Sugar - 12g protein & 2g carb No fruit, vegetables, bread, grain, other brands of yogurt, Smoothies, etc. Lunch and dinner - 30 gm protein is the goal with less than 30 gm carbohydrates All snacks and meals - all protein or more protein than carbs - Eat only fresh meat. Chicken Fish, eggs. Beef a couple of times a week. No preserved or processed meats such as meat sticks, pepperoni, lunch meat, salami, jerky. - limit salt to 2 gm/day Salt substitute is primarily potassium. Can do 1:1 ratio for recipes and on food since your lab values are both WNL. Protein - no carbs Egg 1 large - 6g Egg white 1 large 3.6g 3 oz is approximately the size of a deck of cards and equals 21 g protein so 4 oz is 28 gm protein Beef, Chicken, [place], Pork, [place] 1 oz 7g Fish, Tuna Fish 1 oz 7g (Starkist tuna packet 2.6 oz 17 gm protein) Seafood (Crabmeat, Shrimp, Lobster) 1 oz 6g Protein shakes (read labels) Premier Protein or generic [employer] Equate, Meijer High Performance- 30g protein & 1g carb - meal replacement Premier Protein powder or generic- 30 g protein, 1g carb Fairlife 30 gram protein - 30g protein & 3g carb BOOST Glucose Control Max 30g Protein Nutritional Drink - 30g protein & 1 carb - meal replacement Slimfast High Protein - 20g protein & 1g carb Ensure Max Protein Nutrition Shake 30g protein & 2 carb OWYN plant based 100 % vegan no dairy, soy, wheat/gluten 32g protein 0 net carb (not a meal replacement) Premier Protein plant protein powder - 25g protein, 0 sugar/2g carb Vanilla and chocolate (not a meal replacement) Protein AND carbs Imitation Crab Meat 1 oz - 2g protein & 4g carb Milk, skim 2% or 1% 8 oz - 8g protein & 12g carb Fairlife 2% milk 8 oz -13g protein & 6g carb Armenian yogurt Full Fat Armenian Yogurt 1 cup - 20.4g protein & 9.1g carb 2% Armenian Yogurt 1 cup - 22.7g protein & 9.1g carb 0% (fat-free) Armenian Yogurt - 1 cup 24g protein & 9.3g carb Aldi Protein Armenian yogurt single svg - 13/g15g protein & 7g carb Chobani Zero Sugar single svg: - 12g protein & 5g carb Dannon Armenian Light + Fit 1 single svg - 12g protein & 9g carb Oikos Pro single svg - 20g protein & 8g carb Oikos Triple Zero Armenian Nonfat Yogurt 1 single svg - 15g protein & 7g carb :ratio, KETO Friendly Dairy Snack 1 single svg - 15g protein & 2g carb :ratio Protein 1 single svg - 25g protein & 8g carb Two Good Lowfat Armenian Yogurt, [place], Lower Sugar - 12g protein & 2g carb Yoplait Protein 1 single svg 15g protein & 5g carb Dairy Free - [place] unsweetened Armenian almond/soy 15g protein & 3g carb Dairy Free - True Goodness by Claudia coconut-based yogurt alternative 1 g protein 1 g net carb 180 charlene Drinkable yogurts: Chobani drinkable 15g, 20g and 30g protein & 18 carb (too many carbs for breakfast) Chobani Zero Sugar 10g protein 6g carbs 50 calories Oikos Pro drinkable yogurt 1 single svg - 23g protein & 8g carb :ratio Protein 26g protein 9g carb Cheese each oz Brie 5.9g protein & 0.1g carb Cheddar 7g protein & 0.4g carb Tad 6.7g protein & 0.7g carb Cream Cheese 1.7g protein & 1.2g carb Waynaut whipped Armenian cream cheese (WM) 2 T 3g protein 2g carb Feta 4g protein & 1.2g carb Mozzarella 6.3g protein & 0.6g carb Parmesan 10g protein & 0.9g carb [place] 7.6g protein & 1.5g carb Cottage Cheese 1/2 c Breakstone 2% 13g protein 7g carb Yaquelin 2% 13g protein 5 g carb Good Culture 2% 14g protein 3g carb Lactaid 13g protein 5g carb Mancia s Low Fat 12g protein & 4g carb Legumes Lentils cup 9g protein & 20g carb Hall beans cup 7g protein & 20g carb Kidney, Black, [place], Cannellini beans cup 8g protein & 20g carb Chickpeas 1/2 c 6g protein & 15g carb Soybeans 1/2 c 14g complete protein & 8.5g carb [place] milk, unsweetened 8 oz 1g protein & 2g carb Soy milk 8 oz 3.5g protein & 1.6g carb Tofu 1/2 cup 10g protein & 2.3g carb Peanut butter, natural 2 Tbsp 7-8g protein & 4g net carbs, 190 calories PB2 powder 2 Tbsp 6g protein & 5g carb Nuts and Seeds per oz Almonds - 5.9g protein & 6.1g carb [place] Nuts - 4.0g protein & 3.4g carb Cashews - 5.1g protein & 9.2g carb Hazelnuts - 4.2g protein & 4.7g carb Hemp seeds/hearts 3 T/30 gms - 9.5 gm complete protein and 2.5 gm carb Peanuts - 7g protein & 4.6g carb Pecans - 2.6g protein & 3.9g carb Pistachios - 5.8g protein & 7.8g carb Pumpkin Seeds - 6.9g protein & 5g carb [place] Seeds - 5.8g protein & 5.6g carb Walnuts - 4.3g protein & 3.8g carb Edamame Beans (soybean) snack 1 pack 11 gm complete protein 2 carb 5 (FIVE) gram carb vegetable options 1 cup raw OR cup cooked: Asparagus [place] sprouts Beets Broccoli Brussel sprouts Cabbage Carrots Cauliflower Celery [place] Eggplant Green beans Lettuce Peppers Snap peas Spaghetti squash Spinach Tomato Turnips Zucchini 15 gram carb vegetable options cup cooked corn or hominy corn on the cob, large (5 oz) cup cooked green peas 4.3 gm complete protein cup cooked hall beans 1 small potato or sweet potato cup cooked potato, plain cup cooked sweet potato, plain 1 cup winter squash (pumpkin, acorn, butternut) 1 cup marinara or pasta sauce - check label cup tomato juice cup tomato puree Beans, Seeds, Nuts cup cooked beans (kidney, ragland, red, green, etc.) cup cooked lentils cup baked beans 4 tablespoons nut butter <15 gram carb fruit options Berries have the lowest sugar content 1/2 medium apple - 12.5 carbs 1/2 medium avocado - 6.5 gm carbs 1/2 medium banana - 15 carbs 1/2 cup blueberries - 11 carbs - may actually help you lose weight 1/2 cup fresh cherries -11 carbs 1 medium Elizabeth -9 carbs 1/2 cup fresh cranberries - 6.5 carbs 1/2 c grapes - 15 carbs 1/2 medium grapefruit - 10.5 carbs 1/2 cup diced honeydew melon - 8 carbs 1 medium kiwi without skin - 11 carbs 1/2 cup sliced michael -14 carbs 1 medium nectarine - 15 carbs 1 medium orange -15.5 carbs 1 medium peach -14.5 carbs 1/2 cup fresh pineapple -11 carbs 1 medium plum -7.5 carbs 1 prune - 6 carbs 1/4 c raisins - 31.25 carbs 1/2 cup raspberries -7.5 carbs 1/2 c strawberries - 12.7 carbs 1 medium tangerine -12 carbs 1/2 cup diced watermelon - 6 carbs Grains Brown rice 1/2 c 5.5g protein 24 carb White long-grain rice 1/2 c 2g protein 22.5 carb Quinoa 1/2 c 4 gm complete protein 25 carb Oatmeal, old fashioned 1/2 c 5g protein 27g carb High Protein Snack Ideas 1. Jerky 2. [place] mix without dried fruit 3. [place] roll-ups 4. Armenian yogurt 5. Veggies and yogurt dip 6. Tuna 7. Hard-boiled eggs 8. Peanut butter with celery 9. Cheese slices/ Cheese Stick 10. Handful of almonds, peanuts or walnuts 11. Cottage Cheese 12. Beef sticks 13. Protein bars 14. Canned [place] 15. Pumpkin seeds 16. Nut butter 17. Protein shake or protein bar 18. Avocado and chicken salad 19. Egg muffins 20. Leftover protein or lunch meat 21. 1/2 c blended cottage cheese or Armenian yogurt with dry ranch/Mrs. Dash/herb seasoning mix to make protein dip- add raw veg 22. 1/2 c blended cottage cheese with 1 Tbsp sugar-free dry cheesecake pudding mix 12g protein 10 carb 23. Pudding - 1 30 gm protein shake with 1/2 pkg sugar-free pudding 4 svgs - 7.8 gm protein, 5 carb each svg 24. SF Sunkist or Root Beer with 1-2 Tablespoons heavy whipping cream 25. Mini frozen dessert bites - layer protein yogurt, skinny syrup and crushed nuts and freeze 26. Edamame Beans (soybean) snack 1 pack (O Beans) 11 gm complete protein 2 carb Why Is Protein So Important for Weight loss? consuming more protein not only reduces body weight but enhances body composition by decreasing fat mass while preserving fat-free mass During weight loss phase protein consumption (with normal kidney function) should be 1-1.6g protein per Kilogram of body weight (1kg=2.2lbs) On average Women need to Aim for a minimum 90g protein per day Consuming higher protein can also prevent weight regain after weight loss Protein consumption increases hormones responsible for satiety (feeling full)- these include Gut hormones like Glucagon-like peptide-1 (GLP-1), Cholecystokinin (CCK), Peptide Tyrosine-Tyrosine (PYY) and decreasing the Gut hormone responsible for causing hunger Ghrelin Protein has an increased thermogenesis effect of food- which means it take more calories to break down protein when consumed compared to carbohydrates or fats Protein also prevents a losing lean mass during weight loss (lose more fat and preserve fat free mass) which helps to increase resting energy expenditure (resting metabolic rate) Every pound of muscle villalpando ~ 6 kcal per pound/day vs fat villalpando ~ 2kcal per pound/day Carbohydrates - Why do You Crave Them? Eating too many refined carbohyrdates (sugar beverages, pastries, bread, pizza) which raises your blood glucose levels and therefore releasing insulin which in turn causes increase in hunger Carbohydrates suppress Ghrelin quickly but does not maintain the suppression for very long therefore hunger returns more quickly Consuming carbohydrates leads to a release of Dopamine feel good hormone in our brain So how do you Curb these cravings? Eating Whole Foods with more fiber - High fiber carbs are absorbed and digested slowly so it does not impact blood sugar levels as much and will help in making you feel harris for longer; fiber also is healthy for your gut bacteria and can help with constipation. Remember- carbohydrates are not the enemy but know what a proper serving size is, choose nutritious carbohydrates and space them out between meals. Always- eat your protein first followed by your non starchy vegetables followed by your carbohydrates- it will help your body with your glucose and insulin regulation Processed Foods vs Whole Foods- Impact on Weight: People who eat Ultra Processed food tend to consume about 500 calories more per day Ultra Processed foods are considered Calorie Dense so when a person feels full they have typically already over eaten and consumed more calories Whole Foods (unprocessed foods) tend to be more more filling and more Nutrient Dense Unprocessed foods can be more expensive and not realistic for everyone however when you have the choice to consume unprocessed vs Ultra processed foods always pick unprocessed. Why can't people stop eating Ultra Processed foods? They are economical and optimized for taste by Fusion Dynamic - they are designed to make you want to keep eating them- they feed common cravings and bypass the mechanisms that tell your brain you are full Benefits of eating Whole Foods and cutting out Ultra Processed Foods Increased concentration and focus (decreased brain fog), improved mood, better sleep, Decrease in fatigue, improvement in gut health, decreased inflammation, Likely WEIGHT LOSS documented in this encounter [facility] 10-01-2024 Telephone encounter Note Annual scheduled for 04/15/25. Requested Prescriptions Pending Prescriptions Disp Refills valACYclovir (VALTREX) 500 mg tablet 90 tablet 2 Sig: Take 1 tablet by mouth once daily. Rachel Guzman RN [facility] 10-01-2024 Miscellaneous Notes Annual scheduled for 04/15/25. Requested Prescriptions Pending Prescriptions Disp Refills valACYclovir (VALTREX) 500 mg tablet 90 tablet 2 Sig: Take 1 tablet by mouth once daily. Rachel Guzman RN documented in this encounter [facility] 09-27-2024 Evaluation note Diagnosis Onset Date Resolution Colon polyps acute September 27 10:31am Constipation acute September 27 10:31am GERD (gastroesophageal reflux disease) acute September 27, 2024 10 :31am [facility] Work Phone: [phone] 811-114504-04-2025 History of Present illness Narrative* Ebenezer Camarillo APRN.ZINA - 08/31/2024 10:00 AM EDT VIRTUAL VISIT PROGRESS NOTE This is a virtual visit using Metrolightt Zoom Video Visit. It required patient- provider interaction for the medical decision making as documented below. I have communicated my name and active licensure. The patient's identity and physical location wereverified at the time of this visit. Either the patient or their legal branch sales and service representative has been informed of the risks and benefits of -- and alternatives to -- treatment through a remote evaluation andconsents to proceed with the evaluation remotely. The patient consented to the use of ambient Sidestage software for draft documentation of the visit consistent with [facility] s Notice of Privacy Practices. Meera Meléndez is a 54 year old female seen for PFPT follow-up and vaginal estrogen cream for GSM. The patient is a 54-year-old female presenting for a refill of estradiol cream. The patient reportssignificant improvement in symptoms since starting compounded estradiol cream, which she applies twice weekly. She recently used her last refill and requests a new prescription. In addition to the estradiol cream, she uses Replens and coconut oil as moisturizers between applications. She has been performing pelvic floor exercises twice daily at home. She initially attended a facility for therapy but discontinued due to personal commitments, including caring for her foster son, who was hospitalized, and assisting her father after he suffered a stroke. She received exercise instru ctions and equipment from her therapist to continue the regimen independently. HISTORY REVIEWED (electronic chart updated): PAST MEDICAL HISTORY Diagnosis Date Abnormal glandular Papanicolaou smear of cervix 03/02/2004 @[facility] Anxiety state ASCUS with positive high risk HPV cervical 2002 @[facility] BRCA negative CKD (chronic kidney disease) stage 2, GFR 60-89 ml/min Essential hypertension GERD (gastroesophageal reflux disease) HSV-2 (herpes simplex virus 2) infection 2010 culture @[facility] Hyperlipidemia Incontinence of urine LGSIL on Pap smear of cervix 11/27/2004 @[facility] Migraine, intractable Mitral valve disorders(424.0) Undiagnosed cardiac murmurs Vitamin D deficiency PAST SURGICAL HISTORY Procedure Laterality Date CRYOSURGERY 2005 @[facility] FOOT SURGERY HX 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 LIGATE FALLOPIAN TUBE 1992 dr Denia VELASCO BARTHOLIN GLAND CYST 1995 Dr Loza TREATMENT OF ANAL FISSURE 1998 VAGINAL HYSTERECTOMY 02/03/2010 adenomyosis- has both overies per u/s 2011 VAGINOSCOPY 10/31/2003 [facility] FAMILY HISTORY Problem Relation Age of Onset Hypertension Mother Hyperlipidemia Mother Obesity Mother Heart Attack Father Obesity Father No Known Problems Brother Breast Cancer Maternal Grandmother 59 Obesity Maternal Grandmother Heart Failure Maternal Grandfather Obesity Maternal Grandfather Obesity Paternal Grandmother Heart Attack Paternal Grandfather other (migraine [Other]) Other Stroke Other Aneurysm Other heart aneurysm Social History Tobacco Use Smoking status: Never Smokeless tobacco: Never Vaping Use Vaping status: Never Used Substance Use Topics Alcohol use: Not Currently Drug use: Never Current Outpatient Medications Medication Sig estradiol 0.01% estriol 0.01% cream (CPD) 4 clicks/1 gram per vaginal twice weekly. Phentermine HCl 15 mg capsule Take 1 capsule by mouth daily before breakfast for 90 days. topiramate (TOPAMAX) 50 mg tablet Take 1 tablet by mouth two times a day. atorvastatin (LIPITOR) 20 mg tablet Take 20 mg by mouth once daily. valACYclovir (VALTREX) 500 mg tablet Take 1 tablet by mouth once daily. celecoxib (CELEBREX) 200 mg capsule TAKE 1 CAPSULE BY MOUTH TWICE A DAY NEEDED FOR SEVERE PAIN escitalopram oxalate (LEXAPRO) 5 mg tablet Take 10 mg by mouth once daily. fluticasone (FLONASE) 50 mcg/actuation nasal spray Use 1 [place] in the nose once daily. rimegepant (NURTEC ODT) 75 mg disintegrating tablet Take 75 mg by mouth once daily as needed. rizatriptan (MAXALT) 10 mg tablet Take 10 mg by mouth as needed for migraine headache (see administration instructions). solifenacin (VESICARE) 5 mg tablet Take 5 mg by mouth once daily. valsartan (DIOVAN) 80 mg tablet Take 80 mg by mouth once daily. cholecalciferol (VITAMIN D3) 50 mcg (2,000 unit) tablet Take 2,000 Units by mouth once daily. ALPRAZolam (XANAX) 0.25 mg tablet Take 0.25 mg by mouth once daily as needed. esomeprazole mag trihydrate(NEXIUM 40 MG CAP) Take 40 mg by mouth once daily. DO NOT CRUSH No current facility-administered medications for this visit. ALLERGIES Allergen Reactions Doxycycline Other: See Comments, Diarrhea, GI Upset, Vomiting, Intolerance Cephalexin Monohydr* Other: See Comments Lisinopril Other: See Comments, Cough Seasonal Allergies Other: See Comments Itchy eyes REVIEW OF SYSTEMS: GENERAL: feeling well without fatigue, no recent change in weight PHYSICAL EXAMINATION: VIDEO EXAM: (if completed, performed via video enabled technology) GENERAL: alert and appropriate, in no distress, well-hydrated, well nourished, and happy, smiling, interactive HEAD: normocephalic, no abnormality or lesion noted ASSESSMENT: (N95.8) Genitourinary syndrome of menopause PLAN: #1 Genitourinary syndrome of menopause (N95.8) Significant improvement with current treatment regimen, including pelvic floor exercises and estradiol cream. - Continue pelvic floor exercises twice daily. - Refilled compounded estradiol cream, to be applied twice weekly; prescription [facility] to [facility]. - Continue use of Replens and coconut oil as moisturizers. - Follow-up annually for prescription renewal; advised to contact via FileString if any issues arise. There are no Patient Instructions on file for this visit. I spent a total of 15 minutes on the date of the service which included preparing to see the patient, [id number] patient care, completing clinical documentation, counseling and educating the patient/family/caregiver, and ordering medications, tests, or procedures Ebenezer Camarillo APRN.ZINA [facility] NoteHNO ID: [id number] Author: EBENEZER CAMARILLO APRN.ZINA Service: ? Author Type: Nurse Practitioner Type: Progress Notes Filed: 08/31/2024 10:00 Note Text: VIRTUAL VISIT PROGRESS NOTE This is a virtual visit using FileString Zoom Video Visit. It required patient-provider interaction for the medical decision making as documented below. I have communicated my name and active licensure. The patient's identity and physical location were verified at the time of this visit. 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 The patient consented to the use of MaestroDev software for draft documentation of the visit consistent with [facility]?s Notice of Privacy Practices. Meera Meléndez is a 54 year old female seen for PFPT follow-up and vaginal estrogen cream for GSM. The patient is a 54-year-old female presenting for a refill of estradiol cream. The patient reports significant improvement in symptoms since starting compounded estradiol cream, which she applies twice weekly. She recently used her last refill and requests a new prescription. In addition to the estradiol cream, she uses Replens and coconut oil as moisturizers between applications. She has been performing pelvic floor exercises twice daily at home. She initially attended a facility for therapy but discontinued due to personal commitments, including caring for her foster son, who was hospitalized, and assisting her father after he suffered a stroke. She received exercise instructions and equipment from her therapist to continue the regimen independently. HISTORY REVIEWED (electronic chart updated): PAST MEDICAL HISTORY Diagnosis Date Abnormal glandular Papanicolaou smear of cervix 03/02/2004 @[facility] Anxiety state ASCUS with positive high risk HPV cervical 2002 @[facility] BRCA negative CKD (chronic kidney disease) stage 2, GFR 60-89 ml/min Essential hypertension GERD (gastroesophageal reflux disease) HSV-2 (herpes simplex virus 2) infection 2010 culture @[facility] Hyperlipidemia Incontinence of urine LGSIL on Pap smear of cervix 11/27/2004 @[facility] Migraine, intractable Mitral valve disorders(424.0) Undiagnosed cardiac murmurs Vitamin D deficiency PAST SURGICAL HISTORY Procedure Laterality Date CRYOSURGERY 2005 @[facility] FOOT SURGERY HX 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 LIGATE FALLOPIAN TUBE 1992 dr Denia VELASCO BARTHOLIN GLAND CYST 1995 Dr Loza TREATMENT OF ANAL FISSURE 1998 VAGINAL HYSTERECTOMY 02/03/2010 adenomyosis- has both overies per u/s 2010 VAGINOSCOPY 10/31/2003 [facility] FAMILY HISTORY Problem Relation Age of Onset Hypertension Mother Hyperlipidemia Mother Obesity Mother Heart Attack Father Obesity Father No Known Problems Brother Breast Cancer Maternal Grandmother 59 Obesity Maternal Grandmother Heart Failure Maternal Grandfather Obesity Maternal Grandfather Obesity Paternal Grandmother Heart Attack Paternal Grandfather other (migraine [Other]) Other Stroke Other Aneurysm Other heart aneurysm Social History Tobacco Use Smoking status: Never Smokeless tobacco: Never Vaping Use Vaping status: Never Used Substance Use Topics Alcohol use: Not Currently Drug use: Never Current Outpatient Medications Medication Sig estradiol 0.01% estriol 0.01% cream (CPD) 4 clicks/1 gram per vaginal twice weekly. Phentermine HCl 15 mg capsule Take 1 capsule by mouth daily before breakfast for 90 days. topiramate (TOPAMAX) 50 mg tablet Take 1 tablet by mouth two times a day. atorvastatin (LIPITOR) 20 mg tablet Take 20 mg by mouth once daily. valACYclovir (VALTREX) 500 mg tablet Take 1 tablet by mouth once daily. celecoxib (CELEBREX) 200 mg capsule TAKE 1 CAPSULE BY MOUTH TWICE A DAY NEEDED FOR SEVERE PAIN escitalopram oxalate (LEXAPRO) 5 mg tablet Take 10 mg by mouth once daily. fluticasone (FLONASE) 50 mcg/actuation nasal spray Use 1 [place] in the nose once daily. rimegepant (NURTEC ODT) 75 mg disintegrating tablet Take 75 mg by mouth once daily as needed. rizatriptan (MAXALT) 10 mg tablet Take 10 mg by mouth as needed for migraine headache (see administration instructions). solifenacin (VESICARE) 5 mg tablet Take 5 mg by mouth once daily. valsartan (DIOVAN) 80 mg tablet Take 80 mg by mouth once daily. cholecalciferol (VITAMIN D3) 50 mcg (2,000 unit) tablet Take 2,000 Units by mouth once daily. ALPRAZolam (XANAX) 0.25 mg tablet Take 0.25 mg by mouth once daily as needed. esomeprazole mag trihydrate(NEXIUM 40 MG CAP) Take 40 mg by mouth once daily. DO NOT CRUSH No current facility-administered medications for this visit. ALLERGIES Allergen Reactions Doxycycline Other: See Comments, Diarrhea, GI Upset, Vomiting, Intolerance Cephalexin Monohydr* Other: See Comments Lisinopril Other: See (more content not included)...[facility] 08-08-2024 Instructions* Patient Instructions* Celia Nava APRN.LEHR CUTTER - 08/08/2024 3:32 PM EDT A Short Walk After Meals Is All It Takes to Lower Blood Sugar Researchers studying older adults with pre-diabetes found that 15 minutes of sins-cb-jgrvycen exercise after every meal curbed risky blood sugar spikes all day. Seniors are more prone to developing diabetes, but a little exercise could make a big difference. Astudy published today in Diabetes Care found that three short walks each day after meals were as effective at reducing blood sugar over 24 hours as a single 45-minute walk at the same moderate pace. Even better, taking an evening constitutional was found to be much more effective at lowering bloodsugar following supper. The evening meal, often the largest of the day, can significantly raise 24-hour glucose levels. The innovative exercise science study was conducted at the Clinical Exercise Physiology Laboratory at the [facility] ([facility]) using whole room calorimeters. Candice Higuera, Ph.D., chair of the [facility] Department of Exercise Science, led the study. These findings are good news for people in their 70s and 80s who may feel more capable of engaging in intermittent physical activity on a daily basis, Kalen said in a press release. Putting Humans in a Box to Measure Their Energy Use The whole room calorimeter (WRM), which looks like a very small hotel room, is a controlled-air environment for human study that allows scientists to calculate a person s energy expenditure by testing samples of air. The balance of oxygen consumed and carbon dioxide produced varies according to theactivity level of the person in the room. The WRM also measures the body s use of different food fuels, such as carbohydrates, proteins, and fats. The 10 study participants spent three 48-hour periods in the small calorimeter rooms. Each room wasequipped with a bed, toilet, sink, treadmill, television, and computer, leaving little room to movearound. Participants ate standardized meals, and their blood sugar levels were monitored continuously usingblood tests. The first day in the WRM served as a control period, with no exercise. On the second day, participants either walked at a moderate pace on the treadmill for 15 minutes after each meal, or for 45 minutes in either the late morning or before supper. The researchers observed that the evening post-meal walk was the most effective in lowering blood sugar levels for a full 24 hours. The typical exaggerated rise in blood sugar after supper--which often lasts well into the night andearly morning--was curbed significantly as soon as the participants started to walk on the treadmill, the study authors said. How Age Affects Insulin Resistance An estimated 79 million Americans have pre-diabetes, according to the National Diabetes Education Program run by the National Institutes of Health. But many people have no idea they are at risk. According to Kalen, older people may be particularly susceptible to poor blood sugar control after meals because inactive muscles contribute to insulin resistance. The problem is compounded by slow or low insulin secretion by the pancreas, which often occurs as the body ages. Post-meal high blood sugar is a andrew risk factor in the progression from impaired glucose tolerance (pre-diabetes) to type 2 diabetes and cardiovascular disease, Kalen explained. Other studies have suggested that weight loss and exercise can prevent type 2 diabetes. The authorssay theirs is the first study to examine short bouts of physical activity timed around the risky period following meals--a time when blood sugar can rise rapidly and potentially cause damage to internal organs and blood vessels. The muscle contractions connected with short walks were immediately effective in blunting the potentially damaging elevations in post-meal blood sugar commonly observed in older people, Kalen said. If the findings of this small study hold up to further testing, it could lead to an inexpensive prevention strategy for pre-diabetes, which can develop over time into type 2 diabetes. Back in the day, it was de rigueur to take a morning, noon, and evening walk. The time has come to get up from the table, tie on those walking shoes, and take a little stroll around the block. https://www.[employer]/health-news/dzdfh-[email or web address]-lnavu-xynbj-rb-gfcyxjm-bloo [email or web address]-bprim-[email or web address] The Role of Exercise in Weight Management No one can deny the psychological and physical benefits of exercise. Regular physical exercise aidsin stress reduction, blood sugar control, cholesterol reduction, and improved sleep. It s also beneficial for weight control. both aerobic and strength training is beneficial for weight control. The ACSM ([employer]) advises 200-300 minutes of moderate- intensity exercise to lose weight and sustain the loss. Aerobic exercise (walking, jogging, swimming, cycling) uses glucose (from glycogen) and triglycerides (from fat in storage) for energy. Strength or resistance training helps build muscle, which is more metabolic at rest than fat tissue. Both are beneficial to weight management. According to the 2018 Physical Activity Guidelines for Americans, Americans are advised to do a minimum of 30 minutes of physical activity most days of the week. This equates to 150 minutes of moderate activity or 75 minutes of vigorous exercise per week for general health. This should include bothaerobic and strength training exercises. However, without calorie restriction, this isn t enough for weight loss or weight maintenance in most people. Currently, 53 % of Americans over 18 do adequate aerobic exercise while only 23% get both aerobic and muscle-strengthening activity. Most [place] adults are still too sedentary. A sedentary lifestyle is associated with cardiovascular disease, type 2 diabetes, and certain types of cancer including endometrial, colon, and lung cancer. Which types of exercise aid in weight control? How much should I do? In addition to caloric restriction, both aerobic and strength training is beneficial for weight control. The ACSM ([employer]) advises 200-300 minutes of moderate-intensity exercise to lose weight and sustain the loss.Moderate-intensity exercises include brisk walking, jogging, using a rowing machine, or doing a 50-60 minute dance class. To administrative law judge the level of intensity you should aim for, think of it this way: a person should be able to carry a conversation but not be able to sing. HIIT (high-intensity interval training) is one method of exercise that may be beneficial to those who are trying to lose weight and are short on time. One way to do HIIT involves doing high-intensityexercise (such as sprinting) for 60 seconds followed by 60 seconds of low-intensity exercise (walking) or rest. Exercises are repeated 8 times with rest for a few minutes, then repeated until 30 minutes of exercise is completed. A meta-analysis of 39 studies with 671 participants showed that HIIT reduced total, abdominal, and visceral fat mass in both men and women aged 38.8 +/- 14.4. Running was more effective than cycling in lowering total and visceral fat mass while low-intensity exercise (like walking) also resulted inabdominal and visceral fat loss. The latter took more time. HIIT training is typically done a few days a week. Individuals are advised to choose less intense exercises in between HIIT training days. More muscle matters! One of the biggest reasons (no pun intended) that adults gain weight over time is due to muscle loss. A comparison study of various methods of exercise was performed with older subjects with obesity.Subjects got randomly assigned to a weight control program along with one of four programs: aerobictraining, resistance training, combined aerobic and resistance training, or a control group (no treatment). The initial outcome was the change in Physical Performance Test Scores from the start to 6 months after the study began, while secondary outcomes included changes in body composition, bone mineral density, and physical function. There were 141 total subjects that finished the study. Physical Performance Test score was higher in the combination group than in the aerobic and resistance groups. Bodyweight decreased in all exercise groups (9%) but not in the control group. Lean mass and bone density were maintained the most in the combination and resistance groups. Strength also increased in the resistance training and combination training groups. As muscle is more metabolic than fat, maintaining muscle mass is important to long-term weight control. It s important for individuals who have been sedentary to check with their doctors before embarkingon a new exercise program. While HIIT training may be appropriate for younger individuals and/or those without comorbidities like cardiovascular disease, it s important to find an exercise that s enjoyable. Physical activities could include: Multiple bouts of moderately paced walking a few times per day. Use of an elliptical or rowing machine or a water aerobics class A walking video to use at home Playing tennis or pickleball Trying a regular or stationary bike or a spin class Joining a kickboxing or Viviana class at a gym or rec center Resistance training may include: Use of stretch bands Multiple reps of small hand weights Use of nautilus machines A pilates class (in person or at home) [facility] History of Present illness Narrative* Celia Nava APRN.CNP - 08/08/2024 3:00 PM EDT Some documentation from previous visit of 07/25/2024 was copied and pasted, documentation has been reviewed and edited as necessary for today's visit. Patient Summary: Meera is a 54 year old Female who presents for follow-up evaluation of obesity/weight management to treat and prevent related co- morbidities. In our previous visits we have discussed lifestyle intervention including a nutrition recommendations and physical activity optimization. Her last office visit was 3 weeks ago Assessment/plan from last visit: - Topiramate 50 mg tablet - with phentermine and 50 mg 7 pm Migraine - none - Phentermine 15 mg - taking at 7 am Home BP 113-116/72-77 Interval History PT specifies the following items as new or significant updates since the last appointment: Eating more protein than carbs. Avoiding some of the processed meats. Weight loss since last vist: 2 lbs for total of 23 lbs Date: Weight: BMI: Medications: 08/08/2024 204 lb 35.47 07/25/2024 206 lb 35.82 topiramate 50 mg bid 05/15/2024 214 lb 37.21 04/20/2024 215 lb 37.38 03/14/2024 220 lb 37.93 02/25/2024 date started Phentermine 15 mg approval by PCP 01/31/2024 227 lb 39.14 Topiramate 5% weight loss = 216 lbs, 10% weight loss = 204 lbs Anti-obesity medications: Topiramate Benefit: decreased thoughts of food in the evening Adverse effects: Soda tasted terrible Phentermine Benefit: decrease in appetite Adverse effects: dry mouth, cavities - Xylitol mouth drops and gum. Weight promoting medications: Escitalopram 10 mg - has seen no weight gain Previous Diet (initial appointment): Pepsi or Mt Dew - 5 cans from 10 am to 8 pm Awake - 0700 B - 0730 20 or 30 gm Equate shake S - none or Lidia Doones 4 pack and pepsi or Mt Dew L - SKIP S - Pepsi or Mt Dew occasionally chips if at home D - 6 pm Roast, carrots, potato or unbreaded shrimp/lobster with rice or soft shell taco with meat,lettuce, tomato, cheese, sour cream S - berries/chips/carrots and dip/occasional ice cream Fluids: Pepsi or Mt Dew - 5 cans from 10 am to 8 pm Bedtime - 11 pm Quality of diet: 24hr recall suggests healthy/unhealthy diet. Characterization of diet:Structured, structured/Unstructured, unhealthy snacking, evening snacking,increased consumption of sugar sweetened beverages, and skip meals. 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 eating habits:mindlessness, boredom, and stress Eating Disorder no Cravings: Pepsi/Mt Dew, candy bar Dietary changes: [id number] Awake - 0700 B - 0700 30 gm protein shake every day. WE - adds 1 scrambled egg sometimes with cheese S - 10 am almonds L - 1230 2 HB eggs, 1 cheese stick S - 1330 30g protein shake D - 6 pm taco salad or chicken (sometimes only 1-2 oz) and rice and veg or Roast, carrots, potato or unbreaded shrimp/lobster with rice and veg or Roast beef/provolone/green peppers with white rice S - sometimes almonds and/or walnuts Fluids - water, unsweet tea Bedtime - 11 pm Current Barriers: none Exercise: a little more walking Regular exercise: no Strength/resistance exercise:yes Barriers to regular exercise? Yes- lower back- cannot lift over 15 pounds Work-related activity:Sedentary. Gym Membership: no Activity Tracker: yes- Apple watch- encouraged to wear Stress: stable Personal- fostering Sleep: stable 7 hours CrCl cannot be calculated (No successful lab value found.). PAST MEDICAL HISTORY Diagnosis Date Abnormal glandular Papanicolaou smear of cervix 03/02/2004 @[facility] Anxiety state ASCUS with positive high risk HPV cervical 2002 @[facility] BRCA negative CKD (chronic kidney disease) stage 2, GFR 60-89 ml/min Essential hypertension GERD (gastroesophageal reflux disease) HSV-2 (herpes simplex virus 2) infection 2010 culture @[facility] Hyperlipidemia Incontinence of urine LGSIL on Pap smear of cervix 11/27/2004 @[facility] Migraine, intractable Mitral valve disorders(424.0) Undiagnosed cardiac murmurs Vitamin D deficiency Current Outpatient Medications Medication Sig Dispense Refill topiramate (TOPAMAX) 50 mg tablet Take 1 tablet by mouth two times a day. 180 tablet 1 Phentermine HCl 15 mg capsule Take 1 capsule by mouth daily before breakfast for 90 days. 90 capsule 0 estradiol 0.01% estriol 0.01% cream (CPD) 4 clicks/1 gram per vaginal twice weekly. 30 g 1 atorvastatin (LIPITOR) 20 mg tablet Take 20 mg by mouth once daily. valACYclovir (VALTREX) 500 mg tablet Take 1 tablet by mouth once daily. 90 tablet 3 celecoxib (CELEBREX) 200 mg capsule TAKE 1 CAPSULE BY MOUTH TWICE A DAY NEEDED FOR SEVERE PAIN escitalopram oxalate (LEXAPRO) 5 mg tablet Take 10 mg by mouth once daily. fluticasone (FLONASE) 50 mcg/actuation nasal spray Use 1 [place] in the nose once daily. rimegepant (NURTEC ODT) 75 mg disintegrating tablet Take 75 mg by mouth once daily as needed. rizatriptan (MAXALT) 10 mg tablet Take 10 mg by mouth as needed for migraine headache (see administration instructions). solifenacin (VESICARE) 5 mg tablet Take 5 mg by mouth once daily. valsartan (DIOVAN) 80 mg tablet Take 80 mg by mouth once daily. cholecalciferol (VITAMIN D3) 50 mcg (2,000 unit) tablet Take 2,000 Units by mouth once daily. ALPRAZolam (XANAX) 0.25 mg tablet Take 0.25 mg by mouth once daily as needed. esomeprazole mag trihydrate(NEXIUM 40 MG CAP) Take 40 mg by mouth once daily. DO NOT CRUSH 0 No current facility-administered medications for this visit. 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 No distress. Results: reviewed with the patient 06/30/2024 Outside labs CBC WNL FBG 90 BUN 9 Creat 0.93 GFR 63 Hgba1c 5.6 Lipids Total 146 Trig 121 HDL 51 LDL 71 TSH 1.08 06/29/2023 Outside labs CBCD WNL CMP GLUC 90 BUN 10 Creat 0.87 GFR 68 Lipids Total 189 Trig 121 HDL 58 LDL 107 - taking Lipitor Vitamin D 25 Hydroxy Date Value Ref Range Status 02/01/2024 31.7 31.0 - 80.0 ng/mL Final Comment: Classification of 25 OH Vitamin D status: Deficiency/Insufficiency: < or = 30 ng/ml. Sufficiency/Optimal Levels: 31-80 ng/mL Toxicity: > 100 ng/mL. Test performed by chemiluminescent immunoassay. TSH (mIU/L) Date Value 02/01/2024 2.240 Hemoglobin A1C (%) Date Value 02/01/2024 5.4 Insulin Date Value Ref Range Status 02/01/2024 19.5 3.0 - 25.0 mU/L Final Anti-Obesity Medications >Phentermine: No uncontrolled HTN, - well-controlled on valsartan. No CVD Hx or hx of seizure disorder. palpitations/cardiac arrhythmia, Chest pain: yes Valve disorder/murmur - has been evaluated by 2 different cardiologists.?anxiety No MAOI inhibitor use. No drug abuse hx. Crcl > 15. >Topiramate/zonisamide: No seizure, kidney stone or glaucoma hx. Has hx of migraines, No hx of poor sleep. Not of Child bearing age - hysterectomy >Qsymia: see above >Contrave: No uncontrolled HTN or hx of seizure disorder. No MAOI inhibitor use. No opiate use. >Saxenda/Wegovy/Ozempic: Cost. Ins coverage? >Metformin: eGFR > 30. No contraindications or medication interactions. Assessment/Plan: Meera Meléndez is a 54 year old yo with Class II obesity who presented today for follow up for supervised weight loss to treat and prevent related co-morbidities. 1. Essential hypertension - ICD9: 401.9, ICD10: I10 (primary diagnosis) 138/92 with repeat 130/80 - Has follow-up in 3 weeks. Will check BP at home and bring in readings. Will update myself and PCPif elevated above 130/80 consistently. - well-controlled with valsartan - Whole food balanced protein low-carb nutrition - TOPIRAMATE 50 MG TABLET - PHENTERMINE 15 MG CAPSULE 2. Gastroesophageal reflux disease, unspecified whether esophagitis present - ICD9: 530.81, ICD10: K21.9 - esomeprazole 40 mg - Whole food balanced protein low-carb nutrition - TOPIRAMATE 50 MG TABLET - PHENTERMINE 15 MG CAPSULE 3. Hyperlipidemia, unspecified hyperlipidemia type - ICD9: 272.4, ICD10: E78.5 - atorvastatin - Whole food balanced protein low-carb nutrition - TOPIRAMATE 50 MG TABLET - PHENTERMINE 15 MG CAPSULE 4. CKD (chronic kidney disease) stage 2, GFR 60-89 ml/min - ICD9: 585.2, ICD10: N18.2 - discussed benefit of fresh meats and whole food nutrition. Discussed plant protein options and encouraged kidney friendly foods. Reinforced avoidance of processed meats including walker and meat sticks 5. Depression with anxiety - ICD9: 300.4, ICD10: F41.8 - well-controlled with escitalopram 10 mg and prn alprazolam 6. Vitamin D deficiency - ICD9: 268.9, ICD10: E55.9 - daily Vit D3 2000 7. Intractable migraine with aura with status migrainosus - ICD9: 346.03, ICD10: G43.111 - prn Nurtec and Maxalt - TOPIRAMATE 50 MG TABLET 8. Class 2 severe obesity with serious comorbidity and body mass index (BMI) of 37.0 to 37.9 in adult, unspecified obesity type (HCC) - ICD9: 278.01, V85.37, ICD10: E66.01, Z68.37 Weight decreased - TOPIRAMATE 50 MG TABLET - twice a day - PHENTERMINE 15 MG CAPSULE - started 02/25/2024 with approval by PCP Dr. Royal Patient has met the weight loss requirement of 5% TBW in initial 3 months using phentermine withoutany adverse side effects. Pt has responded well and would like to continue use for weight management. She understands that continued use is off label for buttermaker management of weight control. The patient is currently enrolled in a diet and exercise program The patient has no known history of contraindications The patient is free from drug or ETHO abuse The patient is not or and is aware not to become while using this medication OARS was reviewed. PDMP website checked and validated. All prescriptions have been APPROPRIATELY filled. No suspicious activity was identified. -- Continue - Whole food balanced protein low-carb nutrition. Discussed plant protein options and encouraged kidney friendly foods. Is avoiding processed meats. Also discussed gradually switching to unsalted nuts. -- Encouraged the patient to improve her physical activity. An overall goal of 150-200 minutes per week of exercise has been effective in weight loss and maintenance. Prescription instructions reviewed with patient as applicable. Potential red flag symptoms discussed with the patient. Reviewed appropriate action plan to take ifred flag symptoms occur. Patient agreeable to treatment plan. Follow-up in 3 months. Recent labs drawn by PCP. Celia Nava CNP [facility] Education from the [employer] Medical Decision Making: Problems: Moderate: 1+ chronic illnesses with change and 2+ stable chronic illnesses Risk: Moderate: Drug management and Moderate risk from testing/treatment Medical Decision Making Level: 4 - Moderate documented [facility] NoteHNO ID: [id number] Author: CELIA NAVA APRN.CNP Service: ? Author Type: Nurse Practitioner Type: Progress Notes Filed: 08/08/2024 16:58 Note Text: Some documentation from previous visit of 07/25/2024 was copied and pasted, documentation has been reviewed and edited as necessary for today's visit. Patient Summary: Meera is a 54 year old Female who presents for follow-up evaluation of obesity/weight management to treat and prevent related co-morbidities. In our previous visits we have discussed lifestyle intervention including a nutrition recommendations and physical activity optimization. Her last office visit was 3 weeks ago Assessment/plan from last visit: - Topiramate 50 mg tablet - with phentermine and 50 mg 7 pm Migraine - none - Phentermine 15 mg - taking at 7 am Home BP 113-116/72-77 Interval History PT specifies the following items as new or significant updates since the last appointment: Eating more protein than carbs. Avoiding some of the processed meats. Weight loss since last vist: 2 lbs for total of 23 lbs Date: Weight: BMI: Medications: 08/08/2024 204 lb 35.47 07/25/2024 206 lb 35.82 topiramate 50 mg bid 05/15/2024 214 lb 37.21 04/20/2024 215 lb 37.38 03/14/2024 220 lb 37.93 02/25/2024 date started Phentermine 15 mg approval by PCP 01/31/2024 227 lb 39.14 Topiramate 5% weight loss = 216 lbs, 10% weight loss = 204 lbs Anti-obesity medications: Topiramate Benefit: decreased thoughts of food in the evening Adverse effects: Soda tasted terrible Phentermine Benefit: decrease in appetite Adverse effects: dry mouth, cavities - Xylitol mouth drops and gum. Weight promoting medications: Escitalopram 10 mg - has seen no weight gain Previous Diet (initial appointment): Pepsi or Mt Dew - 5 cans from 10 am to 8 pm Awake - 0700 B - 0730 20 or 30 gm Equate shake S - none or Lidia Doones 4 pack and pepsi or Mt Dew L - SKIP S - Pepsi or Mt Dew occasionally chips if at home D - 6 pm Roast, carrots, potato or unbreaded shrimp/lobster with rice or soft shell taco with meat, lettuce, tomato, cheese, sour cream S - berries/chips/carrots and dip/occasional ice cream Fluids: Pepsi or Mt Dew - 5 cans from 10 am to 8 pm Bedtime - 11 pm Quality of diet: 24hr recall suggests healthy/unhealthy diet. Characterization of diet:Structured, structured/Unstructured, unhealthy snacking, evening snacking, increased consumption of sugar sweetened beverages, and skip meals. 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 eating habits:mindlessness, boredom, and stress Eating Disorder no Cravings: Pepsi/Mt Dew, candy bar Dietary changes: [id number] Awake - 0700 B - 0700 30 gm protein shake every day. WE - adds 1 scrambled egg sometimes with cheese S - 10 am almonds L - 1230 2 HB eggs, 1 cheese stick S - 1330 30g protein shake D - 6 pm taco salad or chicken (sometimes only 1-2 oz) and rice and veg or Roast, carrots, potato or unbreaded shrimp/lobster with rice and veg or Roast beef/provolone/green peppers with white rice S - sometimes almonds and/or walnuts Fluids - water, unsweet tea Bedtime - 11 pm Current Barriers: none Exercise: a little more walking Regular exercise: no Strength/resistance exercise:yes Barriers to regular exercise? Yes- lower back- cannot lift over 15 pounds Work-related activity:Sedentary. Gym Membership: no Activity Tracker: yes- Apple watch- encouraged to wear Stress: stable Personal- fostering Sleep: stable 7 hours CrCl cannot be calculated (No successful lab value found.). PAST MEDICAL HISTORY Diagnosis Date Abnormal glandular Papanicolaou smear of cervix 03/02/2004 @[facility] Anxiety state ASCUS with positive high risk HPV cervical 2002 @[facility] BRCA negative CKD (chronic kidney disease) stage 2, GFR 60-89 ml/min Essential hypertension GERD (gastroesophageal reflux disease) HSV-2 (herpes simplex virus 2) infection 2010 culture @[facility] Hyperlipidemia Incontinence of urine LGSIL on Pap smear of cervix 11/27/2004 @[facility] Migraine, intractable Mitral valve disorders(424.0) Undiagnosed cardiac murmurs Vitamin D deficiency Current Outpatient Medications Medication Sig Dispense Refill topiramate (TOPAMAX) 50 mg tablet Take 1 tablet by mouth two times a day. 180 tablet 1 Phentermine HCl 15 mg capsule Take 1 capsule by mouth daily before breakfast for 90 days. 90 capsule 0 estradiol 0.01% estriol 0.01% cream (CPD) 4 clicks/1 gram per vaginal twice weekly. 30 g 1 atorvastatin (LIPITOR) 20 mg tablet Take 20 mg by mouth once daily. valACYclovir (VALTREX) 500 mg tablet Take 1 tablet by mouth once daily. 90 tablet 3 celecoxib (CELEBREX) 200 mg capsule TAKE 1 CAPSULE BY MOUTH TWICE A DAY NEEDED FOR SEVERE PAIN escitalopram oxalate (LEXAPRO) 5 mg tablet Take 10 mg by mouth once daily. fluticasone (FLONASE) 50 mcg/actuation nasal spray Use 1 [place] in the nose once daily. rimegepant (NURTEC ODT) 75 mg disintegrating tablet Dimitrios (more content not included)...[facility]02-26-2025 Instructions* Patient Instructions* Celia Nava APRN.LEHR CUTTER - 07/25/2024 3:32 PM EST Check BP at home consistently. Put the cuff on, legs uncrossed, feet on floor, no talking for 5 minutes. - Whole food balanced protein, controlled carbohydrate nutrition plan - 30 g of protein 3 times a day and up to 30 g of carbs at lunch and dinner only. Breakfast - 30 gm protein with limit of 2 gm carbohydrates. Options include: Premier Protein or generic 30 gm protein 1 gm sugar or 5 eggs or 2-3 eggs and some unbreaded meat and/or cheese. No fruit,vegetables, bread, grain, yogurt, Smoothies, etc. Lunch and dinner - 30 gm protein is the goal with less than 30 gm carbohydrates Snacks - all protein or more protein than carbs Protein - no carbs Egg 1 large - 6g Egg white 1 large 3.6g 3 oz is approximately the size of a deck of cards and equals 21 g protein so 4 oz is 28 gm protein Beef, Chicken, [place], Pork, [place] 1 oz 7g Fish, Tuna Fish 1 oz 7g (Starkist tuna packet 2.6 oz 17 gm protein) Seafood (Crabmeat, Shrimp, Lobster) 1 oz 6g Protein shakes (read labels) Premier Protein or generic [employer] Equate, [employer] High Performance- 30g protein & 1g carb - meal replacement Premier Protein powder or generic- 30 gm protein, 1g carb Premier Protein plant protein powder - 25 gm protein, 0 sugar/2 carb Vanilla and chocolate (not a meal replacement) Fairlife 30 gram protein - 30g protein & 3g carb BOOST Glucose Control Max 30g Protein Nutritional Drink - 30g protein & 1 carb - meal replacement Slimfast High Protein - 20g protein & 1g carb Ensure Max Protein Nutrition Shake 30g protein & 2 carb Protein AND carbs Beef/[place] Jerky 1 oz dried 10-15g protein - check carb count, can be high if sugar added Slim Johan - 6 gm protein and 4 net carb Great Value original turkey sausage sticks - 7 gm protein and 2 gm carb Carl [employer] Rubio (at [facility]) Original smoked sausage sticks - 8 gm protein and 0 carb Imitation Crab Meat 1 oz - 2g protein & 4g carb Milk, skim 2% or 1% 8 oz - 8g protein & 12g carb Fairlife 2% milk 8 oz -13 g protein & 6g carb Armenian yogurt Full Fat Armenian Yogurt 1 cup - 20.4g protein & 9.1g carb 2% Armenian Yogurt 1 cup - 22.7g protein & 9.1g carb 0% (fat-free) Armenian Yogurt - 1 cup 24g protein & 9.3g carb Aldi Protein Armenian yogurt single svg - 13/g15g protein & 7g carb Chobani Zero Sugar single svg: - 12g protein & 5g carb Dannon Armenian Light + Fit 1 single svg - 12g protein & 9g carb Oikos Pro single svg - 20g protein & 8g carb Oikos Triple Zero Armenian Nonfat Yogurt 1 single svg - 15g protein & 7g carb Oikos Pro drinkable yogurt 1 single svg - 23 g protein & 8 g carb :ratio, KETO Friendly Dairy Snack 1 single svg - 15g protein & 2g carb :ratio Protein 1 single svg - 25g protein & 8g carb Two Good Lowfat Armenian Yogurt, [place], Lower Sugar - 12g protein & 2g carb Yoplait Protein 1 single svg 15gm protein & 5gm carb Dairy Free - [place] unsweetened Armenian almond/soy 15 gm protein & 3 gm carb Dairy Free - True Goodness by Claudia coconut-based yogurt alternative 1 gm protein 1 gm net carb 180 charlene Cheese each oz Brie 5.9g protein & 0.1g carb Cheddar 7g protein & 0.4g carb Tad 6.7g protein & 0.7g carb Cream Cheese 1.7g protein & 1.2g carb Feta 4g protein & 1.2g carb Mozzarella 6.3g protein & 0.6g carb Parmesan 10g protein & 0.9g carb [place] 7.6g protein & 1.5g carb Cottage Cheese 1/2 c Break[place] 2% 13g protein 7g carb [place]aquelin 2% 13g protein 5 g carb Good Culture 2% 14g protein 3g carb Mancia s Low Fat 12g protein & 4g carb Legumes Lentils cup 9g protein & 20g carb Hall beans cup 7g protein & 20g carb Kidney, Black, [place], Cannellini beans cup 8g protein & 20g carb Soybeans 1/2 c 14g complete protein & 8.5g carb [place] milk, unsweetened 8 oz 1g protein & 2g carb Soy milk 8 oz 3.5g protein & 1.6g carb Tofu 1/2 cup 10g protein & 2.3g carb Peanut butter, natural 2 Tbsp 7-8g protein & 4g net carbs, 190 calories PB2 powder 2 Tbsp 6g protein & 5g carb Nuts and Seeds per oz Almonds - 5.9g protein & 6.1g carb [place] Nuts - 4.0g protein & 3.4g carb Cashews - 5.1g protein & 9.2g carb Hazelnuts - 4.2g protein & 4.7g carb Hemp seeds/hearts 3 T/30 gms - 9.5 gm complete protein and 2.5 gm carb Peanuts - 7g protein & 4.6g carb Pecans - 2.6g protein & 3.9g carb Pistachios - 5.8g protein & 7.8g carb Pumpkin Seeds - 6.9g protein & 5g carb [place] Seeds - 5.8g protein & 5.6g carb Walnuts - 4.3g protein & 3.8g carb Edamame Beans (soybean) snack 1 pack 11 gm complete protein 2 carb 5 (FIVE) gram carb vegetable options 1 cup raw OR cup cooked: Asparagus Holl[place] sprouts Beets Broccoli Brussel sprouts Cabbage Carrots Cauliflower Celery [place] Eggplant Green beans Lettuce Peppers Snap peas Spaghetti squash Spinach Tomato Turnips Zucchini 15 gram carb vegetable options cup cooked corn or hominy corn on the cob, large (5 oz) cup cooked green peas 4.3 gm complete protein cup cooked hall beans 1 small potato or sweet potato cup cooked potato, plain cup cooked sweet potato, plain 1 cup winter squash (pumpkin, acorn, butternut) 1 cup marinara or pasta sauce - check label cup tomato juice cup tomato puree Beans, Seeds, Nuts cup cooked beans (kidney, ragland, red, green, etc.) cup cooked lentils cup baked beans 4 tablespoons nut butter <15 gram carb fruit options Berries have the lowest sugar content 1/2 medium apple - 12.5 carbs 1/2 medium avocado - 6.5 gm carbs 1/2 medium banana - 15 carbs 1/2 cup blueberries - 11 carbs - may actually help you lose weight 1/2 cup fresh cherries -11 carbs 1 medium Elizabeth -9 carbs 1/2 cup fresh cranberries - 6.5 carbs 1/2 c grapes - 15 carbs 1/2 medium grapefruit - 10.5 carbs 1/2 cup diced honeydew melon - 8 carbs 1 medium kiwi without skin - 11 carbs 1/2 cup sliced michael -14 carbs 1 medium nectarine - 15 carbs 1 medium orange -15.5 carbs 1 medium peach -14.5 carbs 1/2 cup fresh pineapple -11 carbs 1 medium plum -7.5 carbs 1 prune - 6 carbs 1/4 c raisins - 31.25 carbs 1/2 cup raspberries -7.5 carbs 1/2 c strawberries - 12.7 carbs 1 medium tangerine -12 carbs 1/2 cup diced watermelon - 6 carbs Grains Brown rice 1/2 c 5.5g protein 24 carb White long-grain rice 1/2 c 2g protein 22.5 carb Quinoa 1/2 c 4 gm complete protein 25 carb Oatmeal, old fashioned 1/2 c 5g protein 27g carb High Protein Snack Ideas 1. Jerky 2. [place] mix without dried fruit 3. [place] roll-ups 4. Armenian yogurt 5. Veggies and yogurt dip 6. Tuna 7. Hard-boiled eggs 8. Peanut butter with celery 9. Cheese slices/ Cheese Stick 10. Handful of almonds, peanuts or walnuts 11. Cottage Cheese 12. Beef sticks 13. Protein bars 14. Canned [place] 15. Pumpkin seeds 16. Nut butter 17. Protein shakes 18. Avocado and chicken salad 19. Egg muffins 20. Leftover protein or lunch meat 21. 1/2 c blended cottage cheese or Armenian yogurt with dry ranch/Mrs. Dash/herb seasoning mix to make protein dip 22. 1/2 c blended cottage cheese with 1 Tbsp sugar-free dry cheesecake pudding mix 12g protein 10 carb 23. Pudding - 1 30 gm protein shake with 1/2 pkg sugar-free pudding 4 svgs - 7.8 gm protein, 5 carbeach svg 24. SF Sunkist or Root Beer with 1-2 Tablespoons heavy whipping cream 25. Mini frozen dessert bites - layer protein yogurt, skinny syrup and crushed nuts and freeze documented in [facility] encounterA[facility] History of Present illness Narrative* Celia Nava APRN.CNP - 07/25/2024 3:00 PM EST Images from the original note were not included. Some documentation from previous visit of 04/20/2024 was copied and pasted, documentation has been reviewed and edited as necessary for today's visit. Patient Summary: Meera is a 54 year old Female who presents for follow-up evaluation of obesity/weight management to treat and prevent related co- morbidities. In our previous visits we have discussed lifestyle intervention including a nutrition recommendations and physical activity optimization. Her last office visit was 3 months ago - also saw ZINA [place] 05/15/2024 Assessment/plan from last visit: - Topiramate 25 mg tablet - taking 25 mg with phentermine and 50 mg 7 pm Migraine - none - Phentermine 15 mg - taking at 7 am Interval History PT specifies the following items as new or significant updates since the last appointment: Eating more protein than carbs. Eating same foods. Weight loss since last vist: 8 lbs for total of 21 lbs Date: Weight: BMI: Medications: 07/25/2024 206 lb 35.82 topiramate 50 mg bid 05/15/2024 214 lb 37.21 04/20/2024 215 lb 37.38 03/14/2024 220 lb 37.93 02/25/2024 date started Phentermine 15 mg approval by PCP 01/31/2024 227 lb 39.14 Topiramate 5% weight loss = 216 lbs, 10% weight loss = 204 lbs Anti-obesity medications: Topiramate Benefit: decreased thoughts of food in the evening Adverse effects: Soda tasted terrible Phentermine Benefit: decrease in appetite Adverse effects: dry mouth, cavities - Xylitol mouth drops and gum. Weight promoting medications: Escitalopram 10 mg - has seen no weight gain Previous Diet (initial appointment): Pepsi or Mt Dew - 5 cans from 10 am to 8 pm Awake - 0700 B - 729 20 or 30 gm Equate shake S - none or Lidia Doones 4 pack and pepsi or Mt Dew L - SKIP S - Pepsi or Mt Dew occasionally chips if at home D - 6 pm Roast, carrots, potato or unbreaded shrimp/lobster with rice or soft shell taco with meat,lettuce, tomato, cheese, sour cream S - berries/chips/carrots and dip/occasional ice cream Fluids: Pepsi or Mt Dew - 5 cans from 10 am to 8 pm Bedtime - 11 pm Quality of diet: 24hr recall suggests healthy/unhealthy diet. Characterization of diet:Structured, structured/Unstructured, unhealthy snacking, evening snacking,increased consumption of sugar sweetened beverages, and skip meals. 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 eating habits:mindlessness, boredom, and stress Eating Disorder no Cravings: Pepsi/Mt Dew, candy bar Dietary changes: [id number] Awake - 0700 B - 0700 30 gm protein shake every day. WE - adds 1 scrambled egg sometimes with 1 slice walker S - none L - 1230 1 HB egg, 1 cheese stick and nitrate-free meat stick S - none D - 6 pm taco salad or chicken (sometimes only 1-2 oz) and rice and veg or Roast, carrots, potato or unbreaded shrimp/lobster with rice and veg or Roast beef/provolone/green peppers with white rice S - sometimes pretzels Fluids - water, unsweet tea Bedtime - 11 pm Current Barriers: food cravings - salt and soda Exercise: No intentional exercise with youngest being hospitalized Regular exercise: no Strength/resistance exercise:yes Barriers to regular exercise? Yes- lower back- cannot lift over 15 pounds Work-related activity:Sedentary. Gym Membership: no Activity Tracker: yes- Apple watch- encouraged to wear Stress: increased Personal- fostering youngest was hospitalized Sleep: stable 7 hours CrCl cannot be calculated (No successful lab value found.). PAST MEDICAL HISTORY Diagnosis Date Abnormal glandular Papanicolaou smear of cervix 03/02/2004 @[facility] Anxiety state ASCUS with positive high risk HPV cervical 2002 @[facility] BRCA negative CKD (chronic kidney disease) stage 2, GFR 60-89 ml/min Essential hypertension GERD (gastroesophageal reflux disease) HSV-2 (herpes simplex virus 2) infection 2010 culture @[facility] Hyperlipidemia Incontinence of urine LGSIL on Pap smear of cervix 11/27/2004 @[facility] Migraine, intractable Mitral valve disorders(424.0) Undiagnosed cardiac murmurs Vitamin D deficiency Current Outpatient Medications Medication Sig Dispense Refill Phentermine HCl 15 mg capsule Take 1 capsule by mouth daily before breakfast for 90 days. 90 capsule 0 topiramate (TOPAMAX) 25 mg tablet Take 1 tablet by mouth two times a day. 180 tablet 1 estradiol 0.01% estriol 0.01% cream (CPD) 4 clicks/1 gram per vaginal twice weekly. 30 g 1 atorvastatin (LIPITOR) 20 mg tablet Take 20 mg by mouth once daily. valACYclovir (VALTREX) 500 mg tablet Take 1 tablet by mouth once daily. 90 tablet 3 celecoxib (CELEBREX) 200 mg capsule TAKE 1 CAPSULE BY MOUTH TWICE A DAY NEEDED FOR SEVERE PAIN escitalopram oxalate (LEXAPRO) 5 mg tablet Take 10 mg by mouth once daily. fluticasone (FLONASE) 50 mcg/actuation nasal spray Use 1 [place] in the nose once daily. rimegepant (NURTEC ODT) 75 mg disintegrating tablet Take 75 mg by mouth once daily as needed. rizatriptan (MAXALT) 10 mg tablet Take 10 mg by mouth as needed for migraine headache (see administration instructions). solifenacin (VESICARE) 5 mg tablet Take 5 mg by mouth once daily. valsartan (DIOVAN) 80 mg tablet Take 80 mg by mouth once daily. cholecalciferol (VITAMIN D3) 50 mcg (2,000 unit) tablet Take 2,000 Units by mouth once daily. ALPRAZolam (XANAX) 0.25 mg tablet Take 0.25 mg by mouth once daily as needed. esomeprazole mag trihydrate(NEXIUM 40 MG CAP) Take 40 mg by mouth once daily. DO NOT CRUSH 0 No current facility-administered medications for this visit. 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 No distress. Results: reviewed with the patient 06/30/2024 Outside labs CBC WNL FBG 90 BUN 9 Creat 0.93 GFR 63 Hgba1c 5.6 Lipids Total 146 Trig 121 HDL 51 LDL 71 TSH 1.08 06/29/2023 Outside labs CBCD WNL CMP GLUC 90 BUN 10 Creat 0.87 GFR 68 Lipids Total 189 Trig 121 HDL 58 LDL 107 - taking Lipitor No data to display No results found for: CHOL, HDL, LDL, TG No data to display Vitamin D 25 Hydroxy Date Value Ref Range Status 02/01/2024 31.7 31.0 - 80.0 ng/mL Final Comment: Classification of 25 OH Vitamin D status: Deficiency/Insufficiency: < or = 30 ng/ml. Sufficiency/Optimal Levels: 31-80 ng/mL Toxicity: > 100 ng/mL. Test performed by chemiluminescent immunoassay. TSH (mIU/L) Date Value 02/01/2024 2.240 Hemoglobin A1C (%) Date Value 02/01/2024 5.4 Insulin Date Value Ref Range Status 02/01/2024 19.5 3.0 - 25.0 mU/L Final Anti-Obesity Medications >Phentermine: No uncontrolled HTN, - well-controlled on valsartan. No CVD Hx or hx of seizure disorder. palpitations/cardiac arrhythmia, Chest pain: yes Valve disorder/murmur - has been evaluated by 2 different cardiologists.?anxiety No MAOI inhibitor use. No drug abuse hx. Crcl > 15. >Topiramate/zonisamide: No seizure, kidney stone or glaucoma hx. Has hx of migraines, No hx of poor sleep. Not of Child bearing age - hysterectomy >Qsymia: see above >Contrave: No uncontrolled HTN or hx of seizure disorder. No MAOI inhibitor use. No opiate use. >Saxenda/Wegovy/Ozempic: Cost. Ins coverage? >Metformin: eGFR > 30. No contraindications or medication interactions. Assessment/Plan: Meera Meléndez is a 54 year old yo with Class II obesity who presented today for follow up for supervised weight loss to treat and prevent related co-morbidities. 1. Essential hypertension - ICD9: 401.9, ICD10: I10 (primary diagnosis) 138/92 with repeat 130/80 - Has follow-up in 3 weeks. Will check BP at home and bring in readings. Will update myself and PCPif elevated above 130/80 consistently. - well-controlled with valsartan - Whole food balanced protein low-carb nutrition - TOPIRAMATE 50 MG TABLET - PHENTERMINE 15 MG CAPSULE 2. Gastroesophageal reflux disease, unspecified whether esophagitis present - ICD9: 530.81, ICD10: K21.9 - esomeprazole 40 mg - Whole food balanced protein low-carb nutrition - TOPIRAMATE 50 MG TABLET - PHENTERMINE 15 MG CAPSULE 3. Hyperlipidemia, unspecified hyperlipidemia type - ICD9: 272.4, ICD10: E78.5 - atorvastatin - Whole food balanced protein low-carb nutrition - TOPIRAMATE 50 MG TABLET - PHENTERMINE 15 MG CAPSULE 4. CKD (chronic kidney disease) stage 2, GFR 60-89 ml/min - ICD9: 585.2, ICD10: N18.2 - discussed benefit of fresh meats and whole food nutrition. Discussed plant protein options and encouraged kidney friendly foods. Reinforced avoidance of processed meats including walker and meat sticks 5. Depression with anxiety - ICD9: 300.4, ICD10: F41.8 - well-controlled with escitalopram 10 mg and prn alprazolam 6. Vitamin D deficiency - ICD9: 268.9, ICD10: E55.9 - daily Vit D3 2000 7. Intractable migraine with aura with status migrainosus - ICD9: 346.03, ICD10: G43.111 - prn Nurtec and Maxalt - TOPIRAMATE 50 MG TABLET 8. Class 2 severe obesity with serious comorbidity and body mass index (BMI) of 37.0 to 37.9 in adult, unspecified obesity type (HCC) - ICD9: 278.01, V85.37, ICD10: E66.01, Z68.37 Weight decreased - TOPIRAMATE 50 MG TABLET - twice a day - PHENTERMINE 15 MG CAPSULE - started 02/25/2024 with approval by PCP Dr. Royal Patient has met the weight loss requirement of 5% TBW in initial 3 months using phentermine withoutany adverse side effects. Pt has responded well and would like to continue use for weight management. She understands that continued use is off label for custodial management of weight control. The patient is currently enrolled in a diet and exercise program The patient has no known history of contraindications The patient is free from drug or ETHO abuse The patient is not or and is aware not to become while using this medication OARS was reviewed. PDMP website checked and validated. All prescriptions have been APPROPRIATELY filled. No suspicious activity was identified. -- Continue - Whole food balanced protein low-carb nutrition. Discussed plant protein options and encouraged kidney friendly foods. Reinforced avoidance of processed meats. -- Encouraged the patient to improve her physical activity. An overall goal of 150-200 minutes per week of exercise has been effective in weight loss and maintenance. Prescription instructions reviewed with patient as applicable. Potential red flag symptoms discussed with the patient. Reviewed appropriate action plan to take ifred flag symptoms occur. Patient agreeable to treatment plan. Follow-up in 3 weeks. Will check BP at home and bring in readings. Will update myself and PCP if elevated above 130/80 consistently. Celia Nava CNP Advanced Education from the [employer] Medical Decision Making: Problems: Moderate: 1+ chronic illnesses with change and 2+ stable chronic illnesses Risk: Moderate: Drug management and Moderate risk from testing/treatment Medical Decision Making Level: 4 - Moderate documented in this encounterAden[facility]02-[facility]25 NoteHNO ID: [id number] Author: CELIA NAVA APRN.CNP Service: ? Author Type: Nurse Practitioner Type: Progress Notes Filed: 07/25/2024 19:23 Note Text: Some documentation from previous visit of 04/20/2024 was copied and pasted, documentation has been reviewed and edited as necessary for today's visit. Patient Summary: Meera is a 54 year old Female who presents for follow-up evaluation of obesity/weight management to treat and prevent related co-morbidities. In our previous visits we have discussed lifestyle intervention including a nutrition recommendations and physical activity optimization. Her last office visit was 3 months ago - also saw ZINA B[place]INGHAM 05/15/2024 Assessment/plan from last visit: - Topiramate 25 mg tablet - taking 25 mg with phentermine and 50 mg 7 pm Migraine - none - Phentermine 15 mg - taking at 7 am Interval History PT specifies the following items as new or significant updates since the last appointment: Eating more protein than carbs. Eating same foods. Weight loss since last vist: 8 lbs for total of 21 lbs Date: Weight: BMI: Medications: 07/25/2024 206 lb 35.82 topiramate 50 mg bid 05/15/2024 214 lb 37.21 04/20/2024 215 lb 37.38 03/14/2024 220 lb 37.93 02/25/2024 date started Phentermine 15 mg approval by PCP 01/31/2024 227 lb 39.14 Topiramate 5% weight loss = 216 lbs, 10% weight loss = 204 lbs Anti-obesity medications: Topiramate Benefit: decreased thoughts of food in the evening Adverse effects: Soda tasted terrible Phentermine Benefit: decrease in appetite Adverse effects: dry mouth, cavities - Xylitol mouth drops and gum. Weight promoting medications: Escitalopram 10 mg - has seen no weight gain Previous Diet (initial appointment): Pepsi or Mt Dew - 5 cans from 10 am to 8 pm Awake - 0700 B - 0730 20 or 30 gm Equate shake S - none or Lidia Doones 4 pack and pepsi or Mt Dew L - SKIP S - Pepsi or Mt Dew occasionally chips if at home D - 6 pm Roast, carrots, potato or unbreaded shrimp/lobster with rice or soft shell taco with meat, lettuce, tomato, cheese, sour cream S - berries/chips/carrots and dip/occasional ice cream Fluids: Pepsi or Mt Dew - 5 cans from 10 am to 8 pm Bedtime - 11 pm Quality of diet: 24hr recall suggests healthy/unhealthy diet. Characterization of diet:Structured, structured/Unstructured, unhealthy snacking, evening snacking, increased consumption of sugar sweetened beverages, and skip meals. 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 eating habits:mindlessness, boredom, and stress Eating Disorder no Cravings: Pepsi/Mt Dew, candy bar Dietary changes: 136243 Awake - 0700 B - 0700 30 gm protein shake every day. WE - adds 1 scrambled egg sometimes with 1 slice walker S - none L - 1230 1 HB egg, 1 cheese stick and nitrate-free meat stick S - none D - 6 pm taco salad or chicken (sometimes only 1-2 oz) and rice and veg or Roast, carrots, potato or unbreaded shrimp/lobster with rice and veg or Roast beef/provolone/green peppers with white rice S - sometimes pretzels Fluids - water, unsweet tea Bedtime - 11 pm Current Barriers: food cravings - salt and soda Exercise: No intentional exercise with youngest being hospitalized Regular exercise: no Strength/resistance exercise:yes Barriers to regular exercise? Yes- lower back- cannot lift over 15 pounds Work-related activity:Sedentary. Gym Membership: no Activity Tracker: yes- Apple watch- encouraged to wear Stress: increased Personal- fostering youngest was hospitalized Sleep: stable 7 hours CrCl cannot be calculated (No successful lab value found.). PAST MEDICAL HISTORY Diagnosis Date Abnormal glandular Papanicolaou smear of cervix 03/02/2004 @[facility] Anxiety state ASCUS with positive high risk HPV cervical 2002 @[facility] BRCA negative CKD (chronic kidney disease) stage 2, GFR 60-89 ml/min Essential hypertension GERD (gastroesophageal reflux disease) HSV-2 (herpes simplex virus 2) infection 2010 culture @[facility] Hyperlipidemia Incontinence of urine LGSIL on Pap smear of cervix 11/27/2004 @[facility] Migraine, intractable Mitral valve disorders(424.0) Undiagnosed cardiac murmurs Vitamin D deficiency Current Outpatient Medications Medication Sig Dispense Refill Phentermine HCl 15 mg capsule Take 1 capsule by mouth daily before breakfast for 90 days. 90 capsule 0 topiramate (TOPAMAX) 25 mg tablet Take 1 tablet by mouth two times a day. 180 tablet 1 estradiol 0.01% estriol 0.01% cream (CPD) 4 clicks/1 gram per vaginal twice weekly. 30 g 1 atorvastatin (LIPITOR) 20 mg tablet Take 20 mg by mouth once daily. valACYclovir (VALTREX) 500 mg tablet Take 1 tablet by mouth once daily. 90 tablet 3 celecoxib (CELEBREX) 200 mg capsule TAKE 1 CAPSULE BY MOUTH TWICE A DAY NEEDED FOR SEVERE PAIN escitalopram oxalate (LEXAPRO) 5 mg tablet Take 10 mg by mouth once daily. fluticasone (FLONASE) 50 mcg/actuation nasal spray Use 1 [place] in the nose once daily (more content not included)...[facility]12-17-2024 History of Present illness Narrative* Katiuska Rivera APRN.LEHR CUTTER - 05/15/2024 3:00 PM EST Some documentation from previous visit of 04/20/2024 was copied and pasted, documentation has been reviewed and edited as necessary for today's visit. Patient Summary: Meera is a 54 year old Female who presents for follow-up evaluation of obesity/weight management to treat and prevent related co- morbidities. In our previous visits we have discussed lifestyle intervention including a nutrition recommendations and physical activity optimization. Her last office visit was 4 weeks Assessment/plan from last visit: - Topiramate 25 mg tablet - taking 25 mg with phentermine taking @ 7a & 7p - Phentermine 15 mg - taking at 7 am Interval History Having more sugar craving around 8-9 at night Weight loss since last vist: 1 lbs for total of 13 lbs Date: Weight: BMI: Medications: 05/15/24 214 lb 37.21 Phentermine 15 mg, Topiramate 25 mg 04/20/2024 215 lb 37.38 03/14/2024 220 lb 37.93 02/25/2024 date started Phentermine 15 mg approval by PCP 01/31/2024 227 lb 39.14 Topiramate 5% weight loss = 216 lbs, 10% weight loss = 204 lbs Anti-obesity medications: Topiramate Benefit: decreased thoughts of food in the evening Adverse effects: Soda tasted terrible Phentermine Benefit: decrease in appetite Adverse effects: dry mouth Weight promoting medications: Escitalopram 10 mg - has seen no weight gain Previous Diet (initial appointment): Pepsi or Mt Dew - 5 cans from 10 am to 8 pm Awake - 0700 B - 0730 20 or 30 gm Equate shake S - none or Lidia Doones 4 pack and pepsi or Mt Dew L - SKIP S - Pepsi or Mt Dew occasionally chips if at home D - 6 pm Roast, carrots, potato or unbreaded shrimp/lobster with rice or soft shell taco with meat,lettuce, tomato, cheese, sour cream S - berries/chips/carrots and dip/occasional ice cream Fluids: Pepsi or Mt Dew - 5 cans from 10 am to 8 pm Bedtime - 11 pm Quality of diet: 24hr recall suggests healthy/unhealthy diet. Characterization of diet:Structured, structured/Unstructured, unhealthy snacking, evening snacking,increased consumption of sugar sweetened beverages, and skip meals. 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 eating habits:mindlessness, boredom, and stress Eating Disorder no Cravings: Pepsi/Mt Dew, candy bar Dietary changes: [id number] Awake - 0700 B - 0700 30 gm protein shake every day. WE - adds 1 scrambled egg sometimes with 1 slice walker S - none L - 1230 hard boiled egg, 1/2 pack of tuna S - 1/2 protein shake D - 6 pm taco salad or chicken (sometimes only 1-2 oz) and rice and veg or Roast, carrots, potato or unbreaded shrimp/lobster with rice and veg Doing more soups lately S - [place] kisses Fluids - water Bedtime - 11 pm Exercise: No intentional exercise Regular exercise: no Strength/resistance exercise:yes Barriers to regular exercise? Yes- lower back- cannot lift over 15 pounds Work-related activity:Sedentary. Gym Membership: no Activity Tracker: yes- Apple watch- encouraged to wear About 5000 steps a day Stress: stable Personal- fostering Sleep: stable wakes up at 0330, rolls over. 7-8 hours, interrupted Current Contraception: hysterectomy Obesity ROS/ FHx GEN: Fatigue:yes CV: h/o palpitations/cardiac arrhythmia, Chest pain: yes Valve disorder/murmur - has been evaluatedby 2 different cardiologists.?anxiety HTN: yes well-controlled GI: GERD:yes MSK: Joint Pain:yes-lower back NEURO: Migraines/COSTA: yes Physical Exam Constitutional: She appears healthy. No distress. Results: recent labs reviewed with the patient. Results: 06/29/2023 Outside labs CBCD WNL CMP GLUC 90 BUN 10 Creat 0.87 GFR 68 Lipids Total 189 Trig 121 HDL 58 LDL 107 - taking Lipitor Anti-Obesity Medications >Phentermine: No uncontrolled HTN, - well-controlled on valsartan. No CVD Hx or hx of seizure disorder. palpitations/cardiac arrhythmia, Chest pain: yes Valve disorder/murmur - has been evaluated by 2 different cardiologists.?anxiety No MAOI inhibitor use. No drug abuse hx. Crcl > 15. >Topiramate/zonisamide: No seizure, kidney stone or glaucoma hx. Has hx of migraines, No hx of poor sleep. Not of Child bearing age - hysterectomy >Qsymia: see above >Contrave: No uncontrolled HTN or hx of seizure disorder. No MAOI inhibitor use. No opiate use. >Saxenda/Wegovy/Ozempic: Cost. Ins coverage? >Metformin: eGFR > 30. No contraindications or medication interactions. Assessment/Plan: Meera Meléndez is a 54 year old yo with Class II obesity who presented today for follow up for supervised weight loss to treat and prevent related co-morbidities. 1. Essential hypertension - ICD9: 401.9, ICD10: I10 (primary diagnosis) - well-controlled with valsartan - Whole food balanced protein low-carb nutrition - TOPIRAMATE 25 MG TABLET - PHENTERMINE 15 MG CAPSULE 2. Gastroesophageal reflux disease, unspecified whether esophagitis present - ICD9: 530.81, ICD10: K21.9 - esomeprazole 40 mg - Whole food balanced protein low-carb nutrition - TOPIRAMATE 25 MG TABLET - PHENTERMINE 15 MG CAPSULE 3. Hyperlipidemia, unspecified hyperlipidemia type - ICD9: 272.4, ICD10: E78.5 - atorvastatin - Whole food balanced protein low-carb nutrition - TOPIRAMATE 25 MG TABLET - PHENTERMINE 15 MG CAPSULE 4. CKD (chronic kidney disease) stage 2, GFR 60-89 ml/min - ICD9: 585.2, ICD10: N18.2 - discussed benefit of fresh meats and whole food nutrition. Discussed plant protein options and encouraged kidney friendly foods. Reinforced avoidance of processed meats. 5. Depression with anxiety - ICD9: 300.4, ICD10: F41.8 - well-controlled with escitalopram 10 mg and prn alprazolam 6. Vitamin D deficiency - ICD9: 268.9, ICD10: E55.9 - daily Vit D3 2000 7. Intractable migraine with aura with status migrainosus - ICD9: 346.03, ICD10: G43.111 - prn Nurtec and Maxalt - TOPIRAMATE 25 MG TABLET 8. Class 2 severe obesity with serious comorbidity and body mass index (BMI) of 37.0 to 37.9 in adult, unspecified obesity type (HCC) - ICD9: 278.01, V85.37, ICD10: E66.01, Z68.37 Weight decreased - TOPIRAMATE 25 MG TABLET - twice a day - PHENTERMINE 15 MG CAPSULE - started 02/25/2024 with approval by PCP Dr. Lele Sevilla. Risk/benefits discussed at length including potential side effects of increased anxiety, insomnia, increased heart rate, and increased blood pressure. I have asked the patient to monitorblood pressure and avoid any stimulants (in the form of caffeinated beverages like coffee, tea, sports drinks) initially. Patient denies history of arrhythmias, coronary artery disease (atherosclerosis), heart failure, pulmonary hypertension, stroke, valvular heart disease (prolapse, regurgitation,stenosis). The patient is currently enrolled in a diet and exercise program The patient has no known history of contraindications The patient is free from drug or ETHO abuse The patient is not or and is aware not to become while using this medication OARS was reviewed. PDMP website checked and validated. All prescriptions have been APPROPRIATELY filled. No suspicious activity was identified. -- Continue - Whole food balanced protein low-carb nutrition. Discussed plant protein options and encouraged kidney friendly foods. Reinforced avoidance of processed meats. -- Encouraged the patient to improve her physical activity. An overall goal of 150-200 minutes per week of exercise has been effective in weight loss and maintenance. Changed Topiramate 25mg in the am and 50 mg in the evening due to increase in evening cravings. Prescription instructions reviewed with patient as applicable. Potential red flag symptoms discussed with the patient. Reviewed appropriate action plan to take ifred flag symptoms occur. Patient agreeable to treatment plan. Next appt with Celia Elijah on 07/25/24 Katiuska Rivera APRN.CNP Medical Decision Making: Problems: Moderate: 2+ stable chronic illnesses Risk: Moderate: Drug management Medical Decision Making Level: 4 - Moderate documented in [facility] NoteHNO ID: [id number] Author: KATIUSKA RIVERA APRN.ZINA Service: ? Author Type: Nurse Practitioner Type: Progress Notes Filed: 05/15/2024 16:50 Note Text: Some documentation from previous visit of 04/20/2024 was copied and pasted, documentation has been reviewed and edited as necessary for today's visit. Patient Summary: Meera is a 54 year old Female who presents for follow-up evaluation of obesity/weight management to treat and prevent related co-morbidities. In our previous visits we have discussed lifestyle intervention including a nutrition recommendations and physical activity optimization. Her last office visit was 4 weeks Assessment/plan from last visit: - Topiramate 25 mg tablet - taking 25 mg with phentermine taking @ 7a AND 7p - Phentermine 15 mg - taking at 7 am Interval History Having more sugar craving around 8-9 at night Weight loss since last vist: 1 lbs for total of 13 lbs Date: Weight: BMI: Medications: 05/15/24 214 lb 37.21 Phentermine 15 mg, Topiramate 25 mg 04/20/2024 215 lb 37.38 03/14/2024 220 lb 37.93 02/25/2024 date started Phentermine 15 mg approval by PCP 01/31/2024 227 lb 39.14 Topiramate 5% weight loss = 216 lbs, 10% weight loss = 204 lbs Anti-obesity medications: Topiramate Benefit: decreased thoughts of food in the evening Adverse effects: Soda tasted terrible Phentermine Benefit: decrease in appetite Adverse effects: dry mouth Weight promoting medications: Escitalopram 10 mg - has seen no weight gain Previous Diet (initial appointment): Pepsi or Mt Dew - 5 cans from 10 am to 8 pm Awake - 0700 B - 0730 20 or 30 gm Equate shake S - none or Lidia Doones 4 pack and pepsi or Mt Dew L - SKIP S - Pepsi or Mt Dew occasionally chips if at home D - 6 pm Roast, carrots, potato or unbreaded shrimp/lobster with rice or soft shell taco with meat, lettuce, tomato, cheese, sour cream S - berries/chips/carrots and dip/occasional ice cream Fluids: Pepsi or Mt Dew - 5 cans from 10 am to 8 pm Bedtime - 11 pm Quality of diet: 24hr recall suggests healthy/unhealthy diet. Characterization of diet:Structured, structured/Unstructured, unhealthy snacking, evening snacking, increased consumption of sugar sweetened beverages, and skip meals. 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 eating habits:mindlessness, boredom, and stress Eating Disorder no Cravings: Pepsi/Mt Dew, candy bar Dietary changes: [id number] Awake - 0700 B - 0700 30 gm protein shake every day. WE - adds 1 scrambled egg sometimes with 1 slice walker S - none L - 1230 hard boiled egg, 1/2 pack of tuna S - 1/2 protein shake D - 6 pm taco salad or chicken (sometimes only 1-2 oz) and rice and veg or Roast, carrots, potato or unbreaded shrimp/lobster with rice and veg Doing more soups lately S - [place] kisses Fluids - water Bedtime - 11 pm Exercise: No intentional exercise Regular exercise: no Strength/resistance exercise:yes Barriers to regular exercise? Yes- lower back- cannot lift over 15 pounds Work-related activity:Sedentary. Gym Membership: no Activity Tracker: yes- Apple watch- encouraged to wear About 5000 steps a day Stress: stable Personal- fostering Sleep: stable wakes up at 0330, rolls over. 7-8 hours, interrupted Current Contraception: hysterectomy Obesity ROS/ FHx GEN: Fatigue:yes CV: h/o palpitations/cardiac arrhythmia, Chest pain: yes Valve disorder/murmur - has been evaluated by 2 different cardiologists.?anxiety HTN: yes well-controlled GI: GERD:yes MSK: Joint Pain:yes-lower back NEURO: Migraines/COSTA: yes Physical Exam Constitutional: She appears healthy. No distress. Results: recent labs reviewed with the patient. Results: 06/29/2023 Outside labs CBCD WNL CMP GLUC 90 BUN 10 Creat 0.87 GFR 68 Lipids Total 189 Trig 121 HDL 58 LDL 107 - taking Lipitor Anti-Obesity Medications >Phentermine: No uncontrolled HTN, - well-controlled on valsartan. No CVD Hx or hx of seizure disorder. palpitations/cardiac arrhythmia, Chest pain: yes Valve disorder/murmur - has been evaluated by 2 different cardiologists.?anxiety No MAOI inhibitor use. No drug abuse hx. Crcl > 15. >Topiramate/zonisamide: No seizure, kidney stone or glaucoma hx. Has hx of migraines, No hx of poor sleep. Not of Child bearing age - hysterectomy >Qsymia: see above >Contrave: No uncontrolled HTN or hx of seizure disorder. No MAOI inhibitor use. No opiate use. >Saxenda/Wegovy/Ozempic: Cost. Ins coverage? >Metformin: eGFR > 30. No contraindications or medication interactions. Assessment/Plan: Meera Meléndez is a 54 year old yo with Class II obesity who presented today for follow up for supervised weight loss to treat and prevent related co-morbidities. 1. Essential hypertension - ICD9: 401.9, ICD10: I10 (primary diagnosis) - well-controlled with valsartan - Whole food balanced protein low-carb nutrition - TOPIRAMATE 25 MG TABLET - PHENTERMINE 15 MG CAPSULE 2. Gastroesophageal re (more content not included)...[facility] 05-10-2024 Telephone encounter Note* Telephone Encounter - Sarah Givens RN - 05/10/2024 4:42 PM EST Order faxed via [employer]. Sarah Givens RN [facility]12-12-2024 Miscellaneous Notes* Telephone Encounter - Sarah Givens RN - 05/10/2024 4:42 PM EST Order faxed via [employer]. Sarah Givens RN documented in this encounterAdena [facility]12-[facility] History of Present illness Narrative* Ebenezer Camarillo APRN.ZINA - 05/04/2024 10:00 AM EST Images from the original note were not included. VIRTUAL VISIT PROGRESS NOTE This is a virtual visit using [employer] Video Visit. It required patient- provider interaction for the medical decision making as documented below. I have communicated my name and active licensure. The patient's identity and physical location wereverified at the time of this visit. Either the patient or their legal branch sales and service representative has been informed of the risks and benefits of -- and alternatives to -- treatment through a remote evaluation andconsents to proceed with the evaluation remotely. Last visit 04/09/24: Plan: Assessment & Plan Genitourinary syndrome of menopause - Discussed she may have had a rxn to Estrace cream. We will try Imvexxy. If that is not covered cheryl is uncomfortable to use, plan compounded estradiol cream. - Vulvar care measures discussed at length. Orders: estradiol 10 mcg vaginal suppository maintenance pack (IMVEXXY); Use 1 Suppository vaginally three times a week. High-tone pelvic floor dysfunction - Discussed exam findings. - Recommend revisiting PFPT. Cystocele, midline - Questions answered regarding prolapse. Rectocele - As above. Meera Meléndez is a 54 year old female seen for GSM and PFD. States things are good. States she hasn't started PFPT as she is waiting until after the holidays. She started using olive oil which is working well and stopped using condoms. It is helping with lubrication a lot. Using estradiol vaginal cream twice weekly. States she is having much less burning. She is very happy with the improvements! HISTORY REVIEWED (electronic chart updated): PAST MEDICAL HISTORY Diagnosis Date Abnormal glandular Papanicolaou smear of cervix 03/02/2004 @[facility] Anxiety state ASCUS with positive high risk HPV cervical 2002 @[facility] BRCA negative CKD (chronic kidney disease) stage 2, GFR 60-89 ml/min Essential hypertension GERD (gastroesophageal reflux disease) HSV-2 (herpes simplex virus 2) infection 2010 culture @[facility] Hyperlipidemia Incontinence of urine LGSIL on Pap smear of cervix 11/27/2004 @[facility] Migraine, intractable Mitral valve disorders(424.0) Undiagnosed cardiac murmurs Vitamin D deficiency PAST SURGICAL HISTORY Procedure Laterality Date CRYOSURGERY 2005 @[facility] FOOT SURGERY HX 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 LIGATE FALLOPIAN TUBE 1992 dr Denia VELASCO BARTHOLIN GLAND CYST 1995 Dr Loza TREATMENT OF ANAL FISSURE 1998 VAGINAL HYSTERECTOMY 02/03/2010 adenomyosis- has both overies per u/s 2010 VAGINOSCOPY 10/31/2003 [facility] FAMILY HISTORY Problem Relation Age of Onset Hypertension Mother Hyperlipidemia Mother Obesity Mother Heart Attack Father Obesity Father No Known Problems Brother Breast Cancer Maternal Grandmother 59 Obesity Maternal Grandmother Heart Failure Maternal Grandfather Obesity Maternal Grandfather Obesity Paternal Grandmother Heart Attack Paternal Grandfather other (migraine [Other]) Other Stroke Other Aneurysm Other heart aneurysm Social History Tobacco Use Smoking status: Never Smokeless tobacco: Never Vaping Use Vaping status: Never Used Substance Use Topics Alcohol use: Not Currently Drug use: Never Current Outpatient Medications Medication Sig Phentermine HCl 15 mg capsule Take 1 capsule by mouth daily before breakfast for 14 days. Patient should start on May 03, 2024. topiramate (TOPAMAX) 25 mg tablet Take 1 tablet by mouth two times a day. estradiol 0.01% estriol 0.01% cream (CPD) 4 clicks/1 gram per vaginal twice weekly. ferrous sulfate 325 mg (65 mg iron) EC tablet Take 325 mg by mouth once daily. atorvastatin (LIPITOR) 20 mg tablet Take 20 mg by mouth once daily. valACYclovir (VALTREX) 500 mg tablet Take 1 tablet by mouth once daily. celecoxib (CELEBREX) 200 mg capsule TAKE 1 CAPSULE BY MOUTH TWICE A DAY NEEDED FOR SEVERE PAIN escitalopram oxalate (LEXAPRO) 5 mg tablet Take 10 mg by mouth once daily. fluticasone (FLONASE) 50 mcg/actuation nasal spray Use 1 [place] in the nose once daily. rimegepant (NURTEC ODT) 75 mg disintegrating tablet Take 75 mg by mouth once daily as needed. rizatriptan (MAXALT) 10 mg tablet Take 10 mg by mouth as needed for migraine headache (see administration instructions). solifenacin (VESICARE) 5 mg tablet Take 5 mg by mouth once daily. valsartan (DIOVAN) 80 mg tablet Take 80 mg by mouth once daily. cholecalciferol (VITAMIN D3) 50 mcg (2,000 unit) tablet Take 2,000 Units by mouth once daily. ALPRAZolam (XANAX) 0.25 mg tablet Take 0.25 mg by mouth once daily as needed. esomeprazole mag trihydrate(NEXIUM 40 MG CAP) Take 40 mg by mouth once daily. DO NOT CRUSH No current facility-administered medications for this visit. ALLERGIES Allergen Reactions Doxycycline Other: See Comments, Diarrhea, GI Upset, Vomiting, Intolerance Cephalexin Monohydr* Other: See Comments Lisinopril Other: See Comments, Cough Seasonal Allergies Other: See Comments Itchy eyes REVIEW OF SYSTEMS: GENERAL: feeling well without fatigue, no recent change in weight PHYSICAL EXAMINATION: VIDEO EXAM: (if completed, performed via video enabled technology) GENERAL: alert and appropriate, in no distress, well-hydrated, well nourished, and happy, smiling, interactive HEAD: normocephalic, no abnormality or lesion noted ASSESSMENT: (N95.8) Genitourinary syndrome of menopause (primary encounter diagnosis) PLAN: - Continue using vaginal estradiol cream - Continue olive oil. - Start PFPT in May. - Follow-up in August 2024. There are no Patient Instructions on file for this visit. I spent a total of 10 minutes on the date of the service which included preparing to see the patient, [id number] patient care, completing clinical documentation, and counseling and educating the patient/family/caregiver Ebenezer Camarillo APRN.ZINA documented in this encounterAdena [facility]12-06-[facility]24 NoteHNO ID: [id number] Author: EBENEZER CAMARILLO APRN.ZINA Service: ? Author Type: Nurse Practitioner Type: Progress Notes Filed: 05/04/2024 10:12 Note Text: VIRTUAL VISIT PROGRESS NOTE This is a virtual visit using [employer] Zoom Video Visit. It required patient-provider interaction for the medical decision making as documented below. I have communicated my name and active licensure. The patient's identity and physical location were verified at the time of this visit. 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 Last visit 04/09/24: Plan: Assessment AND Plan Genitourinary syndrome of menopause - Discussed she may have had a rxn to Estrace cream. We will try Imvexxy. If that is not covered or it is uncomfortable to use, plan compounded estradiol cream. - Vulvar care measures discussed at length. Orders: estradiol 10 mcg vaginal suppository maintenance pack (IMVEXXY); Use 1 Suppository vaginally three times a week. High-tone pelvic floor dysfunction - Discussed exam findings. - Recommend revisiting PFPT. Cystocele, midline - Questions answered regarding prolapse. Rectocele - As above. Meera Meléndez is a 54 year old female seen for GSM and PFD. States things are good. States she hasn't started PFPT as she is waiting until after the holidays. She started using olive oil which is working well and stopped using condoms. It is helping with lubrication a lot. Using estradiol vaginal cream twice weekly. States she is having much less burning. She is very happy with the improvements! HISTORY REVIEWED (electronic chart updated): PAST MEDICAL HISTORY Diagnosis Date Abnormal glandular Papanicolaou smear of cervix 03/02/2004 @[facility] Anxiety state ASCUS with positive high risk HPV cervical 2002 @[facility] BRCA negative CKD (chronic kidney disease) stage 2, GFR 60-89 ml/min Essential hypertension GERD (gastroesophageal reflux disease) HSV-2 (herpes simplex virus 2) infection 2010 culture @[facility] Hyperlipidemia Incontinence of urine LGSIL on Pap smear of cervix 11/27/2004 @[facility] Migraine, intractable Mitral valve disorders(424.0) Undiagnosed cardiac murmurs Vitamin D deficiency PAST SURGICAL HISTORY Procedure Laterality Date CRYOSURGERY 2005 @[facility] FOOT SURGERY HX 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 LIGATE FALLOPIAN TUBE 1992 dr Denia VELASCO BARTHOLIN GLAND CYST 1995 Dr Loza TREATMENT OF ANAL FISSURE 1998 VAGINAL HYSTERECTOMY 02/03/2010 adenomyosis- has both overies per u/s 2011 VAGINOSCOPY 10/31/2003 ERNESTINA I FAMILY HISTORY Problem Relation Age of Onset Hypertension Mother Hyperlipidemia Mother Obesity Mother Heart Attack Father Obesity Father No Known Problems Brother Breast Cancer Maternal Grandmother 59 Obesity Maternal Grandmother Heart Failure Maternal Grandfather Obesity Maternal Grandfather Obesity Paternal Grandmother Heart Attack Paternal Grandfather other (migraine [Other]) Other Stroke Other Aneurysm Other heart aneurysm Social History Tobacco Use Smoking status: Never Smokeless tobacco: Never Vaping Use Vaping status: Never Used Substance Use Topics Alcohol use: Not Currently Drug use: Never Current Outpatient Medications Medication Sig Phentermine HCl 15 mg capsule Take 1 capsule by mouth daily before breakfast for 14 days. Patient should start on May 03, 2024. topiramate (TOPAMAX) 25 mg tablet Take 1 tablet by mouth two times a day. estradiol 0.01% estriol 0.01% cream (CPD) 4 clicks/1 gram per vaginal twice weekly. ferrous sulfate 325 mg (65 mg iron) EC tablet Take 325 mg by mouth once daily. atorvastatin (LIPITOR) 20 mg tablet Take 20 mg by mouth once daily. valACYclovir (VALTREX) 500 mg tablet Take 1 tablet by mouth once daily. celecoxib (CELEBREX) 200 mg capsule TAKE 1 CAPSULE BY MOUTH TWICE A DAY NEEDED FOR SEVERE PAIN escitalopram oxalate (LEXAPRO) 5 mg tablet Take 10 mg by mouth once daily. fluticasone (FLONASE) 50 mcg/actuation nasal spray Use 1 [place] in the nose once daily. rimegepant (NURTEC ODT) 75 mg disintegrating tablet Take 75 mg by mouth once daily as needed. rizatriptan (MAXALT) 10 mg tablet Take 10 mg by mouth as needed for migraine headache (see administration instructions). solifenacin (VESICARE) 5 mg tablet Take 5 mg by mouth once daily. valsartan (DIOVAN) 80 mg tablet Take 80 mg by mouth once daily. cholecalciferol (VITAMIN D3) 50 mcg (2,000 unit) tablet Take 2,000 Units by mouth once daily. ALPRAZolam (XANAX) 0.25 mg tablet Take 0.25 mg by mouth once daily as needed. esomeprazole mag trihydrate(NEXIUM 40 MG CAP) Take 40 mg by mouth once daily. DO NOT CRUSH No current facility-administered medications for this visit. ALLERGIES Allergen Reactions Doxycycline Other: See Comments, Cira (more content not included)...[facility]12-03-2024 History of Present illness Narrative* Korin Avelar RT(R) - 05/01/2024 3:00 PM EST Radiology Service Progress Note PATIENT NAME: Meera Meléndez DATE OF SERVICE: May 01, 2024 TIME: 2:47 PM PATIENT IDENTITY VERIFICATION COMPLETED USING TWO (2) IDENTIFIERS: Name and Date of confirmedby patient verbally. FALL SCREENING: Has the patient had 2 falls in the last year or 1 fall with injury or currently using an Ambulatory Assistive Device (Walker, Cane, Wheelchair, Crutches, etc.)? No PATIENT GENDER DATA: Female. status: : No status: NO. PATIENT RELEVANT IMPLANT DATA REVIEWED: Not Applicable PATIENT PRESENTS WITH AN IMPLANTABLE OR ATTACHED COMPLEX CARE NURSE PRACTITIONER: No RADIOLOGY DEPARTMENT: Mammography PERIPHERAL IV DATA: Not applicable SIGNED BY: RT Yonis(Ronit) May 01, 2024 2:47 PM documented in [facility]24 NoteHNO ID: [id number] Author: KORIN AVELAR RT(R) Service: ? Author Type: Technologist Type: Progress Notes Filed: 05/01/2024 14:47 Note Text: Radiology Service Progress Note PATIENT NAME: Meera Meléndez DATE OF SERVICE: May 01, 2024 TIME: 2:47 PM PATIENT IDENTITY VERIFICATION COMPLETED USING TWO (2) IDENTIFIERS: Name and Date of confirmed by patient verbally. FALL SCREENING: Has the patient had 2 falls in the last year or 1 fall with injury or currently using an Ambulatory Assistive Device (Walker, Cane, Wheelchair, Crutches, etc.)? No PATIENT GENDER DATA: Female. status: : No status: NO. PATIENT RELEVANT IMPLANT DATA REVIEWED: Not Applicable PATIENT PRESENTS WITH AN IMPLANTABLE OR ATTACHED COMPLEX CARE NURSE PRACTITIONER: No RADIOLOGY DEPARTMENT: Mammography PERIPHERAL IV DATA: Not applicable SIGNED BY: Korin Avelar, RT(R) May 01, 2024 2:47 [facility]11-27-2024 Note. MICRO - Microbiology PROCEDURE: Throat Culture [*1] SOURCE: Throat BODY SITE: COLLECTED DATE/TIME: 04/23/2024 09:00 EST RECEIVED DATE/TIME: 04/23/2024 20:50 EST START DATE/TIME: 04/23/2024 20:51 EST FREE TEXT SOURCE: FINAL REPORTS Final Report [] Verified Date/Time/Personnel: 04/25/2024 07:21 EST Normal throat nickie present Sensitivity Testing: Not Indicated PRELIMINARY REPORTS Preliminary Report [] Verified Date/Time/Personnel: 04/24/2024 12:12 EST Negative for upper respiratory pathogens at 24 hours. Performing Locations *1: This test was performed at: [address], [facility]- , [facility]11-22-2024 Instructions* Patient Instructions* Celia Nava APRN.LEHR CUTTER - 04/20/2024 12:03 PM EST - Eat primarily whole foods. Limit carbs, especially processed carbs. Eat - Meat, vegetables and fruits with skin on if possible, eggs, cheese. - Do not drink your calories - 30 grams of protein for your first meal of the day decreases your hunger during the day by up to 40 %. Options include: Premier Protein or generic 30 gm protein 1 gm sugar or 5 eggs or 2-3 eggs andsome unbreaded meat and/or cheese. No fruit, vegetables, bread, grain, yogurt, Smoothies, etc. - Walk for 15 minutes immediately after meal - Whole food balanced protein, controlled carbohydrate nutrition plan - 30 g of protein 3 times a day and up to 30 g of carbs at lunch and dinner only. Breakfast - 30 gm protein with limit of 2 gm carbohydrates. Options include: Premier Protein or generic 30 gm protein 1 gm sugar or 5 eggs or 2-3 eggs and some unbreaded meat and/or cheese. No fruit,vegetables, bread, grain, yogurt, Smoothies, etc. Lunch and dinner - 30 gm protein is the goal with less than 30 gm carbohydrates Snacks - all protein or more protein than carbs - Eat only fresh meat. Canned tuna is good. Chicken Fish, eggs. Beef a couple of times a week. No preserved or processed meats such as meat sticks, pepperoni, lunch meat, salami, jerky. Look for low sodium nitrate/nitrite free. - limit salt to 2 gm/day Protein - no carbs Egg 1 large - 6g Egg white 1 large 3.6g 3 oz is approximately the size of a deck of cards and equals 21 g protein so 4 oz is 28 gm protein Beef, Chicken, [place], Pork, [place] 1 oz 7g Fish, Tuna Fish 1 oz 7g (Starkist tuna packet 2.6 oz 17 gm protein) Seafood (Crabmeat, Shrimp, Lobster) 1 oz 6g Protein shakes (read labels) Premier Protein or generic [employer] Equate, [employer] High Performance- 30g protein & 1g carb - meal replacement Premier Protein powder or generic- 30 gm protein, 1g carb Premier Protein plant protein powder - 25 gm protein, 0 sugar/2 carb Vanilla and chocolate (not a meal replacement) Fairlife 30 gram protein - 30g protein & 3g carb BOOST Glucose Control Max 30g Protein Nutritional Drink - 30g protein & 1 carb - meal replacement Slimfast High Protein - 20g protein & 1g carb Ensure Max Protein Nutrition Shake 30g protein & 2 carb Protein AND carbs Imitation Crab Meat 1 oz - 2g protein & 4g carb Milk, skim 2% or 1% 8 oz - 8g protein & 12g carb Fairlife 2% milk 8 oz -13 g protein & 6g carb Armenian yogurt Full Fat Armenian Yogurt 1 cup - 20.4g protein & 9.1g carb 2% Armenian Yogurt 1 cup - 22.7g protein & 9.1g carb 0% (fat-free) Armenian Yogurt - 1 cup 24g protein & 9.3g carb Aldi Protein Armenian yogurt single svg - 15g protein & 7g carb Chobani Zero Sugar single svg: - 12g protein & 5g carb Dannon Armenian Light + Fit 1 single svg - 12g protein & 9g carb Oikos Pro single svg - 20g protein & 8g carb Oikos Triple Zero Armenian Nonfat Yogurt 1 single svg - 15g protein & 7g carb :ratio, KETO Friendly Dairy Snack 1 single svg - 15g protein & 2g carb :ratio Protein 1 single svg - 25g protein & 8g carb Two Good Lowfat Armenian Yogurt, [place], Lower Sugar - 12g protein & 2g carb Yoplait Protein 1 single svg 15gm protein & 5gm carb Dairy Free - [place] unsweetened Armenian almond/soy 15 gm protein & 3 gm carb Dairy Free - True Goodness by [employer] coconut-based yogurt alternative 1 gm protein 1 gm net carb 180 charlene Cheese each oz Brie 5.9g protein & 0.1g carb Cheddar 7g protein & 0.4g carb Tad 6.7g protein & 0.7g carb Cream Cheese 1.7g protein & 1.2g carb Feta 4g protein & 1.2g carb Mozzarella 6.3g protein & 0.6g carb Parmesan 10g protein & 0.9g carb [place] 7.6g protein & 1.5g carb Cottage Cheese 1/2 c Breakstone 2% 13g protein 7g carb Yaquelin 2% 13g protein 5 g carb Good Culture 2% 14g protein 3g carb Mancia s Low Fat 12g protein & 4g carb Legumes Lentils cup 9g protein & 20g carb Hall beans cup 7g protein & 20g carb Kidney, Black, [place], Cannellini beans cup 8g protein & 20g carb Soybeans 1/2 c 14g complete protein & 8.5g carb [place] milk, unsweetened 8 oz 1g protein & 2g carb Soy milk 8 oz 3.5g protein & 1.6g carb Tofu 1/2 cup 10g protein & 2.3g carb Peanut butter, natural 2 Tbsp 7-8g protein & 4g net carbs, 190 calories PB2 powder 2 Tbsp 6g protein & 5g carb Nuts and Seeds per oz Almonds - 5.9g protein & 6.1g carb [place] Nuts - 4.0g protein & 3.4g carb Cashews - 5.1g protein & 9.2g carb Hazelnuts - 4.2g protein & 4.7g carb Hemp seeds/hearts 3 T/30 gms - 9.5 gm complete protein and 2.5 gm carb Peanuts - 7g protein & 4.6g carb Pecans - 2.6g protein & 3.9g carb Pistachios - 5.8g protein & 7.8g carb Pumpkin Seeds - 6.9g protein & 5g carb [place] Seeds - 5.8g protein & 5.6g carb Walnuts - 4.3g protein & 3.8g carb Edamame Beans (soybean) snack 1 pack 11 gm complete protein 2 carb 5 (FIVE) gram carb vegetable options 1 cup raw OR cup cooked: Asparagus Hollins sprouts Beets Broccoli Brussel sprouts Cabbage Carrots Cauliflower Celery [place] Eggplant Green beans Lettuce Peppers Snap peas Spaghetti squash Spinach Tomato Turnips Zucchini 15 gram carb vegetable options cup cooked corn or hominy corn on the cob, large (5 oz) cup cooked green peas 4.3 gm complete protein cup cooked hall beans 1 small potato or sweet potato cup cooked potato, plain cup cooked sweet potato, plain 1 cup winter squash (pumpkin, acorn, butternut) 1 cup marinara or pasta sauce - check label cup tomato juice cup tomato puree Beans, Seeds, Nuts cup cooked beans (kidney, ragland, red, green, etc.) cup cooked lentils cup baked beans 4 tablespoons nut butter <15 gram carb fruit options Berries have the lowest sugar content 1/2 medium apple - 12.5 carbs 1/2 medium avocado - 6.5 gm carbs 1/2 medium banana - 15 carbs 1/2 cup blueberries - 11 carbs - may actually help you lose weight 1/2 cup fresh cherries -11 carbs 1 medium Elizabeth -9 carbs 1/2 cup fresh cranberries - 6.5 carbs 1/2 c grapes - 15 carbs 1/2 medium grapefruit - 10.5 carbs 1/2 cup diced honeydew melon - 8 carbs 1 medium kiwi without skin - 11 carbs 1/2 cup sliced michael -14 carbs 1 medium nectarine - 15 carbs 1 medium orange -15.5 carbs 1 medium peach -14.5 carbs 1/2 cup fresh pineapple -11 carbs 1 medium plum -7.5 carbs 1 prune - 6 carbs 1/4 c raisins - 31.25 carbs 1/2 cup raspberries -7.5 carbs 1/2 c strawberries - 12.7 carbs 1 medium tangerine -12 carbs 1/2 cup diced watermelon - 6 carbs Grains Brown rice 1/2 c 5.5g protein 24 carb White long-grain rice 1/2 c 2g protein 22.5 carb Quinoa 1/2 c 4 gm complete protein 25 carb Oatmeal, old fashioned 1/2 c 5g protein 27g carb High Protein Snack Ideas 1. 2. [place] mix without dried fruit 3. [place] roll-ups 4. Armenian yogurt 5. Veggies and yogurt dip 6. Tuna 7. Hard-boiled eggs 8. Peanut butter with celery 9. Cheese slices/ Cheese Stick 10. Handful of almonds, peanuts or walnuts 11. Cottage Cheese 12. 13. Protein bars 14. Canned [place] 15. Pumpkin seeds 16. Nut butter 17. Protein shakes 18. Avocado and chicken salad 19. Egg muffins 20. Leftover protein 21. 1/2 c blended cottage cheese or Armenian yogurt with dry ranch/Mrs. Dash/herb seasoning mix to make protein dip 22. 1/2 c blended cottage cheese with 1 Tbsp sugar-free dry cheesecake pudding mix 12g protein 10 carb 23. Pudding - 1 30 gm protein shake with 1/2 pkg sugar-free pudding 4 svgs - 7.8 gm protein, 5 carbeach svg 24. SF Sunkist or Root Beer with 1-2 Tablespoons heavy whipping cream 25. Mini frozen dessert bites - layer protein yogurt, skinny syrup and crushed nuts and freeze documented in this encounterA[facility]11-22-[facility] History of Present illness Narrative* Celia Nava APRN.ZINA - 04/20/2024 11:30 AM EST Images from the original note were not included. Some documentation from previous visit of 03/14/2024 was copied and pasted, documentation has been reviewed and edited as necessary for today's visit. Patient Summary: Meera is a 54 year old Female who presents for follow-up evaluation of obesity/weight management to treat and prevent related co- morbidities. In our previous visits we have discussed lifestyle intervention including a nutrition recommendations and physical activity optimization. Her last office visit was 5 weeks Assessment/plan from last visit: - Topiramate 25 mg tablet - taking 25 mg with phentermine and bedtime - Phentermine 15 mg - taking at 7 am Interval History PT specifies the following items as new or significant updates since the last appointment: Stopped all pop because it no longer tastes good with the topiramate. No longer drinking any orangejuice or lemonade. Weight loss since last vist: 5 lbs for total of 12 lbs Date: Weight: BMI: Medications: 04/20/2024 215 lb 37.38 03/14/2024 220 lb 37.93 02/25/2024 date started Phentermine 15 mg approval by PCP 01/31/2024 227 lb 39.14 Topiramate 5% weight loss = 216 lbs, 10% weight loss = 204 lbs Anti-obesity medications: Topiramate Benefit: decreased thoughts of food in the evening Adverse effects: Soda tasted terrible Phentermine Benefit: decrease in appetite Adverse effects: dry mouth Weight promoting medications: Escitalopram 10 mg - has seen no weight gain Previous Diet (initial appointment): Pepsi or Mt Dew - 5 cans from 10 am to 8 pm Awake - 0700 B - 0730 20 or 30 gm Equate shake S - none or Lidia Doones 4 pack and pepsi or Mt Dew L - SKIP S - Pepsi or Mt Dew occasionally chips if at home D - 6 pm Roast, carrots, potato or unbreaded shrimp/lobster with rice or soft shell taco with meat,lettuce, tomato, cheese, sour cream S - berries/chips/carrots and dip/occasional ice cream Fluids: Pepsi or Mt Dew - 5 cans from 10 am to 8 pm Bedtime - 11 pm Quality of diet: 24hr recall suggests healthy/unhealthy diet. Characterization of diet:Structured, structured/Unstructured, unhealthy snacking, evening snacking,increased consumption of sugar sweetened beverages, and skip meals. 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 eating habits:mindlessness, boredom, and stress Eating Disorder no Cravings: Pepsi/John Dew, candy bar Dietary changes: [id number] Awake - 0700 B - 0700 30 gm protein shake every day. WE - adds 1 scrambled egg sometimes with 1 slice walker S - none L - 1230 1 cheese stick and 1 Slim Johan S - none D - 6 pm taco salad or chicken (sometimes only 1-2 oz) and rice and veg or Roast, carrots, potato or unbreaded shrimp/lobster with rice and veg S - sometimes pretzels Fluids - water, unsweet tea Bedtime - 11 pm Exercise: No intentional exercise Regular exercise: no Strength/resistance exercise:yes Barriers to regular exercise? Yes- lower back- cannot lift over 15 pounds Work-related activity:Sedentary. Gym Membership: no Activity Tracker: yes- Apple watch- encouraged to wear Stress: stable Personal- fostering Sleep: stable wakes up at 0330, rolls over. 7-8 hours, interrupted CrCl cannot be calculated (No successful lab value found.). PAST MEDICAL HISTORY Diagnosis Date Abnormal glandular Papanicolaou smear of cervix 03/02/2004 @[facility] Anxiety state ASCUS with positive high risk HPV cervical 2002 @[facility] BRCA negative CKD (chronic kidney disease) stage 2, GFR 60-89 ml/min Essential hypertension GERD (gastroesophageal reflux disease) HSV-2 (herpes simplex virus 2) infection 2010 culture @[facility] Hyperlipidemia Incontinence of urine LGSIL on Pap smear of cervix 11/27/2004 @[facility] Migraine, intractable Mitral valve disorders(424.0) Undiagnosed cardiac murmurs Vitamin D deficiency Current Outpatient Medications Medication Sig Dispense Refill estradiol 0.01% estriol 0.01% cream (CPD) 4 clicks/1 gram per vaginal twice weekly. 30 g 1 Phentermine HCl 15 mg capsule Take 1 capsule by mouth daily before breakfast for 45 days. Patient should start on March 19, 2024. 45 capsule 0 topiramate (TOPAMAX) 25 mg tablet Take 1 tablet by mouth two times a day. 180 tablet 0 ferrous sulfate 325 mg (65 mg iron) EC tablet Take 325 mg by mouth once daily. atorvastatin (LIPITOR) 20 mg tablet Take 20 mg by mouth once daily. valACYclovir (VALTREX) 500 mg tablet Take 1 tablet by mouth once daily. 90 tablet 3 celecoxib (CELEBREX) 200 mg capsule TAKE 1 CAPSULE BY MOUTH TWICE A DAY NEEDED FOR SEVERE PAIN escitalopram oxalate (LEXAPRO) 5 mg tablet Take 10 mg by mouth once daily. fluticasone (FLONASE) 50 mcg/actuation nasal spray Use 1 [place] in the nose once daily. rimegepant (NURTEC ODT) 75 mg disintegrating tablet Take 75 mg by mouth once daily as needed. rizatriptan (MAXALT) 10 mg tablet Take 10 mg by mouth as needed for migraine headache (see administration instructions). solifenacin (VESICARE) 5 mg tablet Take 5 mg by mouth once daily. valsartan (DIOVAN) 80 mg tablet Take 80 mg by mouth once daily. cholecalciferol (VITAMIN D3) 50 mcg (2,000 unit) tablet Take 2,000 Units by mouth once daily. ALPRAZolam (XANAX) 0.25 mg tablet Take 0.25 mg by mouth once daily as needed. esomeprazole mag trihydrate(NEXIUM 40 MG CAP) Take 40 mg by mouth once daily. DO NOT CRUSH 0 No current facility-administered medications for this visit. 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 No distress. Results: recent labs reviewed with the patient. Results: reviewed with the patient 06/29/2023 Outside labs CBCD WNL CMP GLUC 90 BUN 10 Creat 0.87 GFR 68 Lipids Total 189 Trig 121 HDL 58 LDL 107 - taking Lipitor No data to display No results found for: CHOL, HDL, LDL, TG No data to display Vitamin D 25 Hydroxy Date Value Ref Range Status 02/01/2024 31.7 31.0 - 80.0 ng/mL Final Comment: Classification of 25 OH Vitamin D status: Deficiency/Insufficiency: < or = 30 ng/ml. Sufficiency/Optimal Levels: 31-80 ng/mL Toxicity: > 100 ng/mL. Test performed by chemiluminescent immunoassay. TSH (mIU/L) Date Value 02/01/2024 2.240 Hemoglobin A1C (%) Date Value 02/01/2024 5.4 Insulin Date Value Ref Range Status 02/01/2024 19.5 3.0 - 25.0 mU/L Final Anti-Obesity Medications >Phentermine: No uncontrolled HTN, - well-controlled on valsartan. No CVD Hx or hx of seizure disorder. palpitations/cardiac arrhythmia, Chest pain: yes Valve disorder/murmur - has been evaluated by 2 different cardiologists.?anxiety No MAOI inhibitor use. No drug abuse hx. Crcl > 15. >Topiramate/zonisamide: No seizure, kidney stone or glaucoma hx. Has hx of migraines, No hx of poor sleep. Not of Child bearing age - hysterectomy >Qsymia: see above >Contrave: No uncontrolled HTN or hx of seizure disorder. No MAOI inhibitor use. No opiate use. >Saxenda/Wegovy/Ozempic: Cost. Ins coverage? >Metformin: eGFR > 30. No contraindications or medication interactions. Assessment/Plan: Meera Meléndez is a 54 year old yo with Class II obesity who presented today for follow up for supervised weight loss to treat and prevent related co-morbidities. 1. Essential hypertension - ICD9: 401.9, ICD10: I10 (primary diagnosis) - well-controlled with valsartan - Whole food balanced protein low-carb nutrition - TOPIRAMATE 25 MG TABLET - PHENTERMINE 15 MG CAPSULE 2. Gastroesophageal reflux disease, unspecified whether esophagitis present - ICD9: 530.81, ICD10: K21.9 - esomeprazole 40 mg - Whole food balanced protein low-carb nutrition - TOPIRAMATE 25 MG TABLET - PHENTERMINE 15 MG CAPSULE 3. Hyperlipidemia, unspecified hyperlipidemia type - ICD9: 272.4, ICD10: E78.5 - atorvastatin - Whole food balanced protein low-carb nutrition - TOPIRAMATE 25 MG TABLET - PHENTERMINE 15 MG CAPSULE 4. CKD (chronic kidney disease) stage 2, GFR 60-89 ml/min - ICD9: 585.2, ICD10: N18.2 - discussed benefit of fresh meats and whole food nutrition. Discussed plant protein options and encouraged kidney friendly foods. Reinforced avoidance of processed meats. 5. Depression with anxiety - ICD9: 300.4, ICD10: F41.8 - well-controlled with escitalopram 10 mg and prn alprazolam 6. Vitamin D deficiency - ICD9: 268.9, ICD10: E55.9 - daily Vit D3 2000 7. Intractable migraine with aura with status migrainosus - ICD9: 346.03, ICD10: G43.111 - prn Nurtec and Maxalt - TOPIRAMATE 25 MG TABLET 8. Class 2 severe obesity with serious comorbidity and body mass index (BMI) of 37.0 to 37.9 in adult, unspecified obesity type (HCC) - ICD9: 278.01, V85.37, ICD10: E66.01, Z68.37 Weight decreased - TOPIRAMATE 25 MG TABLET - twice a day - PHENTERMINE 15 MG CAPSULE - started 02/25/2024 with approval by PCP Dr. Lele Sevilla. Risk/benefits discussed at length including potential side effects of increased anxiety, insomnia, increased heart rate, and increased blood pressure. I have asked the patient to monitorblood pressure and avoid any stimulants (in the form of caffeinated beverages like coffee, tea, sports drinks) initially. Patient denies history of arrhythmias, coronary artery disease (atherosclerosis), heart failure, pulmonary hypertension, stroke, valvular heart disease (prolapse, regurgitation,stenosis). The patient is currently enrolled in a diet and exercise program The patient has no known history of contraindications The patient is free from drug or ETHO abuse The patient is not or and is aware not to become while using this medication OARS was reviewed. PDMP website checked and validated. All prescriptions have been APPROPRIATELY filled. No suspicious activity was identified. -- Continue - Whole food balanced protein low-carb nutrition. Discussed plant protein options and encouraged kidney friendly foods. Reinforced avoidance of processed meats. -- Encouraged the patient to improve her physical activity. An overall goal of 150-200 minutes per week of exercise has been effective in weight loss and maintenance. Prescription instructions reviewed with patient as applicable. Potential red flag symptoms discussed with the patient. Reviewed appropriate action plan to take ifred flag symptoms occur. Patient agreeable to treatment plan. -- follow-up visit RM 05/15/2024 initial phentermine due to provider KATHARINE and 12 weeks later with AG. Celia Nava CNP Advanced Education from the [employer] Medical Decision Making: Problems: Moderate: 2+ stable chronic illnesses and 1+ chronic illnesses with change Risk: Moderate: Drug management and Moderate risk from testing/treatment Medical Decision Making Level: 4 - Moderate [facility]24 NoteHNO ID: [id number] Author: CELIA NAVA APRN.CNP Service: ? Author Type: Nurse Practitioner Type: Progress Notes Filed: 04/20/2024 12:50 Note Text: Some documentation from previous visit of 03/14/2024 was copied and pasted, documentation has been reviewed and edited as necessary for today's visit. Patient Summary: Meera is a 54 year old Female who presents for follow-up evaluation of obesity/weight management to treat and prevent related co-morbidities. In our previous visits we have discussed lifestyle intervention including a nutrition recommendations and physical activity optimization. Her last office visit was 5 weeks Assessment/plan from last visit: - Topiramate 25 mg tablet - taking 25 mg with phentermine and bedtime - Phentermine 15 mg - taking at 7 am Interval History PT specifies the following items as new or significant updates since the last appointment: Stopped all pop because it no longer tastes good with the topiramate. No longer drinking any orange juice or lemonade. Weight loss since last vist: 5 lbs for total of 12 lbs Date: Weight: BMI: Medications: 04/20/2024 215 lb 37.38 03/14/2024 220 lb 37.93 02/25/2024 date started Phentermine 15 mg approval by PCP 01/31/2024 227 lb 39.14 Topiramate 5% weight loss = 216 lbs, 10% weight loss = 204 lbs Anti-obesity medications: Topiramate Benefit: decreased thoughts of food in the evening Adverse effects: Soda tasted terrible Phentermine Benefit: decrease in appetite Adverse effects: dry mouth Weight promoting medications: Escitalopram 10 mg - has seen no weight gain Previous Diet (initial appointment): Pepsi or Mt Dew - 5 cans from 10 am to 8 pm Awake - 0700 B - 0730 20 or 30 gm Equate shake S - none or Lidia Doones 4 pack and pepsi or Mt Dew L - SKIP S - Pepsi or Mt Dew occasionally chips if at home D - 6 pm Roast, carrots, potato or unbreaded shrimp/lobster with rice or soft shell taco with meat, lettuce, tomato, cheese, sour cream S - berries/chips/carrots and dip/occasional ice cream Fluids: Pepsi or Mt Dew - 5 cans from 10 am to 8 pm Bedtime - 11 pm Quality of diet: 24hr recall suggests healthy/unhealthy diet. Characterization of diet:Structured, structured/Unstructured, unhealthy snacking, evening snacking, increased consumption of sugar sweetened beverages, and skip meals. 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 eating habits:mindlessness, boredom, and stress Eating Disorder no Cravings: Pepsi/Mt Dew, candy bar Dietary changes: [id number] Awake - 0700 B - 07 30 gm protein shake every day. WE - adds 1 scrambled egg sometimes with 1 slice walker S - none L - 1230 1 cheese stick and 1 Slim Johan S - none D - 6 pm taco salad or chicken (sometimes only 1-2 oz) and rice and veg or Roast, carrots, potato or unbreaded shrimp/lobster with rice and veg S - sometimes pretzels Fluids - water, unsweet tea Bedtime - 11 pm Exercise: No intentional exercise Regular exercise: no Strength/resistance exercise:yes Barriers to regular exercise? Yes- lower back- cannot lift over 15 pounds Work-related activity:Sedentary. Gym Membership: no Activity Tracker: yes- Apple watch- encouraged to wear Stress: stable Personal- fostering Sleep: stable wakes up at 0330, rolls over. 7-8 hours, interrupted CrCl cannot be calculated (No successful lab value found.). PAST MEDICAL HISTORY Diagnosis Date Abnormal glandular Papanicolaou smear of cervix 03/02/2004 @[facility] Anxiety state ASCUS with positive high risk HPV cervical 2002 @[facility] BRCA negative CKD (chronic kidney disease) stage 2, GFR 60-89 ml/min Essential hypertension GERD (gastroesophageal reflux disease) HSV-2 (herpes simplex virus 2) infection 2010 culture @[facility] Hyperlipidemia Incontinence of urine LGSIL on Pap smear of cervix 11/27/2004 @[facility] Migraine, intractable Mitral valve disorders(424.0) Undiagnosed cardiac murmurs Vitamin D deficiency Current Outpatient Medications Medication Sig Dispense Refill estradiol 0.01% estriol 0.01% cream (CPD) 4 clicks/1 gram per vaginal twice weekly. 30 g 1 Phentermine HCl 15 mg capsule Take 1 capsule by mouth daily before breakfast for 45 days. Patient should start on March 19, 2024. 45 capsule 0 topiramate (TOPAMAX) 25 mg tablet Take 1 tablet by mouth two times a day. 180 tablet 0 ferrous sulfate 325 mg (65 mg iron) EC tablet Take 325 mg by mouth once daily. atorvastatin (LIPITOR) 20 mg tablet Take 20 mg by mouth once daily. valACYclovir (VALTREX) 500 mg tablet Take 1 tablet by mouth once daily. 90 tablet 3 celecoxib (CELEBREX) 200 mg capsule TAKE 1 CAPSULE BY MOUTH TWICE A DAY NEEDED FOR SEVERE PAIN escitalopram oxalate (LEXAPRO) 5 mg tablet Take 10 mg by mouth once daily. fluticasone (FLONASE) 50 mcg/actuation nasal spray Use 1 [place] in the nose once daily. rimegepant (NURTEC ODT) 75 mg disintegrating tablet Take 75 mg by mouth once daily as needed. rizatriptan (MAXALT) (more content not included)...[facility] 04-13-2024 Note* Addendum Note - Ebenezer Camarillo APRN.CNP - 04/13/2024 12:02 PM ESTAddended by: EBENEZER CAMARILLO on: 04/13/2024 12:02 PM Modules accepted: Orders [facility]11-15-2024 Miscellaneous Notes* Addendum Note - Ebenezer Camarillo APRN.CNP - 04/13/2024 12:02 PM ESTAddended by: EBENEZER CAMARILLO on: 04/13/2024 12:02 PM Modules accepted: Orders * Telephone Encounter - Jayne Zurita MA - 04/13/2024 10:56 AM EST Patient called stated she wants to try the compounding medication and wants it to go to [facility] Jayne Zurita MA documented in this encounterA[facility]11-15-2024 Telephone encounter Note * Telephone Encounter - Jayne Zurita MA - 04/13/2024 10:56 AM EST Patient called stated she wants to try the compounding medication [place] [facility]11-14[facility] Telephone encounter Note* Telephone Encounter - Sarah Givens RN - 04/12/2024 3:05 PM EST Consult faxed. Sarah Givens RN [facility]11-14-2024 Miscellaneous Notes* Telephone Encounter - Sarah Givens RN - 04/12/2024 3:05 PM EST Consult faxed. Sarah Givens RN * Telephone Encounter - Laura Pathak APRN.CNP - 04/12/2024 2:58 PM EST Please re fax consult to [facility] for PFPT for stress incontinence and cystocele. Laura Pathak APRN.CNP documented in this encounterA[facility]11-14-2024 Telephone encounter Note * Telephone Encounter - Laura Pathak APRN.CNP - 04/12/2024 2:58 PM EST Please re fax consult to [facility] for PFPT for stress incontinence and cystocele. Laura Pathak APRN.ZINA [facility]11-14-2024 Instructions* Patient Instructions* Laura Pathak APRN.CNP - 04/12/2024 2:52 PM EST Calcium and Vitamin D Supplementation (from the National Institutes of Health Office of Dietary Supplements 2011) Calcium is required by the body for blood vessel, muscle, hormone and nerve functioning. Most of the body's calcium is stored in the bones and teeth where it supports structure and function. Bone is continuously broken down and reformed. When bone breakdown exceeds formation, especially in postmenopausal women, bone loss can increase the risk of osteoporosis and fractures. In addition to low calcium intake, women who smoke, have a family history of osteoporosis, are thin, or , orwho take certain medications such as cancer chemotherapy, seizure mediations and steroids are at increased risk of osteoporosis. The calcium requirements in women change with age. The National Institutes of Health (NIH) recommends: 1000mg elemental calcium for premenopausal women age 19-50 1200mg elemental calcium for postmenopausal women and all women over 50 Milk, yogurt, and cheese are rich natural sources of calcium and are the major food contributors inthe [place]. For example, 8oz of milk (whole, lowfat or skim) contains about 300mg calcium, 8oz of yogurt contains 415mg. Nondairy sources include salmon and sardines and vegetables, such as Lebanese cabbage, kale, and broccoli. Foods fortified with calcium include many fruit juices, tofu and cereals. For more food calcium content information, visit http://ods.od.nih.gov/factsheets/calcium. Calcium supplements come in several different forms. Remember that the recommendations are for millgrams (mg) of elemental calcium which may be less than the total weight of the supplement. The amount of elemental calcium is required to be printed on the label. Calcium carbonate is the least expensive form. It must be taken on a full stomach to be properly absorbed. Some patients may experience gas or constipation. Calcium phosphate and calcium citrate may be taken either with or without food and tend to have less side effects but are generally more expensive. Because of its ability to neutralize stomach acid, calcium carbonate is found in some jumy-spv-srhqtsz antacid products, such as Tums and Rolaids . Depending on its strength, each chewable pill or softchew provides 200 to 400 mg of elemental calcium. The percentage of calcium absorbed depends on the total amount of elemental calcium consumed at onetime. Absorption is highest in doses <500mg. So a woman who takes 1,000mg/day of calcium from supplements should split the dose and take 500mg at two separate times during the day. Too much calcium can cause kidney stones, constipation, difficulty absorbing other nutrients and calcium buildup in blood vessels. Women under 50 should not exceed 2500mg/day (2000mg/day for women over 50) of calcium from food and supplements. Excessive alcohol and caffeine intake can inhibit absorption of calcium. Calcium can reduce the absorption of some medications if taken at the same time of day (bisphosphonates, thyroid medication, Phenytoin and other seizure medications, some antibiotics and iron supplements). Vitamin D promotes calcium absorption in the gut and maintains adequate blood levels of calcium andphosphate for normal bone growth and bone remodeling. Vitamin D also helps regulate cell growth as well as nerve, muscle and immune system function. Vitamin D is produced in the skin as a result of ultraviolet sunlight rays and must be altered in the liver and kidney to become its active form. Recommended intake according to the National Institutes of Health is 600 International Units (IU) for girls and women ages 1-70 and 800 IU for women over 70. Very few foods in nature contain vitamin D. The flesh of fatty fish (such as salmon, tuna, and mackerel) and fish liver oils are among the best sources. Small amounts of vitamin D are found in beef liver, cheese, mushrooms and egg yolks. Most people meet at least some of their vitamin D needs through exposure to sunlight. Season, time of day, length of day, cloud cover, smog, skin melanin content, and sunscreen are among the factors thataffect UV radiation exposure and vitamin D synthesis. Despite the importance of the sun for vitaminD synthesis, it is prudent to limit exposure of skin to sunlight and avoid tanning beds. UV radiation is a carcinogen responsible for most of the estimated 1.5 million skin cancers that occur annually in the [place]. Lifetime cumulative UV damage to skin is also responsible for some age-associated dryness and other cosmetic changes. In supplements and fortified foods, vitamin D is available in two forms, D2 (ergocalciferol) and D3(cholecalciferol). The two are equivalent at normal supplement doses. For women who require high supplement doses because of vitamin D deficiency, D3 may work better to raise blood levels. Some medications can prevent proper absorption of Vitamin D. These include laxatives, corticosteroids like prednisone, the seizure drugs phenobarbital and phenytoin, the weight-loss drug orlistat ( Xenical and AlliTM) and the cholesterol-lowering drug cholestyramine (Questran , LoCholest , and Prevalite ). Talk to your doctor about adjusting your recommended daily vitamin D dosage if you take these medications. You should not exceed 4000 mg of vitamin D supplementation daily unless specifically prescribed by your doctor. documented in this encounterAdena [facility]11-14-2024 NoteHNO ID: [id number] Author: LAURA PATHAK APRN.LEHR CUTTER Service: ? Author Type: Nurse Practitioner Type: Progress Notes Filed: 04/12/2024 15:08 Note Text: Cone Sewer offered: Patient declinesRodney Estes is a 54 year old who presents for an annual gynecologic exam without complaints. 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 LMP: Hysterectomy Age at Menarche: Age at First : Age at Menopause: Chick Grader History Comments: Sexual Activity: Yes; Male Contraception: No contraception data on record PAST MEDICAL HISTORY Diagnosis Date Abnormal glandular Papanicolaou smear of cervix 03/02/2004 @[facility] Anxiety state ASCUS with positive high risk HPV cervical 2002 @[facility] BRCA negative CKD (chronic kidney disease) stage 2, GFR 60-89 ml/min Essential hypertension GERD (gastroesophageal reflux disease) HSV-2 (herpes simplex virus 2) infection 2010 culture @[facility] Hyperlipidemia Incontinence of urine LGSIL on Pap smear of cervix 11/27/2004 @[facility] Migraine, intractable Mitral valve disorders(424.0) Undiagnosed cardiac murmurs Vitamin D deficiency PAST SURGICAL HISTORY Procedure Laterality Date CRYOSURGERY 2005 @[facility] FOOT SURGERY HX 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 LIGATE FALLOPIAN TUBE 1992 dr Denia VELASCO BARTHOLIN GLAND CYST 1995 Dr Loza TREATMENT OF ANAL FISSURE 1998 VAGINAL HYSTERECTOMY 02/03/2010 adenomyosis- has both overies per u/s 2010 VAGINOSCOPY 10/31/2003 [facility] FAMILY HISTORY Problem Relation Age of Onset Hypertension Mother Hyperlipidemia Mother Obesity Mother Heart Attack Father Obesity Father No Known Problems Brother Breast Cancer Maternal Grandmother 59 Obesity Maternal Grandmother Heart Failure Maternal Grandfather Obesity Maternal Grandfather Obesity Paternal Grandmother Heart Attack Paternal Grandfather other (migraine [Other]) Other Stroke Other Aneurysm Other heart aneurysm SOCIAL HISTORY Social History Tobacco Use Smoking status: Never Smokeless tobacco: Never Vaping Use Vaping status: Never Used Substance Use Topics Alcohol use: Not Currently Drug use: Never REVIEW OF SYSTEMS Abdomen: No abdominal pain, nausea, vomiting, diarrhea, or constipation. No bloating, early satiety, indigestion, or increased flatulence. Bladder: No dysuria, gross hematuria, urinary frequency, urinary urgency + prolapse and incontinence Breast: No breast lumps, nipple d/c, overlying skin changes, redness or skin retraction Allergies and current medication updated:Yes SENSITIVE EXAM: The sensitive examination was discussed with the Patient or Patient's Authorized Director Furniture. As applicable, any other physician, advance practice provider, medical student, or other health professional student that will be observing or involved in the sensitive examination for educational or training purposes was discussed with the Patient or Authorized Director Furniture. The Patient or Authorized Director Furniture has agreed to proceed with the sensitive examination. (Sensitive examination includes inspection and/or palpation of the breasts, pelvis, prostate and anorectal regions). EXAM: BP 126/72 Ht 5' 3.591 (1.62m) Wt 219 lb (99.3kg) BMI 38.09 kg/(m2). GENERAL: pleasant, female in no apparent distress HEENT: Normocephalic, atraumatic, mucus membranes moist, and no lesions NECK: Supple, full range of motion, no adenopathy, and thyroid normal DERMATOLOGY: Normal, without lesions, non-icteric, and non-hirsute BREAST: soft, non-tender, symmetric, no dominant mass, normal nipple-areolar complex, no lymphadenopathy, and no nipple discharge CHEST: Normal inspiratory effort ABDOMEN: soft, non-tender, and no masses PELVIC: external genitalia normal, normal Bartholin's glands, urethra, Longview's glands, no vulvar lesions, cervix surgically absent, + grade 1-2 cystocele, physiologic discharge present, normal appearing perineal body and perianal region BIMANUAL: no adnexal masses, non-tender, and uterus surgically absent RECTOVAGINAL: deferred. NEURO: alert and oriented x3,exam grossly non-focal EXTREMITIES: normal ASSESSMENT/PLAN: 1) Health maintenance: Pap/HPV screening no longer needed Mammogram ordered Nutrition, exercise and routine health maintenance exams reviewed. Calcium/Vitamin D supplementation information provided. Colon cancer screening: up to date with screening, has done every 3 years at in [facility]/lip (more content not included)...[facility]11-14-2024 History of Present illness Narrative* Laura Pathak APRN.LEHR CUTTER - 04/12/2024 2:42 PM EST Cone Sewer offered: Patient declines. Meera is a 54 year old who presents for an annual gynecologic exam without complaints. 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 LMP: Hysterectomy Age at Menarche: Age at First : Age at Menopause: Chick Grader History Comments: Sexual Activity: Yes; Male Contraception: No contraception data on record PAST MEDICAL HISTORY Diagnosis Date Abnormal glandular Papanicolaou smear of cervix 03/02/2004 @[facility] Anxiety state ASCUS with positive high risk HPV cervical 2002 @[facility] BRCA negative CKD (chronic kidney disease) stage 2, GFR 60-89 ml/min Essential hypertension GERD (gastroesophageal reflux disease) HSV-2 (herpes simplex virus 2) infection 2010 culture @[facility] Hyperlipidemia Incontinence of urine LGSIL on Pap smear of cervix 11/27/2004 @[facility] Migraine, intractable Mitral valve disorders(424.0) Undiagnosed cardiac murmurs Vitamin D deficiency PAST SURGICAL HISTORY Procedure Laterality Date CRYOSURGERY 2005 @[facility] FOOT SURGERY HX 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 LIGATE FALLOPIAN TUBE 1992 dr Denia VELASCO BARTHOLIN GLAND CYST 1995 Dr Loza TREATMENT OF ANAL FISSURE 1998 VAGINAL HYSTERECTOMY 02/03/2010 adenomyosis- has both overies per u/s 2010 VAGINOSCOPY 10/31/2003 [facility] FAMILY HISTORY Problem Relation Age of Onset Hypertension Mother Hyperlipidemia Mother Obesity Mother Heart Attack Father Obesity Father No Known Problems Brother Breast Cancer Maternal Grandmother 59 Obesity Maternal Grandmother Heart Failure Maternal Grandfather Obesity Maternal Grandfather Obesity Paternal Grandmother Heart Attack Paternal Grandfather other (migraine [Other]) Other Stroke Other Aneurysm Other heart aneurysm SOCIAL HISTORY Social History Tobacco Use Smoking status: Never Smokeless tobacco: Never Vaping Use Vaping status: Never Used Substance Use Topics Alcohol use: Not Currently Drug use: Never REVIEW OF SYSTEMS Abdomen: No abdominal pain, nausea, vomiting, diarrhea, or constipation. No bloating, early satiety, indigestion, or increased flatulence. Bladder: No dysuria, gross hematuria, urinary frequency, urinary urgency + prolapse and incontinence Breast: No breast lumps, nipple d/c, overlying skin changes, redness or skin retraction Allergies and current medication updated:Yes SENSITIVE EXAM: The sensitive examination was discussed with the Patient or Patient's Authorized Director Furniture. As applicable, any other physician, advance practice provider, medical student, or other health professional student that will be observing or involved in the sensitive examination for educational or training purposes was discussed with the Patient or Authorized Director Furniture. The Patient or Authorized Director Furniture has agreed to proceed with the sensitive examination. (Sensitive examination includes inspection and/or palpation of the breasts, pelvis, prostate and anorectal regions). EXAM: BP 126/72 Ht 5' 3.591 (1.62m) Wt 219 lb (99.3kg) BMI 38.09 kg/(m^2). GENERAL: pleasant, female in no apparent distress HEENT: Normocephalic, atraumatic, mucus membranes moist, and no lesions NECK: Supple, full range of motion, no adenopathy, and thyroid normal DERMATOLOGY: Normal, without lesions, non-icteric, and non-hirsute BREAST: soft, non-tender, symmetric, no dominant mass, normal nipple-areolar complex, no lymphadenopathy, and no nipple discharge CHEST: Normal inspiratory effort ABDOMEN: soft, non-tender, and no masses PELVIC: external genitalia normal, normal Bartholin's glands, urethra, [place]'s glands, no vulvar lesions, cervix surgically absent, + grade 1-2 cystocele, physiologic discharge present, normal appearing perineal body and perianal region BIMANUAL: no adnexal masses, non-tender, and uterus surgically absent RECTOVAGINAL: deferred. NEURO: alert and oriented x3,exam grossly non-focal EXTREMITIES: normal ASSESSMENT/PLAN: 1) Health maintenance: Pap/HPV screening no longer needed Mammogram ordered Nutrition, exercise and routine health maintenance exams reviewed. Calcium/Vitamin D supplementation information provided. Colon cancer screening: up to date with screening, has done every 3 years at [facility] TSH/lipids/glucose: followed by PCP 2) Follow up one year or sooner as needed Continue PFPT and vaginal estrogen as prescribed. Laura Pathak APRN.ZINA documented in this encounterAdena [facility]11-11-2024 Instructions* Patient Instructions* Ebenezer Camarillo APRN.CNP - 04/09/2024 11:04 AM EST Coconut oil and olive oil to vulva. Start Imvexxy (vaginal estrogen tablet) 3 x per week. Using lubricant with intercourse. Revisit pelvic floor PT. documented in this encounterAdena [facility] Center11-11-2024 History of Present illness Narrative* Ebenezer Camarillo APRN.CNP - 04/09/2024 10:30 AM EST Female Pelvic Medicine & Reconstructive Surgery Follow-Up Meera Meléndez is a 54 year old female, who presents with c/o vaginal itching and burning. Last visit 01/02/24: PLAN: 1. Cystocele, midline - We discussed the options for management of pelvic organ prolapse including pelvic floor muscle exercises/pelvic floor physical therapy, pessary, and surgery. Meera desires to continue with PFPT. Mayconsider a pessary in the future. - BLADDER SCAN 2. Rectocele - As above #1. 3. High-tone pelvic floor dysfunction - Discussed exam findings. - Recommend continuing PFPT. 4. Genitourinary syndrome of menopause - Continue vaginal estrogen cream twice weekly. - Discussed lubricants and moisturizers. History since last visit: She has had a couple episodes of a yeast infection. [place] [facility] [place] infection based on culture. Symptoms characterized by burning, itching inside and outside. She thinks she can feel a dry poking sensation. States she has bad anxiety and is hyperfocused on it. Using vaginal estrogen cream twice weekly. States she feels after estrogen, vaginal symptoms are worse. Recent fungal swab negative. States she did PFPT at [facility] in [place] but was discharged due to insurance coverage. Urinary Incontinence: no Voiding Dysfunction: no Urinary Frequency: no Urinary Urgency: no Prolapse Symptoms: yes Defecatory Dysfunction: no Fecal Incontinence: no Abnormal Bleeding: no Pain: no Abnormal Vaginal Discharge: no I have confirmed and edited as necessary, the PFSH obtained by others. Ebenezer Camarillo APRN.LEHR CUTTER [employer] offered: Patient accepts, visit chaperoned by Easton Suarez APRN.LEHR CUTTER student. SENSITIVE EXAM: The sensitive examination was discussed with the Patient or Patient's Authorized Director Furniture. As applicable, any other physician, advance practice provider, medical student, or other health professional student that will be observing or involved in the sensitive examination for educational or training purposes was discussed with the Patient or Authorized Director Furniture. The Patient or Authorized Director Furniture has agreed to proceed with the sensitive examination. (Sensitive examination includes inspection and/or palpation of the breasts, pelvis, prostate and anorectal regions). OBJECTIVE: BP 128/70 Pulse 68 General: Well appearing, alert, in no acute distress, well-hydrated, well nourished. Abdomen: Deferred Pelvic: Ext. Genitalia: No lesions or other abnormalities; Q-tip test negative Vagina: atrophic epithelium POP-Q: Prolapse Noted: Yes, unchanged from last visit. Cervix: Absent Urethra: Normal, Supine cough stress test negative Bimanual: No tenderness, No masses Rectovaginal: Deferred Levator Ani Contraction: 0 Levator Ani Tone: increased and unable to relax pelvic floor Levator Ani Tenderness: Yes, R OI Saddle Sensory Exam (S2-4): normal Urine Dip Result: Normal Bladder scan: N/A Plan: Assessment & Plan Genitourinary syndrome of menopause - Discussed she may have had a rxn to Estrace cream. We will try Imvexxy. If that is not covered cheryl is uncomfortable to use, plan compounded estradiol cream. - Vulvar care measures discussed at length. Orders: estradiol 10 mcg vaginal suppository maintenance pack (IMVEXXY); Use 1 Suppository vaginally three times a week. High-tone pelvic floor dysfunction - Discussed exam findings. - Recommend revisiting PFPT. Cystocele, midline - Questions answered regarding prolapse. Rectocele - As above. Medical Decision Making: Problems: Moderate: 2+ stable chronic illnesses Data: Unique test result(s) reviewed: 1 Risk: Moderate: Drug management Medical Decision Making Level: 4 - Moderate Ebenezer Camarillo APRN.LEHR CUTTER documented in this encounterA[facility]11-[facility]24 NoteHNO ID: [id number] Author: EBENEZER CAMARILLO APRN.LEHR CUTTER Service: ? Author Type: Nurse Practitioner Type: Progress Notes Filed: 04/09/2024 11:12 Note Text: Female Pelvic Medicine AND Reconstructive Surgery Follow-Up Meera Meléndez is a 54 year old female, who presents with c/o vaginal itching and burning. Last visit 01/02/24: PLAN: 1. Cystocele, midline - We discussed the options for management of pelvic organ prolapse including pelvic floor muscle exercises/pelvic floor physical therapy, pessary, and surgery. Meera desires to continue with PFPT. May consider a pessary in the future. - BLADDER SCAN 2. Rectocele - As above #1. 3. High-tone pelvic floor dysfunction - Discussed exam findings. - Recommend continuing PFPT. 4. Genitourinary syndrome of menopause - Continue vaginal estrogen cream twice weekly. - Discussed lubricants and moisturizers. History since last visit: She has had a couple episodes of a yeast infection. Saw [facility] in [place] and both times she had negative yeast infection based on culture. Symptoms characterized by burning, itching inside and outside. She thinks she can feel a dry poking sensation. States she has bad anxiety and is hyperfocused on it. Using vaginal estrogen cream twice weekly. States she feels after estrogen, vaginal symptoms are worse. Recent fungal swab negative. States she did PFPT at [facility] in [place] but was discharged due to insurance coverage. Urinary Incontinence: no Voiding Dysfunction: no Urinary Frequency: no Urinary Urgency: no Prolapse Symptoms: yes Defecatory Dysfunction: no Fecal Incontinence: no Abnormal Bleeding: no Pain: no Abnormal Vaginal Discharge: no I have confirmed and edited as necessary, the PFSH obtained by others. Ebenezer Camarillo APRN.LEHR CUTTER [employer] offered: Patient accepts, visit chaperoned by Easton Suarez APRN.LEHR CUTTER student. SENSITIVE EXAM: The sensitive examination was discussed with the Patient or Patient's Authorized Director Furniture. As applicable, any other physician, advance practice provider, medical student, or other health professional student that will be observing or involved in the sensitive examination for educational or training purposes was discussed with the Patient or Authorized Director Furniture. The Patient or Authorized Director Furniture has agreed to proceed with the sensitive examination. (Sensitive examination includes inspection and/or palpation of the breasts, pelvis, prostate and anorectal regions). OBJECTIVE: BP 128/70 Pulse 68 General: Well appearing, alert, in no acute distress, well-hydrated, well nourished. Abdomen: Deferred Pelvic: Ext. Genitalia: No lesions or other abnormalities; Q-tip test negative Vagina: atrophic epithelium POP-Q: Prolapse Noted: Yes, unchanged from last visit. Cervix: Absent Urethra: Normal, Supine cough stress test negative Bimanual: No tenderness, No masses Rectovaginal: Deferred Levator Ani Contraction: 0 Levator Ani Tone: increased and unable to relax pelvic floor Levator Ani Tenderness: Yes, R OI Saddle Sensory Exam (S2-4): normal Urine Dip Result: Normal Bladder scan: N/A Plan: Assessment AND Plan Genitourinary syndrome of menopause - Discussed she may have had a rxn to Estrace cream. We will try Imvexxy. If that is not covered or it is uncomfortable to use, plan compounded estradiol cream. - Vulvar care measures discussed at length. Orders: estradiol 10 mcg vaginal suppository maintenance pack (IMVEXXY); Use 1 Suppository vaginally three times a week. High-tone pelvic floor dysfunction - Discussed exam findings. - Recommend revisiting PFPT. Cystocele, midline - Questions answered regarding prolapse. Rectocele - As above. Medical Decision Making: Problems: Moderate: 2+ stable chronic illnesses Data: Unique test result(s) reviewed: 1 Risk: Moderate: Drug management Medical Decision Making Level: 4 - Moderate Ebenezer Camarillo APRN.[facility]11-07-2024 Telephone encounter Note* Telephone Encounter - Yandy Sow RN - 04/05/2024 9:10 AM EST [facility] 01/02/2024 IMPRESSION: Meera Meléndez is a 53 year old female with POP, high tone PFD and GSM. PLAN: 1. Cystocele, midline - We discussed the options for management of pelvic organ prolapse including pelvic floor muscle exercises/pelvic floor physical therapy, pessary, and surgery. Meera desires to continue with PFPT. Mayconsider a pessary in the future. - BLADDER SCAN 2. Rectocele - As above #1. 3. High-tone pelvic floor dysfunction - Discussed exam findings. - Recommend continuing PFPT. 4. Genitourinary syndrome of menopause - Continue vaginal estrogen cream twice weekly. - Discussed lubricants and moisturizers. I spent a total of 30 minutes on the date of the service which included preparing to see the patient, [id number] patient care, completing clinical documentation, performing a medically appropriate examination, and counseling and educating the patient/family/caregiver. My final recommendations will be communicated back to the requesting physician by way of shared Medical record or letter via US mail. Ebenezer Camarillo APRN.LEHR CUTTER [facility]11-07-2024 Miscellaneous Notes* Telephone Encounter - Yandy Sow RN - 04/05/2024 9:10 AM EST [facility] 01/02/2024 IMPRESSION: Meera Meléndez is a 53 year old female with POP, high tone PFD and GSM. PLAN: 1. Cystocele, midline - We discussed the options for management of pelvic organ prolapse including pelvic floor muscle exercises/pelvic floor physical therapy, pessary, and surgery. Meera desires to continue with PFPT. Mayconsider a pessary in the future. - BLADDER SCAN 2. Rectocele - As above #1. 3. High-tone pelvic floor dysfunction - Discussed exam findings. - Recommend continuing PFPT. 4. Genitourinary syndrome of menopause - Continue vaginal estrogen cream twice weekly. - Discussed lubricants and moisturizers. I spent a total of 30 minutes on the date of the service which included preparing to see the patient, [id number] patient care, completing clinical documentation, performing a medically appropriate examination, and counseling and educating the patient/family/caregiver. My final recommendations will be communicated back to the requesting physician by way of shared Medical record or letter via US mail. Ebenezer Camarillo APRN.LEHR CUTTER documented in this encounterAdena [facility]10-21-2024 NoteHNO ID: [id number] Author: KATIUSKA RIVERA APRN.LEHR CUTTER Service: ? Author Type: Nurse Practitioner Type: Progress Notes Filed: 03/19/2024 14:48 Note Text: [employer] offered: Patient declines. Meera Meléndez is a 54 year old female who presents for problem visit vaginal problem. HPI: Meera presents to get her prolapse looked at, she said she notices it more. She also wants to talk about a different estrogen cream, the cream now just itches and villalpando her. She just finish a Monistat 7 treatment on Tuesday because she thought it was a yeast infection. 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 LMP: Hysterectomy Age at Menarche: Age at First : Age at Menopause: Chick Grader History Comments: Sexual Activity: Yes; Male Contraception: No contraception data on record PAST MEDICAL HISTORY Diagnosis Date Abnormal glandular Papanicolaou smear of cervix 03/02/2004 @[facility] Anxiety state ASCUS with positive high risk HPV cervical 2002 @[facility] BRCA negative CKD (chronic kidney disease) stage 2, GFR 60-89 ml/min Essential hypertension GERD (gastroesophageal reflux disease) HSV-2 (herpes simplex virus 2) infection 2010 culture @[facility] Hyperlipidemia Incontinence of urine LGSIL on Pap smear of cervix 11/27/2004 @[facility] Migraine, intractable Mitral valve disorders(424.0) Undiagnosed cardiac murmurs Vitamin D deficiency PAST SURGICAL HISTORY Procedure Laterality Date CRYOSURGERY 2005 @[facility] FOOT SURGERY HX 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 LIGATE FALLOPIAN TUBE 1992 dr Denia VELASCO BARTHOLIN GLAND CYST 1995 Dr Loza TREATMENT OF ANAL FISSURE 1998 VAGINAL HYSTERECTOMY 02/03/2010 adenomyosis- has both overies per u/s 2010 VAGINOSCOPY 10/31/2003 [facility] FAMILY HISTORY Problem Relation Age of Onset Hypertension Mother Hyperlipidemia Mother Obesity Mother Heart Attack Father Obesity Father No Known Problems Brother Breast Cancer Maternal Grandmother 59 Obesity Maternal Grandmother Heart Failure Maternal Grandfather Obesity Maternal Grandfather Obesity Paternal Grandmother Heart Attack Paternal Grandfather other (migraine [Other]) Other Stroke Other Aneurysm Other heart aneurysm Social History Tobacco Use Smoking status: Never Smokeless tobacco: Never Vaping Use Vaping status: Never Used Substance Use Topics Alcohol use: Not Currently Drug use: Never Current Outpatient Medications Medication Sig Phentermine HCl 15 mg capsule Take 1 capsule by mouth daily before breakfast for 45 days. Patient should start on March 19, 2024. topiramate (TOPAMAX) 25 mg tablet Take 1 tablet by mouth two times a day. ferrous sulfate 325 mg (65 mg iron) EC tablet Take 325 mg by mouth once daily. atorvastatin (LIPITOR) 20 mg tablet Take 20 mg by mouth once daily. valACYclovir (VALTREX) 500 mg tablet Take 1 tablet by mouth once daily. estradiol (ESTRACE) 0.01 % (0.1 mg/gram) vaginal cream apply approximately 1/2 inch of cream vaginally qhs every other night celecoxib (CELEBREX) 200 mg capsule TAKE 1 CAPSULE BY MOUTH TWICE A DAY NEEDED FOR SEVERE PAIN escitalopram oxalate (LEXAPRO) 5 mg tablet Take 10 mg by mouth once daily. fluticasone (FLONASE) 50 mcg/actuation nasal spray Use 1 [place] in the nose once daily. rimegepant (NURTEC ODT) 75 mg disintegrating tablet Take 75 mg by mouth once daily as needed. rizatriptan (MAXALT) 10 mg tablet Take 10 mg by mouth as needed for migraine headache (see administration instructions). solifenacin (VESICARE) 5 mg tablet Take 5 mg by mouth once daily. valsartan (DIOVAN) 80 mg tablet Take 80 mg by mouth once daily. cholecalciferol (VITAMIN D3) 50 mcg (2,000 unit) tablet Take 2,000 Units by mouth once daily. ALPRAZolam (XANAX) 0.25 mg tablet Take 0.25 mg by mouth once daily as needed. esomeprazole mag trihydrate(NEXIUM 40 MG CAP) Take 40 mg by mouth once daily. DO NOT CRUSH No current facility-administered medications for this visit. Allergies As of Date: 03/19/2024 Allergen Noted Reaction DOXYCYCLINE 07/12/2011 Other: See Comments, Diarrhea, GI Upset, Vomiting, and Intolerance CEPHALEXIN MONOHYDRATE 04/11/2023 Other: See Comments LISINOPRIL 03/23/2019 Other: See Comments and Cough SEASONAL ALLERGIES 04/03/2014 Other: See Comments Fully Assessed 03/19/2024 REVIEW OF SYSTEMS Expanded ROS: N/A Allergies and current medication updated:Yes SENSITIVE EXAM: The sensitive examination was discussed with the Patient or Patient's Authorized Director Furniture. As applicable, any other physician, advance practice provider, medical student, or other health professional student that will be observing or involved in the sensitive examination for educational or training purposes was discussed with the Patient or Authorized Director Furniture. The Patient or Authorized Director Furniture has agreed to (more content not included)...[facility]10-21-2024 History of Present illness Narrative* Katiuska Rivera, MARINA.LEHR CUTTER - 03/19/2024 2:21 PM EDT [employer] offered: Patient declines. Meera Meléndez is a 54 year old female who presents for problem visit vaginal problem. HPI: Meera presents to get her prolapse looked at, she said she notices it more. She also wants to talk about a different estrogen cream, the cream now just itches and villalpando her. She just finish a Monistat 7 treatment on Tuesday because she thought it was a yeast infection. 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 LMP: Hysterectomy Age at Menarche: Age at First : Age at Menopause: Chick Grader History Comments: Sexual Activity: Yes; Male Contraception: No contraception data on record PAST MEDICAL HISTORY Diagnosis Date Abnormal glandular Papanicolaou smear of cervix 03/02/2004 @[facility] Anxiety state ASCUS with positive high risk HPV cervical 2002 @[facility] BRCA negative CKD (chronic kidney disease) stage 2, GFR 60-89 ml/min Essential hypertension GERD (gastroesophageal reflux disease) HSV-2 (herpes simplex virus 2) infection 2010 culture @[facility] Hyperlipidemia Incontinence of urine LGSIL on Pap smear of cervix 11/27/2004 @[facility] Migraine, intractable Mitral valve disorders(424.0) Undiagnosed cardiac murmurs Vitamin D deficiency PAST SURGICAL HISTORY Procedure Laterality Date CRYOSURGERY 2005 @[facility] FOOT SURGERY HX 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 LIGATE FALLOPIAN TUBE 1992 dr Loza MARSUP BARTHOLIN GLAND CYST 1995 Dr Loza TREATMENT OF ANAL FISSURE 1998 VAGINAL HYSTERECTOMY 02/03/2010 adenomyosis- has both overies per u/s 2010 VAGINOSCOPY 10/31/2003 [facility] FAMILY HISTORY Problem Relation Age of Onset Hypertension Mother Hyperlipidemia Mother Obesity Mother Heart Attack Father Obesity Father No Known Problems Brother Breast Cancer Maternal Grandmother 59 Obesity Maternal Grandmother Heart Failure Maternal Grandfather Obesity Maternal Grandfather Obesity Paternal Grandmother Heart Attack Paternal Grandfather other (migraine [Other]) Other Stroke Other Aneurysm Other heart aneurysm Social History Tobacco Use Smoking status: Never Smokeless tobacco: Never Vaping Use Vaping status: Never Used Substance Use Topics Alcohol use: Not Currently Drug use: Never Current Outpatient Medications Medication Sig Phentermine HCl 15 mg capsule Take 1 capsule by mouth daily before breakfast for 45 days. Patient should start on March 19, 2024. topiramate (TOPAMAX) 25 mg tablet Take 1 tablet by mouth two times a day. ferrous sulfate 325 mg (65 mg iron) EC tablet Take 325 mg by mouth once daily. atorvastatin (LIPITOR) 20 mg tablet Take 20 mg by mouth once daily. valACYclovir (VALTREX) 500 mg tablet Take 1 tablet by mouth once daily. estradiol (ESTRACE) 0.01 % (0.1 mg/gram) vaginal cream apply approximately 1/2 inch of cream vaginally qhs every other night celecoxib (CELEBREX) 200 mg capsule TAKE 1 CAPSULE BY MOUTH TWICE A DAY NEEDED FOR SEVERE PAIN escitalopram oxalate (LEXAPRO) 5 mg tablet Take 10 mg by mouth once daily. fluticasone (FLONASE) 50 mcg/actuation nasal spray Use 1 [place] in the nose once daily. rimegepant (NURTEC ODT) 75 mg disintegrating tablet Take 75 mg by mouth once daily as needed. rizatriptan (MAXALT) 10 mg tablet Take 10 mg by mouth as needed for migraine headache (see administration instructions). solifenacin (VESICARE) 5 mg tablet Take 5 mg by mouth once daily. valsartan (DIOVAN) 80 mg tablet Take 80 mg by mouth once daily. cholecalciferol (VITAMIN D3) 50 mcg (2,000 unit) tablet Take 2,000 Units by mouth once daily. ALPRAZolam (XANAX) 0.25 mg tablet Take 0.25 mg by mouth once daily as needed. esomeprazole mag trihydrate(NEXIUM 40 MG CAP) Take 40 mg by mouth once daily. DO NOT CRUSH No current facility-administered medications for this visit. Allergies As of Date: 03/19/2024 Allergen Noted Reaction DOXYCYCLINE 07/12/2011 Other: See Comments, Diarrhea, GI Upset, Vomiting, and Intolerance CEPHALEXIN MONOHYDRATE 04/11/2023 Other: See Comments LISINOPRIL 03/23/2019 Other: See Comments and Cough SEASONAL ALLERGIES 04/03/2014 Other: See Comments Fully Assessed 03/19/2024 REVIEW OF SYSTEMS Expanded ROS: N/A Allergies and current medication updated:Yes SENSITIVE EXAM: The sensitive examination was discussed with the Patient or Patient's Authorized Director Furniture. As applicable, any other physician, advance practice provider, medical student, or other health professional student that will be observing or involved in the sensitive examination for educational or training purposes was discussed with the Patient or Authorized Director Furniture. The Patient or Authorized Director Furniture has agreed to proceed with the sensitive examination. (Sensitive examination includes inspection and/or palpation of the breasts, pelvis, prostate and anorectal regions). EXAM: BP 120/70 Wt 223 lb (101.2kg) GENERAL: pleasant, female in no apparent distress HEENT: Normocephalic, atraumatic, mucus membranes moist, and no lesions CHEST: Normal inspiratory effort PELVIC: external genitalia normal, normal Bartholin's glands, urethra, [place]'s glands, no vulvar lesions, physiologic discharge present, normal appearing perineal body and perianal region, cervix surgically absent, cystocele 2nd degree BIMANUAL: no adnexal masses, non-tender, and uterus surgically absent NEURO: alert and oriented x3,exam grossly non-focal EXTREMITIES: normal ASSESSMENT/PLAN: 1. Itching in the vaginal area - ICD9: 698.1, ICD10: N89.8 Will notify patient of test results. - YEAST SCREEN Katiuska Rivera APRN.CNP Medical Decision Making: Problems: Moderate: New problem with uncertain prognosis Data: Unique test(s) ordered: 1 Risk: Low: Low risk from testing/treatment Medical Decision Making Level: 3 - Low documented in this encounterAdena [facility]10-16-2024 Instructions* Patient Instructions* Celia Nava APRN.CNP - 03/14/2024 3:29 PM EDT Try 1 tablet of topiramate with the phentermine and one at bedtime. B - 30 gm protein sub with 1/2 protein shake with your eggs. L - good just make sure rice is about 1/2 cup S - good D - at least 30 gm protein and carbs should total less in grams than your protein. Fluids - all sugar free - Whole food low-carb diet with 30 g of protein 3 times a day and up to 30 g of carbs at lunch and dinner only. Meals - protein is a goal and carbohydrates are a limit Snacks - all protein or more protein than carbs Protein - no carbs Egg 1 large - 6g Egg white 1 large 3.6g 3 oz is approximately the size of a deck of cards and equals 21 g protein so 4 oz is 28 gm protein Beef, Chicken, [place], Pork, [place] 1 oz 7g Fish, Tuna Fish 1 oz 7g (Starkist tuna packet 2.6 oz 17 gm protein) Seafood (Crabmeat, Shrimp, Lobster) 1 oz 6g Protein shakes (read labels) Premier Protein or generic [employer] Equate, [employer] High Performance- 30g protein & 1g carb - meal replacement Premier Protein powder or generic- 30 gm protein, 1g carb Premier Protein plant protein powder - 25 gm protein, 0 sugar/2 carb Vanilla and chocolate (not a meal replacement) Fairlife 30 gram protein - 30g protein & 3g carb BOOST Glucose Control Max 30g Protein Nutritional Drink - 30g protein & 1 carb - meal replacement Slimfast High Protein - 20g protein & 1g carb Ensure Max Protein Nutrition Shake 30g protein & 2 carb Protein AND carbs Beef/[place] Jerky 1 oz dried 10-15g protein - check carb count, can be high if sugar added Slim Johan - 6 gm protein and 4 net carb Great Value original turkey sausage sticks - 7 gm protein and 2 gm carb [employer] Rubio (at [facility]) Original smoked sausage sticks - 8 gm protein and 0 carb Imitation Crab Meat 1 oz - 2g protein & 4g carb Milk, skim 2% or 1% 8 oz - 8g protein & 12g carb Armenian yogurt Full Fat Armenian Yogurt 1 cup - 20.4g protein & 9.1g carb 2% Armenian Yogurt 1 cup - 22.7g protein & 9.1g carb 0% (fat-free) Armenian Yogurt - 1 cup 24g protein & 9.3g carb Aldi Protein Armenian yogurt single svg - 15g protein & 7g carb Chobani Zero Sugar single svg: - 12g protein & 5g carb Dannon Armenian Light + Fit 1 single svg - 12g protein & 9g carb Oikos Pro single svg - 20g protein & 8g carb Oikos Triple Zero Armenian Nonfat Yogurt 1 single svg - 15g protein & 7g carb :ratio, KETO Friendly Dairy Snack 1 single svg - 15g protein & 2g carb :ratio Protein 1 single svg - 25g protein & 8g carb Two Good Lowfat Armenian Yogurt, [place], Lower Sugar - 12g protein & 2g carb Yoplait Protein 1 single svg 15gm protein & 5gm carb Dairy Free - [place] unsweetened Armenian almond/soy 15 gm protein & 3 gm carb Cheese each oz Brie 5.9g protein & 0.1g carb Cheddar 7g protein & 0.4g carb Tad 6.7g protein & 0.7g carb Cream Cheese 1.7g protein & 1.2g carb Feta 4g protein & 1.2g carb Mozzarella 6.3g protein & 0.6g carb Parmesan 10g protein & 0.9g carb [place] 7.6g protein & 1.5g carb Cottage Cheese 1/2 c [place] 2% 13g protein 7g carb Yaquelin 2% 13g protein 5 g carb Good Culture 2% 14g protein 3g carb Mancia s Low Fat 12g protein & 4g carb Legumes Lentils cup 9g protein & 20g carb Hall beans cup 7g protein & 20g carb Kidney, Black, [place], Cannellini beans cup 8g protein & 20g carb Soybeans 1/2 c 14g complete protein & 8.5g carb [place] milk, unsweetened 8 oz 1g protein & 2g carb Soy milk 8 oz 3.5g protein & 1.6g carb Tofu 1/2 cup 10g protein & 2.3g carb Peanut butter, natural 2 Tbsp 7-8g protein & 4g net carbs, 190 calories PB2 powder 2 Tbsp 6g protein & 5g carb Nuts and Seeds per oz Almonds - 5.9g protein & 6.1g carb [place] Nuts - 4.0g protein & 3.4g carb Cashews - 5.1g protein & 9.2g carb Eliseo seeds - 2 Tbsp 4 gm complete protein Hazelnuts - 4.2g protein & 4.7g carb Hemp seeds 3 T/30 gms - 9.5 gm complete protein and 2.5 gm carb Peanuts - 7g protein & 4.6g carb Pecans - 2.6g protein & 3.9g carb Pistachios - 5.8g protein & 7.8g carb Pumpkin Seeds - 6.9g protein & 5g carb [place] Seeds - 5.8g protein & 5.6g carb Walnuts - 4.3g protein & 3.8g carb [place] Beans snack 1 pack 11 gm complete protein 2 carb <15 gram carb fruit options Berries have the lowest sugar content 1/2 medium apple - 12.5 carbs 1/2 medium avocado - 6.5 gm carbs 1/2 medium banana - 15 carbs 1/2 cup blueberries - 11 carbs - may actually help you lose weight 1/2 cup fresh cherries -11 carbs 1 medium Elizabeth -9 carbs 1/2 cup fresh cranberries - 6.5 carbs 1/2 c grapes - 15 carbs 1/2 medium grapefruit - 10.5 carbs 1/2 cup diced honeydew melon - 8 carbs 1 medium kiwi without skin - 11 carbs 1/2 cup sliced michael -14 carbs 1 medium nectarine - 15 carbs 1 medium orange -15.5 carbs 1 medium peach -14.5 carbs 1/2 cup fresh pineapple -11 carbs 1 medium plum -7.5 carbs 1 prune - 6 carbs 1/4 c raisins - 31.25 carbs 1/2 cup raspberries -7.5 carbs 1/2 c strawberries - 12.7 carbs 1 medium tangerine -12 carbs 1/2 cup diced watermelon - 6 carbs 5 (FIVE) gram carb vegetable options 1 cup raw OR cup cooked: Asparagus Hollins sprouts Beets Broccoli Brussel sprouts Cabbage Carrots Cauliflower Celery [place] Eggplant Green beans Lettuce Peppers Snap peas Spaghetti squash Spinach Tomato Turnips Zucchini 15 gram carb vegetable options cup cooked corn or hominy corn on the cob, large (5 oz) cup cooked green peas 4.3 gm complete protein cup cooked hall beans 1 small potato or sweet potato cup cooked potato, plain cup cooked sweet potato, plain 1 cup winter squash (pumpkin, acorn, butternut) 1 cup marinara or pasta sauce - check label cup tomato juice cup tomato puree Beans, Seeds, Nuts cup cooked beans (kidney, ragland, red, green, etc.) cup cooked lentils cup baked beans 4 tablespoons nut butter Grains Brown rice 1/2 c 5.5g protein 24 carb White long-grain rice 1/2 c 2g protein 22.5 carb Quinoa 1/2 c 4 gm complete protein 25 carb Oatmeal, old fashioned 1/2 c 5g protein 27g carb High Protein Snack Ideas 1. Jerky 2. [place] mix without dried fruit 3. [place] roll-ups 4. Armenian yogurt 5. Veggies and yogurt dip 6. Tuna 7. Hard-boiled eggs 8. Peanut butter with celery 9. Cheese slices/ Cheese Stick 10. Handful of almonds, peanuts or walnuts 11. Cottage Cheese 12. Beef sticks 13. Protein bars 14. Canned [place] 15. Pumpkin seeds 16. Nut butter 17. Protein shakes 18. Avocado and chicken salad 19. Egg muffins 20. Leftover protein or lunch meat 21. 1/2 c blended cottage cheese or Armenian yogurt with dry ranch/Mrs. Dash/herb seasoning mix to make protein dip 22. 1/2 c blended cottage cheese with 1 Tbsp sugar-free dry cheesecake pudding mix 12g protein 10 carb 23. Pudding - 1 30 gm protein shake with 1/2 pkg sugar-free pudding 4 svgs - 7.8 gm protein, 5 carbeach svg 24. SF Sunkist or Root Beer with 1-2 Tablespoons heavy whipping cream 25. Mini frozen dessert bites - layer protein yogurt, skinny syrup and crushed nuts and freeze [facility] of Present illness Narrative* Celia Nava APRN.CNP - 03/14/2024 3:00 PM EDT Images from the original note were not included. Some documentation from previous visit of 02/01/2024 was copied and pasted, documentation has been reviewed and edited as necessary for today's visit. Patient Summary: Meera is a 54 year old Female who presents for follow-up evaluation of obesity/weight management to treat and prevent related co- morbidities. In our previous visits we have discussed lifestyle intervention including a nutrition recommendations and physical activity optimization. Her last office visit was 6 weeks Assessment/plan from last visit: - Topiramate 25 mg tablet - taking 50 mg 8 pm - Phentermine 15 mg - taking at 7 am Interval History PT specifies the following items as new or significant updates since the last appointment: Stopped all pop because it no longer tastes good with the topiramate. helping to make sure she gets protein in. Weight loss since last vist: 7 lbs. Date: Weight: BMI: Medications: 03/14/2024 220 lb 37.93 02/25/2024 date started Phentermine 15 mg approval by PCP 01/31/2024 227 lb 39.14 Topiramate 5% weight loss = 216 lbs, 10% weight loss = 204 lbs Anti-obesity medications: Topiramate Benefit: decreased thoughts of food in the evening Adverse effects: Soda tasted terrible Phentermine Benefit: decrease in appetite Adverse effects: dry mouth Weight promoting medications: Escitalopram 10 mg - has seen no weight gain Previous Diet (initial appointment): Pepsi or Mt Dew - 5 cans from 10 am to 8 pm Awake - 0700 B - 30 20 or 30 gm Equate shake S - none or Lidia Doones 4 pack and pepsi or Mt Dew L - SKIP S - Pepsi or Mt Dew occasionally chips if at home D - 6 pm Roast, carrots, potato or unbreaded shrimp/lobster with rice or soft shell taco with meat,lettuce, tomato, cheese, sour cream S - berries/chips/carrots and dip/occasional ice cream Fluids: Pepsi or Mt Dew - 5 cans from 10 am to 8 pm Bedtime - 11 pm Quality of diet: 24hr recall suggests healthy/unhealthy diet. Characterization of diet:Structured, structured/Unstructured, unhealthy snacking, evening snacking,increased consumption of sugar sweetened beverages, and skip meals. 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 eating habits:mindlessness, boredom, and stress Eating Disorder no Cravings: Pepsi/Mt Dew, candy bar Dietary changes: 565265 Awake - 0700 B - 30 2 scrambled eggs sometimes with 1 slice walker and OJ S - none L - 1230 30 gm protein shake or WE hamburger or chicken/rice or steak S - 4 pm HB egg and Slim Johan D - 6 pm taco salad or chicken and rice and veg or Roast, carrots, potato or unbreaded shrimp/lobster with rice and veg S - none Fluids - water, unsweet tea, OJ, regular lemonade Bedtime - 11 pm Exercise: None Regular exercise: no Strength/resistance exercise:yes Barriers to regular exercise? Yes- lower back- cannot lift over 15 pounds Work-related activity:Sedentary. Gym Membership: no Activity Tracker: yes- Apple watch- does not use for tracking unsure of average steps per day Stress: stable Personal- fostering Sleep: stable wakes up at 0330, rolls over. 7-8 hours, more tired. CrCl cannot be calculated (No successful lab value found.). PAST MEDICAL HISTORY Diagnosis Date Abnormal glandular Papanicolaou smear of cervix 03/02/2004 @[facility] Anxiety state ASCUS with positive high risk HPV cervical 2002 @[facility] BRCA negative CKD (chronic kidney disease) stage 2, GFR 60-89 ml/min Essential hypertension GERD (gastroesophageal reflux disease) HSV-2 (herpes simplex virus 2) infection 2010 culture @[facility] Hyperlipidemia Incontinence of urine LGSIL on Pap smear of cervix 11/27/2004 @[facility] Migraine, intractable Mitral valve disorders(424.0) Undiagnosed cardiac murmurs Vitamin D deficiency Current Outpatient Medications Medication Sig Dispense Refill Phentermine HCl 15 mg capsule Take 1 capsule by mouth daily before breakfast for 45 days. 45 capsule 0 topiramate (TOPAMAX) 25 mg tablet Take 1 tablet by mouth two times a day. 180 tablet 0 ferrous sulfate 325 mg (65 mg iron) EC tablet Take 325 mg by mouth once daily. atorvastatin (LIPITOR) 20 mg tablet Take 20 mg by mouth once daily. valACYclovir (VALTREX) 500 mg tablet Take 1 tablet by mouth once daily. 90 tablet 3 estradiol (ESTRACE) 0.01 % (0.1 mg/gram) vaginal cream apply approximately 1/2 inch of cream vaginally qhs every other night 42.5 g 1 celecoxib (CELEBREX) 200 mg capsule TAKE 1 CAPSULE BY MOUTH TWICE A DAY NEEDED FOR SEVERE PAIN escitalopram oxalate (LEXAPRO) 5 mg tablet Take 10 mg by mouth once daily. fluticasone (FLONASE) 50 mcg/actuation nasal spray Use 1 [place] in the nose once daily. rimegepant (NURTEC ODT) 75 mg disintegrating tablet Take 75 mg by mouth once daily as needed. rizatriptan (MAXALT) 10 mg tablet Take 10 mg by mouth as needed for migraine headache (see administration instructions). solifenacin (VESICARE) 5 mg tablet Take 5 mg by mouth once daily. valsartan (DIOVAN) 80 mg tablet Take 80 mg by mouth once daily. cholecalciferol (VITAMIN D3) 50 mcg (2,000 unit) tablet Take 2,000 Units by mouth once daily. ALPRAZolam (XANAX) 0.25 mg tablet Take 0.25 mg by mouth once daily as needed. esomeprazole mag trihydrate(NEXIUM 40 MG CAP) Take 40 mg by mouth once daily. DO NOT CRUSH 0 No current facility-administered medications for this visit. 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 No distress. Results: recent labs reviewed with the patient. Results: reviewed with the patient 06/29/2023 Outside labs CBCD WNL CMP GLUC 90 BUN 10 Creat 0.87 GFR 68 Lipids Total 189 Trig 121 HDL 58 LDL 107 - taking Lipitor No data to display No results found for: CHOL, HDL, LDL, TG No data to display Vitamin D 25 Hydroxy Date Value Ref Range Status 02/01/2024 31.7 31.0 - 80.0 ng/mL Final Comment: Classification of 25 OH Vitamin D status: Deficiency/Insufficiency: < or = 30 ng/ml. Sufficiency/Optimal Levels: 31-80 ng/mL Toxicity: > 100 ng/mL. Test performed by chemiluminescent immunoassay. TSH (mIU/L) Date Value 02/01/2024 2.240 Hemoglobin A1C (%) Date Value 02/01/2024 5.4 Insulin Date Value Ref Range Status 02/01/2024 19.5 3.0 - 25.0 mU/L Final Anti-Obesity Medications >Phentermine: No uncontrolled HTN, - well-controlled on valsartan. No CVD Hx or hx of seizure disorder. palpitations/cardiac arrhythmia, Chest pain: yes Valve disorder/murmur - has been evaluated by 2 different cardiologists.?anxiety No MAOI inhibitor use. No drug abuse hx. Crcl > 15. >Topiramate/zonisamide: No seizure, kidney stone or glaucoma hx. Has hx of migraines, No hx of poor sleep. Not of Child bearing age - hysterectomy >Qsymia: see above >Contrave: No uncontrolled HTN or hx of seizure disorder. No MAOI inhibitor use. No opiate use. >Saxenda/Wegovy/Ozempic: Cost. Ins coverage? >Metformin: eGFR > 30. No contraindications or medication interactions. Assessment/Plan: Meera Meléndez is a 54 year old yo with Class II obesity who presented today for follow up for supervised weight loss to treat and prevent related co-morbidities. 1. Essential hypertension - ICD9: 401.9, ICD10: I10 (primary diagnosis) - well-controlled with valsartan - Whole food balanced protein low-carb nutrition - TOPIRAMATE 25 MG TABLET - PHENTERMINE 15 MG CAPSULE 2. Gastroesophageal reflux disease, unspecified whether esophagitis present - ICD9: 530.81, ICD10: K21.9 - esomeprazole 40 mg - Whole food balanced protein low-carb nutrition - TOPIRAMATE 25 MG TABLET - PHENTERMINE 15 MG CAPSULE 3. Hyperlipidemia, unspecified hyperlipidemia type - ICD9: 272.4, ICD10: E78.5 - atorvastatin - Whole food balanced protein low-carb nutrition - TOPIRAMATE 25 MG TABLET - PHENTERMINE 15 MG CAPSULE 4. CKD (chronic kidney disease) stage 2, GFR 60-89 ml/min - ICD9: 585.2, ICD10: N18.2 - discussed benefit of fresh meats and whole food nutrition 5. Depression with anxiety - ICD9: 300.4, ICD10: F41.8 - well-controlled with escitalopram 10 mg and prn alprazolam 6. Vitamin D deficiency - ICD9: 268.9, ICD10: E55.9 - daily Vit D3 2000 7. Intractable migraine with aura with status migrainosus - ICD9: 346.03, ICD10: G43.111 - prn Nurtec and Maxalt - TOPIRAMATE 25 MG TABLET 8. Class 2 severe obesity with serious comorbidity and body mass index (BMI) of 37.0 to 37.9 in adult, unspecified obesity type (HCC) - ICD9: 278.01, V85.37, ICD10: E66.01, Z68.37 - TOPIRAMATE 25 MG TABLET - twice a day - PHENTERMINE 15 MG CAPSULE - started 02/25/2024 with approval by PCP Dr. Lele Sevilla. Risk/benefits discussed at length including potential side effects of increased anxiety, insomnia, increased heart rate, and increased blood pressure. I have asked the patient to monitorblood pressure and avoid any stimulants (in the form of caffeinated beverages like coffee, tea, sports drinks) initially. Patient denies history of arrhythmias, coronary artery disease (atherosclerosis), heart failure, pulmonary hypertension, stroke, valvular heart disease (prolapse, regurgitation,stenosis). The patient is currently enrolled in a diet and exercise program The patient has no known history of contraindications The patient is free from drug or ETHO abuse The patient is not or and is aware not to become while using this medication OARS was reviewed. PDMP website checked and validated. All prescriptions have been APPROPRIATELY filled. No suspicious activity was identified. -- Continue - Whole food balanced protein low-carb nutrition with specific suggestions given based on diet recall including substituting OJ with 1/2 protein shake at breakfast to have with her eggs and switching all fluids to sugar-free. -- Encouraged the patient to improve her physical activity. An overall goal of 150-200 minutes per week of exercise has been effective in weight loss and maintenance. -- Reviewed that monitoring weight daily and food intake can have a positive impact on overall weight loss and maintenance of weight loss. Activity tracking can be used to stay on target for exercisehowever should not be used to reward oneself We reviewed that during management she is to report any concerning side effects of any pharmacotherapy she is placed on. She understands that she will need routine follow up in the office. Prior to any virtual visits in the future she will need to check her Blood pressure, weight, and pulse. Prescription instructions reviewed with patient as applicable. Potential red flag symptoms discussed with the patient. Reviewed appropriate action plan to take ifred flag symptoms occur. Patient agreeable to treatment plan. -- follow-up visit 04/20; 05/15/2024 initial phentermine due to provider KATHARINE and 12 weeks laterwith LUCERO. Can also make appt Feb LUCERO Nava CNP Advanced Education from the [employer] Medical Decision Making: Problems: Moderate: 2+ stable chronic illnesses and 1+ chronic illnesses with change Risk: Moderate: Drug management and Moderate risk from testing/treatment Medical Decision Making Level: 4 - Moderate [facility] NoteHNO ID: [id number] Author: CELIA NAVA APRN.CNP Service: ? Author Type: Nurse Practitioner Type: Progress Notes Filed: 03/14/2024 18:19 Note Text: Some documentation from previous visit of 02/01/2024 was copied and pasted, documentation has been reviewed and edited as necessary for today's visit. Patient Summary: Meera is a 54 year old Female who presents for follow-up evaluation of obesity/weight management to treat and prevent related co-morbidities. In our previous visits we have discussed lifestyle intervention including a nutrition recommendations and physical activity optimization. Her last office visit was 6 weeks Assessment/plan from last visit: - Topiramate 25 mg tablet - taking 50 mg 8 pm - Phentermine 15 mg - taking at 7 am Interval History PT specifies the following items as new or significant updates since the last appointment: Stopped all pop because it no longer tastes good with the topiramate. helping to make sure she gets protein in. Weight loss since last vist: 7 lbs. Date: Weight: BMI: Medications: 03/14/2024 220 lb 37.93 02/25/2024 date started Phentermine 15 mg approval by PCP 01/31/2024 227 lb 39.14 Topiramate 5% weight loss = 216 lbs, 10% weight loss = 204 lbs Anti-obesity medications: Topiramate Benefit: decreased thoughts of food in the evening Adverse effects: Soda tasted terrible Phentermine Benefit: decrease in appetite Adverse effects: dry mouth Weight promoting medications: Escitalopram 10 mg - has seen no weight gain Previous Diet (initial appointment): Pepsi or Mt Dew - 5 cans from 10 am to 8 pm Awake - 0700 B - 0730 20 or 30 gm Equate shake S - none or Lidia Doones 4 pack and pepsi or Mt Dew L - SKIP S - Pepsi or Mt Dew occasionally chips if at home D - 6 pm Roast, carrots, potato or unbreaded shrimp/lobster with rice or soft shell taco with meat, lettuce, tomato, cheese, sour cream S - berries/chips/carrots and dip/occasional ice cream Fluids: Pepsi or Mt Dew - 5 cans from 10 am to 8 pm Bedtime - 11 pm Quality of diet: 24hr recall suggests healthy/unhealthy diet. Characterization of diet:Structured, structured/Unstructured, unhealthy snacking, evening snacking, increased consumption of sugar sweetened beverages, and skip meals. 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 eating habits:mindlessness, boredom, and stress Eating Disorder no Cravings: Pepsi/Mt Dew, candy bar Dietary changes: [id number] Awake - 0700 B - 0730 2 scrambled eggs sometimes with 1 slice walker and OJ S - none L - 1230 30 gm protein shake or WE hamburger or chicken/rice or steak S - 4 pm HB egg and Slim Johan D - 6 pm taco salad or chicken and rice and veg or Roast, carrots, potato or unbreaded shrimp/lobster with rice and veg S - none Fluids - water, unsweet tea, OJ, regular lemonade Bedtime - 11 pm Exercise: None Regular exercise: no Strength/resistance exercise:yes Barriers to regular exercise? Yes- lower back- cannot lift over 15 pounds Work-related activity:Sedentary. Gym Membership: no Activity Tracker: yes- Apple watch- does not use for tracking unsure of average steps per day Stress: stable Personal- fostering Sleep: stable wakes up at 0330, rolls over. 7-8 hours, more tired. CrCl cannot be calculated (No successful lab value found.). PAST MEDICAL HISTORY Diagnosis Date Abnormal glandular Papanicolaou smear of cervix 03/02/2004 @[facility] Anxiety state ASCUS with positive high risk HPV cervical 2002 @[facility] BRCA negative CKD (chronic kidney disease) stage 2, GFR 60-89 ml/min Essential hypertension GERD (gastroesophageal reflux disease) HSV-2 (herpes simplex virus 2) infection 2010 culture @[facility] Hyperlipidemia Incontinence of urine LGSIL on Pap smear of cervix 11/27/2004 @[facility] Migraine, intractable Mitral valve disorders(424.0) Undiagnosed cardiac murmurs Vitamin D deficiency Current Outpatient Medications Medication Sig Dispense Refill Phentermine HCl 15 mg capsule Take 1 capsule by mouth daily before breakfast for 45 days. 45 capsule 0 topiramate (TOPAMAX) 25 mg tablet Take 1 tablet by mouth two times a day. 180 tablet 0 ferrous sulfate 325 mg (65 mg iron) EC tablet Take 325 mg by mouth once daily. atorvastatin (LIPITOR) 20 mg tablet Take 20 mg by mouth once daily. valACYclovir (VALTREX) 500 mg tablet Take 1 tablet by mouth once daily. 90 tablet 3 estradiol (ESTRACE) 0.01 % (0.1 mg/gram) vaginal cream apply approximately 1/2 inch of cream vaginally qhs every other night 42.5 g 1 celecoxib (CELEBREX) 200 mg capsule TAKE 1 CAPSULE BY MOUTH TWICE A DAY NEEDED FOR SEVERE PAIN escitalopram oxalate (LEXAPRO) 5 mg tablet Take 10 mg by mouth once daily. fluticasone (FLONASE) 50 mcg/actuation nasal spray Use 1 [place] in the nose once daily. rimegepant (NURTEC ODT) 75 mg disintegrating tablet Take 75 mg by mouth once daily as needed. rizatriptan (MAXALT) 10 mg tablet Take 10 mg by mouth as needed for m (more content not included)...[facility]09-04-2024 Instructions* Patient Instructions* Celia Nava APRN.[facility] - 02/01/2024 4:06 PM EDT Images from the original note were not included. Phentermine if approved by PCP due to history of palpitations/murmur/valve disorder - Eat primarily whole foods. Limit carbs, especially processed carbs. Eat - Meat, vegetables and fruits with skin on if possible, eggs, cheese. - Do not drink your calories - 30 grams of protein for your first meal of the day decreases your hunger during the day by up to 40 %. Options include: Premier Protein or generic 30 gm protein 1 gm sugar or 5 eggs or 2-3 eggs andsome unbreaded meat and/or cheese. No fruit, vegetables, bread, grain, yogurt, Smoothies, etc. - Walk for 15 minutes immediately after meal - Whole food low-carb diet with 30 g of protein 3 times a day and up to 30 g of carbs at lunch and dinner only. Meals - protein is a goal and carbohydrates are a limit Snacks - all protein or more protein than carbs Protein - no carbs Egg 1 large - 6g Egg white 1 large 3.6g 3 oz is approximately the size of a deck of cards and equals 21 g protein so 4 oz is 28 gm protein Beef, Chicken, [place], Pork, [place] 1 oz 7g Fish, Tuna Fish 1 oz 7g (Starkist tuna packet 2.6 oz 17 gm protein) Seafood (Crabmeat, Shrimp, Lobster) 1 oz 6g Protein shakes (read labels) Premier Protein or generic [employer] Equate, [employer] High Performance- 30g protein & 1g carb - meal replacement Premier Protein powder or generic- 30 gm protein, 1g carb Premier Protein plant protein powder - 25 gm protein, 0 suger/2 carb Vanilla and chocolate (not a meal replacement) Fairlife 30 gram protein - 30g protein & 3g carb BOOST Glucose Control Max 30g Protein Nutritional Drink - 30g protein & 1 carb - meal replacement Slimfast High Protein - 20g protein & 1g carb Ensure Max Protein Nutrition Shake 30g protein & 2 carb Protein AND carbs Beef/[place] Jerky 1 oz dried 10-15g protein - check carb count, can be high if sugar added Slim Johan - 6 gm protein and 4 net carb Great Value original turkey sausage sticks - 7 gm protein and 2 gm carb Shanti (at [employer]) Original smoked sausage sticks - 8 gm protein and 0 carb Imitation Crab Meat 1 oz - 2g protein & 4g carb Milk, skim 2% or 1% 8 oz - 8g protein & 12g carb Armenian yogurt Full Fat Armenian Yogurt 1 cup - 20.4g protein & 9.1g carb 2% Armenian Yogurt 1 cup - 22.7g protein & 9.1g carb 0% (fat-free) Armenian Yogurt - 1 cup 24g protein & 9.3g carb Aldi Protein Armenian yogurt single svg - 15g protein & 7g carb Chobani Zero Sugar single svg: - 11g protein & 5g carb Dannon Light + Fit 1 single svg - 12g protein & 9g carb Oikos Pro single svg - 20g protein & 8g carb Oikos Triple Zero Armenian Nonfat Yogurt 1 single svg - 15g protein & 7g carb :ratio, KETO Friendly Dairy Snack 1 single svg - 15g protein & 2g carb :ratio Protein 1 single svg - 25g protein & 8g carb Two Good Lowfat Armenian Yogurt, [place], Lower Sugar - 12g protein & 2g carb Yoplait Protein 1 single svg 15gm protein & 5gm carb Dairy Free - [place] 15 gm protein & 4 gm carb Cheese each oz Brie 5.9g protein & 0.1g carb Cheddar Cheese 7g protein & 0.4g carb Mozzarella Cheese 6.3g protein & 0.6g carb Tad Cheese 6.7g protein & 0.7g carb Parmesan Cheese 10g protein & 0.9g carb Cream Cheese 1.7g protein & 1.2g carb Feta 4g protein & 1.2g carb [place] Cheese 7.6g protein & 1.5g carb Mancia s Low Fat Cottage Cheese 1/2cup 12g protein & 4g carb Legumes Lentils cup 9g protein & 20g carb Hall beans cup 7g protein & 20g carb Kidney, Black, [place], Cannellini beans cup 8g protein & 20g carb Soybeans 1/2 c 14g complete protein & 8.5g carb [place] milk, unsweetened 8 oz 1g protein & 2g carb Soy milk 8 oz 3.5g protein & 1.6g carb Tofu 1/2 cup 10g protein & 2.3g carb Peanut butter, natural 2 Tbsp 7-8g protein & 4g net carbs, 190 calories PB2 powder 2 Tbsp 6g protein & 5g carb Nuts and Seeds per oz Almonds - 5.9g protein & 6.1g carb [place] Nuts - 4.0g protein & 3.4g carb Cashews - 5.1g protein & 9.2g carb Hazelnuts - 4.2g protein & 4.7g carb Hemp seeds 3 T/30 gms - 9.5 gm complete protein and 2.5 gm carb Peanuts - 7g protein & 4.6g carb Pecans - 2.6g protein & 3.9g carb Pistachios - 5.8g protein & 7.8g carb Pumpkin Seeds - 6.9g protein & 5g carb [place] Seeds - 5.8g protein & 5.6g carb Walnuts - 4.3g protein & 3.8g carb <15 gram carb fruit options Berries have the lowest sugar content 1/2 medium apple - 12.5 carbs 1/2 medium avocado - 6.5 gm carbs 1/2 medium banana - 15 carbs 1/2 cup blueberries - 11 carbs - may actually help you lose weight 1/2 cup fresh cherries -11 carbs 1 medium Elizabeth -9 carbs 1/2 cup fresh cranberries - 6.5 carbs 1/2 c grapes - 15 carbs 1/2 medium grapefruit - 10.5 carbs 1/2 cup diced honeydew melon - 8 carbs 1 medium kiwi without skin - 11 carbs 1/2 cup sliced michael -14 carbs 1 medium nectarine - 15 carbs 1 medium orange -15.5 carbs 1 medium peach -14.5 carbs 1/2 cup fresh pineapple -11 carbs 1 medium plum -7.5 carbs 1 prune - 6 carbs 1/4 c raisins - 31.25 carbs 1/2 cup raspberries -7.5 carbs 1/2 c strawberries - 12.7 carbs 1 medium tangerine -12 carbs 1/2 cup diced watermelon - 6 carbs 5 (FIVE) gram carb vegetable options 1 cup raw OR cup cooked: Asparagus Hollins sprouts Beets Broccoli Brussel sprouts Cabbage Carrots Cauliflower Celery [place] Eggplant Green beans Lettuce Peppers Snap peas Spaghetti squash Spinach Tomato Turnips Zucchini 15 gram carb vegetable options cup cooked corn or hominy corn on the cob, large (5 oz) cup cooked green peas cup cooked hall beans 1 small potato or sweet potato cup cooked potato, plain cup cooked sweet potato, plain 1 cup winter squash (pumpkin, acorn, butternut) 1 cup marinara or pasta sauce - check label cup tomato juice cup tomato puree Beans, Seeds, Nuts cup cooked beans (kidney, ragland, red, green, etc.) cup cooked lentils cup baked beans 4 tablespoons nut butter Grains Brown rice 1/2 c 5.5g protein 24 carb White long-grain rice 1/2 c 2g protein 22.5 carb Quinoa 1/2 c 4 gm complete protein 25 carb Oatmeal, old fashioned 1/2 c 5g protein 27g carb High Protein Snack Ideas 1. Jerky 2. [place] mix without dried fruit 3. [place] roll-ups 4. Armenian yogurt 5. Veggies and yogurt dip 6. Tuna 7. Hard-boiled eggs 8. Peanut butter with celery 9. Cheese slices/ Cheese Stick 10. Handful of almonds, peanuts or walnuts 11. Cottage Cheese 12. Beef sticks 13. Protein bars 14. Canned [place] 15. Pumpkin seeds 16. Nut butter 17. Protein shakes 18. Avocado and chicken salad 19. Egg muffins 20. Leftover protein or lunch meat 21. 1/2 c blended cottage cheese with 1 Tbsp sugar-free dry cheesecake pudding mix 12g protein 10 carb 22. Pudding - 1 30 gm protein shake with 1/2 pkg sugar-free pudding 4 svgs - 7.8 gm protein, 5 carbeach svg 23. SF Sunkist or Root Beer with 1-2 Tablespoons heavy whipping cream 24. Mini frozen desert bites - layer protein yogurt, skinny syrup and crushed nuts and freeze TOPIRAMATE -- Take 25 mg daily x 1-2 weeks -- Then increase to 50mg daily after the initial 1-2 weeks so long as you are not having any side effects. -- You can take the tablet it at night at first (because of potential sleepiness side effects), butthen you can take earlier around dinner after you have started the medication for a few days. You also may be able to take it in the morning if easier. -- We may increase the dose to 75mg a few weeks later if there is no change with 50mg, Typically the maximum medication dose would be 150mg daily but rarely would we need to titrate medication dose that high. -- The exact mechanism of topiramate on energy balance regulation is not clearly understood. Topiramate affects body mass index, fasting qcxybos-is-rzudasu ratio, and serum leptin and cortisol levels. It has shown to improve hypothalamic insulin and leptin signaling and action and reduce obesity inmice. These changes may be andrew factors in weight loss due to topiramate. If at any point you are feeling the effects of the medication you can stay at that dose or if you experience side effects you can decrease it to the previous dose. -- Please see the handout to review the potential side effects and to explain this further -- Please let me know if you experience any changes in your vision, worsening depression or mood problems, or an increase in suicidal thoughts or behaviors. --This medication should NOT be combined with alcohol. Risks of drinking alcohol while taking this medication include mental and psychological side effects, including confusion, dizziness, drowsiness, and depression. -- There is an increased risk for oral clefts when topiramate is used in the first trimester of . -- There is a possible decrease in contraceptive efficacy when using estrogen- containing control with topiramate, please use a back up form of control such as condoms and monitor for throughout treatment. -- If you decide that you would like to get or if you have any of these side effects please let me know and we can safely discontinue the medication. - If you are on loop diuretic or thiazide diuretic we will want to monitor your potassium level, especially if you have a history of low potassium. - It is important to taper off of this medication when we finished with treatment, typically decreasing the dose 25 mg a week. Stopping Topiramate abruptly can cause irritability, anxiety and difficulty concentrating. Topiramate (toe pyre a mate) What are the common names? Topamax Why is this medication prescribed? Topiramate is an anti-epileptic medications which has been approved by the FDA for patients 10 years of age or older for treatment of seizures. However, topiramate also has other uses such as the treatment of migraines. It also causes decrease in appetite and weight loss. The mechanism of weight loss is thought to be through inhibition of mitochondrial enzymes involved in energy expenditure and metabolism. Topiramate may work by helping you feel less hungry, less driven to eat, more satisfied with less food. What special precautions should I follow? Before having topiramate prescribed, tell your doctor and pharmacist: If you have allergies to any component of topiramate If you are , plan to become , are breast-feeding, or if you become while taking topiramate What are the warnings and precautions for this medication? Immediately discontinue the medicine and seek medical help if you have severe cognitive/neuropsychiatric adverse symptoms or eye symptoms. Cognitive/neuropsychiatric adverse events: symptoms may include confusion, psychomotor slowing, difficulty with concentration/attention, difficulty with memory, speech or language problems, particularily word-finding difficulties, somnolence or fatigue Acute myopia and secondary angle closure glaucoma, usually within 1 month of starting treatment: symptoms may include blurred vision, redness and/or pain in the eye Oligohydrosis (decrease sweating) and hyperthermia (elevation in body temperature) Increase in suicidal behavior or ideation Metabolic acidosis, non-gap hyperchloremic (decreased serum bicarbonate below normal levels) resulting in hyperventilation or fatigue Kidney stones Paresthesias (numbness or tingling in hands or feet) Ataxia Dizziness Increase in urination frequency Drug interactions. Use of monamine oxidase inhibitors (MAOI s), valproic acid, Caution use with dehydration or diarrheal illness, hepatic or renal impairment In case of emergency/overdose In case of overdose, call your local poison control center at or call local emergency services at 205. What other information should I know? Keep all appointments with your doctor and the laboratory. Do not let anyone else take your medication. Topiramate use needs to be monitored closely. Prescriptions may be refilled only a limited number of times. Keep a written list of all of your prescription and nonprescription (ltja-ydv-peqygxm) medicines, in addition to vitamins, minerals, or other dietary supplements. How should I monitor while on this medication? Your doctor will check your baseline kidney function and electrolytes prior to starting this medication, then periodically. Continue to improve your dietary and physical activity habits as the combination works best while on this medication. Start out by taking the medication at bedtime as it can cause fatigue and sleepiness. Be sure to eat regular meals. Less hunger does not make it appropriate to skip meals. Make sure to have an eye exam, including the pressure in your eyes (intra-ocular pressure), once a year. What should I do if I forget a dose? Skip the missed dose and continue your regular dosing schedule the next day. Do not take a double dose to make up for a missed one. Sources Pubmed Health: http://www.ncbi.nlm.nih.gov/pubmedhealth/OZG8600930/ Drugs.com http://www.drugs.com/pro/topiramate.html documented in this encounter[facility] History of Present illness Narrative* Celia Nava APRN.ZINA - 02/01/2024 3:51 PM EDT Images from the original note were not included. Some documentation from previous visit of 01/31/2024 was copied and pasted, documentation has been reviewed and edited as necessary for today's visit. Patient Summary: Meera is a 53 year old Female who presents for follow-up evaluation of obesity/weight management to treat and prevent related co- morbidities. In our previous visits we have discussed lifestyle intervention including a nutrition recommendations and physical activity optimization. Her last office visit was yesterday Assessment/plan from last visit: Here today for completion of initial assessment and development/initiation of POC. Interval History PT specifies the following items as new or significant updates since the last appointment: Conversation with last evening about her appointment today. Tried to avoid Mt Dew but gave in and had to have it later in the afternoon. She called her health insurance - bariatric insurance is an exclusion. Weight loss since last vist: NA 01/31/2024 227 lb BMI 39.14 topiramate 5% weight loss = 216 lbs, 10% weight loss = 204 lbs Anti-obesity medications: na. Benefit:na Adverse effects: na Weight promoting medications: Escitalopram 10 mg - has seen no weight gain Previous Diet (initial appointment): Pepsi or Mt Dew - 5 cans from 10 am to 8 pm Awake - 0700 B - 0730 20 or 30 gm Equate shake S - none or Lidia Doones 4 pack and pepsi or Mt Dew L - SKIP S - Pepsi or Mt Dew occasionally chips if at home D - 6 pm Roast, carrots, potato or unbreaded shrimp/lobster with rice or soft shell taco with meat,lettuce, tomato, cheese, sour cream S - berries/chips/carrots and dip/occasional ice cream Fluids: Pepsi or Mt Dew - 5 cans from 10 am to 8 pm Bedtime - 11 pm Quality of diet: 24hr recall suggests healthy/unhealthy diet. Characterization of diet:Structured, structured/Unstructured, unhealthy snacking, evening snacking,increased consumption of sugar sweetened beverages, and skip meals. 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 eating habits:mindlessness, boredom, and stress Eating Disorder no Cravings: Pepsi/Mt Dew, candy bar Dietary changes: NA Exercise: Regular exercise: no Strength/resistance exercise:yes Barriers to regular exercise? Yes- lower back- cannot lift over 15 pounds Work-related activity:Sedentary. Gym Membership: no Activity Tracker: yes- Apple watch- does not use for tracking unsure of average steps per day Stress: Personal- fostering Sleep: 7-8 hours. TANVIR NO ; CPAP NO CrCl cannot be calculated (No successful lab value found.). PAST MEDICAL HISTORY 03/02/2004: Abnormal glandular Papanicolaou smear of cervix Comment: @[facility] No date: Anxiety state 2002: ASCUS with positive high risk HPV cervical Comment: @[facility] No date: BRCA negative No date: CKD (chronic kidney disease) stage 2, GFR 60-89 ml/min No date: Essential hypertension No date: GERD (gastroesophageal reflux disease) 2011: HSV-2 (herpes simplex virus 2) infection Comment: culture @[facility] No date: Hyperlipidemia No date: Incontinence of urine 11/27/2004: LGSIL on Pap smear of cervix Comment: @[facility] No date: Migraine, intractable No date: Mitral valve disorders(424.0) No date: Undiagnosed cardiac murmurs No date: Vitamin D deficiency Current Outpatient Medications Medication Sig Dispense Refill ferrous sulfate 325 mg (65 mg iron) EC tablet Take 325 mg by mouth once daily. atorvastatin (LIPITOR) 20 mg tablet Take 20 mg by mouth once daily. valACYclovir (VALTREX) 500 mg tablet Take 1 tablet by mouth once daily. 90 tablet 3 estradiol (ESTRACE) 0.01 % (0.1 mg/gram) vaginal cream apply approximately 1/2 inch of cream vaginally qhs every other night 42.5 g 1 celecoxib (CELEBREX) 200 mg capsule TAKE 1 CAPSULE BY MOUTH TWICE A DAY NEEDED FOR SEVERE PAIN escitalopram oxalate (LEXAPRO) 5 mg tablet Take 10 mg by mouth once daily. fluticasone (FLONASE) 50 mcg/actuation nasal spray Use 1 [place] in the nose once daily. rimegepant (NURTEC ODT) 75 mg disintegrating tablet Take 75 mg by mouth once daily as needed. rizatriptan (MAXALT) 10 mg tablet Take 10 mg by mouth as needed for migraine headache (see administration instructions). solifenacin (VESICARE) 5 mg tablet Take 5 mg by mouth once daily. valsartan (DIOVAN) 80 mg tablet Take 80 mg by mouth once daily. cholecalciferol (VITAMIN D3) 50 mcg (2,000 unit) tablet Take 2,000 Units by mouth once daily. ALPRAZolam (XANAX) 0.25 mg tablet Take 0.25 mg by mouth once daily as needed. esomeprazole mag trihydrate(NEXIUM 40 MG CAP) Take 40 mg by mouth once daily. DO NOT CRUSH 0 No current facility-administered medications for this visit. 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 No distress. Results: recent labs reviewed with the patient. Results: reviewed with the patient 06/29/2023 Outside labs CBCD WNL CMP GLUC 90 BUN 10 Creat 0.87 GFR 68 Lipids Total 189 Trig 121 HDL 58 LDL 107 - taking Lipitor No data to display No results found for: CHOL, HDL, LDL, TG No data to display Vitamin D 25 Hydroxy Date Value Ref Range Status 02/01/2024 31.7 31.0 - 80.0 ng/mL Final Comment: Classification of 25 [place] Vitamin D status: Deficiency/Insufficiency: < or = 30 ng/ml. Sufficiency/Optimal Levels: 31-80 ng/mL Toxicity: > 100 ng/mL. Test performed by chemiluminescent immunoassay. TSH (mIU/L) Date Value 02/01/2024 2.240 Hemoglobin A1C (%) Date Value 02/01/2024 5.4 Insulin Date Value Ref Range Status 02/01/2024 19.5 3.0 - 25.0 mU/L Final Anti-Obesity Medications >Phentermine: No uncontrolled HTN, - well-controlled on valsartan. No CVD Hx or hx of seizure disorder. palpitations/cardiac arrhythmia, Chest pain: yes Valve disorder/murmur - has been evaluated by 2 different cardiologists.?anxiety No MAOI inhibitor use. No drug abuse hx. Crcl > 15. >Topiramate/zonisamide: No seizure, kidney stone or glaucoma hx. Has hx of migraines, No hx of poor sleep. Not of Child bearing age - hysterectomy >Qsymia: see above >Contrave: No uncontrolled HTN or hx of seizure disorder. No MAOI inhibitor use. No opiate use. >Saxenda/Wegovy/Ozempic: Cost. Ins coverage? >Metformin: eGFR > 30. No contraindications or medication interactions. Assessment/Plan: Meera Meléndez is a 53 year old yo with Class II obesity who presented today for follow up for supervised weight loss to treat and prevent related co-morbidities. 1. Essential hypertension - ICD9: 401.9, ICD10: I10 (primary diagnosis) - well-controlled with valsartan - benefits of weight loss discussed - Whole food balanced protein low-carb nutrition 2. Gastroesophageal reflux disease, unspecified whether esophagitis present - ICD9: 530.81, ICD10: K21.9 - esomeprazole 40 mg - benefits of weight loss discussed - Whole food balanced protein low-carb nutrition 3. Hyperlipidemia, unspecified hyperlipidemia type - ICD9: 272.4, ICD10: E78.5 - atorvastatin - benefits of weight loss discussed - Whole food balanced protein low-carb nutrition 4. CKD (chronic kidney disease) stage 2, GFR 60-89 ml/min - ICD9: 585.2, ICD10: N18.2 - discussed benefit of fresh meats and whole food nutrition 5. Depression with anxiety - ICD9: 300.4, ICD10: F41.8 - well-controlled with escitalopram 10 mg and prn alprazolam 6. Vitamin D deficiency - ICD9: 268.9, ICD10: E55.9 - daily Vit D3 2000 7. Intractable migraine with aura with status migrainosus - ICD9: 346.03, ICD10: G43.111 - prn Nurtec and Maxalt - TOPIRAMATE 25 MG TABLET 8. Class 2 severe obesity with serious comorbidity and body mass index (BMI) of 37.0 to 37.9 in adult, unspecified obesity type (HCC) - ICD9: 278.01, V85.37, ICD10: E66.01, Z68.37 Plan: -- Based on the severity and resistance of the obesity/overweight with co- morbidities, I believe a combination of behavioral and pharmacological intervention is the best and most appropriate buttermaker therapeutic option. Bariatric insurance is an exclusion of her health insurance. - TOPIRAMATE 25 MG TABLET Topiramate. Discussed risks/benefits with the patient. Patient aware that this is an off-label use of the medication. Begin with 25 mg at bedtime and will increase to 2 tablets as tolerated. Will notify me if experiencing any adverse effects. Denies history of kidney stones, seizures or glaucoma. Has hx of migraines No history of poor sleep. Advised not to mix with alcohol. Educated on increased risk for drowsiness, dizziness, fatigue, kidney stones, osteoporosis and increased eye pressure. Patient of childbearing age. Discussed the risk of defects with topiramate and the need for double control methods as well as regular tests. Contraception: hysterectomy - discussed adding phentermine if approved by PCP due to history of murmur/palpitations. She has appt in 2 weeks and plans to discuss. -- We discussed several strategies to track food intake and increase mindfulness around eating while will decrease calorie intake. She was counseled on the following: Eating primarily whole foods. Limit carbs, especially processed carbs. Do not drink your calories 30 grams of protein for breakfast decreases your hunger during the day by up to 40 % Premier Protein or generic 30 gm protein 1 gm sugar Walk for 15 minutes immediately a meal. - Recommended whole food low-carb diet with 30 g of protein 3 times a day and 30 g of carbs at lunch and dinner only. Given tracking log. - Given 15 gram carb whole food and protein suggestion list. - Given protein snack ideas -- Encouraged the patient to improve her physical activity. Although cardiovascular exercise is most beneficial for weight loss initially, we discussed healthy muscle from a combination of resistancetraining and cardiovascular exercise is the best custodial plan. An overall goal of 150-200 minutesper week of exercise has been effective in weight loss and maintenance. -- Reviewed that monitoring weight daily and food intake can have a positive impact on overall weight loss and maintenance of weight loss. Activity tracking can be used to stay on target for exercisehowever should not be used to reward oneself She understands that there can be limitations of pharmacotherapy due to contraindications, side effects and cost. Patient was told to contact her insurance company to see what AOMs and supervised behavioral medical appointments are currently covered. Patient understands she will have more success when following a healthy lifestyle. We reviewed continued use of online tracking of daily weights, food journal and if desired physical activity. We reviewed that during management she is to report any concerning side effects of any pharmacotherapy she is placed on. She understands that she will need routine follow up in the office. Prior to any virtual visits in the future she will need to check her Blood pressure, weight, and pulse. Prescription instructions reviewed with patient as applicable. Potential red flag symptoms discussed with the patient. Reviewed appropriate action plan to take ifred flag symptoms occur. Patient agreeable to treatment plan. -- follow-up visit in 6 weeks for management of above interventions Celia Nava CNP Advanced Education from the [employer] I spent a total of 74 minutes on the date of the service which included preparing to see the patient, [id number] patient care, completing clinical documentation, obtaining and/or reviewing separately obtained history, performing a medically appropriate examination, counseling and educating the pat ient/family/caregiver, and ordering medications, tests, or procedures. documented in this encounterA[facility] History of Present illness Narrative* Celia Nava APRN.CNP - 01/31/2024 1:01 PM EDT Images from the original note were not included. Patient Summary: Meera Meléndez is a 53 year old female with obesity who presents for an initial evaluation of overweight/obesity to treat and prevent co-morbidities and is interested in open to all options. 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 Goal weight: 145 lb Lowest recall weight: 103 lb Highest non- recall weight: 230 lb Patient identified barriers to weight loss: fatigue, eat when boredom - stress eater Weight History: She reports a strong family history of obesity and early adulthood weight gain. She states her weight gain is related to the following factors, including weight retention , reduced physical activity, and consumption of unhealthy foods, stress. History of weight loss with regain? Y - Last Wt 01/31/24 : 103 kg (227 lb) 5% weight loss = 216 lbs, 10% weight loss = 204 lbs WEIGHT GRAPH: Diet/Nutrition overview: Pepsi or Mt Dew - 5 cans from 10 am to 8 pm Awake - 0700 B - 0730 20 or 30 gm Equate shake S - none or Lidia Doones 4 pack and pepsi or Mt Dew L - SKIP S - Pepsi or Mt Dew occasionally chips if at home D - 6 pm Roast, carrots, potato or unbreaded shrimp/lobster with rice or soft shell taco with meat,lettuce, tomato, cheese, sour cream S - berries/chips/carrots and dip/occasional ice cream Fluids: Pepsi or Mt Dew - 5 cans from 10 am to 8 pm Bedtime - 11 pm Quality of diet: 24hr recall suggests healthy/unhealthy diet. Characterization of diet:Structured, structured/Unstructured, unhealthy snacking, evening snacking,increased consumption of sugar sweetened beverages, and skip meals. 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 eating habits:mindlessness , boredom, and stress Eating Disorder no Cravings: Pepsi/Mt Dew, candy bar Sleep Duration: 7-8 hours. TANVIR NO ; CPAP NO Stress Stress:yes , Cause:Personal- fostering Obesity Related Comorbidities: Prior Weight Loss Surgery:No PAST MEDICAL HISTORY 03/02/2004: Abnormal glandular Papanicolaou smear of cervix Comment: @[facility] No date: Anxiety state 2002: ASCUS with positive high risk HPV cervical Comment: @[facility] No date: BRCA negative No date: Essential hypertension No date: GERD (gastroesophageal reflux disease) 2011: HSV-2 (herpes simplex virus 2) infection Comment: culture @[facility] No date: Incontinence of urine 11/27/2004: LGSIL on Pap smear of cervix Comment: @[facility] No date: Migraine, intractable No date: Mitral valve disorders(424.0) No date: Undiagnosed cardiac murmurs PAST SURGICAL HISTORY 2006: CRYOSURGERY Comment: @[facility] 02/16/2010: FOOT SURGERY HX; Left 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 1992: LIGATE FALLOPIAN TUBE Comment: dr Loza 1995: MARSUP BARTHOLIN GLAND CYST Comment: Dr Loza 1998: TREATMENT OF ANAL FISSURE 02/03/2010: VAGINAL HYSTERECTOMY Comment: adenomyosis- has both overies per u/s 201010/31/2003: VAGINOSCOPY Comment: ERNESTINA I FAMILY HISTORY Problem Relation Age of Onset Hypertension Mother Hyperlipidemia Mother Obesity Mother Heart Attack Father Obesity Father No Known Problems Brother Breast Cancer Maternal Grandmother 59 Obesity Maternal Grandmother Heart Failure Maternal Grandfather Obesity Maternal Grandfather Obesity Paternal Grandmother Heart Attack Paternal Grandfather other (migraine [Other]) Other Stroke Other Aneurysm Other heart aneurysm Social History Tobacco Use Smoking status: Never Smokeless tobacco: Never Vaping Use Vaping status: Never Used Substance Use Topics Alcohol use: Not Currently Drug use: Never AOM Medications: none Weight Promoting Medications: SSRI-Lexapro Diet/weight loss History: Past weight loss attempts? dietitian and anti-obesity medications Weight watchers Exercise: Regular exercise: no Strength/resistance exercise:yes Barriers to regular exercise? Yes- lower back- cannot lift over 15 pounds Work-related activity:Sedentary. 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 Current Contraception: hysterectomy Obesity ROS/ FHx GEN: Fatigue:yes CV: h/o palpitations/cardiac arrhythmia, Chest pain: yes Valve disorder/murmur - has been evaluatedby 2 different cardiologists.?anxiety HTN: yes PULM: Asthma:no GI: GERD:yes ; Gallstones:no ; Fatty liver disease:no Pancreatitis: no MSK: Joint Pain:yes-lower back : Nephrolithiasis: no Symptoms of PCOS: no NEURO: Migraines/COSTA: yes ; H/o seizures: no Glaucoma:no; Cataracts no Symptoms of or History of pseudotumor cerebri:no Family or personal History of MEN2 or Medullary thyroid cancer: no PE BP 128/76 Pulse 99 Ht 162.2 cm (5' 3.86) Wt 103 kg (227 lb) SpO2 97% BMI 39.14 kg/m Waist Circumference: 43.75 in Neck Circumference: 15 in GENERAL: Female in NAD. Gluteo-femoral adiposity. SKIN: acanthosis nigricans yes , Skin tags: yes Hirsutism: no HEENT: PERRL, No supraclavicular adiposity. No dorsal adiposity. RESPIRATORY: CBTA CARDIAC: RRR ABDOMEN: Protuberant ; EXTREMITIES: peripheral edema: yes Results: reviewed with the patient 06/29/2023 Outside labs CBCD WNL CMP GLUC 90 BUN 10 Creat 0.87 GFR 68 Lipids Total 189 Trig 121 HDL 58 LDL 107 - taking Lipitor Impression: Meera Meléndez is a 53 year old Female with Class II obesity (Body mass index is 39.14 kg/m .) who hasearly adulthood obesity with several periods of weight loss followed by weight gain . The causes ofher obesity are multifactorial, biological, psychological and social and environmental. Specific factors include a genetic component related to a strong family of obesity, exposure to weight gain promoting medication(s) , increased consumption of high calorie/process foods, suboptimal physical activity, onset of menopause, and post weight retention. She has few weight-related medical comorbidities which increase her cardiovascular mortality risk. There are additional metabolic obesity complications including pre-diabetes, dyslipidemia, and hypertension. Other medical conditions as above. Regarding her lifestyle, as above, she has several behavioral contributors; her physical activity is non-existent. Overall, it is clear that her quality of life is moderately compromised by her weight. It is likelya combination of weight loss therapies will be needed. She appears motivated today. Plan: -- Based on the severity and resistance of the obesity/overweight with co- morbidities, I believe a open to all options intervention is the best and most appropriate buttermaker therapeutic option. - due to time spent obtaining outside lab and health information in e-care and on her phone chart access, she has scheduled a follow-up visit for tomorrow afternoon to discuss POC options and nutrition. Celia Nava CNP Advanced Education from the Obesity Medicine Association I spent a total of 79 minutes on the date of the service which included preparing to see the patient, [id number] patient care, completing clinical documentation, obtaining and/or reviewing separately obtained history, performing a medically appropriate examination, counseling and educating the pat ient/family/caregiver, and ordering medications, tests, or procedures. documented in this encounter[facility] Instructions* Patient Instructions* Celia Nava APRN.CNP - 01/31/2024 1:01 PM EDT Weight Management: You have taken the initiative to become a healthier version of yourself and to decrease the risks that come with the diagnosis of obesity or being overweight. We are happy to help you along this journey but know this is a lifetime commitment to yourself. Losing just 3-10 % of your body weight can decrease your risks of many other serious diseases like diabetes, heart disease, osteoarthritis, hypertension, cancer and so many others. During this time you will have triumphs, setbacks and plateaus-your body will fight against you but we are here to give you the tools and the resources to continue to reach your goals. We recommend during this time that you track your weight daily or at least five times per week as well as tracking your nutrition. You may track your activity but do not use hitting your fitness goals as a reward system as this can derail your success. We recommend weekly physical activity of 150-200 min/week-although physical exercise, this will be especially important for weight maintenance. Exercise can have many other benefits including improving insulin resistance, improving balance, bone health, improving mental health and cardiovascular health. Do not feel overwhelmed - we will discussthis more at your visits. Our time will be limited with each visit but we will try to touch on factors that are important to you and to your overall goals. We will try to set a goal at the end of each visit and then decide onwhat we want to accomplish with your upcoming visits. On your After Visit Summary (AVS), we will provide you with information that may be useful during this journey so please remember to read the information given. Check your AVS a few days after your appointment because we may have added more information specifically for you. Remember that if you are placed on medications, they are tools that can help you succeed but you must put in the work. Your nutrition will be the main factor. There are medications that work well forsome and not for others- so it may take time to find the right combination for your body's needs. Please remember that factors such as other health co-morbidities one might have, as well as insurance coverage, will play a factor in determining which medications you can take. Most of the newer medications that are all the craze ,injectables, may not be covered or will only be covered if you fail months of oral medications or have Type 2 diabetes so please be patient with the process. It would be beneficial for you to determine what your insurance covers as far as Anti-Obesity Medications (AOMs), Nutritional Counseling, behavioral intervention and weight loss surgery. Please call your health insurance prior to your first appointment and write down coverage for each of those therapies. Most importantly, remember that ultimately our goal is to help you get to a healthier weight which will decrease your overall health risks. We will work together as a team and try to reach your personalized goals as well. Follow-up appointments Please arrive to follow-up visits a minimum of 15 minutes prior to your appointment. Follow-up weight management visits can be virtual. You will need to report a current blood pressure, heart rate (pulse) and weight at the beginning of each virtual appointment so you will need to have a reliable BP cuff, either wrist or upper arm. If you need to reschedule your appointment time or switch from an in-office visit to a virtual visit or vice versa, you need to call our office as we have designated appointment slots. This should not be done on MyNextRun[facility] as you will not be scheduled appropriately and will need to be rescheduled. We appreciate that you have entrusted us with your health and know that we are committed to this process with you. Sincerely, Kelley Andre MD, MELISSA ROBLES & Celia Nava CNP Advanced Education from the Obesity Medicine Association Obesity Obesity is a disease that affects nearly one-third of the adult [place] population (approximately 60 million). The number of overweight and obese Americans has continued to increase since 1960, a trend that is not slowing down. Today, 64.5 percent of adult Americans (about 127 million) are categorized as being overweight or obese. Each year, obesity causes at least 300,000 excess deaths in the [place] and healthcare costs of [place] adults with obesity amount to approximately $100 billion. (AOA) Obesity is a complex, multi-factorial chronic disease involving: Environmental (social and cultural) The tendency toward obesity is a result of our environment: lack of physical activity along with high-calorie, low-cost foods. Home, work, school, and even the community can inhibit a healthy lifestyle. Genetic (Hereditary plays a large role in determining how susceptible people are to overweight and obesity). Genes also influence how the body villalpando calories for energy and stores fat. Physiologic, metabolic, behavioral (eating too many calories while not getting enough exercise) andpsychological components. It is the second leading cause of preventable in the [place] Behavioral changes brought on by economic development, modernization and urbanization have been linked to therise in global obesity. Calculating BMI Body Mass Index (BMI) is a measurement tool used to determine excess body weight. Overweight is defined as a BMI of 25 or more, obesity is 30 or more, and severe obesity is 40 or more. You can visit www.nhlbi.nih.gov to estimate your BMI. Obesity Related Health Conditions The morbidity and mortality risk from being overweight is proportional to its degree. Individuals with morbid obesity, therefore, have the highest risk for developing numerous illnesses that often reduce mobility and quality of life due to their excess weight. In particular, type 2 diabetes, gallbladder disease and osteoarthritis have been found to increase concurrently with higher BMI. Prematuredeath, a 20-year shorter life span, has also been found in individuals with morbid obesity. All of the systems that make the body function are affected by morbid obesity. Type 2 diabetes Gallbladder disease and gallstones Liver disease Osteoarthritis, a disease in which the joints deteriorate. This is possibly the result of excess weight on the joints. Gout, another disease affecting the joints Pulmonary (breathing) problems, including sleep apnea in which a person can stop breathing for a short time during sleep Reproductive problems in women, including menstrual irregularities and infertility Gastroesophageal reflux/heartburn Hypertension Heart Disease Depression Psychological disorders/social impairments Urinary Stress Incontinence Obesity is also linked to higher rates of certain types of cancer. Obese men are more likely than non-obese men to from cancer of the colon, rectum, or prostate. Obese women are more likely than non-obese women to from cancer of the gallbladder, breast, uterus, cervix, or ovaries [email or web address] ducation - Eat primarily whole foods. Limit carbs, especially processed carbs. Eat - Meat, vegetables and fruits with skin on if possible, eggs, cheese. - Do not drink your calories - 30 grams of protein for your first meal of the day decreases your hunger during the day by up to 40 %. Options include: Premier Protein or generic 30 gm protein 1 gm sugar or 5 eggs or 2-3 eggs andsome unbreaded meat and/or cheese. No fruit, vegetables, bread, grain, yogurt, Smoothies, etc. - Walk for 15 minutes immediately after meal. Ask health insurance if your policy covers bariatric surgery? documented in this encounterA[facility]08-05-2024 Instructions* Patient Instructions* Ebenezer Camarillo APRN.CNP - 01/02/2024 3:42 PM EDT Continue Estrace cream twice weekly. Continue pelvic floor PT. Lubricants and moisturizers list: The tuky-[id number] vaginal moisturizer and lubricant products can be confusing to sort through, especially since there are no FDA requirements for how they can be marketed or labeled. In general there are 3 categories of products: Vaginal lubricants should be used at the time of intercourse to decrease friction. Long acting vaginal moisturizers are used at least twice weekly to increase vaginal (internal) lubrication and elasticity. Vulvar moisturizers are for external use for vulvar comfort and do not impact vaginal lubrication or elasticity. Vaseline petroleum products and oils (baby oil, coconut, olive oil,) can make condoms break, so should not be used with condoms. In many women, these can cause infections. However, if you have sore spots on the vulva (outer lips), then petroleum jelly can sometimes be helpful. All of the products listed below are over the counter. Many can be bought in any drugstore or online. Also, many [employer] stores do carry high-quality lubricant products. VAGINAL LUBRICANTS: (For use during sexual activity) Lubricants should be applied to the outside and opening of the vagina at the time of sexual activity. The lubricant can also be applied to the penis or a device. Silicone based lubricants should not be used on silicone vibrators or toys. Both silicone and water based lubricants are condom compatible. If you use a water based lubricant, it is also important to choose a lubricant with low osmolality since lubricants with high osmolality increase the chance of irritation and infection. Osmolality information can be hard to find. All of the following lubricants have a low osmolality, are pH balanced, and are preservative free. WATER BASED LUBRICANTS Good Clean Love (made of organic ingredients) Pulse H2Oh! Sylk Natural System Seble PreSeed (Does not impact sperm motility and can be used if trying to conceive, also good for those with multiple sensitivities, though may not work as well) SILICONE BASED LUBRICANTS Uber lube Replens Silky Smooth Pulse Aloe-ahh Wet [place] SEBLE Premium Personal Lubricant PINK Silicone Lubricant SLIQUID Organics silk Pulse is a hands free personal lubricant warming dispenser and is sold with water or silicone basedlubricant pods that some women prefer for travel. LONG ACTING VAGINAL MOISTURIZERS: (For regular use inside vagina to maintain moisture) Long acting vaginal moisturizers should be used at least twice weekly on a regular basis. Many women find they need to use a moisturizer 3-5 times/week. In addition, it is important to not only applythe moisturizer inside the vagina, but also to apply to the vestibule (the external area surrounding the opening of the vagina). Women who are not sexually active often find that the regular use of along acting vaginal moisturizer makes them feel more comfortable. Hat Brusher Machine beware: many lubricants arelabeled as moisturizers to make them more appealing to consumers (even though they don't function as a true moisturizer). Replens Long Acting Vaginal Moisturizer (Available in all drugstores) HyaloGyn Vaginal Hydrating Gel (hybrid moisturizer, but can function as lubricant too) Revaree (hyaluronic acid) VULVAR MOISTURIZERS: (For external use) Replens Moisture Restore Comfort Gel is to be used externally for dry vulvar skin. Aquaphor can also be applied externally for comfort. Desert Bruno Aloe Brunson: Many people are allergic to aloe, so keep this in mind with products like this that have aloe in it. Medicine Mama's V magic: Not much medical studies on this, but many patients swear by it, has oil, beeswax and honey in it- best used externally only. documented in this encounterA[facility]08-05-2024 History of Present illness Narrative* Ebenezer Camarillo APRN.CNP - 01/02/2024 3:00 PM EDT Female Pelvic Medicine & Reconstructive Surgery Consult CHIEF COMPLAINT: Meera Meléndez is a 53 year old female who presents for consultation requested by Laura Pathak APRN.CNP for an opinion regarding Pelvic Organ Prolapse . HISTORY OF PRESENT ILLNESS: States she has prolapse. States she started PFPT and she felt like she could feel it more. History of anxiety. States she is hyperfocused on it. States PFPT tried to fit a pessary but it was too painful. On Vesicare for OAB. Working well. Rare GERTRUDIS. Hysterectomy, ovaries intact. 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 LMP: No LMP recorded. Patient has had a hysterectomy.; Menopause: Denies VMS. Menstrual history: NA; Deliveries: History of third or fourth degree laceration: No Weight of largest baby: 8 lbs. 9 oz. Sexual function Sexually active: Yes, dryness PFDI-20 Do you: Usually experience pressure in the lower abdomen? No (0) Usually experience heaviness or dullness in the pelvic area? Yes, quite a bit bothersome (4) Usually have a bulge or something falling out that you can see or feel in your vaginal area? Yes, quite a bit bothersome (4) Ever have to push on the vagina or around the rectum to have or complete a bowel movement? No (0) Usually experience a feeling of incomplete bladder emptying? Yes, not at all bothersome (1) Ever have to push up on a bulge in the vaginal area with your fingers to start or complete urination? No (0) Feel you need to strain too hard to have a bowel movement? Yes, not at all bothersome (1) Feel you have not completely emptied your bowels at the end of a bowel movement? Yes, not at all bothersome (1) Usually lose stool beyond your control if your stool is well formed? No (0) Usually lose stool beyond your control if your stool is loose? No (0) Usually lose gas from the rectum beyond your control? No (0) Usually have pain when you pass your stool? No (0) Experience a strong sense of urgency and have to rubio to the bathroom to have a bowel movement? Yes, somewhat bothersome (2) Does part of your bowel ever pass through the rectum and bulge outside during or after a bowel movement? No (0) Usually experience frequent urination? Yes, somewhat bothersome (2) Usually experience urine leakage associated with a feeling of urgency, that is, a strong sensation of needing to go to the bathroom? Yes, moderately bothersome (3) Usually experience urine leakage related to coughing, sneezing or laughing? Yes, somewhat bothersome (2) Usually experience small amounts of urine leakage (that is, drops)? Yes, not at all bothersome (1) Usually experience difficulty emptying your bladder? Yes, somewhat bothersome (2) Usually experience pain or discomfort in the lower abdomen or genital region? Yes, somewhat bothersome (2) Do you have pain associated with your prolapse (not pressure or fullness) No PAST SURGICAL HISTORY 2006: CRYOSURGERY Comment: @[facility] 02/16/2010: FOOT SURGERY HX; Left 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 1992: LIGATE FALLOPIAN TUBE Comment: dr Loza 1995: MARSUP BARTHOLIN GLAND CYST Comment: Dr Loza 1998: TREATMENT OF ANAL FISSURE 02/03/2010: VAGINAL HYSTERECTOMY Comment: adenomyosis- has both overies per u/s 201010/31/2003: VAGINOSCOPY Comment: ERNESTINA I PAST MEDICAL HISTORY 03/02/2004: Abnormal glandular Papanicolaou smear of cervix Comment: @[facility] No date: Anxiety state 2002: ASCUS with positive high risk HPV cervical Comment: @[facility] No date: BRCA negative No date: Essential hypertension No date: GERD (gastroesophageal reflux disease) 2011: HSV-2 (herpes simplex virus 2) infection Comment: culture @[facility] No date: Incontinence of urine 11/27/2004: LGSIL on Pap smear of cervix Comment: @[facility] No date: Migraine, intractable No date: Mitral valve disorders(424.0) No date: Undiagnosed cardiac murmurs FAMILY HISTORY Problem Relation Age of Onset Hypertension Mother Hyperlipidemia Mother Heart Attack Father No Known Problems Brother Breast Cancer Maternal Grandmother 59 Heart Failure Maternal Grandfather Heart Attack Paternal Grandfather other (migraine [Other]) Other Stroke Other Aneurysm Other heart aneurysm Current Outpatient Medications Medication Sig atorvastatin (LIPITOR) 20 mg tablet Take 20 mg by mouth once daily. valACYclovir (VALTREX) 500 mg tablet Take 1 tablet by mouth once daily. estradiol (ESTRACE) 0.01 % (0.1 mg/gram) vaginal cream apply approximately 1/2 inch of cream vaginally qhs every other night celecoxib (CELEBREX) 200 mg capsule TAKE 1 CAPSULE BY MOUTH TWICE A DAY NEEDED FOR SEVERE PAIN escitalopram oxalate (LEXAPRO) 5 mg tablet Take 5 mg by mouth once daily. fluticasone (FLONASE) 50 mcg/actuation nasal spray Use 1 [place] in the nose once daily. rimegepant (NURTEC ODT) 75 mg disintegrating tablet Take 75 mg by mouth once daily as needed. rizatriptan (MAXALT) 10 mg tablet Take 10 mg by mouth as needed for migraine headache (see administration instructions). solifenacin (VESICARE) 5 mg tablet Take 5 mg by mouth once daily. valsartan (DIOVAN) 80 mg tablet Take 80 mg by mouth once daily. cholecalciferol (VITAMIN D3) 50 mcg (2,000 unit) tablet Take 2,000 Units by mouth once daily. ALPRAZolam (XANAX) 0.25 mg tablet Take 0.25 mg by mouth once daily as needed. esomeprazole mag trihydrate(NEXIUM 40 MG CAP) Take 40 mg by mouth once daily. DO NOT CRUSH No current facility-administered medications for this visit. ALLERGIES Allergen Reactions Doxycycline Other: See Comments, Diarrhea, GI Upset, Vomiting, Intolerance Cephalexin Monohydr* Other: See Comments Lisinopril Other: See Comments, Cough Seasonal Allergies Other: See Comments Itchy eyes SOCIAL HISTORY Social History Tobacco Use Smoking status: Never Smokeless tobacco: Never Vaping Use Vaping Use: Never used Substance Use Topics Alcohol use: Not Currently Drug use: Never Occupation: Not discussed Marital Status: REVIEW OF SYSTEMS General: Negative for unintentional weight loss, fever, chills, or weakness. Skin: Negative for rash or itching. Psychiatric: Negative for depression. Reports normal stress. Neurologic: Negative for new headache or syncope. Endocrine: Negative for sweating, cold intolerance or heat intolerance. Cardiovascular: Negative for recent chest pain, chest pressure or chest discomfort. Hematologic/Lymphatic: Negative for easy bruising or excessive bleeding. Respiratory: Negative for wheezing, shortness of breath or persistent cough. Gastrointestinal: Negative for persistent abdominal pain. Negative for anorexia, persistent nausea and/or vomiting. Musculoskeletal: Negative for muscle pain, back pain, joint pain or stiffness. I have confirmed and edited as necessary, the PFSH and ROS obtained by others. Ebenezer Camarillo, MARINA.LEHR CUTTER [facility] offered: Patient declines. OBJECTIVE: BP 142/91 Pulse 79 Ht 5' 4 (1.63m) Physical Exam Constitutional: BMI - Body mass index is 39.31 kg/m . General Appearance: Well appearing, alert, in no acute distress, well-hydrated, well nourished. andMorbidly obese Skin: Not examined Lungs: Unlabored on room air Heart: Not examined Breasts: Deferred Abdomen: Abdomen soft, non-tender Pelvic: External Genitalia: No lesions or other abnormalities POP-Q: Prolapse Noted: Yes Aa = 0 Ba = -1.0 C = -7.5 gh = 3.5 pb = 3.0 tvl = 8.5 Ap = -1.0 Bp = -1.0 D = N/A Vaginal epithelium: Atrophic Cervix: Absent Urethra: Normal, Supine cough stress test negative Bimanual: No tenderness, No masses Rectovaginal: No tenderness, No masses, small distal pocket Anal Sphincter: Resting Tone: Normal Squeeze Strength: 1+ out of 5 Sphincter Defect: no Levator Ani Contraction: 1+ Levator Ani Tone: increased Levator Ani Tenderness: Yes, R OI and LA Saddle Sensory Exam (S2-4): normal Urine Dip Result: Normal Bladder scan: Nurse performed and PVR 43 mL IMPRESSION: Meera Meléndez is a 53 year old female with POP, high tone PFD and GSM. PLAN: 1. Cystocele, midline - We discussed the options for management of pelvic organ prolapse including pelvic floor muscle exercises/pelvic floor physical therapy, pessary, and surgery. Meera desires to continue with PFPT. Mayconsider a pessary in the future. - BLADDER SCAN 2. Rectocele - As above #1. 3. High-tone pelvic floor dysfunction - Discussed exam findings. - Recommend continuing PFPT. 4. Genitourinary syndrome of menopause - Continue vaginal estrogen cream twice weekly. - Discussed lubricants and moisturizers. I spent a total of 30 minutes on the date of the service which included preparing to see the patient, [id number] patient care, completing clinical documentation, performing a medically appropriate examination, and counseling and educating the patient/family/caregiver. My final recommendations will be communicated back to the requesting physician by way of shared Medical record or letter via US mail. Ebenezer Camarillo APRN.ZINA documented in this encounterAdena [facility] Center08-05-2024 NoteHNO ID: [id number] Author: EBENEZER CAMARILLO APRN.CNP Service: ? Author Type: Nurse Practitioner Type: Progress Notes Filed: 01/02/2024 15:48 Note Text: Female Pelvic Medicine AND Reconstructive Surgery Consult CHIEF COMPLAINT: Meera Meléndez is a 53 year old female who presents for consultation requested by Laura Pathak APRN.CNP for an opinion regarding Pelvic Organ Prolapse . HISTORY OF PRESENT ILLNESS: States she has prolapse. States she started PFPT and she felt like she could feel it more. History of anxiety. States she is hyperfocused on it. States PFPT tried to fit a pessary but it was too painful. On Vesicare for OAB. Working well. Rare GERTRUDIS. Hysterectomy, ovaries intact. 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 LMP: No LMP recorded. Patient has had a hysterectomy.; Menopause: Denies VMS. Menstrual history: NA; Deliveries: History of third or fourth degree laceration: No Weight of largest baby: 8 lbs. 9 oz. Sexual function Sexually active: Yes, dryness PFDI-20 Do you: Usually experience pressure in the lower abdomen? No (0) Usually experience heaviness or dullness in the pelvic area? Yes, quite a bit bothersome (4) Usually have a bulge or something falling out that you can see or feel in your vaginal area? Yes, quite a bit bothersome (4) Ever have to push on the vagina or around the rectum to have or complete a bowel movement? No (0) Usually experience a feeling of incomplete bladder emptying? Yes, not at all bothersome (1) Ever have to push up on a bulge in the vaginal area with your fingers to start or complete urination? No (0) Feel you need to strain too hard to have a bowel movement? Yes, not at all bothersome (1) Feel you have not completely emptied your bowels at the end of a bowel movement? Yes, not at all bothersome (1) Usually lose stool beyond your control if your stool is well formed? No (0) Usually lose stool beyond your control if your stool is loose? No (0) Usually lose gas from the rectum beyond your control? No (0) Usually have pain when you pass your stool? No (0) Experience a strong sense of urgency and have to rubio to the bathroom to have a bowel movement? Yes, somewhat bothersome (2) Does part of your bowel ever pass through the rectum and bulge outside during or after a bowel movement? No (0) Usually experience frequent urination? Yes, somewhat bothersome (2) Usually experience urine leakage associated with a feeling of urgency, that is, a strong sensation of needing to go to the bathroom? Yes, moderately bothersome (3) Usually experience urine leakage related to coughing, sneezing or laughing? Yes, somewhat bothersome (2) Usually experience small amounts of urine leakage (that is, drops)? Yes, not at all bothersome (1) Usually experience difficulty emptying your bladder? Yes, somewhat bothersome (2) Usually experience pain or discomfort in the lower abdomen or genital region? Yes, somewhat bothersome (2) Do you have pain associated with your prolapse (not pressure or fullness) No PAST SURGICAL HISTORY 2006: CRYOSURGERY Comment: @[facility] 02/16/2010: FOOT SURGERY HX; Left 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 1992: LIGATE FALLOPIAN TUBE Comment: dr Loza 1995: MARSUP BARTHOLIN GLAND CYST Comment: Dr Loza 1998: TREATMENT OF ANAL FISSURE 02/03/2010: VAGINAL HYSTERECTOMY Comment: adenomyosis- has both overies per u/s 201010/31/2003: VAGINOSCOPY Comment: ERNESTINA I PAST MEDICAL HISTORY 03/02/2004: Abnormal glandular Papanicolaou smear of cervix Comment: @[facility] No date: Anxiety state 2002: ASCUS with positive high risk HPV cervical Comment: @[facility] No date: BRCA negative No date: Essential hypertension No date: GERD (gastroesophageal reflux disease) 2011: HSV-2 (herpes simplex virus 2) infection Comment: culture @[facility] No date: Incontinence of urine 11/27/2004: LGSIL on Pap smear of cervix Comment: @[facility] No date: Migraine, intractable No date: Mitral valve disorders(424.0) No date: Undiagnosed cardiac murmurs FAMILY HISTORY Problem Relation Age of Onset Hypertension Mother Hyperlipidemia Mother Heart Attack Father No Known Problems Brother Breast Cancer Maternal Grandmother 59 Heart Failure Maternal Grandfather Heart Attack Paternal Grandfather other (migraine [Other]) Other Stroke Other Aneurysm Other heart aneurysm Current Outpatient Medications Medication Sig atorvastatin (LIPITOR) 20 mg tablet Take 20 mg by mouth once daily. valACYclovir (VALTREX) 500 mg tablet Take 1 tablet by mouth once daily. estradiol (ESTRACE) 0.01 % (0.1 mg/gram) vaginal cream apply approximately 1/2 inch of cream vaginally qhs every other night celecoxib (CELEBREX) 200 mg capsule TAKE 1 CAPSULE BY MOUTH TWICE A DAY NEEDED FOR SEVERE PAIN escitalopram oxalate (LEXAPRO) 5 mg tablet Take 5 mg by mouth once daily. fluti (more content not included)...[facility]08-01-2024 History of Present illness Narrative* Laura Pathak APRN.LEHR CUTTER - 12/29/2023 3:23 PM EDT [facility] offered: Patient declines. Meera Meléndez is a 53 year old female who presents for problem visit of prolapse. HPI: Meera is here to follow up on prolapse. She feels that it is worsening at certain times of the day. Going to pelvic floor therapy weekly. Really concerned about the prolapse and worried that it will become a complete prolapse. States that she is thinking about it a lot and feels hyperfocused on it. 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 LMP: Hysterectomy Age at Menarche: Age at First : Age at Menopause: Chick Grader History Comments: Sexual Activity: Yes; Male Contraception: No contraception data on record PAST MEDICAL HISTORY 03/02/2004: Abnormal glandular Papanicolaou smear of cervix Comment: @[facility] No date: Anxiety state 2003: ASCUS with positive high risk HPV cervical Comment: @[facility] No date: BRCA negative No date: Essential hypertension No date: GERD (gastroesophageal reflux disease) 2011: HSV-2 (herpes simplex virus 2) infection Comment: culture @[facility] No date: Incontinence of urine 11/27/2004: LGSIL on Pap smear of cervix Comment: @[facility] No date: Migraine, intractable No date: Mitral valve disorders(424.0) No date: Undiagnosed cardiac murmurs PAST SURGICAL HISTORY 2006: CRYOSURGERY Comment: @[facility] 02/16/2010: FOOT SURGERY HX; Left 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 1992: LIGATE FALLOPIAN TUBE Comment: dr Loza 1995: MARSUP BARTHOLIN GLAND CYST Comment: Dr Loza 1998: TREATMENT OF ANAL FISSURE 02/03/2010: VAGINAL HYSTERECTOMY Comment: adenomyosis- has both overies per u/s 201010/31/2003: VAGINOSCOPY Comment: ERNESTINA I FAMILY HISTORY Problem Relation Age of Onset Hypertension Mother Hyperlipidemia Mother Heart Attack Father No Known Problems Brother Breast Cancer Maternal Grandmother 59 Heart Failure Maternal Grandfather Heart Attack Paternal Grandfather other (migraine [Other]) Other Stroke Other Aneurysm Other heart aneurysm Social History Tobacco Use Smoking status: Never Smokeless tobacco: Never Vaping Use Vaping Use: Never used Substance Use Topics Alcohol use: Not Currently Drug use: Never Current Outpatient Medications Medication Sig atorvastatin (LIPITOR) 20 mg tablet Take 20 mg by mouth once daily. valACYclovir (VALTREX) 500 mg tablet Take 1 tablet by mouth once daily. estradiol (ESTRACE) 0.01 % (0.1 mg/gram) vaginal cream apply approximately 1/2 inch of cream vaginally qhs every other night celecoxib (CELEBREX) 200 mg capsule TAKE 1 CAPSULE BY MOUTH TWICE A DAY NEEDED FOR SEVERE PAIN escitalopram oxalate (LEXAPRO) 5 mg tablet Take 5 mg by mouth once daily. fluticasone (FLONASE) 50 mcg/actuation nasal spray Use 1 [place] in the nose once daily. rimegepant (NURTEC ODT) 75 mg disintegrating tablet Take 75 mg by mouth once daily as needed. rizatriptan (MAXALT) 10 mg tablet Take 10 mg by mouth as needed for migraine headache (see administration instructions). solifenacin (VESICARE) 5 mg tablet Take 5 mg by mouth once daily. valsartan (DIOVAN) 80 mg tablet Take 80 mg by mouth once daily. cholecalciferol (VITAMIN D3) 50 mcg (2,000 unit) tablet Take 2,000 Units by mouth once daily. ALPRAZolam (XANAX) 0.25 mg tablet Take 0.25 mg by mouth once daily as needed. codeine-guaiFENesin (ROBITUSSIN AC) 10-100 mg/5 mL syrup Take 5-10 mL by mouth at bedtime as neededfor Cough or Cold/Allergy Symptoms. May cause drowsiness. (Patient not taking: Reported on 11/23/2023) esomeprazole mag trihydrate(NEXIUM 40 MG CAP) Take 40 mg by mouth once daily. DO NOT CRUSH No current facility-administered medications for this visit. Allergies As of Date: 12/29/2023 Allergen Noted Reaction DOXYCYCLINE 07/12/2011 Other: See Comments, Diarrhea, GI Upset, Vomiting, and Intolerance CEPHALEXIN MONOHYDRATE 04/11/2023 Other: See Comments LISINOPRIL 03/23/2019 Other: See Comments and Cough SEASONAL ALLERGIES 04/03/2014 Other: See Comments Fully Assessed 11/23/2023 REVIEW OF SYSTEMS. Expanded ROS: LOCOMOTIVE OPERATOR: Positive for bothersome prolapse Allergies and current medication updated:Yes EXAM: BP 118/78 Pulse 72 Resp 14 Wt 229 lb (103.9kg) SpO2 98% GENERAL: pleasant, anxious, female in no apparent distress HEENT: Normocephalic, atraumatic, mucus membranes moist, and no lesions CHEST: Normal inspiratory effort PELVIC: external genitalia normal, normal Bartholin's glands, urethra, [place]'s glands, no vulvar lesions, no cervical lesions,+ 2nd degree cystocele, physiologic discharge present, normal appearing perineal body and perianal region BIMANUAL: uterus normal size, shape and consistency, no adnexal masses, and non-tender NEURO: alert and oriented x3,exam grossly non-focal EXTREMITIES: normal ASSESSMENT/PLAN: 1. Cystocele, midline - ICD9: 618.01, ICD10: N81.11 - Discussed option of pessary - fitting attempted with smallest ring pessary. Not able to tolerate at this time due to pain with insertion from atrophy. - Recommend continued pelvic floor therapy - Seeing weight management in January - Has counselor - CONSULT TO URO GYNECOLOGY Laura Pathak APRN.CNP Medical Decision Making: Problems: Moderate: 1+ chronic illnesses with change Risk: Minimal: Minimal risk from testing/treatment Medical Decision Making Level: 2 - Straightforward documented in this encounterAdena [facility] Center06-26-2024 History of Present illness Narrative* Laura Pathak APRN.CNP - 11/23/2023 3:46 PM EDT [facility] offered: Patient declines. Meera Meléndez is a 53 year old female who presents for problem visit of dysuria and vaginal itching. HPI: Meera has had dysuria and vaginal itching for 2 weeks. She feels that she is not completely emptying her bladder. 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 LMP: Hysterectomy Age at Menarche: Age at First : Age at Menopause: Chick Grader History Comments: Sexual Activity: Not Asked; No partner data on record Contraception: No contraception data on record PAST MEDICAL HISTORY Diagnosis Date Abnormal glandular Papanicolaou smear of cervix 03/02/2004 @[facility] Anxiety state ASCUS with positive high risk HPV cervical 2002 @[facility] BRCA negative Essential hypertension GERD (gastroesophageal reflux disease) HSV-2 (herpes simplex virus 2) infection 2010 culture @[facility] Incontinence of urine LGSIL on Pap smear of cervix 11/27/2004 @[facility] Migraine, intractable Mitral valve disorders(424.0) Undiagnosed cardiac murmurs PAST SURGICAL HISTORY Procedure Laterality Date CRYOSURGERY 2005 @[facility] FOOT SURGERY HX 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 LIGATE FALLOPIAN TUBE 1992 dr Denia VELASCO BARTHOLIN GLAND CYST 1995 Dr Loza TREATMENT OF ANAL FISSURE 1998 VAGINAL HYSTERECTOMY 02/03/2010 adenomyosis- has both overies per u/s 2011 VAGINOSCOPY 10/31/2003 ERNESTINA I FAMILY HISTORY Problem Relation Age of Onset Hypertension Mother Hyperlipidemia Mother Heart Attack Father No Known Problems Brother Breast Cancer Maternal Grandmother 59 Heart Failure Maternal Grandfather Heart Attack Paternal Grandfather other (migraine [Other]) Other Stroke Other Aneurysm Other heart aneurysm Social History Tobacco Use Smoking status: Never Smokeless tobacco: Never Vaping Use Vaping Use: Never used Substance Use Topics Alcohol use: No Drug use: No Current Outpatient Medications Medication Sig atorvastatin (LIPITOR) 20 mg tablet Take 20 mg by mouth once daily. valACYclovir (VALTREX) 500 mg tablet Take 1 tablet by mouth once daily. estradiol (ESTRACE) 0.01 % (0.1 mg/gram) vaginal cream apply approximately 1/2 inch of cream vaginally qhs every other night celecoxib (CELEBREX) 200 mg capsule TAKE 1 CAPSULE BY MOUTH TWICE A DAY NEEDED FOR SEVERE PAIN escitalopram oxalate (LEXAPRO) 5 mg tablet 5 mg. fluticasone (FLONASE) 50 mcg/actuation nasal spray Use 1 [place] in the nose. rimegepant (NURTEC ODT) 75 mg disintegrating tablet Take 75 mg by mouth once daily as needed. rizatriptan (MAXALT) 10 mg tablet Take 10 mg by mouth. solifenacin (VESICARE) 5 mg tablet valsartan (DIOVAN) 80 mg tablet cholecalciferol (VITAMIN D3) 50 mcg (2,000 unit) tablet ALPRAZolam (XANAX) 0.25 mg tablet mg = tab(s), Oral, TID, 0 Refill(s), 102.6 codeine-guaiFENesin (ROBITUSSIN AC) 10-100 mg/5 mL syrup Take 5-10 mL by mouth at bedtime as neededfor Cough or Cold/Allergy Symptoms. May cause drowsiness. esomeprazole mag trihydrate(NEXIUM 40 MG CAP) as needed. No current facility-administered medications for this visit. Allergies As of Date: 11/23/2023 Allergen Noted Reaction DOXYCYCLINE 07/12/2011 Other: See Comments, Diarrhea, GI Upset, Vomiting, and Intolerance CEPHALEXIN MONOHYDRATE 04/11/2023 Other: See Comments LISINOPRIL 03/23/2019 Other: See Comments and Cough SEASONAL ALLERGIES 04/03/2014 Other: See Comments Fully Assessed 10/28/2023 REVIEW OF SYSTEMS Bladder: No gross hematuria, urinary frequency, urinary urgency, or incontinence. + dysuria LOCOMOTIVE OPERATOR: + vaginal itching Allergies and current medication updated:Yes EXAM: BP 126/86 Pulse 76 Resp 14 Wt 230 lb (104.3kg) SpO2 97% GENERAL: pleasant, female in no apparent distress HEENT: Normocephalic, atraumatic, mucus membranes moist, and no lesions CHEST: Normal inspiratory effort PELVIC: external genitalia normal, normal Bartholin's glands, urethra, [place]view's glands, no vulvar lesions, cervix surgically absent, good vaginal support, physiologic discharge present, normal appearing perineal body and perianal region + stage 1-2 cystocele, rectocele BIMANUAL: uterus surgically absent, no adnexal masses, and non-tender NEURO: alert and oriented x3,exam grossly non-focal EXTREMITIES: normal ASSESSMENT AND PLAN: 1. Dysuria - ICD9: 788.1, ICD10: R30.0 (primary diagnosis) - Avoid bladder irritants - Increase water intake - UA negative - URINE CULTURE - Seeing pelvic floor therapy 2. Vaginal itching - ICD9: 698.1, ICD10: N89.8 - MICHAEL/TRICHOMONAS NAAT - BACTERIAL VAGINOSIS NAAT RTO for annual visit. Medical Decision Making: Problems: Low: Acute, uncomplicated illness or injury Data: Unique test(s) ordered: 3+ Risk: Minimal: Minimal risk from testing/treatment Medical Decision Making Level: 3 - Low documented in this encounterAdena [facility] Center05-31-2024 Telephone encounter Note * Telephone Encounter - Cynthia Gloria RN - 10/28/2023 10:51 AM EDT Consult order faxed to [employer]. Cynthia Gloria RN [facility]05-31-[facility]24 Miscellaneous Notes* Telephone Encounter - Cynthia Gloria RN - 10/28/2023 10:51 AM EDT Consult order faxed to [employer]. Cyntiha Gloria RN documented in this encounterAdena Regional Medical Center05-31-2024 Instructions* Patient Instructions* Laura Pathak APRN.LEHR CUTTER - 10/28/2023 9:52 AM EDT Grace Judd does pelvic floor therapy at [place]. [email or web address] - [facility] [email or web address] [email or web address] [employer] [facility] [email or web address] Pelvic Guru [email or web address] Lubricants and moisturizers list The ofai-qyd-mkolooj vaginal moisturizer and lubricant products can be confusing to sort through, especially since there are no FDA requirements for how they can be marketed or labeled. In general there are 3 categories of products: Vaginal lubricants should be used at the time of intercourse to decrease friction. Long acting vaginal moisturizers are used at least twice weekly to increase vaginal (internal) lubrication and elasticity. Vulvar moisturizers are for external use for vulvar comfort and do not impact vaginal lubrication or elasticity. Vaseline petroleum products and oils (baby oil, coconut, olive oil,) can make condoms break, so should not be used with condoms. In many women, these can cause infections. However, if you have sore spots on the vulva (outer lips), then petroleum jelly can sometimes be helpful. All of the products listed below are over the counter. Many can be bought in any drugstore or online. Also, many [employer] stores do carry high-quality lubricant products. VAGINAL LUBRICANTS: (For use during sexual activity) Lubricants should be applied to the outside and opening of the vagina at the time of sexual activity. The lubricant can also be applied to the penis or a device. Silicone based lubricants should not be used on silicone vibrators or toys. Both silicone and water based lubricants are condom compatible. If you use a water based lubricant, it is also important to choose a lubricant with low osmolality since lubricants with high osmolality increase the chance of irritation and infection. Osmolality information can be hard to find. All of the following lubricants have a low osmolality, are pH balanced, and are preservative free. WATER BASED LUBRICANTS Good Clean Love (made of organic ingredients) Pulse H2Oh! Sylk Natural System Seble PreSeed (Does not impact sperm motility and can be used if trying to conceive, also good for those with multiple sensitivities, though may not work as well) SILICONE BASED LUBRICANTS Uber lube Replens Silky Smooth Pulse Aloe-ahh Wet [place] SEBLE Premium Personal Lubricant PINK Silicone Lubricant SLIQUID Organics silk Pulse is a hands free personal lubricant warming dispenser and is sold with water or silicone basedlubricant pods that some women prefer for travel. LONG ACTING VAGINAL MOISTURIZERS: (For regular use inside vagina to maintain moisture) Long acting vaginal moisturizers should be used at least twice weekly on a regular basis. Many women find they need to use a moisturizer 3-5 times/week. In addition, it is important to not only applythe moisturizer inside the vagina, but also to apply to the vestibule (the external area surrounding the opening of the vagina). Women who are not sexually active often find that the regular use of along acting vaginal moisturizer makes them feel more comfortable. Hat Brusher Machine beware: many lubricants arelabeled as moisturizers to make them more appealing to consumers (even though they don t function as a true moisturizer). Replens Long Acting Vaginal Moisturizer (Available in all drugstores) HyaloGyn Vaginal Hydrating Gel (hybrid moisturizer, but can function as lubricant too) Revaree (hyaluronic acid) VULVAR MOISTURIZERS: (For external use) Replens Moisture Restore Comfort Gel is to be used externally for dry vulvar skin. Aquaphor can also be applied externally for comfort. Desert Bruno Aloe Brunson: Many people are allergic to aloe, so keep this in mind with products like this that have aloe in it. Medicine Mama s V magic: Not much medical studies on this, but many patients swear by it, has oil, beeswax and honey in it- best used externally only. documented in this encounterAdena Regional Medical Center05-31-2024 History of Present illness Narrative* Laura Pathak APRN.CNP - 10/28/2023 9:03 AM EDT Meera Meléndez is a 53 year old female who presents for problem visit of vaginal dryness and possible prolapse. HPI: Meera has noted vaginal dryness for about a year Uses 1/2 g of vaginal estrogen 3x per week. She first noticed a possible prolapse earlier this week. It has never been outside of the introitus. She or her partner do not feel anything with intercourse. She does struggle with urinary stress incontinence. She takes Vesicare for urgency, which helps. 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 LMP: Hysterectomy Age at Menarche: Age at First : Age at Menopause: Chick Grader History Comments: Sexual Activity: Not Asked; No partner data on record Contraception: No contraception data on record PAST MEDICAL HISTORY Diagnosis Date Abnormal glandular Papanicolaou smear of cervix 03/02/2004 @[facility] Anxiety state ASCUS with positive high risk HPV cervical 2002 @[facility] BRCA negative Essential hypertension GERD (gastroesophageal reflux disease) HSV-2 (herpes simplex virus 2) infection 2010 culture @[facility] Incontinence of urine LGSIL on Pap smear of cervix 11/27/2004 @[facility] Migraine, intractable Mitral valve disorders(424.0) Undiagnosed cardiac murmurs PAST SURGICAL HISTORY Procedure Laterality Date CRYOSURGERY 2005 @[facility] FOOT SURGERY HX 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 LIGATE FALLOPIAN TUBE 1992 dr Denia VELASCO BARTHOLIN GLAND CYST 1995 Dr Loza TREATMENT OF ANAL FISSURE 1998 VAGINAL HYSTERECTOMY 02/03/2010 adenomyosis- has both overies per u/s 2011 VAGINOSCOPY 10/31/2003 ERNESTINA I FAMILY HISTORY Problem Relation Age of Onset Hypertension Mother Hyperlipidemia Mother Heart Attack Father No Known Problems Brother Breast Cancer Maternal Grandmother 59 Heart Failure Maternal Grandfather Heart Attack Paternal Grandfather other (migraine [Other]) Other Stroke Other Aneurysm Other heart aneurysm Social History Tobacco Use Smoking status: Never Smokeless tobacco: Never Vaping Use Vaping Use: Never used Substance Use Topics Alcohol use: No Drug use: No Current Outpatient Medications Medication Sig atorvastatin (LIPITOR) 20 mg tablet Take 20 mg by mouth once daily. estradiol (ESTRACE) 0.01 % (0.1 mg/gram) vaginal cream apply approximately 1/2 inch of cream vaginally qhs every other night celecoxib (CELEBREX) 200 mg capsule TAKE 1 CAPSULE BY MOUTH TWICE A DAY NEEDED FOR SEVERE PAIN escitalopram oxalate (LEXAPRO) 5 mg tablet 5 mg. fluticasone (FLONASE) 50 mcg/actuation nasal spray Use 1 [place] in the nose. rimegepant (NURTEC ODT) 75 mg disintegrating tablet Take 75 mg by mouth once daily as needed. rizatriptan (MAXALT) 10 mg tablet Take 10 mg by mouth. solifenacin (VESICARE) 5 mg tablet valsartan (DIOVAN) 80 mg tablet cholecalciferol (VITAMIN D3) 50 mcg (2,000 unit) tablet ALPRAZolam (XANAX) 0.25 mg tablet mg = tab(s), Oral, TID, 0 Refill(s), 102.6 esomeprazole mag trihydrate(NEXIUM 40 MG CAP) as needed. valACYclovir (VALTREX) 500 mg tablet Take 1 tablet by mouth once daily. codeine-guaiFENesin (ROBITUSSIN AC) 10-100 mg/5 mL syrup Take 5-10 mL by mouth at bedtime as neededfor Cough or Cold/Allergy Symptoms. May cause drowsiness. No current facility-administered medications for this visit. Allergies As of Date: 10/28/2023 Allergen Noted Reaction DOXYCYCLINE 07/12/2011 Other: See Comments, Diarrhea, GI Upset, Vomiting, and Intolerance CEPHALEXIN MONOHYDRATE 04/11/2023 Other: See Comments LISINOPRIL 03/23/2019 Other: See Comments and Cough SEASONAL ALLERGIES 04/03/2014 Other: See Comments Fully Assessed 10/28/2023 REVIEW OF SYSTEMS Bladder: No dysuria, gross hematuria, urinary frequency, urinary urgency + incontinence Expanded ROS: LOCOMOTIVE OPERATOR: + prolapse Allergies and current medication updated:Yes EXAM: BP 142/80 Wt 227 lb (103.0kg) GENERAL: pleasant, female in no apparent distress HEENT: Normocephalic, atraumatic, mucus membranes moist, and no lesions CHEST: Normal inspiratory effort PELVIC: external genitalia normal, normal Bartholin's glands, urethra, [place]'s glands, no vulvar lesions, + cervix surgically absent, + stage 1-2 cystocele, physiologic discharge present, normal appearing perineal body and perianal region BIMANUAL: no adnexal masses, non-tender, and uterus surgically absent NEURO: alert and oriented x3,exam grossly non-focal EXTREMITIES: normal, bilateral 1+ edema ASSESSMENT AND PLAN: 1. Cystocele, midline - ICD9: 618.01, ICD10: N81.11 (primary diagnosis) - Discussed mild cystocele - First line management weight loss and pelvic floor therapy - Discussed pessary vs referral to URO LOCOMOTIVE OPERATOR for surgery - Discussed lifting and straining will worsen prolapse - Meera opts for pelvic floor therapy, local options reviewed. Referral provided 2. Vaginal dryness - ICD9: 625.8, ICD10: N89.8 - Trial 1 g of vaginal estrogen cream two times per week - Lubricant and moisturizer list provided 3. Urinary, incontinence, stress female - ICD9: 625.6, ICD10: N39.3 - Pelvic floor therapy referral - Plans to follow with weight management 4. Class 2 obesity with body mass index (BMI) of 37.0 to 37.9 in adult, unspecified obesity type, unspecified whether serious comorbidity present - ICD9: 278.00, V85.37, ICD10: E66.9, Z68.37 - CONSULT TO [facility] WEIGHT MANAGEMENT PROGRAM Laura Pathak APRN.CNP Medical Decision Making: Problems: Low: Acute, uncomplicated illness or injury Risk: Low: Low risk from testing/treatment Moderate: Drug management Medical Decision Making Level: 3 - Low [facility]. MICRO - Microbiology PROCEDURE: Urine Culture [*1] SOURCE: Urine, Clean Catch BODY SITE: COLLECTED DATE/TIME: 06/20/2023 10:10 EST RECEIVED DATE/TIME: 06/20/2023 19:08 EST START DATE/TIME: 06/20/2023 19:08 EST FREE TEXT SOURCE: FINAL REPORTS Final Report [] Verified Date/Time/Personnel: 06/21/2023 14:01 EST >100,000 cfu/ml Multiple bacterial morphotypes present. Probable Contamination. Suggest recollection if clinically indicated. Performing Locations *1: This test was performed at: [facility], [address] [place] [address], [id number] , [facility] hospital ([place])04-28-2023 Miscellaneous Notes* Letter - Coordinator, Mammography - 04/28/2023 8:12 AM EST April 28, 2023 PID: [id number] Meera Meléndez [address] [place] [address] Dear Ms. Meléndez, We are pleased to inform you that the results of your recent breast imaging exam on 04/27/2023 are normal. Early detection of cancer is very important. We also understand recommendations regarding breast cancer screening are controversial. Please discuss with your primary care provider which strategy is best for you and whether a mammogram is right for you. Your imaging studies and report will be kept on [facility] as part of your permanent medical record and are available for your continuing care. Thank you for allowing us to help in meeting your health care needs. Sincerely, Dr. Saavedra Interpreting Radiologist [facility] (Normal over 40) documented in this encounter[facility]11[facility] History of Present illness Narrative* Stephen Neville Mammo Terence - 04/27/2023 4:00 PM EST Radiology Service Progress Note PATIENT NAME: Meera Meléndez DATE OF SERVICE: April 27, 2023 TIME: 4:15 PM PATIENT IDENTITY VERIFICATION COMPLETED USING TWO (2) IDENTIFIERS: Name and Date of confirmedby patient verbally. FALL SCREENING: Has the patient had 2 falls in the last year or 1 fall with injury or currently using an Ambulatory Assistive Device (Walker, Cane, Wheelchair, Crutches, etc.)? No PATIENT GENDER DATA: Female. status: : No status: NO. PATIENT RELEVANT IMPLANT DATA REVIEWED: Not Applicable RADIOLOGY DEPARTMENT: Mammography PERIPHERAL IV DATA: Not applicable SIGNED BY: Patrick Moniqueo Terence April 27, 2023 4:15 PM documented in this encounter[facility]08-[facility]22 History of Present illness Narrative* Cindy Thao RT(R) - 12/28/2021 3:50 PM EDT Radiology Service Progress Note PATIENT NAME: Meera Meléndez DATE OF SERVICE: December 28, 2021 TIME: 3:53 PM PATIENT IDENTITY VERIFICATION COMPLETED USING TWO (2) IDENTIFIERS: Name and Date of confirmedby patient verbally. FALL SCREENING: Has the patient had 2 falls in the last year or 1 fall with injury or currently using an Ambulatory Assistive Device (Walker, Cane, Wheelchair, Crutches, etc.)? No PATIENT GENDER DATA: Female. status: : No status: NO. PATIENT RELEVANT IMPLANT DATA REVIEWED: Not Applicable RADIOLOGY DEPARTMENT: General X-ray: Exam(s) Completed: Rib X-Ray: Right PERIPHERAL IV DATA: Not applicable SIGNED BY: RT Gaby(R) December 28, 2021 3:53 PM documented in this encounterA[facility]08-[facility]-2022 History of Present illness Narrative* Tania Alvarez APRN.LEHR CUTTER - 12/28/2021 3:41 PM EDT Images from the original note were not included. Subjective Patient came in with complaints of right rib area pain. Said it started about 4 days ago. Says its a stabbing type pain. She said this happened once before on the left side and felt similar. Her PCP adjusted her and she said it felt much better. She denies any possible injuries. Said she just woke up with it. Notices it more with deep breaths and moving. Also does cause pain when pushed on. Has only taken tylenol for it and this does give some relief but not complete. The history is provided by the patient. No english language learner tutor was used. Review of Systems Constitutional: Negative. Skin: Negative. Objective Physical Exam Constitutional: Appearance: Normal appearance. Cardiovascular: Rate and Rhythm: Normal rate and regular rhythm. Heart sounds: Normal heart sounds. Pulmonary: Effort: Pulmonary effort is normal. Breath sounds: Normal breath sounds. Musculoskeletal: Arms: Comments: No flank pain when percussed. Is tender when palpating the blue areas above. No deformities felt. Neurological: Mental Status: She is alert. 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 ALLERGIES Seasonal Allergies MEDICATIONS celecoxib (CELEBREX) 200 mg capsule TAKE 1 CAPSULE BY MOUTH TWICE A DAY NEEDED FOR SEVERE PAIN escitalopram oxalate (LEXAPRO) 5 mg tablet 5 mg. ferrous sulfate 325 mg (65 mg iron) EC tablet 325 mg. fluticasone (FLONASE) 50 mcg/actuation nasal spray Use 1 [place] in the nose. ondansetron (ZOFRAN) 4 mg tablet TAKE 2 TABLET(S) TWICE A DAY BY ORAL ROUTE NEEDED. rimegepant (NURTEC ODT) 75 mg disintegrating tablet 75 mg. rizatriptan (MAXALT) 10 mg tablet Take 10 mg by mouth. solifenacin (VESICARE) 5 mg tablet valsartan (DIOVAN) 80 mg tablet cholecalciferol (VITAMIN D3) 50 mcg (2,000 unit) tablet ALPRAZolam (XANAX) 0.25 mg tablet mg = tab(s), Oral, TID, 0 Refill(s), 102.6 valACYclovir (VALTREX) 500 mg tablet Take 500 mg by mouth twice daily. esomeprazole mag trihydrate(NEXIUM 40 MG CAP) as needed. beclomethasone (QVAR) 40 mcg/actuation inhaler Inhale 2 Puffs as instructed twice daily. albuterol HFA (VENTOLIN HFA) 90 mcg/actuation inhaler Inhale 2 Puffs as instructed every 4 hours asneeded for Wheezing/Shortness of Breath. hydrochlorothiazide 10 mg/mL susp Take by mouth twice daily. benzonatate (TESSALON PERLES) 100 mg capsule Take 1 capsule by mouth three times daily as needed for Cough. codeine-guaiFENesin (ROBITUSSIN AC) 10-100 mg/5 mL syrup Take 5-10 mL by mouth at bedtime as neededfor Cough or Cold/Allergy Symptoms. May cause drowsiness. vilazodone (VIIBRYD) 40 mg Take 10 mg by mouth daily with breakfast. desloratadine (CLARINEX) 5 mg tablet Take 5 mg by mouth once daily. ospemifene (OSPHENA) 60 mg tab Take by mouth. phentermine-topiramate ER (QSYMIA) 7.5-46 mg 24 Hr Capsule Take by mouth. FAMILY HISTORY Problem Relation Age of Onset other (migraine [Other]) Unknown Stroke Unknown Aneurysm Unknown heart aneurysm Social History Tobacco Use Smoking status: Never Smoker Smokeless tobacco: Never Used Substance Use Topics Alcohol use: No Drug use: No ASSESSMENT/PLAN: 1. Pain - ICD9: 780.96, ICD10: R52 - XR RIBS 2V AP/OBL RIGHT CLINICAL INDICATION/HISTORY: Pain. TECHNIQUE: AP views centered high and low and oblique view of right ribs are presented for interpretation. PA view of the chest is also present. FINDINGS: There is no evidence of acute right rib fracture. There is no pneumothorax or pleural effusion. The underlying visualized lungs appear normal. IMPRESSION IMPRESSION: No evidence of acute right rib fracture. Design Draftsman: JADA Transcribe Date/Time: Dec 28 2021 4:11P Dictated by : JAMES GARZA MD At this time prescribed Lidoderm patches and instructed to take ibuprofen for pain. patient was educated about the use of patches and no heating pads directly over them. She will follow up with her PCP if symptoms seem to be worsening. patient was okay with this care plan. If symptoms worsen patient will go to the ER for a evaluation. Tania Alvarez APRN.ZINA documented in this encounterA[facility] CenterEvaluation + Plan note Future Appointments Appointment Date:05/04/2021 11:30:00 AM Scheduled Provider:NELSON ROYAL DO Location:[facility] Appointment Type: OV Future Scheduled Tests Laboratory* D-Dimer 02/25/21 * N-Terminal proBNP 02/25/21 * Vitamin D Level 02/25/21 * Vitamin D Level 04/11/21 Radiology* XR Spine Lumbar W/Obliques 4 Views 11/13/20 [facility] Evaluation + Plan note Future Appointments Appointment Date:05/04/2021 11:30:00 AM Scheduled Provider:NELSON ROYAL DO Location:[facility] Appointment Type:PC OV Future Scheduled Tests Laboratory* D-Dimer 02/25/21 * N-Terminal proBNP 02/25/21 * Vitamin D Level 02/25/21 Radiology* XR Spine Lumbar W/Obliques 4 Views 11/13/20 [facility] Evaluation + Plan note Future Appointments Appointment Date:06/12/2021 11:00:00 AM Scheduled Provider: Location:[facility] Appointment Type:CV OV Appointment Date:11/03/2021 10:00:00 AM Scheduled Provider:NELSON ROYAL DO Location:[facility] Appointment Type:PC OV Future Scheduled Tests Laboratory* D-Dimer 02/25/21 * N-Terminal proBNP 02/25/21 * Vitamin D Level 02/25/21 Radiology* XR Spine Lumbar W/Obliques 4 Views 11/13/20 [facility] Evaluation + Plan note Future Appointments Appointment Date:11/03/2021 10:00:00 AM Scheduled Provider:NELSON ROYAL DO Location:[facility] Appointment Type:PC OV Future Scheduled Tests Laboratory* D-Dimer 02/25/21 * N-Terminal proBNP 02/25/21 * N-Terminal proBNP 12/10/21 * Lipid Profile 12/10/21 * Vitamin D Level 02/25/21 Radiology* US Soft Tissue Mass 07/31/21 * XR Spine Lumbar W/Obliques 4 Views 11/13/20 [facility] Evaluation + Plan note Future Appointments Appointment Date:11/03/2021 10:00:00 AM Scheduled Provider:NELSON ROYAL DO Location:[facility] Appointment Type:PC OV Future Scheduled Tests Laboratory* D-Dimer 02/25/21 * N-Terminal proBNP 02/25/21 * N-Terminal proBNP 12/10/21 * Lipid Profile 12/10/21 * Vitamin D Level 02/25/21 Radiology* XR Spine Lumbar W/Obliques 4 Views 11/13/20 [facility] Evaluation + Plan note Future Appointments Appointment Date:01/03/2023 11:30:00 AM Scheduled Provider:NELSON ROYAL DO Location:[facility] Appointment Type:PC OV Future Scheduled Tests Laboratory* Albumin/Creatinine Ratio, Random Urine 12/06/22 [facility] Evaluation + Plan note Future Appointments Appointment Date:06/28/2023 01:00:00 PM Scheduled Provider:NELSON ROYAL DO Location:[facility] Appointment Type:PC Wellness Annual Future Scheduled Tests Laboratory* Albumin/Creatinine Ratio, Random Urine 12/06/22 [facility] Evaluation + Plan note Future Appointments Appointment Date:12/27/2023 01:00:00 PM Scheduled Provider:NELSON ROYAL DO Location:[facility] Appointment Type:PC OV Follow Up Future Scheduled Tests Laboratory* Albumin/Creatinine Ratio, Random Urine 12/06/22 [facility] Evaluation + Plan note Future Appointments Appointment Date:06/25/2024 02:30:00 PM Scheduled Provider:NELSON ROYAL DO Location:[facility] Appointment Type:PC OV [facility] evaluation + Plan note Future Appointments Appointment Date:07/30/2024 03:30:00 PM Scheduled Provider:NELSON ROYAL DO Location:[facility] Appointment Type:PC OV Follow Up Future Scheduled Tests Laboratory* Albumin/Creatinine Ratio, Random Urine 06/25/24 [facility] evaluation noteNo assessment information available [facility] Work Phone: evaluation note* Diagnosis Pain- Primary Generalized pain [facility]* Diagnosis Onset Date Resolution Status Dysesthesia chronic Mass of right lower leg furnace feeder braydon [facility] Work Phone: evaluation note* Diagnosis Onset Date Resolution Status Dysesthesia chronic Mass of right lower leg furnace feeder braydon Dysesthesia chronic Mass of right lower leg furnace feeder braydon Dysesthesia chronic Mass of right lower leg furnace feeder braydon Dysesthesia chronic Lipoma of right lower extremity chronic Mass of right lower leg furnace feeder braydon Dysesthesia chronic Lipoma of right lower extremity chronic Mass of right lower leg furnace feeder braydon Dysesthesia chronic Lipoma of right lower extremity chronic Mass of right lower leg furnace feeder braydon Dysesthesia chronic Lipoma of right lower extremity chronic Mass of right lower leg furnace feeder braydon Postoperative seroma of subc utaneous tissue after dermatologic procedure acute Dysesthesia chronic Lipoma of right lower extremity chronic Mass of right lower leg furnace feeder braydon Status post excision of lipoma chronic Postoperative seroma of subc utaneous tissue after dermatologic procedure acute Dysesthesia chronic Lipoma of right lower extremity chronic Mass of right lower leg furnace feeder braydon Status post excision of lipoma chronic [facility] Work Phone: Evaluation note* Diagnosis Onset Date Resolution Status Dysesthesia chronic Mass of right lower leg furnace feeder braydon Dysesthesia chronic Mass of right lower leg furnace feeder braydon Dysesthesia chronic Lipoma of right lower extremity chronic Mass of right lower leg furnace feeder braydon Dysesthesia chronic Lipoma of right lower extremity chronic Mass of right lower leg furnace feeder braydon Dysesthesia chronic Lipoma of right lower extremity chronic Mass of right lower leg furnace feeder braydon Dysesthesia chronic Lipoma of right lower extremity chronic Mass of right lower leg furnace feeder braydon Postoperative seroma of subc utaneous tissue after dermatologic procedure acute Dysesthesia chronic Lipoma of right lower extremity chronic Mass of right lower leg furnace feeder braydon Status post excision of lipoma chronic Postoperative seroma of subc utaneous tissue after dermatologic procedure acute Dysesthesia chronic Lipoma of right lower extremity chronic Mass of right lower leg furnace feeder braydon Status post excision of lipoma chronic Postoperative seroma of subc utaneous tissue after dermatologic procedure acute Dysesthesia chronic Lipoma of right lower extremity chronic Mass of right lower leg furnace feeder braydon Status post excision of lipoma chronic Postoperative seroma of subc utaneous tissue after dermatologic procedure acute Dysesthesia chronic Lipoma of right lower extremity chronic Mass of right lower leg furnace feeder braydon Status post excision of lipoma chronic Postoperative seroma of subc utaneous tissue after dermatologic procedure acute Dysesthesia chronic Lipoma of right lower extremity chronic Mass of right lower leg furnace feeder braydon Status post excision of lipoma chronic Postoperative seroma of subc utaneous tissue after dermatologic procedure acute Dysesthesia chronic Lipoma of right lower extremity chronic Status post excision of lipoma chronic Postoperative seroma of subc utaneous tissue after dermatologic procedure acute Dysesthesia chronic Lipoma of right lower extremity chronic Status post excision of lipoma chronic Postoperative seroma of subc utaneous tissue after dermatologic procedure acute Dysesthesia chronic Lipoma of right lower extremity chronic Status post excision of lipoma chronic [facility] Work Phone: Evaluation note* Diagnosis Onset Date Resolution Status Dysesthesia chronic Mass of right lower leg furnace feeder braydon Nodular fat necrosis chronic [facility] Work Phone: Evaluation note* Diagnosis Encounter for screening mammogram for breast cancer [facility] Diagnosis Stress incontinence of urine- Primary Cystocele, midline documented in this encounter [facility] note* Diagnosis Cystocele, midline- Primary Vaginal dryness Other specified symptom associated with female genital organs Urinary, incontinence, stress female Female stress incontinence Class 2 obesity with body mass index (BMI) of 37.0 to 37.9 in adult, unspecified obesity type, unspecified whether serious comorbidity present documented in this encounter [facility] note* Diagnosis Dysuria- Primary Vaginal itching Pruritus of genital organs [facility]* Diagnosis Cystocele, midline- Primary documented in this encounter [facility] note* Diagnosis Cystocele, midline- Primary Rectocele High-tone pelvic floor dysfunction Other specified disorders of female genital organs Genitourinary syndrome of menopause documented in this encounter [facility] note* Diagnosis Essential hypertension- Primary Unspecified essential hypertension Gastroesophageal reflux disease, unspecified whether esophagitis present Hyperlipidemia, unspecified hyperlipidemia type CKD (chronic kidney disease) stage 2, GFR 60-89 ml/min Chronic kidney disease, Stage II (mild) Depression with anxiety Dysthymic disorder Vitamin D deficiency Unspecified vitamin D deficiency Intractable migraine with aura with status migrainosus Migraine with aura, with intractable migraine, so stated, with status migrainosus Malaise and fatigue Other malaise and fatigue Screening for diabetes mellitus Screening for thyroid disorder Encounter for vitamin deficiency screening Screening for other and unspecified endocrine, nutritional, metabolic, and immunity disorders Class 2 severe obesity with serious comorbidity and body mass index (BMI) of 37.0 to 37.9 in adult, unspecified obesity type (HCC) documented in this encounter [facility] note* Diagnosis Essential hypertension- Primary Unspecified essential hypertension Gastroesophageal reflux disease, unspecified whether esophagitis present Hyperlipidemia, unspecified hyperlipidemia type CKD (chronic kidney disease) stage 2, GFR 60-89 ml/min Chronic kidney disease, Stage II (mild) Depression with anxiety Dysthymic disorder Vitamin D deficiency Unspecified vitamin D deficiency Intractable migraine with aura with status migrainosus Migraine with aura, with intractable migraine, so stated, with status migrainosus Class 2 severe obesity with serious comorbidity and body mass index (BMI) of 37.0 to 37.9 in adult, unspecified obesity type (HCC) [facility] Diagnosis Pain Generalized pain [facility]* Diagnosis Essential hypertension- Primary Unspecified essential hypertension Gastroesophageal reflux disease, unspecified whether esophagitis present Hyperlipidemia, unspecified hyperlipidemia type CKD (chronic kidney disease) stage 2, GFR 60-89 ml/min Chronic kidney disease, Stage II (mild) Depression with anxiety Dysthymic disorder Vitamin D deficiency Unspecified vitamin D deficiency Intractable migraine with aura with status migrainosus Migraine with aura, with intractable migraine, so stated, with status migrainosus Class 2 severe obesity with serious comorbidity and body mass index (BMI) of 37.0 to 37.9 in adult, unspecified obesity type (HCC) [facility]* Diagnosis Itching in the vaginal area- Primary Pruritus of genital organs [facility]* Diagnosis Genitourinary syndrome of menopause- Primary High-tone pelvic floor dysfunction Other specified disorders of female genital organs Cystocele, midline Rectocele [facility]* Diagnosis Encounter for gynecological examination (general) (routine) without abnormal findings- Primary Encounter for screening mammogram for breast cancer Stress incontinence in female Female stress incontinence Cystocele, midline [facility]* Diagnosis Genitourinary syndrome of menopause- Primary [facility]* Diagnosis Essential hypertension- Primary Unspecified essential hypertension Gastroesophageal reflux disease, unspecified whether esophagitis present Hyperlipidemia, unspecified hyperlipidemia type CKD (chronic kidney disease) stage 2, GFR 60-89 ml/min Chronic kidney disease, Stage II (mild) Depression with anxiety Dysthymic disorder Vitamin D deficiency Unspecified vitamin D deficiency Intractable migraine with aura with status migrainosus Migraine with aura, with intractable migraine, so stated, with status migrainosus Class 2 severe obesity with serious comorbidity and body mass index (BMI) of 37.0 to 37.9 in adult, unspecified obesity type (HCC) documented in this encounter [facility] note* Diagnosis Encounter for screening mammogram for breast cancer documented in this encounter [facility] note* Diagnosis Genitourinary syndrome of menopause- Primary documented in this encounter [facility] note* Diagnosis Essential hypertension- Primary Unspecified essential hypertension Gastroesophageal reflux disease, unspecified whether esophagitis present Hyperlipidemia, unspecified hyperlipidemia type CKD (chronic kidney disease) stage 2, GFR 60-89 ml/min Chronic kidney disease, Stage II (mild) Depression with anxiety Dysthymic disorder Vitamin D deficiency Unspecified vitamin D deficiency Class 2 severe obesity with serious comorbidity and body mass index (BMI) of 37.0 to 37.9 in adult, unspecified obesity type (HCC) documented in this encounter [facility] note* Diagnosis Essential hypertension- Primary Unspecified essential hypertension Gastroesophageal reflux disease, unspecified whether esophagitis present Hyperlipidemia, unspecified hyperlipidemia type CKD (chronic kidney disease) stage 2, GFR 60-89 ml/min Chronic kidney disease, Stage II (mild) Depression with anxiety Dysthymic disorder Vitamin D deficiency Unspecified vitamin D deficiency Intractable migraine with aura with status migrainosus Migraine with aura, with intractable migraine, so stated, with status migrainosus Class 2 severe obesity with serious comorbidity and body mass index (BMI) of 37.0 to 37.9 in adult, unspecified obesity type (HCC) documented in this encounter [facility] note* Diagnosis Essential hypertension- Primary Unspecified essential hypertension Gastroesophageal reflux disease, unspecified whether esophagitis present Hyperlipidemia, unspecified hyperlipidemia type CKD (chronic kidney disease) stage 2, GFR 60-89 ml/min Chronic kidney disease, Stage II (mild) Depression with anxiety Dysthymic disorder Vitamin D deficiency Unspecified vitamin D deficiency Intractable migraine with aura with status migrainosus Migraine with aura, with intractable migraine, so stated, with status migrainosus Class 2 severe obesity with serious comorbidity and body mass index (BMI) of 37.0 to 37.9 in adult, unspecified obesity type (HCC) documented in this encounter [facility] note* Diagnosis Genitourinary syndrome of menopause [facility] No data available for this section [facility] Hospital Discharge instructions No data available for this section [facility] Hospital Discharge instructionsAdditional Instructions Continue your Nexium and avoid foods that exacerbate GERD such as spicy foods, citrus, tomato sauces, vinegar, caffeine, carbonated drinks and alcohol, or fried or fatty foods. Follow-up with your primary care doctor.[facility] Work Phone: Progress note No data available for this section [facility] Reason for referral (narrative)* Diagnostic Procedure Only (Urgent) - Closed Specialty Diagnoses / Procedures Referred By Contac t Referred To Contact XR IMAGING Diagnoses Pain Procedures XR RIBS/CHEST 3V AP RIB/OBLS/CXR RIGHT RADEX RIBS UNI W/POSTEROANT CH MINIMUM 3 VIEWS Tania Alvarez APRN.LEHR CUTTER [address] [place] [address] Xr Imaging Referral ID Status Reason Start Date Expiration Date V isits Requested Visits Authorized [id number] Closed Auto-Generate d Referral 12/28/2021 01/27/20[address] [facility] for referral (narrative)* Diagnostic Procedure Only (Urgent) - Closed Specialty Diagnoses / Procedures Referred By Contac t Referred To Contact XR IMAGING Diagnoses Pain Procedures XR RIBS/CHEST 3V AP RIB/OBLS/CXR RIGHT RADEX RIBS UNI W/POSTEROANT CH MINIMUM 3 VIEWS Tania Alvarez APRN.CNP [address] [place] [address] [place] [address] Referral ID Status Reason Start Date Expiration Date V isits Requested Visits Authorized [id number] Closed Auto-Generate d Referral 12/28/2021 01/27/2023 [address] [facility] for referral (narrative)No reason for referral information availableWSelect [facility] [place] Work Phone: Reason for visit Narrative* Diagnostic Procedure Only (Routine) - Closed Specialty Diagnoses / Procedures Referred By Ryland t Referred To Contact BR IMAGING Diagnoses Encounter for gynecological examination (general) (routine) without abnormal findings Encounter for screening mammogram for breast cancer Procedures JULISSA SCREENING W TOPHER SCREENING DIGITAL BREAST TOMOSYNTHESIS BI SCREENING MAMMOGRAPHY BI 2-VIEW BREAST INC CAD Lilian Smith MD [address] [place] [address] [facility] Imaging [address] [place] [address] Referral ID Status Reason Start Date Expiration Date V isits Requested Visits Authorized [id number] Closed Auto-Generate d Referral 04/11/2023 05/10/2024 [address] [facility] for visit Narrative* Diagnostic Procedure Only (Urgent) - Closed Specialty Diagnoses / Procedures Referred By Ryland t Referred To Contact XR IMAGING Diagnoses Pain Procedures XR RIBS 2V AP/OBL RIGHT RADEX RIBS UNILATERAL 2 VIEWS Tania Alvarez APRN.LEHR CUTTER [address] [place] [id number] Xr Imaging [id number] Referral ID Status Reason Start Date Expiration Date V isits Requested Visits Authorized [id number] Closed Auto-Generate d Referral 12/28/2021 01/27/2023 [address] [facility] for visit Narrative* Diagnostic Procedure Only (Routine) - Closed Specialty Diagnoses / Procedures Referred By Ryland t Referred To Contact BR IMAGING Diagnoses Encounter for screening mammogram for breast cancer Procedures JULISSA SCREENING W TOPHER SCREENING DIGITAL BREAST TOMOSYNTHESIS BI SCREENING MAMMOGRAPHY BI 2-VIEW BREAST INC CAD Laura Pathak APRN.LEHR CUTTER [address] [place] [address] Br Imaging [address] [place] [address] Referral ID Status Reason Start Date Expiration Date V isits Requested Visits Authorized [id number] Closed Auto-Generate d Referral 05/01/2024 05/29/2024 1 1 [facility] Summary Purpose Family History No Family History Records Found Relationship Condition Age at Onset Recorded Date/T gayle Not Specified High blood cholesterol Unknown Angina at rest Unknown Anxiety Unknown Arthritis Unknown Depression Unknown Malignant neoplasm of breast Unknown Complication of anesthesia Unknown Malignant neoplasm Unknown Cerebrovascular accident (CVA) Unknown father Cardiac disease Unknown Hypertension Unknown Advance Directives No Advanced Directives Records FoundDocuments on File Type Date Recorded Patient Director Furniture Expl anation Power of Photographic Equipment Inspector Advance Directive Response Recorded Date/ Time Living Will Yes September 13, 2020 3:02am Power of Photographic Equipment Inspector Yes September 13 3:02am Advance Directive Response Recorded Date/ Time Name of Medical Power of Photographic Equipment Inspector FRIEND March 31, 2022 2:29pm Living Will Yes September 13, 2020 2:02am Power of Photographic Equipment Inspector Yes September 13 2:02am Advance Directive Response Recorded Date/ Time Living Will Yes March 31 3:29pm Power of Photographic Equipment Inspector Yes March 31, 2022 3:29pm Advance Directive Response Recorded Date/ Time Do you have a Healthcare Power of Photographic Equipment Inspector? Yes December 20, 2024 8:31pm Reason for Referral Status Reason Specialty Diagnoses / Procedures Referred By Contact Referred To Contact [facility] Required Lab Diagnoses Family history of breast cancer Adenomatous polyp of ascending colon Procedures Genetic Sendout: CancerNext Panel with RNA [place] [address] Specialty Diagnoses / Procedures Referred By Contac t Referred To Contact [facility] Diagnoses Stress incontinence of urine Cystocele, midline Procedures CONSULT TO PHYSICAL THERAPY PHYSICAL THERAPY EVALUATION HIGH COMPLEX 45 MINS Laura Pathak, MARINA.LEHR CUTTER [address] [place] [address] [facility] [address] [place] [address] Referral ID Status Reason Start Date Expiration Date Visits Requested Visits Authorized [id number] Pending Review Auto-Generat ed Referral 10/28/2023 10/27/2024 1 1 Specialty Diagnoses / Procedures Referred By Contac t Referred To Contact Diagnoses Class 2 obesity with body mass index (BMI) of 37.0 to 37.9 in adult, unspecified obesity type, unspecified whether serious comorbidity present Procedures CONSULT TO [facility] WEIGHT MANAGEMENT PROGRAM OFFICE/OUTPATIENT [facility] MDM 60 MINUTES Laura Pathak APRN.CNP [address] [place] [address] Referral ID Status Reason Start Date Expiration Date Visits Requested Visits Authorized [id number] Authorized PCP Requested Referral Auto-Generate d Referral 10/28/2023 10/27/2024 1 1 Specialty Diagnoses / Procedures Referred By Contac t Referred To Contact Diagnoses Cystocele, midline Procedures CONSULT TO URO GYNECOLOGY OFFICE/OUTPATIENT [facility] 60 MINUTES Laura Pathak APRN.CNP [address] [place] [address] Referral ID Status Reason Start Date Expiration Date Visits Requested Visits Authorized [id number] Authorized PCP Requested Referral Auto-Generate d Referral 12/29/2023 12/28/2024 1 1 Specialty Diagnoses / Procedures Referred By Contac t Referred To Contact [facility] Diagnoses Stress incontinence in female Procedures CONSULT TO PHYSICAL THERAPY PHYSICAL THERAPY EVALUATION HIGH COMPLEX 45 MINS Laura Pathak APRN.CNP [address] [place] [address] [facility] [address] [place] [address] Referral ID Status Reason Start Date Expiration Date Visits Requested Visits Authorized [id number] Pending Review Auto-Generat ed Referral 4 04/12/2025 1 1 Specialty Diagnoses / Procedures Referred By Contac t Referred To Contact BR IMAGING Diagnoses Encounter for screening mammogram for breast cancer Procedures JULISSA SCREENING W TOPHER SCREENING DIGITAL BREAST TOMOSYNTHESIS BI SCREENING MAMMOGRAPHY BI 2-VIEW BREAST INC CAD Laura Pathak APRN.CNP [address] [place] [address] [facility] [address] [place] [address] Referral ID Status Reason Start Date Expiration Date Visits Requested Visits Authorized [id number] Pending Review Auto-Generat ed Referral 4 05/12/2025 1 1 Assessments Diagnosis Family history of breast cancer Family history of malignant neoplasm of breast Adenomatous polyp of ascending colon Chief Complaint and Reason for Visit Chief Complaint SLEEP DISTURBANCE UN SPECIFIED; LM 08/24 Chief Complaint CONSULT RT LEG EXCISION SOFT TISSUE MASS Reason for Visit Dysesthesia Mass of right lower leg Chief Complaint CONSULT RT LEG EXCISION SOFT TISSUE MASS RT LEG EXCISION SOFT TISSUE MASS RT LEG EXCISION SOFT TISSUE MASS POST OP CK POST OP CK POST OP CK POST OP CK POST OP CK Post Op swelling Postprocedural seroma of skin and subcutaneous tis POST OP CK Reason for Visit Dysesthesia Mass of right lower leg Dysesthesia Mass of right lower leg Dysesthesia Mass of right lower leg Dysesthesia Lipoma of right lower extremity Mass of right lower leg Dysesthesia Lipoma of right lower extremity Mass of right lower leg Dysesthesia Lipoma of right lower extremity Mass of right lower leg Dysesthesia Lipoma of right lower extremity Mass of right lower leg Postoperative seroma of subcutaneous tissue after dermatologic procedure Dysesthesia Lipoma of right lower extremity Mass of right lower leg Status post excision of lipoma Postoperative seroma of subcutaneous tissue after dermatologic procedure Dysesthesia Lipoma of right lower extremity Mass of right lower leg Status post excision of lipoma Chief Complaint CONSULT RT LEG EXCISION SOFT TISSUE MASS RT LEG EXCISION SOFT TISSUE MASS RT LEG EXCISION SOFT TISSUE MASS POST OP CK POST OP CK POST OP CK POST OP CK POST OP CK Post Op swelling Postprocedural seroma of skin and subcutaneous tis POST OP CK SCREENING Reason for Visit Dysesthesia Mass of right lower leg Dysesthesia Mass of right lower leg Dysesthesia Mass of right lower leg Dysesthesia Lipoma of right lower extremity Mass of right lower leg Dysesthesia Lipoma of right lower extremity Mass of right lower leg Dysesthesia Lipoma of right lower extremity Mass of right lower leg Dysesthesia Lipoma of right lower extremity Mass of right lower leg Postoperative seroma of subcutaneous tissue after dermatologic procedure Dysesthesia Lipoma of right lower extremity Mass of right lower leg Status post excision of lipoma Postoperative seroma of subcutaneous tissue after dermatologic procedure Dysesthesia Lipoma of right lower extremity Mass of right lower leg Status post excision of lipoma Chief Complaint RT LEG EXCISION SOFT TISSUE MASS RT LEG EXCISION SOFT TISSUE MASS RT LEG EXCISION SOFT TISSUE MASS POST OP CK POST OP CK POST OP CK POST OP CK POST OP CK Post Op swelling Postprocedural seroma of skin and subcutaneous tis POST OP CK SCREENING POST OP CK POST OP CK Postprocedural seroma of skin and subcutaneous tis 1 W FU POST OP CK 1 W FU POST OP CK ABD PAIN Reason for Visit Dysesthesia Mass of right lower leg Dysesthesia Mass of right lower leg Dysesthesia Lipoma of right lower extremity Mass of right lower leg Dysesthesia Lipoma of right lower extremity Mass of right lower leg Dysesthesia Lipoma of right lower extremity Mass of right lower leg Dysesthesia Lipoma of right lower extremity Mass of right lower leg Postoperative seroma of subcutaneous tissue after dermatologic procedure Dysesthesia Lipoma of right lower extremity Mass of right lower leg Status post excision of lipoma Postoperative seroma of subcutaneous tissue after dermatologic procedure Dysesthesia Lipoma of right lower extremity Mass of right lower leg Status post excision of lipoma Postoperative seroma of subcutaneous tissue after dermatologic procedure Dysesthesia Lipoma of right lower extremity Mass of right lower leg Status post excision of lipoma Postoperative seroma of subcutaneous tissue after dermatologic procedure Dysesthesia Lipoma of right lower extremity Mass of right lower leg Status post excision of lipoma Postoperative seroma of subcutaneous tissue after dermatologic procedure Dysesthesia Lipoma of right lower extremity Mass of right lower leg Status post excision of lipoma Postoperative seroma of subcutaneous tissue after dermatologic procedure Dysesthesia Lipoma of right lower extremity Status post excision of lipoma Postoperative seroma of subcutaneous tissue after dermatologic procedure Dysesthesia Lipoma of right lower extremity Status post excision of lipoma Postoperative seroma of subcutaneous tissue after dermatologic procedure Dysesthesia Lipoma of right lower extremity Status post excision of lipoma Chief Complaint CONSULT- RIGHT KNEE MIGRAINES Reason for Visit Dysesthesia Mass of right lower leg Nodular fat necrosis Chief Complaint Admit Date PRE COLON September 27, 2024 10:31a m SPRAIN OF LEFT THUMB. RX HERE October 29, 2024 11:00am cp December 20, 2024 8:24 pm Reason for Visit Admit Date Colon polyps September 27, 2024 10:31a m Constipation September 27, 2024 10:31a m GERD (gastroesophageal reflux disease) M ay 2024 10:31am Additional Source Comments INFORMATION SOURCE (unrecogn ized section and content) DATE CREATED AUTHOR 11/17/2017 [facility] DATE CREATED AUTHOR AUTHOR'S ORGANIZ ATION 06/26/2023 [facility] ([place]) DATE CREATED AUTHOR AUTHOR'S ORGANIZ ATION 07/04/2024 [facility] DATE CREATED AUTHOR AUTHOR'S ORGANIZ ATION 08/13/2024 [facility] DATE CREATED AUTHOR AUTHOR'S ORGANIZ ATION 09/02/2024 [facility] DATE CREATED AUTHOR AUTHOR'S ORGANIZ ATION 02/14/2025 [facility] DATE CREATED AUTHOR AUTHOR'S ORGANIZ ATION 02/20/2025 [facility] Reason for Visit (unrecogniz ed section and content) Status Reason Specialty Diagnoses / Procedures Referred By Contact Referred To Contact [facility] Required Lab Diagnoses Family history of breast cancer Adenomatous polyp of ascending colon Procedures Genetic Sendout: CancerNext Panel with RNA [place] [address] Reason Comments Pain right rib pain x 4 d ays, denies injury Reason Comments Vaginal Problem Reason Comments Well Woman Vaginal Problem Reason Comments Prolapse Specialty Diagnoses / Procedures Referred By Contac t Referred To Contact Diagnoses Cystocele, midline Procedures CONSULT TO URO GYNECOLOGY OFFICE/OUTPATIENT [facility] 60 MINUTES Laura Pathak APRN.LEHR CUTTER [address] [place] [address] Referral ID Status Reason Start Date Expiration Date V isits Requested Visits Authorized [id number] Closed PCP Requested Referral Auto-Generated Referral 12/29/2023 12/28/2024 1 1 Reason Onset Date Comments Weight Management 01/31/2024 Specialty Diagnoses / Procedures Referred By Contac t Referred To Contact Diagnoses Class 2 obesity with body mass index (BMI) of 37.0 to 37.9 in adult, unspecified obesity type, unspecified whether serious comorbidity present Procedures CONSULT TO [facility] WEIGHT MANAGEMENT PROGRAM OFFICE/OUTPATIENT [facility] 60 MINUTES Laura Pathak APRN.LEHR CUTTER [address] [place] [address] Referral ID Status Reason Start Date Expiration Date V isits Requested Visits Authorized [id number] Closed PCP Requested Referral Auto-Generated Referral 10/28/2023 10/27/2024 1 1 Reason Comments Continuation of initial Weight Managemen t Reason Comments Weight Management Reason Comments Vaginal Problem Reason Comments Well Woman Reason Comments Orders Reason Comments Weight Management Follow Up Reason Comments Follow Up Reason Onset Date Comments Refill Request 09/29/2024 Goals (unrecognized section and content) Goals may be documented in a n alternate section Source Comments (unrecognize d section and content) In the event this informatio n is protected by the Federal Confidentiality of Alcohol and Drug Abuse Patient Records regulations: The Federal rules restrict any use of the information to criminally investigate or prosecute any alcohol or drug abuse patient.[facility] the event this information is protected by the Federal Confidentiality of Alcohol and Drug Abuse Patient Records regulations: The Federal rules restrict any use of the information to criminally investigate or prosecute any alcohol or drug abuse patient.[facility] Center[facility] the event this information is protected by the Federal Confidentiality of Alcohol and Drug Abuse Patient Records regulations: The Federal rules restrict any use of the information to criminally investigate or prosecute any alcohol or drug abuse patient.[facility] the event this information is protected by the Federal Confidentiality of Alcohol and Drug Abuse Patient Records regulations: The Federal rules restrict any use of the information to criminally investigate or prosecute any alcohol or drug abuse patient.[facility] the event this information is protected by the Federal Confidentiality of Alcohol and Drug Abuse Patient Records regulations: The Federal rules restrict any use of the information to criminally investigate or prosecute any alcohol or drug abuse patient.[facility] the event this information is protected by the Federal Confidentiality of Alcohol and Drug Abuse Patient Records regulations: The Federal rules restrict any use of the information to criminally investigate or prosecute any alcohol or drug abuse patient.[facility] the event this information is protected by the Federal Confidentiality of Alcohol and Drug Abuse Patient Records regulations: The Federal rules restrict any use of the information to criminally investigate or prosecute any alcohol or drug abuse patient.[facility] Center[facility] the event this information is protected by the Federal Confidentiality of Alcohol and Drug Abuse Patient Records regulations: The Federal rules restrict any use of the information to criminally investigate or prosecute any alcohol or drug abuse patient.[facility] the event this information is protected by the Federal Confidentiality of Alcohol and Drug Abuse Patient Records regulations: The Federal rules restrict any use of the information to criminally investigate or prosecute any alcohol or drug abuse patient.[facility] Center[facility] the event this information is protected by the Federal Confidentiality of Alcohol and Drug Abuse Patient Records regulations: The Federal rules restrict any use of the information to criminally investigate or prosecute any alcohol or drug abuse patient.[facility] Center[facility] the event this information is protected by the Federal Confidentiality of Alcohol and Drug Abuse Patient Records regulations: The Federal rules restrict any use of the information to criminally investigate or prosecute any alcohol or drug abuse patient.[facility] Center[facility] the event this information is protected by the Federal Confidentiality of Alcohol and Drug Abuse Patient Records regulations: The Federal rules restrict any use of the information to criminally investigate or prosecute any alcohol or drug abuse patient.[facility] Center[facility] the event this information is protected by the Federal Confidentiality of Alcohol and Drug Abuse Patient Records regulations: The Federal rules restrict any use of the information to criminally investigate or prosecute any alcohol or drug abuse patient.[facility] Center[facility] the event this information is protected by the Federal Confidentiality of Alcohol and Drug Abuse Patient Records regulations: The Federal rules restrict any use of the information to criminally investigate or prosecute any alcohol or drug abuse patient.[facility] Center[facility] the event this information is protected by the Federal Confidentiality of Alcohol and Drug Abuse Patient Records regulations: The Federal rules restrict any use of the information to criminally investigate or prosecute any alcohol or drug abuse patient.[facility] Center[facility] the event this information is protected by the Federal Confidentiality of Alcohol and Drug Abuse Patient Records regulations: The Federal rules restrict any use of the information to criminally investigate or prosecute any alcohol or drug abuse patient.[facility] Center[facility] the event this information is protected by the Federal Confidentiality of Alcohol and Drug Abuse Patient Records regulations: The Federal rules restrict any use of the information to criminally investigate or prosecute any alcohol or drug abuse patient.[facility] Center[facility] the event this information is protected by the Federal Confidentiality of Alcohol and Drug Abuse Patient Records regulations: The Federal rules restrict any use of the information to criminally investigate or prosecute any alcohol or drug abuse patient.[facility] CenterIn the event this information is protected by the Federal Confidentiality of Alcohol and Drug Abuse Patient Records regulations: The Federal rules restrict any use of the information to criminally investigate or prosecute any alcohol or drug abuse patient.[facility] CenterIn the event this information is protected by the Federal Confidentiality of Alcohol and Drug Abuse Patient Records regulations: The Federal rules restrict any use of the information to criminally investigate or prosecute any alcohol or drug abuse patient.[facility] CenterIn the event this information is protected by the Federal Confidentiality of Alcohol and Drug Abuse Patient Records regulations: The Federal rules restrict any use of the information to criminally investigate or prosecute any alcohol or drug abuse patient.[facility] CenterIn the event this information is protected by the Federal Confidentiality of Alcohol and Drug Abuse Patient Records regulations: The Federal rules restrict any use of the information to criminally investigate or prosecute any alcohol or drug abuse patient.[facility] CenterIn the event this information is protected by the Federal Confidentiality of Alcohol and Drug Abuse Patient Records regulations: The Federal rules restrict any use of the information to criminally investigate or prosecute any alcohol or drug abuse patient.[facility] CenterIn the event this information is protected by the Federal Confidentiality of Alcohol and Drug Abuse Patient Records regulations: The Federal rules restrict any use of the information to criminally investigate or prosecute any alcohol or drug abuse patient.[facility] CenterIn the event this information is protected by the Federal Confidentiality of Alcohol and Drug Abuse Patient Records regulations: The Federal rules restrict any use of the information to criminally investigate or prosecute any alcohol or drug abuse patient.[facility] Center[facility] the event this information is protected by the Federal Confidentiality of Alcohol and Drug Abuse Patient Records regulations: The Federal rules restrict any use of the information to criminally investigate or prosecute any alcohol or drug abuse patient.[facility] Center[facility] the event this information is protected by the Federal Confidentiality of Alcohol and Drug Abuse Patient Records regulations: The Federal rules restrict any use of the information to criminally investigate or prosecute any alcohol or drug abuse patient.[facility] CenterIn the event this information is protected by the Federal Confidentiality of Alcohol and Drug Abuse Patient Records regulations: The Federal rules restrict any use of the information to criminally investigate or prosecute any alcohol or drug abuse patient.[facility] CenterIn the event this information is protected by the Federal Confidentiality of Alcohol and Drug Abuse Patient Records regulations: The Federal rules restrict any use of the information to criminally investigate or prosecute any alcohol or drug abuse patient.[facility] CenterIn the event this information is protected by the Federal Confidentiality of Alcohol and Drug Abuse Patient Records regulations: The Federal rules restrict any use of the information to criminally investigate or prosecute any alcohol or drug abuse patient.[facility] CenterIn the event this information is protected by the Federal Confidentiality of Alcohol and Drug Abuse Patient Records regulations: The Federal rules restrict any use of the information to criminally investigate or prosecute any alcohol or drug abuse patient.[facility] Care Teams (unrecognized sec tion and content) Materials Analyst Relationship Specialty Start Date End Date Nelson Royal PCP - General Family Practice 06/27/15 Team Status: Active Member Role Status Dates Dr. Nelson Royal DO Family Provider Active Dr. Nelson Royal DO Primary Care Provider Active Team Status: Active Member Role Status Dates Dr. Nelson Royal DO Primary Care Provider Active Dr. Antonio Nair MD Attending Provider, Other Provi ramses Active Team Status: Active Member Role Status Dates Dr. Nelson Royal DO Primary Care Provider Active Dr. Antonio Nair MD Attending Provide r, Referring Provider, Other Provider Active Team Status: Inactive Member Role Status Dates Dr. Nelson Royal DO Primary Care Provider, Referri ng Provider Active Dr. Antonio Nair MD Attending Provider Active Team Status: Inactive Member Role Status Dates Dr. Nelson Royal DO Primary Care Provider, Referri ng Provider Active Candy Rodrigues GENERAL TECHNICIAN, GENERAL TECHNICIAN-C Attending Provider Active Team Status: Inactive Member Role Status Dates Dr. Nelson Royal DO Primary Care Provider Active Dr. Antonio Nair MD Attending Provider Active Team Status: Inactive Member Role Status Dates Dr. Nelson Royal DO Primary Care Provider Active Dr. Emma Sierra DO Attending Provider, Referrin g Provider Active Team Status: Inactive Member Role Status Dates Dr. Nelson Royal DO Primary Care Provider Active Dr. Antonio Nair MD Attending Provider, Referring P rowilbertder Active Team Status: Inactive Member Role Status Dates Dr. Nelson Royal DO Primary Care Provider Active Dr. Rahel Monson MD Attending Provider Active Team Status: Inactive Member Role Status Dates Dr. Nelson Royal DO Primary Care Provider Active Dr. Aj Alonso MD Attending Provider, Referring Pro vider Active Materials Analyst Relationship Specialty Start Date End Date Nelson Royal DO PCP - General Family Medicine 06/27/15 Materials Analyst Relationship Specialty Start Date End Date Nelson Royal DO PCP - General Family Medicine 06/27/15 Materials Analyst Relationship Specialty Start Date End Date Nelson Royal DO PCP - General Family Medicine 06/27/15 Materials Analyst Relationship Specialty Start Date End Date Nelson Royal DO PCP - General Family Medicine 06/27/15 Materials Analyst Relationship Specialty Start Date End Date Nelson Royal DO PCP - General Family Medicine 06/27/15 Materials Analyst Relationship Specialty Start Date End Date Nelson Royal DO PCP - General Family Medicine 06/27/15 Materials Analyst Relationship Specialty Start Date End Date Nelson Royal DO PCP - General Family Medicine 06/27/15 Materials Analyst Relationship Specialty Start Date End Date Nelson Royal DO PCP - General Family Medicine 06/27/15 Materials Analyst Relationship Specialty Start Date End Date Nelson Royal DO PCP - General Family Medicine 06/27/15 Materials Analyst Relationship Specialty Start Date End Date Nelson Royal DO PCP - General Family Medicine 06/27/15 Materials Analyst Relationship Specialty Start Date End Date Nelson Royal DO PCP - General Family Medicine 06/27/15 Materials Analyst Relationship Specialty Start Date End Date Nelson Royal DO PCP - General Family Medicine 06/27/15 Materials Analyst Relationship Specialty Start Date End Date Nelson Royal DO PCP - General Family Medicine 06/27/15 Materials Analyst Relationship Specialty Start Date End Date Nelson Royal DO PCP - General Family Medicine 06/27/15 Materials Analyst Relationship Specialty Start Date End Date Nelson Royal DO PCP - General Family Medicine 06/27/15 Materials Analyst Relationship Specialty Start Date End Date Nelson Royal DO PCP - General Family Medicine 06/27/15 Materials Analyst Relationship Specialty Start Date End Date Nelson Royal DO PCP - General Family Medicine 06/27/15 Materials Analyst Relationship Specialty Start Date End Date Nelson Royal DO PCP - General Family Medicine 06/27/15 Materials Analyst Relationship Specialty Start Date End Date Nelson Royal DO PCP - General Family Medicine 06/27/15 Materials Analyst Relationship Specialty Start Date End Date Nelson Royla PCP - General Family Medicine 06/27/15 Materials Analyst Relationship Specialty Start Date End Date Nelson Royal (Fax) PCP - General Family Medicine 06/27/15 Materials Analyst Relationship Specialty Start Date End Date Nelson RoyalDO PCP - General Family Medicine 06/27/15 Materials Analyst Relationship Specialty Start Date End Date Neslon RoyalDO PCP - General Family Medicine 06/27/15 Team Status: Active Member Role/Relationship Status Dates Dr. Nelson Royal DO Primary Care Provider Active Team Status: Inactive Member Role/Relationship Status Dates Dr. Nelson Royal DO Primary Care Provider Active Start: September 27, 2024 End: September 27, 2024 Dr. Nelson Royal DO Referring Provider Active Start: September 27, 2024 End: September 27, 2024 PEDRO Ortiz Attending Provider Active Start: September 27, 2024 End: September 27, 2024 Team Status: Active Member Role/Relationship Status Dates Dr. Nelson Royal DO Primary Care Provider Active Start: October 29, 2024 Dr. Bernard Lenz DO Attending Provider Active Start: October 29, 2024 Dr. Bernard Lenz DO Referring Provider Active Start: October 29, 2024 Team Status: Inactive Member Role/Relationship Status Dates Dr. Nelson Royal DO Primary Care Provider Active Start: November 27, 2024 Dr. Rahel Monson MD Attending Provider Active Start: November 27, 2024 Team Status: Inactive Member Role/Relationship Status Dates Dr. Nelson Royal DO Primary Care Provider Active Start: December 20, 2024 End: December 20, 2024 Dr. Arron Guidry MD Emergency Provider Active Sta rt: December 20, 2024 End: December 20, 2024 Team Status: Inactive Member Role/Relationship Status Dates Dr. Nelson Royal DO Primary Care Provider Active Start: December 20, 2024 End: December 20, 2024 Dr. Arron Guidry MD Attending Provider Active Sta rt: December 20, 2024 End: December 20, 2024 Dr. Arron Guidry MD Emergency Provider Active Sta rt: December 20, 2024 End: December 20, 2024 FOR RECORDS PERTAINING TO PATIENTS WHO ARE OR HAVE BEEN ENROLLED IN A CHEMICAL DEPENDENCY/SUBSTANCEABUSE PROGRAM, SOME INFORMATION MAY BE OMITTED. This clinical summary was aggregated from multiple sources. Caution should be exercised in using it in the provision of clinical care. This summary normalizes information from multiple sources, and as a consequence, information in this document may materially change the coding, format and clinical context of patient data. In addition, data may be omitted in some cases. CLINICAL DECISIONS SHOULD BE BASED ON THE PRIMARY CLINICAL RECORDS. [facility] [employer] provides no warranty or guarantee of the accuracy or completeness of information in this document.
--- NOTE | 2025-02-21 07:54 | PCM.HP.STD ---
HPI - General General Date of Admission: 02/21/25 Date of Service: 02/21/25 Chief Complaint: Personal history of polyps HPI Narrative FRANKY BOYD, is a 54 F who presents Chief Complaint: colonoscopy Pt here today to scheduled a screening colonoscopy. Her last colonoscopy was about three years ago with Dr. Duarte in [place]. She had a numerous pre-cancerous polyps and recommendation for repeat in 3 years. She has no family hx of colon cancer. She has been having some constipation since starting topiramate and phentermine. She stopped taking metamucil and started miralax which has helped. She has some anal irritation from excessive wiping and uses preparation H as needed. She also has a hx of acid reflux and has been on Nexium for many years which controls her symptoms. [facility] Medical History Post-menopausal Back pain History of diverticulitis Shortness of breath on exertion History of edema Normal Holter exam Chest pain Postoperative seroma of subcutaneous tissue after dermatologic procedure Lipoma of right lower extremity Wears glasses Anxiety Bladder disease Low iron High cholesterol Migraine headache Gastric reflux Non-smoker Hypertension Cardiology follow-up encounter History of stress test History of echocardiogram Dysesthesia Mass of right lower leg Gastrointestinal problem Vitamin deficiency Frequent headaches Anxiety and depression Chronic bronchitis UTI (urinary tract infection) Back problem Allergies Hyperhomocysteinemia Obesity GERD (gastroesophageal reflux disease) calcaneal varus deformity peroneal tendonopathy Home Medications ?Medication ?Instructions ?Recorded ?Last Taken ?Type atorvastatin 20 mg tablet 20 mg PO DAILY 03/23/19 02/20/25 History valsartan 80 mg tablet 80 mg PO DAILY 03/23/19 02/21/25 History alprazolam 0.25 mg tablet 0.25 mg PO BID PRN PRN Anxiety 06/08/19 Unknown History celecoxib 200 mg capsule 200 mg PO DAILY PRN Pain Or Fever 06/08/19 Unknown History valacyclovir 500 mg tablet 500 mg PO DAILY cold sores 06/08/19 02/20/25 History ferrous sulfate 325 mg (65 mg 325 mg PO .q Mon, Weds and Fri 10/23/21 02/18/25 History iron) tablet,delayed release rimegepant 75 mg disintegrating 75 mg PO .q 24 hours PRN migraine 10/23/21 Unknown History tablet (Nurtec ODT) headache rizatriptan 10 mg tablet (Maxalt) 10 mg PO PRN 10/23/21 Unknown History solifenacin 5 mg tablet 5 mg PO DAILY 10/28/21 02/20/25 History cholecalciferol (vitamin D3) 50 50 mcg PO BID 03/31/22 02/20/25 History mcg (2,000 unit) capsule (Vitamin D3) escitalopram oxalate 5 mg tablet 10 mg PO DAILY 03/31/22 02/20/25 History (Lexapro) Hydrocortisone 2.5% / Lidocaine 5% #1 ea 09/27/24 Unknown Rx ointment (cmpd) (Hydrocortisone 2.5%/lidocaine 5% ointment (compound)) phentermine 8 mg tablet (Lomaira) 15 mg PO DAILY 12/20/24 02/20/25 History topiramate 25 mg tablet (Topamax) 25 mg PO BID 12/20/24 02/20/25 History esomeprazole magnesium 40 mg 40 mg PO DAILY 02/18/25 02/21/25 History capsule,delayed release (Nexium) ondansetron 4 mg disintegrating 4 mg PO Q8H PRN nausea and vomiting 02/18/25 02/20/25 History tablet Allergy/AdvReac Type Severity Reaction Status Date / Time lisinopril Allergy Other Verified 02/21/25 07:52 doxycycline AdvReac Nausea/Vom/ Verified 02/21/25 07:52 Diarrhea Family History Father Heart disease Hypertension Other Anesthesia complication Angina at rest Anxiety Arthritis Breast cancer CVA (cerebral vascular accident) Cancer Depression High cholesterol Surgical History History of partial hysterectomy Hx of surgical procedure Status post excision of lipoma Hx of colonoscopy Hx of foot surgery History of colonoscopy History of hysterectomy S/P tendon repair Social History Smoking Status: Never smoker alcohol intake: never substance use type: does not use additional social history: Does Take Aspirin Does Take Ibuprofen ROS Constitutional Constitutional: Denies fatigue, fever(s), poor appetite, weight gain or weight loss Gastrointestinal Gastrointestinal: Denies belching, bloating, change in bowel habits, change in stool character, chewing difficulty, coffee ground emesis, constipation, cramping, diarrhea, dyspepsia, dysphagia, early satiety, excessive flatus, fecal incontinence, heartburn, hematemesis, hematochezia, hemorrhoids, loose stools, melena, nausea, odynophagia, rectal bleeding, tenesmus, vomiting or weight changes Physical Exam Const alert, oriented x3, no apparent distress and healthy appearing General Appearance: cooperative GI normal to inspection, nondistended, normoactive bowel sounds, soft to palpation, non-tender and non-distended Percussion: normal to percussion Rectal Exam: deferred Assessment & Plan Assessment/Plan (1) Colon polyps: PLAN: Assessment and Plan Assessment and Plan (1) Colon polyps: Status: Acute Plan: This is a 54 yo female pt here today for screening colonoscopy. Pt last colonoscopy was about three years ago with multiple pre-cancerous polyps and recommendation for repeat in 3 years. She was scheduled for this today. I have given her SuTab prep and zofran as needed as she has had nausea in the past with preps. She has mild constipation that is controlled with as needed miralax. SHe notices irritation on her anus from wiping. I have prescribed hydrocortisone and lidocaine ointment as needed. Advised to not use it daily. Her heartburn is well controlled on Nexium however she has changed her diet and wonders if she could decrease her dose of nexium. I have sent in esomeprazole 20 mg for her to trial. She will f/u after procedure. -Colonoscopy with Sutab prep, zofran sent for nausea -Continue miralax PRN -Hydrocortisone/lidocaine ointment PRN -Taper Nexium to 20 mg daily -f/u after procedure (2) Constipation: Status: Acute (3) GERD (gastroesophageal reflux disease): Status: Acute Medications: New esomeprazole magnesium 20 mg PO QDAY 30 caps 2RF Hydrocortisone 2.5% / Lidocaine 5% ointment (cmpd) (Hydrocortisone 2.5%/lidocaine 5% ointment (compound)) Apply to anus once daily as needed for irratation and hemorrhoids 1 ea 2RF ondansetron 4 mg PO Q8H 10 tabs 1RF sod sulf-pot chloride-mag sulf 1.479-0.188- 0.225 gram (Sutab) PO PER PKG DIR 24 tabs 0RF
[2025-02-21] MEDS: Lactated Ringers 1,000 ML 15 ML IV (08:03)
--- NOTE | 2025-02-21 08:28 | PCM.PRE.AN2 ---
ASA Classification* ASA Classification ASA Classification: 2 Assessment & Plan Anesthesia* Anesthesia Assessment Anesthesia Assessment: Discussed sedation and/or anesthesia options, risks, benefits, and alternatives with patient/parents/legal guardian/POA. Questions invited. The patient/parents/legal guardian/POA seems to understand and agrees to proceed with anesthesia plan. Reviewed the physical assessment, medical history, allergy history and patient home medications list prior to surgery/procedure/anesthetic and documented any changes. Performed airway and anesthesia risk assessments. Anesthesia Type Anesthesia Type: MAC History Source History Obtained from:: Patient and Chart Anesthesia Focused Assessment* Temperature: 97.2 F Pulse Rate: 88 Blood Pressure: 126/92 Respiratory Rate: 20 Pulse Ox: 98 Oxygen Delivery Method: Room Air Airway Assessment Mouth opens: >3 cm Mallampati Score: II Teeth Condition: Intact Neck Range of motion (ROM): Full ROM Labs Anesthesia Preop lab: CBC WBC, (4.4-11.0) 9.1 K/mm3 12/20/24, 20:43 RBC, (4.2-5.4) 4.70 M/mm3 12/20/24, 20:43 Hgb, (12.0-15.0) 13.9 g/dL 12/20/24, 20:43 Hct, (37-47) 42.0 % 12/20/24, 20:43 Plt Count, (150-450) 224 K/mm3 12/20/24, 20:43 CHEMISTRY Potassium, (3.3-5.1) 4.0 mmol/L 12/20/24, 20:43 Sodium, (133-145) 138 mmol/L 12/20/24, 20:43 Magnesium, (1.8-2.4) 2.3 mg/dL 04/21/16, 15:40 BUN, (4-19) 12 mg/dL 12/20/24, 20:43 Creatinine, (0.70-1.20) 0.86 mg/dL 12/20/24, 20:43 Glucose, (70-99) 130 mg/dL H 12/20/24, 20:43 TSH, (0.358-3.74) 2.51 uIU/mL 04/11/12, 17:03 COAG Pre-Assessment Diagnosis/Proposed Procedure Planned Operative Procedure(s): Colonoscopy Anesthesia History Anesthesia History - legal support analyst: Anesthesia History - legal support analyst Hx Hospitalization No 02/18/25 13:41 Any Problems With Anesthesia Yes: N,V 02/18/25 13:41 Cholinesterase deficiency No 02/18/25 13:41 You/Your Family Experience No 02/18/25 13:41 fever (hyperthermia) with Relationship Recent Exposure to Contagious No 02/21/25 07:54 Disease Does patient have nerve No 02/18/25 13:41 stimulator Patient instructed to have device shut off --Does patient have Pacemaker No 02/21/25 07:54 or ICD? When Was Last Pacemaker Check QUESTION #4 FULL TEXT: You/Your Family Experience fever (hyperthermia) with Anesthesia Any additional information?: Yes Any Problems With Anesthesia: Yes (slow wake with prior endoscopy and colonoscopy in [place]) Cholinesterase deficiency: No You/your family experience fever (hyperthermia) with anesthesia: No Last Oral Intake Last Oral intake: Last Oral Intake NPO since 01:00 02/21/25 07:54 Meds taken in AM with sips of Yes 02/21/25 07:54 water? Meds patient instructed to take am of surgery Any additional information?: Yes NPO since: 01:00 Meds taken in AM with sips of water?: Yes Meds patient instructed to take am of surgery: 16 OZ water with sutab 06:30 sip water with valsartan and nexium PONV PONV - legal support analyst: PONV - legal support analyst Female Yes 02/18/25 13:41 HX of Motion Sickness No 02/18/25 13:41 HX of N/V After Surgery No 02/18/25 13:41 Non-Smoker No 02/18/25 13:41 Duration of Surgery greater Yes 02/18/25 13:41 than 60 minutes Number of Risk Factors 2 02/18/25 13:41 PONV Score Moderate Risk 02/18/25 13:41 Any additional information?: No Height & Weight Height & Weight: Anesthesia: Height & Weight Height 5 ft 4 in 02/21/25 07:54 Weight: 90.8 kg 02/21/25 07:54 Body Mass Index (BMI) 34.3 02/21/25 07:54 Respiratory Assessment Respiratory Assessment - legal support analyst: Respiratory Tract Infection Hx - legal support analyst Hx Respiratory Tract Infection No 02/18/25 13:41 Any additional information?: No STOP Sleep Apnea STOP Sleep Apnea - legal support analyst: STOP Sleep Apnea - legal support analyst Hx Hypertension Yes: controlled with med 02/18/25 13:41 Hx Sleep Apnea No 02/18/25 13:41 CPAP BIPAP Do you snore loudly (louder No 02/18/25 13:41 than talking or can be heard Do you often feel tired/ No 02/18/25 13:41 fatigued/ sleepy during daytime? Has anyone observed you stop No 02/18/25 13:41 breathing during sleep? STOP Results Negative 02/18/25 13:41 QUESTION #5 FULL TEXT : Do you snore loudly (louder than talking or can be heard through closed doors)? 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 Specify any problems Hx of Preganancy in last 3 No 02/18/25 13:41 Months Nurse Filling Out Transfusion VCHRISTIN 02/18/25 13:41 & Questions: Date: 02/18/25 02/18/25 13:41 Time: 13:42 02/18/25 13:41 Patient unable to answer at this time (ie. confused, unrespo Any additional information?: No /Reproduction History /Reproductive History - legal support analyst: /Reproductive Hx- legal support analyst Hx Now No 02/18/25 13:41 Gestational Age (in weeks): EDC: Hx Hx Para Hx Section SAB No 02/18/25 13:41 Any additional information?: No Active Medications Active Medications: Current Medications Generic Name Dose Route Start Last Admin Trade Name Freq PRN Reason Stop Dose Admin Lactated Ringer's 1,000 mls @ 15 mls/hr 02/21/25 07:45 02/21/25 08:03 IV 15 mls/hr .Q48H OLEG Administration PFSH Medical History Post-menopausal Back pain History of diverticulitis Shortness of breath on exertion History of edema Normal Holter exam Chest pain Postoperative seroma of subcutaneous tissue after dermatologic procedure Lipoma of right lower extremity Wears glasses Anxiety Bladder disease Low iron High cholesterol Migraine headache Gastric reflux Non-smoker Hypertension Cardiology follow-up encounter History of stress test History of echocardiogram Dysesthesia Mass of right lower leg Gastrointestinal problem Vitamin deficiency Frequent headaches Anxiety and depression Chronic bronchitis UTI (urinary tract infection) Back problem Allergies Hyperhomocysteinemia Obesity GERD (gastroesophageal reflux disease) calcaneal varus deformity peroneal tendonopathy Home Medications ?Medication ?Instructions ?Recorded ?Last Taken ?Type atorvastatin 20 mg tablet 20 mg PO DAILY 03/23/19 02/20/25 History valsartan 80 mg tablet 80 mg PO DAILY 03/23/19 02/21/25 History alprazolam 0.25 mg tablet 0.25 mg PO BID PRN PRN Anxiety 06/08/19 Unknown History celecoxib 200 mg capsule 200 mg PO DAILY PRN Pain Or Fever 06/08/19 Unknown History valacyclovir 500 mg tablet 500 mg PO DAILY cold sores 06/08/19 02/20/25 History ferrous sulfate 325 mg (65 mg 325 mg PO .q Mon, Weds and Fri 10/23/21 02/18/25 History iron) tablet,delayed release rimegepant 75 mg disintegrating 75 mg PO .q 24 hours PRN migraine 10/23/21 Unknown History tablet (Nurtec ODT) headache rizatriptan 10 mg tablet (Maxalt) 10 mg PO PRN 10/23/21 Unknown History solifenacin 5 mg tablet 5 mg PO DAILY 10/28/21 02/20/25 History cholecalciferol (vitamin D3) 50 50 mcg PO BID 03/31/22 02/20/25 History mcg (2,000 unit) capsule (Vitamin D3) escitalopram oxalate 5 mg tablet 10 mg PO DAILY 03/31/22 02/20/25 History (Lexapro) Hydrocortisone 2.5% / Lidocaine 5% #1 ea 09/27/24 Unknown Rx ointment (cmpd) (Hydrocortisone 2.5%/lidocaine 5% ointment (compound)) phentermine 8 mg tablet (Lomaira) 15 mg PO DAILY 12/20/24 02/20/25 History topiramate 25 mg tablet (Topamax) 25 mg PO BID 12/20/24 02/20/25 History esomeprazole magnesium 40 mg 40 mg PO DAILY 02/18/25 02/21/25 History capsule,delayed release (Nexium) ondansetron 4 mg disintegrating 4 mg PO Q8H PRN nausea and vomiting 02/18/25 02/20/25 History tablet Allergy/AdvReac Type Severity Reaction Status Date / Time lisinopril Allergy Other Verified 02/21/25 07:52 doxycycline AdvReac Nausea/Vom/ Verified 02/21/25 07:52 Diarrhea Family History Father Heart disease Hypertension Other Anesthesia complication Angina at rest Anxiety Arthritis Breast cancer CVA (cerebral vascular accident) Cancer Depression High cholesterol Surgical History History of partial hysterectomy Hx of surgical procedure Status post excision of lipoma Hx of colonoscopy Hx of foot surgery History of colonoscopy History of hysterectomy S/P tendon repair Social History Smoking Status: Never smoker alcohol intake: never substance use type: does not use additional social history: Does Take Aspirin Does Take Ibuprofen Review of Systems (Anesthesia) ROS Narrative System reviewed and no additional complaints, except as documented.
--- NOTE | 2025-02-21 09:38 | OP.PROVAT_ITS ---
02/21/2025 Jadon Cline Do Re : Colonoscopy procedure for Meera Meléndez Dear Son This procedure was performed on January. My impressions and recommendations are as follows: Impressions : - Diverticulosis in the recto-sigmoid colon, in the sigmoid colon and in the descending colon. - No specimens collected. Recommendations : - Discharge patient to home. - Resume previous diet. - Continue present medications. - Await pathology results. - Repeat colonoscopy in 5 years for screening purposes. My findings are described in the full procedure note, which is enclosed. If I can be of further assistance, please feel free to contact me at . Sincerely, Chris Sepulveda DO 02/21/2025 9:37:44 AM This report has been signed electronically.
--- NOTE | 2025-02-21 09:38 | OP.COLON_ITS ---
Patient Name: Meera Meléndez Procedure Date: 02/21/2025 9:06 AM Date of : 1970 Age: 54 Procedure: Colonoscopy Indications: Screening for colorectal malignant neoplasm Providers: Chris Sepulveda DO Referring MD: Jadon Cline Do Medicines: Monitored Anesthesia Care Patient Profile: This is a 54 year old female. Refer to note in patient chart for documentation of history and physical. Last Colonoscopy: several years ago. Complications: No immediate complications. Procedure: Pre-Anesthesia Assessment: - Prior to the procedure, a History and Physical was performed, and patient medications and allergies were reviewed. The patient is competent. The risks and benefits of the procedure and the sedation options and risks were discussed with the patient. All questions were answered and informed consent was obtained. Patient identification and proposed procedure were verified by the physician in the pre-procedure area. Mental Status Examination: normal. Airway Examination: normal oropharyngeal airway and neck mobility. Respiratory Examination: clear to auscultation. ASA Grade Assessment: II - A patient with mild systemic disease. After reviewing the risks and benefits, the patient was deemed in satisfactory condition to undergo the procedure. The anesthesia plan was to use monitored anesthesia care (MAC). Immediately prior to administration of medications, the patient was re-assessed for adequacy to receive sedatives. The heart rate, respiratory rate, oxygen saturations, blood pressure, adequacy of pulmonary ventilation, and response to care were monitored throughout the procedure. The physical status of the patient was re-assessed after the procedure. After I obtained informed consent, the scope was passed under direct vision. Throughout the procedure, the patient's blood pressure, pulse, and oxygen saturations were monitored continuously. The Colonoscope was introduced through the anus and advanced to the cecum, identified by appendiceal orifice and ileocecal valve. The colonoscopy was performed without difficulty. The patient tolerated the procedure well. The quality of the bowel preparation was adequate. Anatomical landmarks were photographed. Scope In: 9:15:12 AM Scope Withdrawal Time 0 hours 8 minutes 12 seconds Scope Out: 9:28:52 AM Total Procedure Duration Time 0 hours 13 minutes 40 seconds Findings: The perianal and digital rectal examinations were normal. A few small and large-mouthed diverticula were found in the recto-sigmoid colon, sigmoid colon and descending colon. Impression: - Diverticulosis in the recto-sigmoid colon, in the sigmoid colon and in the descending colon. - No specimens collected. Recommendation: - Discharge patient to home. - Resume previous diet. - Continue present medications. - Await pathology results. - Repeat colonoscopy in 5 years for screening purposes. Procedure Code(s): --- Professional --- 69785, Colonoscopy, flexible; diagnostic, including collection of specimen(s) by brushing or washing, when performed (separate procedure) CPT copyright 2021 [employer]. All rights reserved. The codes documented in this report are preliminary and upon bartacker review may be revised to meet current compliance requirements. Chris Sepulveda DO 02/21/2025 9:37:44 AM This report has been signed electronically. Number of Addenda: 0 Note Initiated On: 02/21/2025 9:06 AM
--- NOTE | 2025-02-21 09:39 | PCM.POST.ANE ---
Anesthesia: Postop Eval I Current Vital Signs Temperature: 97 F Pulse Rate: 79 Blood Pressure: 108/58 Respiratory Rate: 16 Pulse Ox: 100 Oxygen Delivery Method: Room Air Assessment Airway patent: Yes Spontaneous unlabored respirations: Yes Mental status: Awake and Calm nausea: No Vomiting: No Anesthesia Complication: No Fluid Hydration Crystalloid volume administer (ml): 400 Total IV fluid infused: 400 Progress Note Anesthesia document: Postop Eval 1 completed: Yes
--- NOTE | 2025-02-21 10:46 | PCM.POSTANE2 ---
Anesthesia Postop Eval I Sum Postop Eval Completion status Anesthesia document: Postop Eval 1 completed: Yes Anesthesia Postop Eval I Summary Anesthesia Postop Eval I Summary: Anesthesia Postop Eval I: Assessment Summary Airway patent Yes 02/21/25 09:40 [email or web address] Spontaneous unlabored Yes 02/21/25 09:40 [email or web address] respirations Mental status Awake,Calm 02/21/25 09:40 [email or web address] nausea No 02/21/25 09:40 [email or web address] Vomiting No 02/21/25 09:40 [email or web address] Anesthesia Postop Eval I: Fluid Summary Crystalloid volume administer 400 02/21/25 09:40 [email or web address] (ml) Colloids volume administered ( ml) Blood Product volume administered (ml) Total IV fluid infused 400 02/21/25 09:40 [email or web address] Anesthesia Postop Eval I: Summary Notes Anesthesia Complication No 02/21/25 09:40 [email or web address] Anesthesia Complication Comment: Post-operative progress note Anesthesia: Postop Eval II Evaluation Mental status: Awake and Calm Pain Level: 0 nausea: No Vomiting: No Complications Anesthesia Complication: No
== END 2025-02-21 10:27 | disposition home or self-care (01) ==
LOC: EN 07:35 → AC 07:35
PROVIDERS: PCP Student in an Organized Health Care Education/Training Program; Referring Provider Student in an Organized Health Care Education/Training Program; Visit Provider Internal Medicine Gastroenterology
PROC: 0DJD8ZZ Inspection of Lower Intestinal Tract, Via Natural or Artificial Opening Endoscopic (ICD-10-PCS; CPT 45378; principal; 2025-02-21 08:55)
DX: Z12.11 Encounter for screening for malignant neoplasm of colon (principal); K57.30 Diverticulosis of large intestine without perforation or abscess without bleeding; E78.00 Pure hypercholesterolemia, unspecified; I10 Essential (primary) hypertension; Z86.0100 Personal history of colon polyps, unspecified; K21.9 Gastro-esophageal reflux disease without esophagitis; Z79.899 Other long term (current) drug therapy
CPT/HCPCS: 45378; J2405